=== PATIENT | male | born 1960 | race Caucasian/White ===

== ENCOUNTER 2017-09-14 15:56 | Inpatient (IN) | payer OTHER ==
[2017-09-14 17:23] VITALS: BMI 44.6
--- NOTE | 2017-09-14 18:56 | HP ---
Admission [facility] Chief Complaint: i am here for rehab Allergies/Adverse Reactions: Allergies Allergy/AdvReac Type Severity Reaction Status Date / Time shellfish derived Allergy Severe throat Verified 09/14/17 18:02 swelling No Known Drug Allergies Allergy Verified 09/14/17 18:02 History of Present Illness: 57 yo male with hx heroin, alcohol, methadone, percocet, and alcohol dependence is here seeking rehab. Completed detox at [facility] today. PMHX: Right BKA, DM II on insulin, A-fib, asthma, depression. Denies hx of black outs or seizures. Denies suicidal / homicidal ideation. Reports attempted suicide three months ago by keeping the gas stove on and was taken to [facility]. Longest period of sobriety 6 years while in nursing home. Reports since he reports hx opioid dependence for 20 years since fx ankle, both legs, and femur. Exam Limitations: Physical Impairment - Ebola screening Have you traveled outside of the country in the last 21 days: No Have you had contact with anyone from an Ebola affected area: No Have you been sick,other than usual withdrawal symptoms: No Do you have a fever: No - Review of Systems Constitutional: No Symptoms Reported EENT: reports: No Symptoms Reported Respiratory: reports: SOB with Exertion, Wheezing Cardiac: reports: See HPI GI: reports: No Symptoms Reported : reports: No Symptoms Reported Musculoskeletal: reports: See HPI Integumentary: reports: No Symptoms Reported Neuro: reports: No Symptoms reported Endocrine: reports: No Symptoms Reported Hematology: reports: See HPI Psychiatric: reports: Orientated x3, Depressed Other Systems: Reviewed and Negative Patient History - Patient Medical History Hx Anemia: No Hx Asthma: Yes (Pt is on MDI for asthma) Hx Chronic Obstructive Pulmonary Disease (COPD): No Hx Cancer: No Hx Cardiac Disorders: Yes (Pt has a hx of AFIB) Hx Congestive Heart Failure: No Hx Hypertension: Yes Hx Hypercholesterolemia: No Hx Pacemaker: No HX Cerebrovascular Accident: No Hx Seizures: No Hx Dementia: No Hx Diabetes: Yes (IDDM) Hx Gastrointestinal Disorders: Yes (GERD) Hx Liver Disease: No Hx Genitourinary Disorders: No Hx Sexually Transmitted Disorders: Yes (Syphillis 1987) Hx Renal Disease (ESRD): No Hx Thyroid Disease: No Hx Human Immunodeficiency Virus (HIV): Yes (last tested 1 year ago, declines testing todya) Hx Hepatitis C: No Hx Depression: Yes Hx Suicide Attempt: Yes (last attemppt three months ago ) Hx Schizophrenia: No - Patient Surgical History Past Surgical History: Yes Hx Neurologic Surgery: No Hx Cataract Extraction: No Hx Cardiac Surgery: No Hx Lung Surgery: No Hx Breast Surgery: No Hx Breast Biopsy: No Hx Abdominal Surgery: No Hx Appendectomy: No Hx Cholecystectomy: No Hx Genitourinary Surgery: No Hx Section: No Hx Orthopedic Surgery: Yes (RIGHT KNEE SX WITH STEEL ALEXIS; Right BKA 08/2016) Hx Hysterectomy: No Other Surgical History: MIKE FOOT SX Anesthesia Reaction: No - PPD History Previous Implant?: Yes Documented Results: Negative w/proof Date: 06/09/15 PPD to be Administered?: Yes - Reproductive History Patient is a Female of Child Bearing Age (11 -55 yrs old): No - Smoking Cessation Smoking history: Never smoked Have you smoked in the past 12 months: No Aproximately how many cigarettes per day: 0 Cigars Per Day: 0 Hx Chewing Tobacco Use: No Family Disease History - Family Disease History Family Disease History: [place]: Mother ( stomach, etoh), Sister (one ca -? type; one in [place]), Other: Father (no contact), Mother, Brother ( one - disabled at ), Son (one age 28 with back pain) Admission Physical Exam S - Vital Signs Vital Signs: Vital Signs - 24 hr 09/14/17 17:21 Temperature 98.1 F Pulse Rate 73 Respiratory 18 Rate Blood Pressure 122/71 - Physical General Appearance: Yes: No Apparent Distress, Disheveled, Obese, Anxious HEENTM: Yes: EOMI, Hearing grossly Normal, Normal ENT Inspection, Normocephalic , Normal Voice, DICKSON, Pharynx Normal, Tm's normal Respiratory: Yes: Chest Non-Tender, Lungs Clear, No Respiratory Distress, No Accessory Muscle Use, Wheezing Neck: Yes: No masses,lesions,Nodules, Trachea in good position Breast: Yes: Breast Exam Deferred Cardiology: Yes: Regular Rhythm, Regular Rate Abdominal: Yes: Normal Bowel Sounds, Non Tender, Soft, Protuberent Genitourinary: Yes: Within Normal Limits Back: Yes: Normal Inspection Musculoskeletal: Yes: Back pain, Other (unable to move left arm back r/t to injury uses a wheelchair to get around. Leg prosthesis and crutchesd to transfer to bathroom.) Extremities: Yes: Normal Capillary Refill, Normal Inspection, Non-Tender, Amputation (right BKA) Neurological: Yes: fixer boarding room II-XII NML intact, Fully Oriented, Alert, Motor Strength 5/5, Depressed Affect Integumentary: Yes: Normal Color, Warm, Moist Lymphatic: Yes: Within Normal Limits - Diagnostic (1) Opioid dependence Current Visit: Yes Status: Chronic Qualifiers: Substance use status: uncomplicated Qualified Code(s): F11.20 - Opioid dependence, uncomplicated (2) Alcohol dependence Current Visit: Yes Status: Acute Qualifiers: Substance use status: uncomplicated Qualified Code(s): F10.20 - Alcohol dependence, uncomplicated (3) Dependent for wheelchair mobility Current Visit: Yes Status: Acute (4) HTN (hypertension) Current Visit: Yes Status: Chronic Qualifiers: Hypertension type: essential hypertension Qualified Code(s): I10 - Essential (primary) hypertension Comment: on meds, followed by primary (5) Amputated below knee Current Visit: Yes Status: Chronic Qualifiers: Laterality: right Qualified Code(s): Z89.511 - Acquired absence of right leg below knee Comment: has prosthetic but does not use (6) History of atrial fibrillation Current Visit: Yes Status: Acute (7) Morbid obesity with BMI of 40.0-44.9, adult Current Visit: Yes Status: Chronic (8) Wheezing Current Visit: Yes Status: Acute (9) DM (diabetes mellitus) Current Visit: Yes Status: Chronic Qualifiers: Diabetes mellitus type: type 2 Diabetes mellitus terminal block assembler insulin use: with longterm use Diabetes mellitus complication status: without complication Qualified Code(s): E11.9 - Type 2 diabetes mellitus without complications; Z79.4 - terminal block assembler (current) use of insulin; Z79.4 - senior living ( current) use of insulin; Z79.4 - terminal block assembler (current) use of insulin; Z79.4 - terminal block assembler (current) use of insulin BHS Breath Alcohol Content Breath Alcohol Content: 0 Urine Drug Screen - Results Drug Screen Negative: No Urine Drug Screen Results: BZO-Benzodiazepines, MTD-Methadone Inpatient Rehab Admission - Initial Determination Are CD services needed?: Yes Free of communicable disease: Yes Not in need of hospitalization: Yes - Rehab Admission Criteria Previous failed treatment: Yes Poor recovery environment: Yes Comorbidities: Yes Lacks judgement: Yes Patient is meeting Inpatient Rehab admission criteria:: Yes
[2017-09-14] MEDS ORDERED: P-EPHED 60MG/TRIPROLIDI 2.5MG TABLET PO PRN (19:05)
[2017-09-14] MEDS ORDERED: MAGNESIUM CITRATE 300 ML BOTTLE PO PRN (19:05)
[2017-09-14] MEDS ORDERED: MAGNESIUM HYDROX 2400MG/30ML ORAL SUSPENSION 30 ML CUP PO PRN (19:05)
[2017-09-14] MEDS ORDERED: MENTHOL/PHENOL 1 EACH UD MM PRN (19:05)
[2017-09-14] MEDS ORDERED: guaiFENesin/D-METHORPHAN HB 10 ML UNIT-DOSE CUPS PO PRN (19:05)
[2017-09-14] MEDS ORDERED: MAG HYDROX/AL HYDROX/SIMETH 30 ML UNIT-DOSE CUP PO PRN (19:05)
[2017-09-14] MEDS ORDERED: ALBUTEROL SO4 0.083% IH SOL 2.5 MG/3 ML VIAL.NEB. NEB PRN (19:13)
[2017-09-14] MEDS ORDERED: TUBERCULIN PPD 5 TU/0.1ML VIAL ID ONE (22:06)
[2017-09-14] MEDS: GABAPENTIN 300 MG CAPSULE (FP) PO SCH (22:08)
[2017-09-14] MEDS: MELATONIN 5 MG TABLETS PO PRN (22:09)
[2017-09-14] MEDS: THIAMINE HCL 100 MG TABLET (FP) PO SCH (22:09)
[2017-09-14] MEDS: INSULIN SLIDING SCALE (NOVOLOG) 1 VIAL SQ SCH (22:15)
[2017-09-14] MEDS ORDERED: PT OWN MED DRAWER 7, Y5N ONE (22:25)
[2017-09-15] MEDS: ALBUTEROL SO4 18 GM HFA INHALER IH PRN
[2017-09-15 03:34] LABS: URINE APPEARANCE SLCLOUDY; URINE BILIRUBIN NEGATIVE (<2.0 mg/dL); URINE COLOR YELLOW; URINE GLUCOSE (UA) NEGATIVE (NEGATIVE); URINE KETONE NEGATIVE (NEGATIVE); URINE NITRITE NEGATIVE (NEGATIVE); URINE PROTEIN NEGATIVE (NEGATIVE); URINE UROBILINOGEN NEGATIVE mg/dL (0.2-1.0)
[2017-09-15 03:45] LABS: URINE LEUK ESTERASE 3+ (NEGATIVE)
[2017-09-15 03:49] LABS: EPI CELLS RARE /HPF (FEW); URINE HYALINE CAST 5 /lpf; URINE MUCUS RARE
--- NOTE | 2017-09-15 06:23 | HP ---
Psychiatrist Admission - Data Date of interview: 09/15/17 Admission source: [facility] detox Identifying data: This is the first [facility] admission for this 57 years old male, father of 2 children, unemployed on SSI, homeless Medical History: Significant for history of bronchial asthma, hypertension, atrial fibrillation, type 2 diabetes mellitus, GERD, arthritis both hands & right knee, obesity and history of orthosurgery for fracture right femur, right knee(right bka). Psychiatric History: Reports that his first psychiatric contact took place while he was in [place] [facility] in [facility]. Claims that he saw a psychiatrist there for anxiety attacks and was prescribed medication. He has no recollection of name of medication. After he was released from [place] [facility] in 1995, he saw his primary care physician who prescribed Klonopin instead which he last took till the end of 2016. Reports that in May 2017, he was admitted to [facility] for suicidal attempt by keeping the gas stove on. He was there for a couple of weeks and treated with medications. On discharge, he was referred to [facility] where he still attends. According to [employer], scripts for Escitalopram 10 mg was filled on 07/21/17 and Mirtazapine 15 mg filled on 08/11/17. At present, reports feeling depressed and sleeping poorly Physical/Sexual Abuse/Trauma History: Denies history of emotional, physical or sexual abuse as well as DV relationship. No service Additional Comment: Reports history of multiple arrsts including 3 felony conviction. Denies being on parole/probatio at present Vital Signs: Vital Signs - 24 hr 09/14/17 09/15/17 09/15/17 17:21 00:30 03:30 Temperature 98.1 F Pulse Rate 73 Respiratory 18 20 20 Rate Blood Pressure 122/71 Allergies/Adverse Reactions: Allergies Allergy/AdvReac Type Severity Reaction Status Date / Time shellfish derived Allergy Severe throat Verified 09/14/17 18:02 swelling No Known Drug Allergies Allergy Verified 09/14/17 18:02 Date of last physical exam: 09/14/17 Concur with the findings of this exam: Yes - Substance Abuse/Tx History Hx Alcohol Use: Yes Hx Substance Use: Yes Substance Use Type: Alcohol (Started drinking alcohol at age 15, consumes 2x 6pk (16oz) daily. Last drank on 09/07/17), Heroin (Started using heroin at age 56, consumes 20 bags daily. Last used on 09/07/17), Opiates (Also used percocet and vocodin) Hx Substance Use Treatment: Yes (one previous inpt detox @ [facility] & a recent inpt detox @ [facility]) Mental Status Exam - Mental Status Exam Alert and Oriented to: Time, Place, Person Cognitive Function: Fair Patient Appearance: Disheveled Mood: Depressed Affect: Appropriate Patient Behavior: Cooperative Speech Pattern: Clear Voice Loudness: Normal Thought Process: Intact, Goal Oriented Thought Disorder: Not Present Hallucinations: Denies Suicidal Ideation: Denies Homicidal Ideation: Denies Insight/Judgement: Fair Sleep: Poorly Appetite: Poor Muscle strength/Tone: Normal Gait/Station: Normal Psychiatric Findings - Problem List (Davis 1, 2,3) (1) Alcohol dependence Current Visit: Yes Status: Acute Qualifiers: Substance use status: uncomplicated Qualified Code(s): F10.20 - Alcohol dependence, uncomplicated (2) Opioid dependence Current Visit: Yes Status: Acute Qualifiers: Substance use status: uncomplicated Qualified Code(s): F11.20 - Opioid dependence, uncomplicated (3) MDD (major depressive disorder) Current Visit: Yes Status: Chronic (4) Substance induced mood disorder Current Visit: Yes Status: Acute (5) Substance-induced sleep disorder Current Visit: Yes Status: Acute (6) Dependent for wheelchair mobility Current Visit: Yes Status: Chronic (7) History of atrial fibrillation Current Visit: Yes Status: Chronic (8) Amputated below knee Current Visit: Yes Status: Chronic Qualifiers: Laterality: right Qualified Code(s): Z89.511 - Acquired absence of right leg below knee Comment: has prosthetic but does not use (9) DM (diabetes mellitus) Current Visit: Yes Status: Chronic Qualifiers: Diabetes mellitus type: type 2 Diabetes mellitus care home insulin use: with care home use Diabetes mellitus complication status: without complication Qualified Code(s): E11.9 - Type 2 diabetes mellitus without complications; Z79.4 - group home (current) use of insulin; Z79.4 - group home ( current) use of insulin; Z79.4 - intermediate manager (current) use of insulin; Z79.4 - intermediate manager (current) use of insulin (10) HTN (hypertension) Current Visit: Yes Status: Chronic Qualifiers: Hypertension type: essential hypertension Qualified Code(s): I10 - Essential (primary) hypertension Comment: on meds, followed by primary (11) Morbid obesity with BMI of 40.0-44.9, adult Current Visit: Yes Status: Chronic (12) Charcot's joint of left ankle Current Visit: No Status: Chronic Comment: wearing boot - Initial Treatment Plan Initial Treatment Plan: 1) Continue Lexapro 10 mg po daily and Remeron 15 mg po HS. 2) Start Vistaril 50 mg po Q 4hrs prn for anxiety. 3) Monitor progress
[2017-09-15] MEDS: ACETAMINOPHEN 325 MG TABLET (FP) PO PRN ×2 (06:28→21:17)
[2017-09-15] MEDS: GABAPENTIN 300 MG CAPSULE (FP) PO SCH ×3 (06:28→21:17)
[2017-09-15] MEDS: INSULIN (LEVEMIR) 100 UNITS/ML UNITS SQ SCH (07:43)
[2017-09-15] MEDS: INSULIN SLIDING SCALE (NOVOLOG) 1 VIAL SQ SCH ×3 (07:44→17:15)
[2017-09-15] MEDS ORDERED: INSULIN (NOVOLOG) ASPART 100 UNITS/ML 10ML VIAL ONE ×3 (07:45→17:02)
[2017-09-15] MEDS: PANTOPRAZOLE 40 MG TABLET (FP) PO SCH (09:54)
[2017-09-15] MEDS: RAMIPRIL 5 MG CAPSULE (FP) PO SCH (09:54)
[2017-09-15] MEDS: PRENATAL VITAMINS W/ FOLIC ACID TABLET (FP) PO SCH (09:54)
[2017-09-15 10:06] LABS: HEMATOCRIT 36.2 % (35.4-49); HEMOGLOBIN 11.9 GM/dL (11.7-16.9); MCH 28.8 pg (25.7-33.7); MCHC 32.9 g/dl (32.0-35.9); MEAN CELL VOLUME 87.6 fl (80-96); PLATELET COUNT 315 K/MM3 (134-434); RBC 4.14 M/mm3 (4.00-5.60); RDW 15.8 % (11.9-15.9); WHITE BLOOD COUNT 7.6 K/mm3 (4.0-10.0)
--- NOTE | 2017-09-15 10:24 | EKG ---
Test Reason : Blood Pressure : / mmHG Vent. Rate : 073 BPM Atrial Rate : 073 BPM P-R Int : 170 ms QRS Dur : 094 ms QT Int : 394 ms P-R-T Axes : -05 032 016 degrees QTc Int : 434 ms NORMAL SINUS RHYTHM NORMAL ECG WHEN COMPARED WITH ECG OF 31-JAN-2016 09:23, NO SIGNIFICANT CHANGE WAS FOUND Confirmed by MD CHILO, SAHIL ([id number]) on 09/15/2017 10:24:24 AM Referred By: Confirmed By:SAHIL WOO MD
[2017-09-15 10:25] LABS: INR 2.32 (0.82-1.09); PROTHROMBIN TIME (PATIENT) 26.2 SEC (9.7-13.0)
[2017-09-15 11:10] LABS: ALBUMIN 3.2 g/dl (3.4-5.0); CALCIUM 8.7 mg/dL (8.5-10.1); CHLORIDE 103 mmol/L (98-107); POTASSIUM 4.5 mmol/L (3.5-5.1); SODIUM 140 mmol/L (136-145)
[2017-09-15 11:13] LABS: ALK PHOS 110 U/L (45-117); ANION GAP 5 (8-16); BILIRUBIN,TOTAL 0.2 mg/dL (0.2-1.0); BLOOD UREA NITROGEN 14 mg/dL (7-18); CO2 32 mmol/L (21-32); CREATININE 1.2 mg/dL (0.7-1.3); GLUCOSE,RANDOM 223 mg/dL (74-106); SGOT/AST 12 U/L (15-37); SGPT/ALT 13 U/L (12-78); TOT PROT 7.4 g/dl (6.4-8.2)
[2017-09-15] MEDS: ESCITALOPRAM OXALATE 10 MG TABLET (FP) PO SCH (16:09)
[2017-09-15] MEDS: amLODIPine BESYLATE 5 MG TABLET (FP) PO SCH (17:11)
[2017-09-15] MEDS: WARFARIN NA 10 MG TABLET (FP) PO SCH (17:11)
[2017-09-15] MEDS: THIAMINE HCL 100 MG TABLET (FP) PO SCH (21:17)
[2017-09-15] MEDS: MELATONIN 5 MG TABLETS PO PRN (21:17)
[2017-09-15] MEDS: MIRTAZAPINE 15 MG TABLET (FP) PO SCH (21:19)
[2017-09-16] MEDS: ALBUTEROL SO4 18 GM HFA INHALER IH PRN (00:34)
[2017-09-16] MEDS: IBUPROFEN 400 MG TABLET (FP) PO PRN ×3 (00:35→21:22)
[2017-09-16] MEDS: GABAPENTIN 300 MG CAPSULE (FP) PO SCH ×3 (06:05→21:23)
[2017-09-16] MEDS: ACETAMINOPHEN 325 MG TABLET (FP) PO PRN ×2 (06:06→17:58)
[2017-09-16] MEDS: INSULIN SLIDING SCALE (NOVOLOG) 1 VIAL SQ SCH ×3 (07:05→17:02)
[2017-09-16] MEDS: INSULIN (LEVEMIR) 100 UNITS/ML UNITS SQ SCH (07:42)
[2017-09-16] MEDS: RAMIPRIL 5 MG CAPSULE (FP) PO SCH (10:02)
[2017-09-16] MEDS: PANTOPRAZOLE 40 MG TABLET (FP) PO SCH (10:02)
[2017-09-16] MEDS: ESCITALOPRAM OXALATE 10 MG TABLET (FP) PO SCH (10:02)
[2017-09-16] MEDS: PRENATAL VITAMINS W/ FOLIC ACID TABLET (FP) PO SCH (10:02)
[2017-09-16] MEDS: amLODIPine BESYLATE 5 MG TABLET (FP) PO SCH (10:03)
[2017-09-16] MEDS ORDERED: INSULIN (NOVOLOG) ASPART 100 UNITS/ML 10ML VIAL ONE ×2 (11:42→17:15)
[2017-09-16] MEDS: WARFARIN NA 10 MG TABLET (FP) PO SCH (17:00)
[2017-09-16] MEDS: MIRTAZAPINE 15 MG TABLET (FP) PO SCH (21:23)
[2017-09-16] MEDS: MELATONIN 5 MG TABLETS PO PRN (21:23)
[2017-09-16] MEDS: THIAMINE HCL 100 MG TABLET (FP) PO SCH (21:24)
[2017-09-17] MEDS: GABAPENTIN 300 MG CAPSULE (FP) PO SCH ×3 (06:06→21:18)
[2017-09-17] MEDS: ACETAMINOPHEN 325 MG TABLET (FP) PO PRN ×2 (06:09→10:41)
[2017-09-17] MEDS ORDERED: INSULIN (LEVEMIR) 100 UNITS/ML UNITS SQ ONE (06:52)
[2017-09-17] MEDS ORDERED: INSULIN (NOVOLOG) ASPART 100 UNITS/ML 10ML VIAL ONE ×3 (06:52→16:56)
[2017-09-17] MEDS: INSULIN (LEVEMIR) 100 UNITS/ML UNITS SQ SCH (07:39)
[2017-09-17] MEDS: INSULIN SLIDING SCALE (NOVOLOG) 1 VIAL SQ SCH ×3 (07:39→16:54)
[2017-09-17 10:33] LABS: INR 2.78 (0.82-1.09); PROTHROMBIN TIME (PATIENT) 31.4 SEC (9.7-13.0)
[2017-09-17] MEDS: PANTOPRAZOLE 40 MG TABLET (FP) PO SCH (10:38)
[2017-09-17] MEDS: ESCITALOPRAM OXALATE 10 MG TABLET (FP) PO SCH (10:38)
[2017-09-17] MEDS: amLODIPine BESYLATE 5 MG TABLET (FP) PO SCH (10:38)
[2017-09-17] MEDS: PRENATAL VITAMINS W/ FOLIC ACID TABLET (FP) PO SCH (10:38)
[2017-09-17] MEDS: RAMIPRIL 5 MG CAPSULE (FP) PO SCH (10:38)
--- NOTE | 2017-09-17 14:21 | PN ---
[facility] Progress Note Note: Patient c/o of chronic pain on both hands and feet, no trauma. Vital Signs Temperature 97.5 F L 09/17/17 06:49 Pulse Rate 78 09/17/17 10:00 Respiratory Rate 19 09/17/17 10:00 Blood Pressure 133/67 09/17/17 10:00 O2 Sat by Pulse Oximetry (%) Laboratory Last Values WBC 7.6 K/mm3 (4.0-10.0) 09/15/17 07:30 RBC 4.14 M/mm3 (4.00-5.60) 09/15/17 07:30 Hgb 11.9 GM/dL (11.7-16.9) 09/15/17 07:30 Hct 36.2 % (35.4-49) 09/15/17 07:30 MCV 87.6 fl (80-96) 09/15/17 07:30 MCH 28.8 pg (25.7-33.7) 09/15/17 07:30 MCHC 32.9 g/dl (32.0-35.9) 09/15/17 07:30 RDW 15.8 % (11.9-15.9) D 09/15/17 07:30 Plt Count 315 K/MM3 (134-434) 09/15/17 07:30 MPV 8.0 fl (7.5-11.1) 09/15/17 07:30 PT with INR 31.40 SEC (9.7-13.0) H 09/17/17 07:00 INR 2.78 (0.82-1.09) H 09/17/17 07:00 Sodium 140 mmol/L (136-145) 09/15/17 07:30 Potassium 4.5 mmol/L (3.5-5.1) 09/15/17 07:30 Chloride 103 mmol/L (98-107) 09/15/17 07:30 Carbon Dioxide 32 mmol/L (21-32) 09/15/17 07:30 Anion Gap 5 (8-16) L 09/15/17 07:30 BUN 14 mg/dL (7-18) D 09/15/17 07:30 Creatinine 1.2 mg/dL (0.7-1.3) 09/15/17 07:30 Creat Clearance w eGFR > 60 (>60) 09/15/17 07:30 POC Glucometer 337 UNITS (80-120) 09/15/17 21:15 Random Glucose 223 mg/dL (74-106) H 09/15/17 07:30 Calcium 8.7 mg/dL (8.5-10.1) 09/15/17 07:30 Total Bilirubin 0.2 mg/dL (0.2-1.0) D 09/15/17 07:30 AST 12 U/L (15-37) L 09/15/17 07:30 ALT 13 U/L (12-78) 09/15/17 07:30 Alkaline Phosphatase 110 U/L (45-117) D 09/15/17 07:30 Total Protein 7.4 g/dl (6.4-8.2) 09/15/17 07:30 Albumin 3.2 g/dl (3.4-5.0) L 09/15/17 07:30 Urine Color Yellow 09/14/17 22:40 Urine Appearance Slcloudy 09/14/17 22:40 Urine pH 7.0 (5.0-8.0) D 09/14/17 22:40 Ur Specific [place] 1.008 (1.001-1.035) 09/14/17 22:40 Urine Protein Negative (NEGATIVE) 09/14/17 22:40 Urine Glucose (UA) Negative (NEGATIVE) 09/14/17 22:40 Urine Ketones Negative (NEGATIVE) 09/14/17 22:40 Urine Blood Negative (NEGATIVE) 09/14/17 22:40 Urine Nitrite Negative (NEGATIVE) 09/14/17 22:40 Urine Bilirubin Negative (<2.0 mg/dL) 09/14/17 22:40 Urine Urobilinogen Negative mg/dL (0.2-1.0) 09/14/17 22:40 Ur Leukocyte Esterase 3+ (NEGATIVE) H 09/14/17 22:40 Urine WBC (Auto) 67 /hpf (3-5) 09/14/17 22:40 Urine RBC (Auto) None /hpf (0-3) 09/14/17 22:40 Ur Epithelial Cells Rare /HPF (FEW) 09/14/17 22:40 Hyaline Casts 5 /lpf 09/14/17 22:40 Urine Mucus Rare 09/14/17 22:40 RPR Titer Nonreactive (NONREACTIVE) 09/15/17 07:30 Plan: Continue neurontin 600mg TID Continue Ibuprofen 400mg q6h Continue to monitor
[2017-09-17] MEDS ORDERED: TIZANIDINE HCL 2 MG TABLET PO PRN (14:46)
[2017-09-17] MEDS: IBUPROFEN 400 MG TABLET (FP) PO PRN (14:48)
[2017-09-17] MEDS: LIDOCAINE 5% TOPICAL PATCH TP SCH (16:52)
[2017-09-17] MEDS: WARFARIN NA 10 MG TABLET (FP) PO SCH (17:01)
[2017-09-17] MEDS: MELATONIN 5 MG TABLETS PO PRN (21:18)
[2017-09-17] MEDS: THIAMINE HCL 100 MG TABLET (FP) PO SCH (21:18)
[2017-09-17] MEDS: MIRTAZAPINE 15 MG TABLET (FP) PO SCH (21:18)
[2017-09-17] MEDS: LIDOCAINE PATCH REMOVAL MC SCH (21:20)
[2017-09-17] MEDS: URSODIOL 300 MG CAPSULE PO SCH (22:05)
[2017-09-17] MEDS: ALBUTEROL SO4 18 GM HFA INHALER IH PRN (22:59)
[2017-09-18] MEDS: GABAPENTIN 300 MG CAPSULE (FP) PO SCH ×3 (06:20→21:23)
[2017-09-18] MEDS ORDERED: INSULIN (NOVOLOG) ASPART 100 UNITS/ML 10ML VIAL ONE ×3 (06:51→17:07)
[2017-09-18] MEDS: INSULIN SLIDING SCALE (NOVOLOG) 1 VIAL SQ SCH ×3 (07:49→17:03)
[2017-09-18] MEDS: INSULIN (LEVEMIR) 100 UNITS/ML UNITS SQ SCH (07:49)
[2017-09-18] MEDS: RAMIPRIL 5 MG CAPSULE (FP) PO SCH (09:10)
[2017-09-18] MEDS: PRENATAL VITAMINS W/ FOLIC ACID TABLET (FP) PO SCH (09:10)
[2017-09-18] MEDS: PANTOPRAZOLE 40 MG TABLET (FP) PO SCH (09:10)
[2017-09-18] MEDS: ESCITALOPRAM OXALATE 10 MG TABLET (FP) PO SCH (09:10)
[2017-09-18] MEDS: amLODIPine BESYLATE 5 MG TABLET (FP) PO SCH (09:11)
[2017-09-18] MEDS: URSODIOL 300 MG CAPSULE PO SCH ×2 (09:11→21:23)
[2017-09-18] MEDS: LIDOCAINE 5% TOPICAL PATCH TP SCH (09:11)
[2017-09-18] MEDS: FOLIC ACID 1 MG TABLET (FP) PO SCH (09:12)
[2017-09-18] MEDS ORDERED: PT OWN MED DRAWER 7, Y5N ONE ×2 (09:13→16:28)
[2017-09-18] MEDS: ZINC SULFATE 220 MG CAPSULE (FP) PO SCH (09:13)
[2017-09-18] MEDS: IBUPROFEN 400 MG TABLET (FP) PO PRN ×2 (09:14→21:25)
[2017-09-18] MEDS: WARFARIN NA 10 MG TABLET (FP) PO SCH (17:02)
[2017-09-18] MEDS: THIAMINE HCL 100 MG TABLET (FP) PO SCH (21:23)
[2017-09-18] MEDS: MIRTAZAPINE 15 MG TABLET (FP) PO SCH (21:23)
[2017-09-18] MEDS: MELATONIN 5 MG TABLETS PO PRN (21:23)
[2017-09-18] MEDS: LIDOCAINE PATCH REMOVAL MC SCH (21:24)
[2017-09-19] MEDS: ALBUTEROL SO4 18 GM HFA INHALER IH PRN ×2 (00:13→22:46)
[2017-09-19] MEDS: GABAPENTIN 300 MG CAPSULE (FP) PO SCH ×3 (06:22→21:22)
[2017-09-19] MEDS: IBUPROFEN 400 MG TABLET (FP) PO PRN ×2 (06:23→21:22)
[2017-09-19] MEDS: INSULIN SLIDING SCALE (NOVOLOG) 1 VIAL SQ SCH ×3 (07:32→16:56)
[2017-09-19] MEDS: INSULIN (LEVEMIR) 100 UNITS/ML UNITS SQ SCH (07:52)
[2017-09-19] MEDS ORDERED: INSULIN (NOVOLOG) ASPART 100 UNITS/ML 10ML VIAL ONE ×3 (07:53→16:57)
[2017-09-19] MEDS: amLODIPine BESYLATE 5 MG TABLET (FP) PO SCH (09:56)
[2017-09-19] MEDS: RAMIPRIL 5 MG CAPSULE (FP) PO SCH (09:56)
[2017-09-19] MEDS: ESCITALOPRAM OXALATE 10 MG TABLET (FP) PO SCH (09:56)
[2017-09-19] MEDS: FOLIC ACID 1 MG TABLET (FP) PO SCH (09:57)
[2017-09-19] MEDS: PANTOPRAZOLE 40 MG TABLET (FP) PO SCH (09:57)
[2017-09-19] MEDS: URSODIOL 300 MG CAPSULE PO SCH ×2 (09:57→21:22)
[2017-09-19] MEDS: ZINC SULFATE 220 MG CAPSULE (FP) PO SCH (09:58)
[2017-09-19] MEDS: LIDOCAINE 5% TOPICAL PATCH TP SCH (09:58)
[2017-09-19] MEDS: PRENATAL VITAMINS W/ FOLIC ACID TABLET (FP) PO SCH (09:59)
[2017-09-19] MEDS: WARFARIN NA 10 MG TABLET (FP) PO SCH (16:59)
[2017-09-19] MEDS ORDERED: PT OWN MED DRAWER 7, Y5N ONE ×2 (20:16→22:45)
[2017-09-19] MEDS: MELATONIN 5 MG TABLETS PO PRN (21:22)
[2017-09-19] MEDS: THIAMINE HCL 100 MG TABLET (FP) PO SCH (21:22)
[2017-09-19] MEDS: MIRTAZAPINE 15 MG TABLET (FP) PO SCH (21:22)
[2017-09-19] MEDS: LIDOCAINE PATCH REMOVAL MC SCH (21:56)
[2017-09-20] MEDS: IBUPROFEN 400 MG TABLET (FP) PO PRN (06:17)
[2017-09-20] MEDS: GABAPENTIN 300 MG CAPSULE (FP) PO SCH ×3 (06:17→21:18)
[2017-09-20] MEDS ORDERED: INSULIN (NOVOLOG) ASPART 100 UNITS/ML 10ML VIAL ONE ×3 (07:16→18:01)
[2017-09-20] MEDS: INSULIN (LEVEMIR) 100 UNITS/ML UNITS SQ SCH (07:44)
[2017-09-20] MEDS: INSULIN SLIDING SCALE (NOVOLOG) 1 VIAL SQ SCH ×3 (07:45→17:31)
[2017-09-20] MEDS: ESCITALOPRAM OXALATE 10 MG TABLET (FP) PO SCH (10:25)
[2017-09-20] MEDS: URSODIOL 300 MG CAPSULE PO SCH ×2 (10:26→21:18)
[2017-09-20] MEDS: ZINC SULFATE 220 MG CAPSULE (FP) PO SCH (10:26)
[2017-09-20] MEDS: amLODIPine BESYLATE 5 MG TABLET (FP) PO SCH (10:26)
[2017-09-20] MEDS: PANTOPRAZOLE 40 MG TABLET (FP) PO SCH (10:26)
[2017-09-20] MEDS: PRENATAL VITAMINS W/ FOLIC ACID TABLET (FP) PO SCH (10:26)
[2017-09-20] MEDS: RAMIPRIL 5 MG CAPSULE (FP) PO SCH (10:26)
[2017-09-20] MEDS: FOLIC ACID 1 MG TABLET (FP) PO SCH (10:26)
[2017-09-20] MEDS: LIDOCAINE 5% TOPICAL PATCH TP SCH (10:27)
[2017-09-20] MEDS: WARFARIN NA 10 MG TABLET (FP) PO SCH (17:31)
[2017-09-20] MEDS: THIAMINE HCL 100 MG TABLET (FP) PO SCH (21:17)
[2017-09-20] MEDS: ACETAMINOPHEN 325 MG TABLET (FP) PO PRN (21:18)
[2017-09-20] MEDS: MIRTAZAPINE 15 MG TABLET (FP) PO SCH (21:18)
[2017-09-20] MEDS: MELATONIN 5 MG TABLETS PO PRN (21:18)
[2017-09-20] MEDS: LIDOCAINE PATCH REMOVAL MC SCH (21:54)
[2017-09-21] MEDS: GABAPENTIN 300 MG CAPSULE (FP) PO SCH ×3 (06:23→21:18)
[2017-09-21] MEDS ORDERED: INSULIN (NOVOLOG) ASPART 100 UNITS/ML 10ML VIAL ONE ×3 (06:34→16:56)
[2017-09-21] MEDS: INSULIN SLIDING SCALE (NOVOLOG) 1 VIAL SQ SCH ×3 (07:33→16:55)
[2017-09-21] MEDS: INSULIN (LEVEMIR) 100 UNITS/ML UNITS SQ SCH (07:33)
[2017-09-21] MEDS: FOLIC ACID 1 MG TABLET (FP) PO SCH (09:55)
[2017-09-21] MEDS: PANTOPRAZOLE 40 MG TABLET (FP) PO SCH (09:55)
[2017-09-21] MEDS: URSODIOL 300 MG CAPSULE PO SCH ×2 (09:55→21:19)
[2017-09-21] MEDS: ESCITALOPRAM OXALATE 10 MG TABLET (FP) PO SCH (09:55)
[2017-09-21] MEDS: PRENATAL VITAMINS W/ FOLIC ACID TABLET (FP) PO SCH (09:55)
[2017-09-21] MEDS: LIDOCAINE 5% TOPICAL PATCH TP SCH (09:56)
[2017-09-21] MEDS: amLODIPine BESYLATE 5 MG TABLET (FP) PO SCH (09:56)
[2017-09-21] MEDS: ZINC SULFATE 220 MG CAPSULE (FP) PO SCH (09:56)
[2017-09-21] MEDS: RAMIPRIL 5 MG CAPSULE (FP) PO SCH (09:56)
--- NOTE | 2017-09-21 10:37 | PN ---
[facility] Progress Note Note: Patient presents with headache, body aches and muscle pain. Has history of heroin and opiod dependence. Completed detox last week. Vital Signs Temperature 97.6 F 09/21/17 07:02 Pulse Rate 65 09/21/17 07:02 Respiratory Rate 18 09/21/17 07:02 Blood Pressure 150/75 09/21/17 07:02 O2 Sat by Pulse Oximetry (%) Laboratory Tests 09/14/17 09/14/17 09/15/17 22:00 22:40 06:27 WBC RBC Hgb Hct MCV MCH MCHC RDW Plt Count MPV PT with INR INR Sodium Potassium Chloride Carbon Dioxide Anion Gap BUN Creatinine Creat Clearance w eGFR POC Glucometer 156 157 Random Glucose Calcium Total Bilirubin AST ALT Alkaline Phosphatase Obj Total Protein Albumin Urine Color Yellow Urine Appearance Slcloudy Urine pH 7.0 D Ur Specific [place] 1.008 Urine Protein Negative Urine Glucose (UA) Negative Urine Ketones Negative Urine Blood Negative Urine Nitrite Negative Urine Bilirubin Negative Urine Urobilinogen Negative Ur Leukocyte Esterase 3+ H Urine WBC (Auto) 67 Urine RBC (Auto) None Ur Epithelial Cells Rare Hyaline Casts 5 Urine Mucus Rare RPR Titer 09/15/17 09/15/17 09/15/17 07:30 07:30 07:30 WBC 7.6 RBC 4.14 Hgb 11.9 Hct 36.2 MCV 87.6 MCH 28.8 MCHC 32.9 RDW 15.8 D Plt Count 315 MPV 8.0 PT with INR INR Sodium 140 Potassium 4.5 Chloride 103 Carbon Dioxide 32 Anion Gap 5 L BUN 14 D Creatinine 1.2 Creat Clearance w eGFR > 60 POC Glucometer Random Glucose 223 H Calcium 8.7 Total Bilirubin 0.2 D AST 12 L ALT 13 Alkaline Phosphatase 110 D Total Protein 7.4 Albumin 3.2 L Urine Color Urine Appearance Urine pH Ur Specific [place] Urine Protein Urine Glucose (UA) Urine Ketones Urine Blood Urine Nitrite Urine Bilirubin Urine Urobilinogen Ur Leukocyte Esterase Urine WBC (Auto) Urine RBC (Auto) Ur Epithelial Cells Hyaline Casts Urine Mucus RPR Titer Nonreactive 09/15/17 09/15/17 09/15/17 07:30 11:47 16:51 WBC RBC Hgb Hct MCV MCH MCHC RDW Plt Count MPV PT with INR 26.20 H INR 2.32 H D Sodium Potassium Chloride Carbon Dioxide Anion Gap BUN Creatinine Creat Clearance w eGFR POC Glucometer 223 206 Random Glucose Calcium Total Bilirubin AST ALT Alkaline Phosphatase Total Protein Albumin Urine Color Urine Appearance Urine pH Ur Specific [place] Urine Protein Urine Glucose (UA) Urine Ketones Urine Blood Urine Nitrite Urine Bilirubin Urine Urobilinogen Ur Leukocyte Esterase Urine WBC (Auto) Urine RBC (Auto) Ur Epithelial Cells Hyaline Casts Urine Mucus RPR Titer 09/15/17 09/16/17 09/16/17 21:15 06:05 11:40 WBC RBC Hgb Hct MCV MCH MCHC RDW Plt Count MPV PT with INR INR Sodium Potassium Chloride Carbon Dioxide Anion Gap BUN Creatinine Creat Clearance w eGFR POC Glucometer 337 136 183 Random Glucose Calcium Total Bilirubin AST ALT Alkaline Phosphatase Total Protein Albumin Urine Color Urine Appearance Urine pH Ur Specific [place] Urine Protein Urine Glucose (UA) Urine Ketones Urine Blood Urine Nitrite Urine Bilirubin Urine Urobilinogen Ur Leukocyte Esterase Urine WBC (Auto) Urine RBC (Auto) Ur Epithelial Cells Hyaline Casts Urine Mucus RPR Titer 09/16/17 09/17/17 09/17/17 16:56 06:07 07:00 WBC RBC Hgb Hct MCV MCH MCHC RDW Plt Count MPV PT with INR 31.40 H INR 2.78 H Sodium Potassium Chloride Carbon Dioxide Anion Gap BUN Creatinine Creat Clearance w eGFR POC Glucometer 285 193 Random Glucose Calcium Total Bilirubin AST ALT Alkaline Phosphatase Total Protein Albumin Urine Color Urine Appearance Urine pH Ur Specific [place] Urine Protein Urine Glucose (UA) Urine Ketones Urine Blood Urine Nitrite Urine Bilirubin Urine Urobilinogen Ur Leukocyte Esterase Urine WBC (Auto) Urine RBC (Auto) Ur Epithelial Cells Hyaline Casts Urine Mucus RPR Titer 09/17/17 09/17/17 09/18/17 11:55 16:53 06:20 WBC RBC Hgb Hct MCV MCH MCHC RDW Plt Count MPV PT with INR INR Sodium Potassium Chloride Carbon Dioxide Anion Gap BUN Creatinine Creat Clearance w eGFR POC Glucometer 272 191 213 Random Glucose Calcium Total Bilirubin AST ALT Alkaline Phosphatase Total Protein Albumin Urine Color Urine Appearance Urine pH Ur Specific [place] Urine Protein Urine Glucose (UA) Urine Ketones Urine Blood Urine Nitrite Urine Bilirubin Urine Urobilinogen Ur Leukocyte Esterase Urine WBC (Auto) Urine RBC (Auto) Ur Epithelial Cells Hyaline Casts Urine Mucus RPR Titer 09/18/17 09/18/17 09/19/17 11:57 16:51 06:20 WBC RBC Hgb Hct MCV MCH MCHC RDW Plt Count MPV PT with INR INR Sodium Potassium Chloride Carbon Dioxide Anion Gap BUN Creatinine Creat Clearance w eGFR POC Glucometer 285 208 181 Random Glucose Calcium Total Bilirubin AST ALT Alkaline Phosphatase Total Protein Albumin Urine Color Urine Appearance Urine pH Ur Specific [place] Urine Protein Urine Glucose (UA) Urine Ketones Urine Blood Urine Nitrite Urine Bilirubin Urine Urobilinogen Ur Leukocyte Esterase Urine WBC (Auto) Urine RBC (Auto) Ur Epithelial Cells Hyaline Casts Urine Mucus RPR Titer 09/19/17 09/19/17 11:41 16:49 WBC RBC Hgb Hct MCV MCH MCHC RDW Plt Count MPV PT with INR INR Sodium Potassium Chloride Carbon Dioxide Anion Gap BUN Creatinine Creat Clearance w eGFR POC Glucometer 302 216 Random Glucose Calcium Total Bilirubin AST ALT Alkaline Phosphatase Total Protein Albumin Urine Color Urine Appearance Urine pH Ur Specific [place] Urine Protein Urine Glucose (UA) Urine Ketones Urine Blood Urine Nitrite Urine Bilirubin Urine Urobilinogen Ur Leukocyte Esterase Urine WBC (Auto) Urine RBC (Auto) Ur Epithelial Cells Hyaline Casts Urine Mucus RPR Titer Obj: General: Pt alert and oriented. In no acute distress. In wheelchair. Complains of generalized body aches, level 5/10 and headaches, severity of headache 3/10. Skin: warm and dry. Intact Ext: R BKA, LLE without edema Neuro: CN 1-X11 grossly intact, no lethargy or confusion noted. A/P: Withdrawal symptoms Continue to provide supportive care with Tylenol and Lidoderm patches continue to monitor clinically
[2017-09-21 11:18] LABS: INR 2.44 (0.82-1.09); PROTHROMBIN TIME (PATIENT) 27.6 SEC (9.7-13.0)
[2017-09-21] MEDS: WARFARIN NA 10 MG TABLET (FP) PO SCH (17:39)
[2017-09-21] MEDS: ALBUTEROL SO4 18 GM HFA INHALER IH PRN (21:17)
[2017-09-21] MEDS: ACETAMINOPHEN 325 MG TABLET (FP) PO PRN (21:18)
[2017-09-21] MEDS: THIAMINE HCL 100 MG TABLET (FP) PO SCH (21:18)
[2017-09-21] MEDS: MIRTAZAPINE 15 MG TABLET (FP) PO SCH (21:19)
[2017-09-21] MEDS: MELATONIN 5 MG TABLETS PO PRN (21:19)
[2017-09-21] MEDS: LIDOCAINE PATCH REMOVAL MC SCH (21:20)
[2017-09-22] MEDS: GABAPENTIN 300 MG CAPSULE (FP) PO SCH ×3 (06:11→21:23)
[2017-09-22] MEDS ORDERED: ALBUTEROL SO4 0.083% IH SOL 2.5 MG/3 ML VIAL.NEB. NEB PRN (07:12)
[2017-09-22] MEDS ORDERED: INSULIN (NOVOLOG) ASPART 100 UNITS/ML 10ML VIAL ONE ×3 (07:20→17:12)
[2017-09-22] MEDS: INSULIN (LEVEMIR) 100 UNITS/ML UNITS SQ SCH (07:38)
[2017-09-22] MEDS: INSULIN SLIDING SCALE (NOVOLOG) 1 VIAL SQ SCH ×3 (07:38→17:08)
--- NOTE | 2017-09-22 09:39 | PN ---
Psychiatric Progress Note Vital Signs: Vital Signs Period Temp Pulse Resp BP Sys/Gonzalez Pulse Ox Last 24 Hr 98 F 60 18-18 142/71 Date of Session: 09/22/17 Chief Complaint:: " I feel depressed " HPI: Patient addressing Alcohol and Opioid Dependence comorbid with MDD and Substance-Induced Sleep Disorder ROS: AFib, HTN, DM, Morbid Obesity, BKA Current Medications: Active Medications Generic Name Dose Route Start Last Admin Trade Name Freq PRN Reason Stop Dose Admin Acetaminophen 650 mg 09/14/17 19:05 09/21/17 21:18 Tylenol - PO 650 mg Q4H PRN Administration FEVER Al Hydroxide/Mg Hydroxide 30 ml 09/14/17 19:05 Mylanta Oral Suspension - PO Q6H PRN DYSPEPSIA Albuterol Sulfate 1 puff 09/14/17 19:16 09/21/17 21:17 Ventolin Hfa Inhaler - IH 1 puff Q4H PRN Administration WHEEZING Albuterol Sulfate 1 amp 09/22/17 07:12 Ventolin 0.083% Nebulizer Soln - NEB Q4H PRN SHORT OF BREATH/WHEEZING Amlodipine Besylate 5 mg 09/15/17 17:00 09/21/17 09:56 Norvasc - PO 5 mg DAILY BERENICE Administration Escitalopram Oxalate 20 mg 09/22/17 10:00 Lexapro - PO DAILY BERENICE Eucalyptus/Menthol/Phenol/Sorbitol 1 each 09/14/17 19:05 Cepastat Lozenge - MM Q4H PRN SORE THROAT Folic Acid 1 mg 09/18/17 10:00 09/21/17 09:55 Folic Acid - PO 1 mg DAILY BERENICE Administration Gabapentin 600 mg 09/14/17 22:00 09/22/17 06:11 Neurontin - PO 600 mg TID BERENICE Administration Guaifenesin 10 ml 09/14/17 19:05 Robitussin Dm - PO Q6H PRN COUGH Insulin Aspart 1 vial 09/14/17 19:30 09/22/17 07:38 Novolog Vial Sliding Scale - SQ 4 units TIDAC BERENICE Administration Protocol Insulin Detemir 30 units 09/15/17 07:00 09/22/17 07:38 Levemir Vial SQ 30 units DAILY@0700 BERENICE Administration Lidocaine 1 patch 09/17/17 15:00 09/21/17 09:56 Lidoderm Patch - TP 1 patch DAILY BERENICE Administration Loperamide HCl 4 mg 09/14/17 19:05 Imodium - PO Q6H PRN DIARRHEA Magnesium Citrate 300 ml 09/14/17 19:05 Citroma - PO Q48H PRN CONSTIPATION Magnesium Hydroxide 30 ml 09/14/17 19:05 Milk Of Magnesia - PO DAILY PRN CONSTIPATION Melatonin 5 mg 09/14/17 22:00 09/21/17 21:19 Melatonin PO 5 mg HS PRN Administration INSOMNIA Metoprolol Succinate 50 mg 09/15/17 10:00 09/21/17 09:55 Toprol Xl - PO 50 mg DAILY BERENICE Administration Mirtazapine 15 mg 09/15/17 22:00 09/21/17 21:19 Remeron - PO 15 mg HS BERENICE Administration Miscellaneous 1 each 09/17/17 22:00 09/21/17 21:20 Lidoderm Patch Removal MC 1 each DAILY@2200 BERENICE Administration Pantoprazole Sodium 40 mg 09/15/17 10:00 09/21/17 09:55 Protonix - PO 40 mg DAILY BERENICE Administration Multivit/Folic Acid/Iron 1 tab 09/15/17 10:00 09/21/17 09:55 Vitamins (Sjr) - PO 1 tab DAILY BERENICE Administration Pseudoephedrine/Triprolidine 1 combo 09/14/17 19:05 Actifed - PO TID PRN NASAL CONGESTION Ramipril 5 mg 09/15/17 10:00 09/21/17 09:56 Altace - PO 5 mg DAILY BERENICE Administration Suvorexant 10 mg 09/22/17 22:00 Belsomra PO HS PRN INSOMNIA Thiamine HCl 100 mg 09/14/17 22:00 09/21/17 21:18 Vitamin B1 - PO 100 mg HS BERENICE Administration Tizanidine HCl 2 mg 09/17/17 14:46 Tizanidine Hcl PO Q8H PRN MUSCLE SPASMS Ursodiol 300 mg 09/17/17 22:00 09/21/17 21:19 Actigal - PO 300 mg BID BERENICE Administration Warfarin Sodium 10 mg 09/20/17 18:00 09/21/17 17:39 Coumadin - PO 10 mg DAILY@1800 BERENICE Administration Zinc Sulfate 220 mg 09/18/17 10:00 09/21/17 09:56 Orazinc - PO 220 mg DAILY BERENICE Administration Current Side Effect: No Lab tests ordered: Yes Lab tests reviewed: Yes Provider note:: Requested to see patient by nursing staff that reported during morning meeting that patient seems to be depressed. Patient interviewed today. He acknowledged feeling depressed on account of homeless and his mistreatment by staff because of his physical limitation. Told filing writer that due to physical limitation, he cannot wipe himself after defacating and he cannot get help for that task. He said that one nurse told:" Don't ask my staff to clean your ass". He said that he injured his right shoulder and due to limitation of range of motion of that shoulder. it is very difficult for him to clean himself. He said that:" I'm in the hospital and I thought that there were not supposed to help me if I need help ". He said that a roomate helped me cleaning himself once. He also added:" If someone inspected that area of my body, they will see how dirty it is " He also mentioned sleeping poorly despite taking Remeron 15 mg at bedtime. Total face to face time:: 20 Mental Status Exam - Mental Status Exam Alert and Oriented to: Time, Place, Person Cognitive Function: Fair Patient Appearance: Disheveled Mood: Depressed Affect: Appropriate Patient Behavior: Cooperative Speech Pattern: Clear Voice Loudness: Normal Thought Process: Intact, Goal Oriented Thought Disorder: Not Present Hallucinations: Denies Suicidal Ideation: Denies Homicidal Ideation: Denies Insight/Judgement: Fair Sleep: Poorly Appetite: Good Muscle strength/Tone: Normal Gait/Station: Other (uses wheelchair as ambulatory aid) Psychiatric Treatment Plan - Problem List (1) Alcohol dependence Current Visit: Yes Qualifiers: Substance use status: uncomplicated Qualified Code(s): F10.20 - Alcohol dependence, uncomplicated (2) Opioid dependence Current Visit: Yes Qualifiers: Substance use status: uncomplicated Qualified Code(s): F11.20 - Opioid dependence, uncomplicated (3) MDD (major depressive disorder) Current Visit: Yes (4) Substance induced mood disorder Current Visit: Yes (5) Substance-induced sleep disorder Current Visit: Yes (6) Dependent for wheelchair mobility Current Visit: Yes (7) History of atrial fibrillation Current Visit: Yes (8) Amputated below knee Current Visit: Yes Qualifiers: Laterality: right Qualified Code(s): Z89.511 - Acquired absence of right leg below knee Comment: has prosthetic but does not use (9) DM (diabetes mellitus) Current Visit: Yes Qualifiers: Diabetes mellitus type: type 2 Diabetes mellitus correction insulin use: with oysterman use Diabetes mellitus complication status: without complication Qualified Code(s): E11.9 - Type 2 diabetes mellitus without complications; Z79.4 - [facility] (current) use of insulin; Z79.4 - [facility] ( current) use of insulin; Z79.4 - [facility] (current) use of insulin; Z79.4 - [facility] (current) use of insulin (10) HTN (hypertension) Current Visit: Yes Qualifiers: Hypertension type: essential hypertension Qualified Code(s): I10 - Essential (primary) hypertension Comment: on meds, followed by primary (11) Morbid obesity with BMI of 40.0-44.9, adult Current Visit: Yes (12) Charcot's joint of left ankle Current Visit: No Comment: wearing boot Initial treatment plan: 1) Discontinue Lexapro as currently ordered. Start Lexapro 20 mg po daily and Belsomra 10 mg po HS prn for insomnia. 2) Monitor progress
[2017-09-22] MEDS: amLODIPine BESYLATE 5 MG TABLET (FP) PO SCH (09:42)
[2017-09-22] MEDS: PRENATAL VITAMINS W/ FOLIC ACID TABLET (FP) PO SCH (09:42)
[2017-09-22] MEDS: ZINC SULFATE 220 MG CAPSULE (FP) PO SCH (09:42)
[2017-09-22] MEDS: PANTOPRAZOLE 40 MG TABLET (FP) PO SCH (09:42)
[2017-09-22] MEDS: URSODIOL 300 MG CAPSULE PO SCH ×2 (09:43→21:26)
[2017-09-22] MEDS: RAMIPRIL 5 MG CAPSULE (FP) PO SCH (09:43)
[2017-09-22] MEDS: ESCITALOPRAM OXALATE 20 MG TABLET (FP) PO SCH (09:44)
[2017-09-22] MEDS: LIDOCAINE 5% TOPICAL PATCH TP SCH (10:43)
[2017-09-22] MEDS: FOLIC ACID 1 MG TABLET (FP) PO SCH (12:41)
[2017-09-22] MEDS: ALBUTEROL SO4 18 GM HFA INHALER IH PRN (13:38)
[2017-09-22] MEDS ORDERED: PT OWN MED DRAWER 7, Y5N ONE (13:38)
[2017-09-22] MEDS: WARFARIN NA 10 MG TABLET (FP) PO SCH (18:32)
[2017-09-22] MEDS: LIDOCAINE PATCH REMOVAL MC SCH (21:23)
[2017-09-22] MEDS: THIAMINE HCL 100 MG TABLET (FP) PO SCH (21:23)
[2017-09-22] MEDS: MIRTAZAPINE 15 MG TABLET (FP) PO SCH (21:23)
[2017-09-22] MEDS: SUVOREXANT 10 MG TABLET PO PRN (21:25)
[2017-09-23] MEDS: INSULIN SLIDING SCALE (NOVOLOG) 1 VIAL SQ SCH ×3 (06:21→16:52)
[2017-09-23] MEDS ORDERED: INSULIN (NOVOLOG) ASPART 100 UNITS/ML 10ML VIAL ONE ×3 (06:22→17:03)
[2017-09-23] MEDS: INSULIN (LEVEMIR) 100 UNITS/ML UNITS SQ SCH (06:24)
[2017-09-23] MEDS: GABAPENTIN 300 MG CAPSULE (FP) PO SCH ×3 (06:24→21:28)
[2017-09-23] MEDS ORDERED: PT OWN MED DRAWER 7, Y5N ONE ×2 (08:49→10:37)
[2017-09-23] MEDS: amLODIPine BESYLATE 5 MG TABLET (FP) PO SCH (10:29)
[2017-09-23] MEDS: ZINC SULFATE 220 MG CAPSULE (FP) PO SCH (10:29)
[2017-09-23] MEDS: PRENATAL VITAMINS W/ FOLIC ACID TABLET (FP) PO SCH (10:29)
[2017-09-23] MEDS: URSODIOL 300 MG CAPSULE PO SCH ×2 (10:30→21:28)
[2017-09-23] MEDS: LIDOCAINE 5% TOPICAL PATCH TP SCH (10:30)
[2017-09-23] MEDS: ESCITALOPRAM OXALATE 20 MG TABLET (FP) PO SCH (10:30)
[2017-09-23] MEDS: RAMIPRIL 5 MG CAPSULE (FP) PO SCH (10:30)
[2017-09-23] MEDS: PANTOPRAZOLE 40 MG TABLET (FP) PO SCH (10:30)
[2017-09-23] MEDS: ALBUTEROL SO4 18 GM HFA INHALER IH PRN (10:33)
[2017-09-23] MEDS: WARFARIN NA 10 MG TABLET (FP) PO SCH (17:06)
[2017-09-23] MEDS: ACETAMINOPHEN 325 MG TABLET (FP) PO PRN (21:27)
[2017-09-23] MEDS: MIRTAZAPINE 15 MG TABLET (FP) PO SCH (21:28)
[2017-09-23] MEDS: THIAMINE HCL 100 MG TABLET (FP) PO SCH (21:29)
[2017-09-23] MEDS: LIDOCAINE PATCH REMOVAL MC SCH (21:29)
[2017-09-24] MEDS: GABAPENTIN 300 MG CAPSULE (FP) PO SCH ×3 (06:28→21:29)
[2017-09-24] MEDS: INSULIN (LEVEMIR) 100 UNITS/ML UNITS SQ SCH (06:30)
[2017-09-24] MEDS: INSULIN SLIDING SCALE (NOVOLOG) 1 VIAL SQ SCH ×3 (06:30→17:03)
[2017-09-24] MEDS ORDERED: INSULIN (NOVOLOG) ASPART 100 UNITS/ML 10ML VIAL ONE ×3 (06:45→17:02)
[2017-09-24] MEDS: PANTOPRAZOLE 40 MG TABLET (FP) PO SCH (10:05)
[2017-09-24] MEDS: PRENATAL VITAMINS W/ FOLIC ACID TABLET (FP) PO SCH (10:05)
[2017-09-24] MEDS: amLODIPine BESYLATE 5 MG TABLET (FP) PO SCH (10:05)
[2017-09-24] MEDS: RAMIPRIL 5 MG CAPSULE (FP) PO SCH (10:05)
[2017-09-24] MEDS: ESCITALOPRAM OXALATE 20 MG TABLET (FP) PO SCH (10:05)
[2017-09-24] MEDS: ZINC SULFATE 220 MG CAPSULE (FP) PO SCH (10:05)
[2017-09-24] MEDS: LIDOCAINE 5% TOPICAL PATCH TP SCH (10:06)
[2017-09-24] MEDS: URSODIOL 300 MG CAPSULE PO SCH ×2 (10:06→21:29)
[2017-09-24] MEDS ORDERED: PT OWN MED DRAWER 7, Y5N ONE ×3 (11:07→20:30)
[2017-09-24] MEDS: ACETAMINOPHEN 325 MG TABLET (FP) PO PRN (11:53)
[2017-09-24] MEDS: WARFARIN NA 10 MG TABLET (FP) PO SCH (17:03)
[2017-09-24] MEDS: ALBUTEROL SO4 18 GM HFA INHALER IH PRN (17:56)
[2017-09-24] MEDS: LIDOCAINE PATCH REMOVAL MC SCH (21:29)
[2017-09-24] MEDS: THIAMINE HCL 100 MG TABLET (FP) PO SCH (21:29)
[2017-09-24] MEDS: MIRTAZAPINE 15 MG TABLET (FP) PO SCH (21:29)
[2017-09-24] MEDS: SUVOREXANT 10 MG TABLET PO PRN (21:29)
[2017-09-25] MEDS: GABAPENTIN 300 MG CAPSULE (FP) PO SCH ×3 (05:56→21:30)
[2017-09-25] MEDS ORDERED: INSULIN (NOVOLOG) ASPART 100 UNITS/ML 10ML VIAL ONE ×3 (07:21→18:12)
[2017-09-25] MEDS: INSULIN (LEVEMIR) 100 UNITS/ML UNITS SQ SCH (07:38)
[2017-09-25] MEDS: INSULIN SLIDING SCALE (NOVOLOG) 1 VIAL SQ SCH ×3 (07:39→17:09)
[2017-09-25] MEDS: RAMIPRIL 5 MG CAPSULE (FP) PO SCH (10:11)
[2017-09-25] MEDS: ESCITALOPRAM OXALATE 20 MG TABLET (FP) PO SCH (10:11)
[2017-09-25] MEDS: PANTOPRAZOLE 40 MG TABLET (FP) PO SCH (10:11)
[2017-09-25] MEDS: PRENATAL VITAMINS W/ FOLIC ACID TABLET (FP) PO SCH (10:11)
[2017-09-25] MEDS: ZINC SULFATE 220 MG CAPSULE (FP) PO SCH (10:11)
[2017-09-25] MEDS: amLODIPine BESYLATE 5 MG TABLET (FP) PO SCH (10:11)
[2017-09-25] MEDS: LIDOCAINE 5% TOPICAL PATCH TP SCH (10:12)
[2017-09-25] MEDS: URSODIOL 300 MG CAPSULE PO SCH ×2 (10:12→21:30)
[2017-09-25] MEDS ORDERED: AMMONIUM LACTATE 12% LOTION 225 GM BOTTLE TP PRN (15:11)
--- NOTE | 2017-09-25 15:17 | PN ---
S Progress Note Note: Patient presents with c/o dry, cracked skin to left foot. Requesting lotion. Has hx of DM. Left foot with mild swelling and dry skin. Will order Ammonia Lactate lotion to left foot BID prn. Continue to monitor clinically. Repeat PT/ INR ordered for tomorrow morning as patient on coumadin for AFIB.
[2017-09-25] MEDS: WARFARIN NA 10 MG TABLET (FP) PO SCH (17:09)
[2017-09-25] MEDS ORDERED: PT OWN MED DRAWER 7, Y5N ONE ×3 (18:58→21:31)
[2017-09-25] MEDS: ALBUTEROL SO4 18 GM HFA INHALER IH PRN (18:59)
[2017-09-25] MEDS: THIAMINE HCL 100 MG TABLET (FP) PO SCH (21:29)
[2017-09-25] MEDS: ACETAMINOPHEN 325 MG TABLET (FP) PO PRN (21:29)
[2017-09-25] MEDS: MELATONIN 5 MG TABLETS PO PRN (21:29)
[2017-09-25] MEDS: MIRTAZAPINE 15 MG TABLET (FP) PO SCH (21:30)
[2017-09-25] MEDS: LIDOCAINE PATCH REMOVAL MC SCH (21:33)
[2017-09-26] MEDS: GABAPENTIN 300 MG CAPSULE (FP) PO SCH ×3 (06:04→21:54)
[2017-09-26] MEDS ORDERED: INSULIN (NOVOLOG) ASPART 100 UNITS/ML 10ML VIAL ONE ×3 (06:48→17:12)
[2017-09-26] MEDS: INSULIN SLIDING SCALE (NOVOLOG) 1 VIAL SQ SCH ×3 (07:42→17:04)
[2017-09-26] MEDS: INSULIN (LEVEMIR) 100 UNITS/ML UNITS SQ SCH (07:42)
[2017-09-26] MEDS: amLODIPine BESYLATE 5 MG TABLET (FP) PO SCH (10:01)
[2017-09-26] MEDS: ESCITALOPRAM OXALATE 20 MG TABLET (FP) PO SCH (10:01)
[2017-09-26] MEDS: RAMIPRIL 5 MG CAPSULE (FP) PO SCH (10:01)
[2017-09-26] MEDS: PANTOPRAZOLE 40 MG TABLET (FP) PO SCH (10:01)
[2017-09-26] MEDS: LIDOCAINE 5% TOPICAL PATCH TP SCH (10:01)
[2017-09-26] MEDS: ZINC SULFATE 220 MG CAPSULE (FP) PO SCH (10:01)
[2017-09-26] MEDS: URSODIOL 300 MG CAPSULE PO SCH ×2 (10:01→21:55)
[2017-09-26] MEDS: PRENATAL VITAMINS W/ FOLIC ACID TABLET (FP) PO SCH (10:01)
[2017-09-26 10:52] LABS: INR 2.43 (0.82-1.09); PROTHROMBIN TIME (PATIENT) 27.5 SEC (9.7-13.0)
[2017-09-26] MEDS: ACETAMINOPHEN 325 MG TABLET (FP) PO PRN (15:29)
[2017-09-26] MEDS ORDERED: PT OWN MED DRAWER 7, Y5N ONE ×2 (16:36→21:57)
[2017-09-26] MEDS: WARFARIN NA 10 MG TABLET (FP) PO SCH (17:05)
[2017-09-26] MEDS: LIDOCAINE PATCH REMOVAL MC SCH (21:54)
[2017-09-26] MEDS: MIRTAZAPINE 15 MG TABLET (FP) PO SCH (21:54)
[2017-09-26] MEDS: THIAMINE HCL 100 MG TABLET (FP) PO SCH (21:54)
[2017-09-26] MEDS: SUVOREXANT 10 MG TABLET PO PRN (23:23)
[2017-09-27] MEDS: ACETAMINOPHEN 325 MG TABLET (FP) PO PRN ×2 (00:29→13:18)
[2017-09-27] MEDS: GABAPENTIN 300 MG CAPSULE (FP) PO SCH ×3 (06:05→21:24)
[2017-09-27] MEDS ORDERED: INSULIN (NOVOLOG) ASPART 100 UNITS/ML 10ML VIAL ONE ×3 (06:47→16:52)
[2017-09-27] MEDS: INSULIN SLIDING SCALE (NOVOLOG) 1 VIAL SQ SCH ×3 (06:59→16:54)
[2017-09-27] MEDS: INSULIN (LEVEMIR) 100 UNITS/ML UNITS SQ SCH (06:59)
[2017-09-27] MEDS ORDERED: ALBUTEROL SO4 0.083% IH SOL 2.5 MG/3 ML VIAL.NEB. NEB PRN (07:48)
[2017-09-27] MEDS ORDERED: PT OWN MED DRAWER 7, Y5N ONE ×4 (09:23→22:45)
[2017-09-27] MEDS: ALBUTEROL SO4 18 GM HFA INHALER IH PRN ×2 (09:32→22:44)
[2017-09-27] MEDS: RAMIPRIL 5 MG CAPSULE (FP) PO SCH (10:16)
[2017-09-27] MEDS: ZINC SULFATE 220 MG CAPSULE (FP) PO SCH (10:16)
[2017-09-27] MEDS: PRENATAL VITAMINS W/ FOLIC ACID TABLET (FP) PO SCH (10:16)
[2017-09-27] MEDS: URSODIOL 300 MG CAPSULE PO SCH ×2 (10:16→21:24)
[2017-09-27] MEDS: amLODIPine BESYLATE 5 MG TABLET (FP) PO SCH (10:16)
[2017-09-27] MEDS: PANTOPRAZOLE 40 MG TABLET (FP) PO SCH (10:16)
[2017-09-27] MEDS: ESCITALOPRAM OXALATE 20 MG TABLET (FP) PO SCH (10:16)
[2017-09-27] MEDS: LIDOCAINE 5% TOPICAL PATCH TP SCH (10:17)
[2017-09-27] MEDS: WARFARIN NA 10 MG TABLET (FP) PO SCH (18:02)
--- NOTE | 2017-09-27 18:27 | PN ---
[facility] Progress Note Note: Tylenol 650mg ordered for pain of 5-6/10 to leg
[2017-09-27] MEDS: THIAMINE HCL 100 MG TABLET (FP) PO SCH (21:24)
[2017-09-27] MEDS: MIRTAZAPINE 15 MG TABLET (FP) PO SCH (21:24)
[2017-09-27] MEDS: LIDOCAINE PATCH REMOVAL MC SCH (21:25)
[2017-09-27] MEDS: SUVOREXANT 10 MG TABLET PO PRN (21:28)
[2017-09-27] MEDS: MELATONIN 5 MG TABLETS PO PRN (21:28)
[2017-09-28] MEDS: GABAPENTIN 300 MG CAPSULE (FP) PO SCH ×3 (05:53→21:35)
[2017-09-28] MEDS: ACETAMINOPHEN 325 MG TABLET (FP) PO PRN ×2 (05:54→21:35)
[2017-09-28] MEDS ORDERED: INSULIN (NOVOLOG) ASPART 100 UNITS/ML 10ML VIAL ONE ×3 (07:12→17:04)
[2017-09-28] MEDS: INSULIN SLIDING SCALE (NOVOLOG) 1 VIAL SQ SCH ×3 (07:12→17:01)
[2017-09-28] MEDS: INSULIN (LEVEMIR) 100 UNITS/ML UNITS SQ SCH (07:13)
[2017-09-28] MEDS: amLODIPine BESYLATE 5 MG TABLET (FP) PO SCH (09:51)
[2017-09-28] MEDS: RAMIPRIL 5 MG CAPSULE (FP) PO SCH (09:51)
[2017-09-28] MEDS: PRENATAL VITAMINS W/ FOLIC ACID TABLET (FP) PO SCH (09:51)
[2017-09-28] MEDS: ESCITALOPRAM OXALATE 20 MG TABLET (FP) PO SCH (09:51)
[2017-09-28] MEDS: PANTOPRAZOLE 40 MG TABLET (FP) PO SCH (09:51)
[2017-09-28] MEDS: ZINC SULFATE 220 MG CAPSULE (FP) PO SCH (09:51)
[2017-09-28] MEDS: LIDOCAINE 5% TOPICAL PATCH TP SCH (09:51)
[2017-09-28] MEDS: URSODIOL 300 MG CAPSULE PO SCH ×2 (09:52→21:35)
[2017-09-28] MEDS ORDERED: PT OWN MED DRAWER 7, Y5N ONE (09:54)
[2017-09-28] MEDS: WARFARIN NA 10 MG TABLET (FP) PO SCH (17:00)
[2017-09-28] MEDS: THIAMINE HCL 100 MG TABLET (FP) PO SCH (21:35)
[2017-09-28] MEDS: MELATONIN 5 MG TABLETS PO PRN (21:35)
[2017-09-28] MEDS: MIRTAZAPINE 15 MG TABLET (FP) PO SCH (21:35)
[2017-09-28] MEDS: LIDOCAINE PATCH REMOVAL MC SCH (21:37)
[2017-09-28] MEDS ORDERED: SUVOREXANT 10 MG TABLET PO PRN (22:00)
[2017-09-29] MEDS: ACETAMINOPHEN 325 MG TABLET (FP) PO PRN ×2 (05:52→21:34)
[2017-09-29] MEDS: GABAPENTIN 300 MG CAPSULE (FP) PO SCH ×3 (05:52→21:33)
[2017-09-29] MEDS: INSULIN (LEVEMIR) 100 UNITS/ML UNITS SQ SCH (07:07)
[2017-09-29] MEDS ORDERED: INSULIN (NOVOLOG) ASPART 100 UNITS/ML 10ML VIAL ONE ×3 (07:07→16:58)
[2017-09-29] MEDS: INSULIN SLIDING SCALE (NOVOLOG) 1 VIAL SQ SCH ×3 (07:08→16:58)
[2017-09-29] MEDS ORDERED: PT OWN MED DRAWER 7, Y5N ONE ×2 (08:55→10:23)
[2017-09-29] MEDS: amLODIPine BESYLATE 5 MG TABLET (FP) PO SCH (09:34)
[2017-09-29] MEDS: PRENATAL VITAMINS W/ FOLIC ACID TABLET (FP) PO SCH (09:34)
[2017-09-29] MEDS: PANTOPRAZOLE 40 MG TABLET (FP) PO SCH (09:34)
[2017-09-29] MEDS: ESCITALOPRAM OXALATE 20 MG TABLET (FP) PO SCH (09:34)
[2017-09-29] MEDS: RAMIPRIL 5 MG CAPSULE (FP) PO SCH (09:34)
[2017-09-29] MEDS: ZINC SULFATE 220 MG CAPSULE (FP) PO SCH (09:34)
[2017-09-29] MEDS: URSODIOL 300 MG CAPSULE PO SCH ×2 (09:34→21:33)
[2017-09-29] MEDS: LIDOCAINE 5% TOPICAL PATCH TP SCH (10:21)
[2017-09-29] MEDS: ALBUTEROL SO4 18 GM HFA INHALER IH PRN (10:21)
[2017-09-29] MEDS: hydrOXYzine PAMOATE 50 MG CAPSULE (FP) PO PRN ×2 (10:22→18:23)
[2017-09-29] MEDS: WARFARIN NA 10 MG TABLET (FP) PO SCH (17:33)
[2017-09-29] MEDS: THIAMINE HCL 100 MG TABLET (FP) PO SCH (21:33)
[2017-09-29] MEDS: MIRTAZAPINE 15 MG TABLET (FP) PO SCH (21:33)
[2017-09-29] MEDS: LIDOCAINE PATCH REMOVAL MC SCH (21:33)
--- NOTE | 2017-09-29 23:17 | PN ---
[facility] Progress Note Note: Patient reports while in the bathroom he was trying to transfer on to his wheelchair, he lost his balance and held on to his wheelchair and sat on the floor. The even was unwitnessed. Patient denies changes in LOC, SOB, chest pain , vertigo or parenthesia. Vital Signs Temperature 100.2 F H 09/29/17 21:35 Pulse Rate 80 09/29/17 21:35 Respiratory Rate 18 09/29/17 21:35 Blood Pressure 149/77 09/29/17 21:35 O2 Sat by Pulse Oximetry (%) Laboratory Last Values WBC 7.6 K/mm3 (4.0-10.0) 09/15/17 07:30 RBC 4.14 M/mm3 (4.00-5.60) 09/15/17 07:30 Hgb 11.9 GM/dL (11.7-16.9) 09/15/17 07:30 Hct 36.2 % (35.4-49) 09/15/17 07:30 MCV 87.6 fl (80-96) 09/15/17 07:30 MCH 28.8 pg (25.7-33.7) 09/15/17 07:30 MCHC 32.9 g/dl (32.0-35.9) 09/15/17 07:30 RDW 15.8 % (11.9-15.9) D 09/15/17 07:30 Plt Count 315 K/MM3 (134-434) 09/15/17 07:30 MPV 8.0 fl (7.5-11.1) 09/15/17 07:30 PT with INR 27.50 SEC (9.7-13.0) H 09/26/17 07:40 INR 2.43 (0.82-1.09) H 09/26/17 07:40 Sodium 140 mmol/L (136-145) 09/15/17 07:30 Potassium 4.5 mmol/L (3.5-5.1) 09/15/17 07:30 Chloride 103 mmol/L (98-107) 09/15/17 07:30 Carbon Dioxide 32 mmol/L (21-32) 09/15/17 07:30 Anion Gap 5 (8-16) L 09/15/17 07:30 BUN 14 mg/dL (7-18) D 09/15/17 07:30 Creatinine 1.2 mg/dL (0.7-1.3) 09/15/17 07:30 Creat Clearance w eGFR > 60 (>60) 09/15/17 07:30 POC Glucometer 284 UNITS (80-120) 09/28/17 16:45 Random Glucose 223 mg/dL (74-106) H 09/15/17 07:30 Calcium 8.7 mg/dL (8.5-10.1) 09/15/17 07:30 Total Bilirubin 0.2 mg/dL (0.2-1.0) D 09/15/17 07:30 AST 12 U/L (15-37) L 09/15/17 07:30 ALT 13 U/L (12-78) 09/15/17 07:30 Alkaline Phosphatase 110 U/L (45-117) D 09/15/17 07:30 Total Protein 7.4 g/dl (6.4-8.2) 09/15/17 07:30 Albumin 3.2 g/dl (3.4-5.0) L 09/15/17 07:30 Urine Color Yellow 09/14/17 22:40 Urine Appearance Slcloudy 09/14/17 22:40 Urine pH 7.0 (5.0-8.0) D 09/14/17 22:40 Ur Specific [place] 1.008 (1.001-1.035) 09/14/17 22:40 Urine Protein Negative (NEGATIVE) 09/14/17 22:40 Urine Glucose (UA) Negative (NEGATIVE) 09/14/17 22:40 Urine Ketones Negative (NEGATIVE) 09/14/17 22:40 Urine Blood Negative (NEGATIVE) 09/14/17 22:40 Urine Nitrite Negative (NEGATIVE) 09/14/17 22:40 Urine Bilirubin Negative (<2.0 mg/dL) 09/14/17 22:40 Urine Urobilinogen Negative mg/dL (0.2-1.0) 09/14/17 22:40 Ur Leukocyte Esterase 3+ (NEGATIVE) H 09/14/17 22:40 Urine WBC (Auto) 67 /hpf (3-5) 09/14/17 22:40 Urine RBC (Auto) None /hpf (0-3) 04/23/18 22:40 Ur Epithelial Cells Rare /HPF (FEW) 09/14/17 22:40 Hyaline Casts 5 /lpf 09/14/17 22:40 Urine Mucus Rare 09/14/17 22:40 RPR Titer Nonreactive (NONREACTIVE) 09/15/17 07:30 Patient AOx 3, no apparent distress No adventitious breaths sounds no signs or symptoms of injury No edema or erythema Plan: Fall protocol #2 Continue to monitor
[2017-09-30] MEDS: GABAPENTIN 300 MG CAPSULE (FP) PO SCH ×3 (06:05→21:33)
[2017-09-30] MEDS: ACETAMINOPHEN 325 MG TABLET (FP) PO PRN ×3 (06:05→16:54)
[2017-09-30] MEDS ORDERED: INSULIN (NOVOLOG) ASPART 100 UNITS/ML 10ML VIAL ONE ×3 (07:05→16:53)
[2017-09-30] MEDS: INSULIN SLIDING SCALE (NOVOLOG) 1 VIAL SQ SCH ×3 (07:05→16:53)
[2017-09-30] MEDS: INSULIN (LEVEMIR) 100 UNITS/ML UNITS SQ SCH (07:05)
[2017-09-30] MEDS ORDERED: PT OWN MED DRAWER 7, Y5N ONE (08:30)
[2017-09-30 10:38] LABS: INR 2.41 (0.82-1.09); PROTHROMBIN TIME (PATIENT) 27.2 SEC (9.7-13.0)
[2017-09-30] MEDS: URSODIOL 300 MG CAPSULE PO SCH ×2 (11:05→21:33)
[2017-09-30] MEDS: RAMIPRIL 5 MG CAPSULE (FP) PO SCH (11:05)
[2017-09-30] MEDS: ZINC SULFATE 220 MG CAPSULE (FP) PO SCH (11:05)
[2017-09-30] MEDS: PRENATAL VITAMINS W/ FOLIC ACID TABLET (FP) PO SCH (11:06)
[2017-09-30] MEDS: ESCITALOPRAM OXALATE 20 MG TABLET (FP) PO SCH (11:06)
[2017-09-30] MEDS: PANTOPRAZOLE 40 MG TABLET (FP) PO SCH (11:06)
[2017-09-30] MEDS: LIDOCAINE 5% TOPICAL PATCH TP SCH (11:06)
[2017-09-30] MEDS: amLODIPine BESYLATE 5 MG TABLET (FP) PO SCH (11:06)
--- NOTE | 2017-09-30 13:30 | PN ---
S Progress Note Note: Labs reviewed. PT 27.2,INR 2.41. Will renew same dose of coumadin and repeat PT/ INR level on 10/03/17.
[2017-09-30] MEDS: hydrOXYzine PAMOATE 50 MG CAPSULE (FP) PO PRN ×2 (13:53→21:35)
--- NOTE | 2017-09-30 17:57 | PN ---
S Progress Note Note: Notified by RN patients blood sugar this evening 452. Has order for sliding scale insulin. Patient medicated with insulin as per sliding scale. Asymptomatic. Continue BGM.
--- NOTE | 2017-09-30 18:02 | PN ---
S Progress Note Note: Informed by DONITA Mi that patient refused to have CT of head done as he did not hit head on floor/furniture/object when he fell. Transportation had left when TRIMMING INSPECTOR arrived on floor. Patient signed refusal for treatment forms.
[2017-09-30] MEDS: WARFARIN NA 10 MG TABLET (FP) PO SCH (18:17)
[2017-09-30] MEDS: MIRTAZAPINE 15 MG TABLET (FP) PO SCH (21:33)
[2017-09-30] MEDS: THIAMINE HCL 100 MG TABLET (FP) PO SCH (21:33)
[2017-09-30] MEDS: LIDOCAINE PATCH REMOVAL MC SCH (21:33)
[2017-10-01] MEDS: ACETAMINOPHEN 325 MG TABLET (FP) PO PRN ×3 (00:38→21:06)
[2017-10-01] MEDS: GABAPENTIN 300 MG CAPSULE (FP) PO SCH ×3 (06:04→21:03)
[2017-10-01] MEDS ORDERED: INSULIN (NOVOLOG) ASPART 100 UNITS/ML 10ML VIAL ONE ×3 (06:08→17:00)
[2017-10-01] MEDS: INSULIN SLIDING SCALE (NOVOLOG) 1 VIAL SQ SCH ×3 (06:10→17:01)
[2017-10-01] MEDS: INSULIN (LEVEMIR) 100 UNITS/ML UNITS SQ SCH (06:10)
[2017-10-01] MEDS: PRENATAL VITAMINS W/ FOLIC ACID TABLET (FP) PO SCH (09:51)
[2017-10-01] MEDS: ZINC SULFATE 220 MG CAPSULE (FP) PO SCH (09:51)
[2017-10-01] MEDS: RAMIPRIL 5 MG CAPSULE (FP) PO SCH (09:51)
[2017-10-01] MEDS: PANTOPRAZOLE 40 MG TABLET (FP) PO SCH (09:51)
[2017-10-01] MEDS: URSODIOL 300 MG CAPSULE PO SCH ×2 (09:51→21:03)
[2017-10-01] MEDS: amLODIPine BESYLATE 5 MG TABLET (FP) PO SCH (09:51)
[2017-10-01] MEDS: ESCITALOPRAM OXALATE 20 MG TABLET (FP) PO SCH (09:51)
[2017-10-01] MEDS: LIDOCAINE 5% TOPICAL PATCH TP SCH (09:52)
[2017-10-01] MEDS: hydrOXYzine PAMOATE 50 MG CAPSULE (FP) PO PRN ×3 (09:53→21:04)
[2017-10-01] MEDS: WARFARIN NA 10 MG TABLET (FP) PO SCH (17:02)
[2017-10-01] MEDS: THIAMINE HCL 100 MG TABLET (FP) PO SCH (21:03)
[2017-10-01] MEDS: MIRTAZAPINE 15 MG TABLET (FP) PO SCH (21:03)
[2017-10-01] MEDS: LIDOCAINE PATCH REMOVAL MC SCH (21:03)
[2017-10-01] MEDS: SUVOREXANT 10 MG TABLET PO PRN (21:05)
[2017-10-01] MEDS: ALBUTEROL SO4 18 GM HFA INHALER IH PRN (21:12)
[2017-10-02] MEDS: GABAPENTIN 300 MG CAPSULE (FP) PO SCH ×3 (06:06→21:31)
[2017-10-02] MEDS: INSULIN SLIDING SCALE (NOVOLOG) 1 VIAL SQ SCH ×4 (06:10→16:56)
[2017-10-02] MEDS: INSULIN (LEVEMIR) 100 UNITS/ML UNITS SQ SCH (06:10)
[2017-10-02] MEDS ORDERED: ALBUTEROL SO4 0.083% IH SOL 2.5 MG/3 ML VIAL.NEB. NEB PRN (06:15)
[2017-10-02] MEDS ORDERED: INSULIN (NOVOLOG) ASPART 100 UNITS/ML 10ML VIAL ONE ×3 (07:08→16:55)
[2017-10-02] MEDS: LIDOCAINE 5% TOPICAL PATCH TP SCH (09:58)
[2017-10-02] MEDS: PRENATAL VITAMINS W/ FOLIC ACID TABLET (FP) PO SCH (09:58)
[2017-10-02] MEDS: RAMIPRIL 5 MG CAPSULE (FP) PO SCH (09:58)
[2017-10-02] MEDS: amLODIPine BESYLATE 5 MG TABLET (FP) PO SCH (09:58)
[2017-10-02] MEDS: ESCITALOPRAM OXALATE 20 MG TABLET (FP) PO SCH (09:58)
[2017-10-02] MEDS: URSODIOL 300 MG CAPSULE PO SCH ×2 (09:58→21:31)
[2017-10-02] MEDS: ZINC SULFATE 220 MG CAPSULE (FP) PO SCH (09:58)
[2017-10-02] MEDS: PANTOPRAZOLE 40 MG TABLET (FP) PO SCH (09:59)
--- NOTE | 2017-10-02 12:04 | PN ---
S Progress Note Note: received nurse called that finger stick [phone] insulin sliding scale protocol, patient agrees to eat lunch after the insulin coverage
[2017-10-02] MEDS: WARFARIN NA 10 MG TABLET (FP) PO SCH (16:59)
[2017-10-02] MEDS: THIAMINE HCL 100 MG TABLET (FP) PO SCH (21:30)
[2017-10-02] MEDS: hydrOXYzine PAMOATE 50 MG CAPSULE (FP) PO PRN (21:30)
[2017-10-02] MEDS: MIRTAZAPINE 15 MG TABLET (FP) PO SCH (21:30)
[2017-10-02] MEDS: SUVOREXANT 10 MG TABLET PO PRN (21:31)
[2017-10-02] MEDS: LIDOCAINE PATCH REMOVAL MC SCH (21:31)
[2017-10-03] MEDS: ALBUTEROL SO4 18 GM HFA INHALER IH PRN ×2 (00:19→22:10)
[2017-10-03] MEDS: ACETAMINOPHEN 325 MG TABLET (FP) PO PRN ×3 (00:20→21:36)
[2017-10-03] MEDS: GABAPENTIN 300 MG CAPSULE (FP) PO SCH ×3 (06:17→21:35)
[2017-10-03] MEDS: INSULIN SLIDING SCALE (NOVOLOG) 1 VIAL SQ SCH ×3 (07:04→16:56)
[2017-10-03] MEDS: INSULIN (LEVEMIR) 100 UNITS/ML UNITS SQ SCH (07:04)
[2017-10-03] MEDS ORDERED: INSULIN (NOVOLOG) ASPART 100 UNITS/ML 10ML VIAL ONE ×3 (07:05→17:20)
[2017-10-03] MEDS: ZINC SULFATE 220 MG CAPSULE (FP) PO SCH (10:13)
[2017-10-03] MEDS: amLODIPine BESYLATE 5 MG TABLET (FP) PO SCH (10:13)
[2017-10-03] MEDS: URSODIOL 300 MG CAPSULE PO SCH ×2 (10:13→21:35)
[2017-10-03] MEDS: ESCITALOPRAM OXALATE 20 MG TABLET (FP) PO SCH (10:14)
[2017-10-03] MEDS: PRENATAL VITAMINS W/ FOLIC ACID TABLET (FP) PO SCH (10:14)
[2017-10-03] MEDS: PANTOPRAZOLE 40 MG TABLET (FP) PO SCH (10:14)
[2017-10-03] MEDS: RAMIPRIL 5 MG CAPSULE (FP) PO SCH (10:14)
[2017-10-03] MEDS: LIDOCAINE 5% TOPICAL PATCH TP SCH (10:14)
[2017-10-03 11:19] LABS: INR 2.54 (0.82-1.09); PROTHROMBIN TIME (PATIENT) 28.7 SEC (9.7-13.0)
[2017-10-03] MEDS: WARFARIN NA 10 MG TABLET (FP) PO SCH (17:00)
[2017-10-03] MEDS: LIDOCAINE PATCH REMOVAL MC SCH (21:35)
[2017-10-03] MEDS: THIAMINE HCL 100 MG TABLET (FP) PO SCH (21:35)
[2017-10-03] MEDS: SUVOREXANT 10 MG TABLET PO PRN (21:35)
[2017-10-03] MEDS: MIRTAZAPINE 15 MG TABLET (FP) PO SCH (21:35)
[2017-10-04] MEDS: GABAPENTIN 300 MG CAPSULE (FP) PO SCH ×3 (05:55→21:31)
[2017-10-04] MEDS: ACETAMINOPHEN 325 MG TABLET (FP) PO PRN (05:55)
[2017-10-04] MEDS: INSULIN SLIDING SCALE (NOVOLOG) 1 VIAL SQ SCH ×3 (07:04→17:08)
[2017-10-04] MEDS: INSULIN (LEVEMIR) 100 UNITS/ML UNITS SQ SCH (07:05)
[2017-10-04] MEDS ORDERED: INSULIN (NOVOLOG) ASPART 100 UNITS/ML 10ML VIAL ONE ×3 (07:06→17:22)
[2017-10-04] MEDS: URSODIOL 300 MG CAPSULE PO SCH ×2 (11:00→21:31)
[2017-10-04] MEDS: RAMIPRIL 5 MG CAPSULE (FP) PO SCH (11:00)
[2017-10-04] MEDS: PANTOPRAZOLE 40 MG TABLET (FP) PO SCH (11:00)
[2017-10-04] MEDS: ESCITALOPRAM OXALATE 20 MG TABLET (FP) PO SCH (11:00)
[2017-10-04] MEDS: PRENATAL VITAMINS W/ FOLIC ACID TABLET (FP) PO SCH (11:00)
[2017-10-04] MEDS: ZINC SULFATE 220 MG CAPSULE (FP) PO SCH (11:00)
[2017-10-04] MEDS: LIDOCAINE 5% TOPICAL PATCH TP SCH (11:00)
[2017-10-04] MEDS: amLODIPine BESYLATE 5 MG TABLET (FP) PO SCH (11:00)
[2017-10-04] MEDS: WARFARIN NA 10 MG TABLET (FP) PO SCH (17:07)
[2017-10-04] MEDS: MIRTAZAPINE 15 MG TABLET (FP) PO SCH (21:31)
[2017-10-04] MEDS: THIAMINE HCL 100 MG TABLET (FP) PO SCH (21:31)
[2017-10-04] MEDS: hydrOXYzine PAMOATE 50 MG CAPSULE (FP) PO PRN (21:31)
[2017-10-04] MEDS: SUVOREXANT 10 MG TABLET PO PRN (21:31)
[2017-10-04] MEDS: LIDOCAINE PATCH REMOVAL MC SCH (21:31)
[2017-10-04] MEDS: ALBUTEROL SO4 18 GM HFA INHALER IH PRN (21:32)
[2017-10-05] MEDS: GABAPENTIN 300 MG CAPSULE (FP) PO SCH ×3 (06:15→21:24)
[2017-10-05] MEDS: LOPERAMIDE HCL 2 MG CAPSULE PO PRN ×2 (06:15→13:52)
[2017-10-05] MEDS: ACETAMINOPHEN 325 MG TABLET (FP) PO PRN ×3 (06:15→21:23)
[2017-10-05] MEDS: INSULIN SLIDING SCALE (NOVOLOG) 1 VIAL SQ SCH ×3 (06:21→17:12)
[2017-10-05] MEDS: INSULIN (LEVEMIR) 100 UNITS/ML UNITS SQ SCH (07:06)
[2017-10-05] MEDS ORDERED: INSULIN (NOVOLOG) ASPART 100 UNITS/ML 10ML VIAL ONE ×3 (07:07→16:51)
[2017-10-05] MEDS ORDERED: PT OWN MED DRAWER 7, Y5N ONE (09:28)
[2017-10-05] MEDS: PANTOPRAZOLE 40 MG TABLET (FP) PO SCH (09:49)
[2017-10-05] MEDS: amLODIPine BESYLATE 5 MG TABLET (FP) PO SCH (09:49)
[2017-10-05] MEDS: ESCITALOPRAM OXALATE 20 MG TABLET (FP) PO SCH (09:49)
[2017-10-05] MEDS: ZINC SULFATE 220 MG CAPSULE (FP) PO SCH (09:49)
[2017-10-05] MEDS: PRENATAL VITAMINS W/ FOLIC ACID TABLET (FP) PO SCH (09:50)
[2017-10-05] MEDS: URSODIOL 300 MG CAPSULE PO SCH ×2 (09:50→21:24)
[2017-10-05] MEDS: RAMIPRIL 5 MG CAPSULE (FP) PO SCH (09:50)
[2017-10-05] MEDS: LIDOCAINE 5% TOPICAL PATCH TP SCH (09:50)
--- NOTE | 2017-10-05 17:06 | PN ---
[facility] Progress Note Note: INR 10/03/17 2.54. Will renew coumadin 10mg HS and continue to monitor PT/INR weekly.
[2017-10-05] MEDS ORDERED: WARFARIN NA 10 MG TABLET (FP) PO ONE (18:00)
[2017-10-05] MEDS: hydrOXYzine PAMOATE 50 MG CAPSULE (FP) PO PRN (21:23)
[2017-10-05] MEDS: MIRTAZAPINE 15 MG TABLET (FP) PO SCH (21:24)
[2017-10-05] MEDS: THIAMINE HCL 100 MG TABLET (FP) PO SCH (21:25)
[2017-10-05] MEDS: LIDOCAINE PATCH REMOVAL MC SCH (21:26)
[2017-10-06] MEDS: ACETAMINOPHEN 325 MG TABLET (FP) PO PRN ×2 (05:59→21:12)
[2017-10-06] MEDS: GABAPENTIN 300 MG CAPSULE (FP) PO SCH ×3 (06:00→21:11)
[2017-10-06] MEDS: INSULIN SLIDING SCALE (NOVOLOG) 1 VIAL SQ SCH ×3 (06:54→16:54)
[2017-10-06] MEDS ORDERED: INSULIN (NOVOLOG) ASPART 100 UNITS/ML 10ML VIAL ONE ×3 (06:55→16:56)
[2017-10-06] MEDS: INSULIN (LEVEMIR) 100 UNITS/ML UNITS SQ SCH (06:55)
[2017-10-06] MEDS: URSODIOL 300 MG CAPSULE PO SCH ×2 (10:36→21:12)
[2017-10-06] MEDS: ZINC SULFATE 220 MG CAPSULE (FP) PO SCH (10:36)
[2017-10-06] MEDS: RAMIPRIL 5 MG CAPSULE (FP) PO SCH (10:36)
[2017-10-06] MEDS: PANTOPRAZOLE 40 MG TABLET (FP) PO SCH (10:36)
[2017-10-06] MEDS: PRENATAL VITAMINS W/ FOLIC ACID TABLET (FP) PO SCH (10:36)
[2017-10-06] MEDS: amLODIPine BESYLATE 5 MG TABLET (FP) PO SCH (10:36)
[2017-10-06] MEDS: ESCITALOPRAM OXALATE 20 MG TABLET (FP) PO SCH (10:36)
[2017-10-06] MEDS: LIDOCAINE 5% TOPICAL PATCH TP SCH (10:38)
--- NOTE | 2017-10-06 16:04 | PN ---
S Progress Note Note: received nurse called that bgm [id number] received insulin coverage 12 units [id number] on 05/2017 was 9 repeat hgb aic continue diabetes education
[2017-10-06] MEDS: LIDOCAINE PATCH REMOVAL MC SCH (21:12)
[2017-10-06] MEDS: THIAMINE HCL 100 MG TABLET (FP) PO SCH (21:12)
[2017-10-06] MEDS: MIRTAZAPINE 15 MG TABLET (FP) PO SCH (21:12)
[2017-10-06] MEDS: hydrOXYzine PAMOATE 50 MG CAPSULE (FP) PO PRN (21:12)
[2017-10-07] MEDS: GABAPENTIN 300 MG CAPSULE (FP) PO SCH ×3 (05:52→21:28)
[2017-10-07] MEDS ORDERED: INSULIN (NOVOLOG) ASPART 100 UNITS/ML 10ML VIAL ONE ×3 (05:55→17:36)
[2017-10-07] MEDS: INSULIN SLIDING SCALE (NOVOLOG) 1 VIAL SQ SCH ×3 (06:55→16:58)
[2017-10-07] MEDS: INSULIN (LEVEMIR) 100 UNITS/ML UNITS SQ SCH (06:55)
[2017-10-07] MEDS: RAMIPRIL 5 MG CAPSULE (FP) PO SCH (09:55)
[2017-10-07] MEDS: amLODIPine BESYLATE 5 MG TABLET (FP) PO SCH (09:55)
[2017-10-07] MEDS: URSODIOL 300 MG CAPSULE PO SCH ×2 (09:55→21:28)
[2017-10-07] MEDS: PRENATAL VITAMINS W/ FOLIC ACID TABLET (FP) PO SCH (09:55)
[2017-10-07] MEDS: ZINC SULFATE 220 MG CAPSULE (FP) PO SCH (09:55)
[2017-10-07] MEDS: ESCITALOPRAM OXALATE 20 MG TABLET (FP) PO SCH (09:55)
[2017-10-07] MEDS: PANTOPRAZOLE 40 MG TABLET (FP) PO SCH (09:55)
[2017-10-07] MEDS: LIDOCAINE 5% TOPICAL PATCH TP SCH (09:56)
[2017-10-07] MEDS: ACETAMINOPHEN 325 MG TABLET (FP) PO PRN ×2 (09:56→21:29)
[2017-10-07] MEDS ORDERED: PT OWN MED DRAWER 7, Y5N ONE ×2 (14:13→22:04)
[2017-10-07] MEDS: THIAMINE HCL 100 MG TABLET (FP) PO SCH (21:28)
[2017-10-07] MEDS: hydrOXYzine PAMOATE 50 MG CAPSULE (FP) PO PRN (21:28)
[2017-10-07] MEDS: LIDOCAINE PATCH REMOVAL MC SCH (21:28)
[2017-10-07] MEDS: MIRTAZAPINE 15 MG TABLET (FP) PO SCH (21:28)
[2017-10-07] MEDS: MELATONIN 5 MG TABLETS PO PRN (21:29)
[2017-10-07] MEDS: ALBUTEROL SO4 18 GM HFA INHALER IH PRN (22:04)
[2017-10-07] MEDS ORDERED: WARFARIN NA 10 MG TABLET (FP) PO ONE (22:23)
--- NOTE | 2017-10-07 22:25 | PN ---
S Progress Note Note: Patient has been on warfarin 10 mg therapy QD and INR monitoring. warfarin order continue
[2017-10-08] MEDS: GABAPENTIN 300 MG CAPSULE (FP) PO SCH ×3 (06:19→21:14)
[2017-10-08] MEDS: ACETAMINOPHEN 325 MG TABLET (FP) PO PRN (06:20)
[2017-10-08] MEDS: INSULIN SLIDING SCALE (NOVOLOG) 1 VIAL SQ SCH ×3 (07:32→22:37)
[2017-10-08] MEDS ORDERED: INSULIN (NOVOLOG) ASPART 100 UNITS/ML 10ML VIAL ONE ×3 (07:32→17:08)
[2017-10-08] MEDS: INSULIN (LEVEMIR) 100 UNITS/ML UNITS SQ SCH (07:32)
[2017-10-08] MEDS: PANTOPRAZOLE 40 MG TABLET (FP) PO SCH (10:21)
[2017-10-08] MEDS: RAMIPRIL 5 MG CAPSULE (FP) PO SCH (10:21)
[2017-10-08] MEDS: PRENATAL VITAMINS W/ FOLIC ACID TABLET (FP) PO SCH (10:21)
[2017-10-08] MEDS: LIDOCAINE 5% TOPICAL PATCH TP SCH (10:21)
[2017-10-08] MEDS: amLODIPine BESYLATE 5 MG TABLET (FP) PO SCH (10:21)
[2017-10-08] MEDS: URSODIOL 300 MG CAPSULE PO SCH ×2 (10:21→21:14)
[2017-10-08] MEDS: ESCITALOPRAM OXALATE 20 MG TABLET (FP) PO SCH (10:21)
[2017-10-08] MEDS: ZINC SULFATE 220 MG CAPSULE (FP) PO SCH (10:21)
[2017-10-08] MEDS ORDERED: INSULIN SLIDING SCALE (NOVOLOG) 1 VIAL SQ SCH (13:30)
[2017-10-08] MEDS: WARFARIN NA 10 MG TABLET (FP) PO SCH (17:09)
--- NOTE | 2017-10-08 19:50 | PN ---
S Progress Note Note: Patient reports BGM at home checked 4x a day with coverage. orders adjusted
[2017-10-08] MEDS: ALBUTEROL SO4 18 GM HFA INHALER IH PRN (21:13)
[2017-10-08] MEDS: MIRTAZAPINE 15 MG TABLET (FP) PO SCH (21:14)
[2017-10-08] MEDS: THIAMINE HCL 100 MG TABLET (FP) PO SCH (21:14)
[2017-10-08] MEDS: LIDOCAINE PATCH REMOVAL MC SCH (21:15)
[2017-10-09] MEDS ORDERED: INSULIN SLIDING SCALE (NOVOLOG) 1 VIAL SQ SCH
[2017-10-09] MEDS: ACETAMINOPHEN 325 MG TABLET (FP) PO PRN ×2 (00:11→21:20)
[2017-10-09] MEDS: hydrOXYzine PAMOATE 50 MG CAPSULE (FP) PO PRN ×2 (03:10→21:22)
[2017-10-09] MEDS: GABAPENTIN 300 MG CAPSULE (FP) PO SCH ×3 (06:04→21:17)
[2017-10-09] MEDS ORDERED: INSULIN (NOVOLOG) ASPART 100 UNITS/ML 10ML VIAL ONE ×4 (06:07→21:20)
[2017-10-09] MEDS: INSULIN SLIDING SCALE (NOVOLOG) 1 VIAL SQ SCH ×4 (06:07→21:17)
[2017-10-09] MEDS: INSULIN (LEVEMIR) 100 UNITS/ML UNITS SQ SCH (07:39)
[2017-10-09] MEDS ORDERED: PT OWN MED DRAWER 7, Y5N ONE (10:06)
[2017-10-09] MEDS: ZINC SULFATE 220 MG CAPSULE (FP) PO SCH (10:35)
[2017-10-09] MEDS: amLODIPine BESYLATE 5 MG TABLET (FP) PO SCH (10:35)
[2017-10-09] MEDS: URSODIOL 300 MG CAPSULE PO SCH ×2 (10:35→21:17)
[2017-10-09] MEDS: RAMIPRIL 5 MG CAPSULE (FP) PO SCH (10:35)
[2017-10-09] MEDS: PANTOPRAZOLE 40 MG TABLET (FP) PO SCH (10:35)
[2017-10-09] MEDS: PRENATAL VITAMINS W/ FOLIC ACID TABLET (FP) PO SCH (10:35)
[2017-10-09] MEDS: ESCITALOPRAM OXALATE 20 MG TABLET (FP) PO SCH (10:35)
[2017-10-09] MEDS: LIDOCAINE 5% TOPICAL PATCH TP SCH (10:37)
[2017-10-09] MEDS: WARFARIN NA 10 MG TABLET (FP) PO SCH (17:01)
[2017-10-09] MEDS: MIRTAZAPINE 15 MG TABLET (FP) PO SCH (21:17)
[2017-10-09] MEDS: LIDOCAINE PATCH REMOVAL MC SCH (21:17)
[2017-10-09] MEDS: THIAMINE HCL 100 MG TABLET (FP) PO SCH (21:18)
[2017-10-10] MEDS: GABAPENTIN 300 MG CAPSULE (FP) PO SCH ×3 (06:06→21:42)
[2017-10-10] MEDS ORDERED: INSULIN (NOVOLOG) ASPART 100 UNITS/ML 10ML VIAL ONE ×4 (06:09→22:49)
[2017-10-10] MEDS: INSULIN (LEVEMIR) 100 UNITS/ML UNITS SQ SCH (06:11)
[2017-10-10] MEDS: INSULIN SLIDING SCALE (NOVOLOG) 1 VIAL SQ SCH ×4 (06:11→22:46)
[2017-10-10] MEDS: RAMIPRIL 5 MG CAPSULE (FP) PO SCH (09:39)
[2017-10-10] MEDS: LIDOCAINE 5% TOPICAL PATCH TP SCH (09:39)
[2017-10-10] MEDS: PRENATAL VITAMINS W/ FOLIC ACID TABLET (FP) PO SCH (09:40)
[2017-10-10] MEDS: ZINC SULFATE 220 MG CAPSULE (FP) PO SCH (09:40)
[2017-10-10] MEDS: amLODIPine BESYLATE 5 MG TABLET (FP) PO SCH (09:40)
[2017-10-10] MEDS: PANTOPRAZOLE 40 MG TABLET (FP) PO SCH (09:40)
[2017-10-10] MEDS: URSODIOL 300 MG CAPSULE PO SCH ×2 (09:40→21:42)
[2017-10-10] MEDS: ESCITALOPRAM OXALATE 20 MG TABLET (FP) PO SCH (09:40)
[2017-10-10 10:53] LABS: INR 1.68 (0.82-1.09)
--- NOTE | 2017-10-10 14:50 | PN ---
Psychiatric Progress Note Vital Signs: Vital Signs Period Temp Pulse Resp BP Sys/Gonzalez Pulse Ox Last 24 Hr 97.5 F 79-93 18-20 112-155/75-85 Date of Session: 10/09/17 Chief Complaint:: Medication management HPI: Patient addressing Alcohol and Opioid Dependence comorbid with MDD and Substance-Induced Sleep Disorder ROS: AFib, HTN, DM, Morbid Obesity, right BKA Current Medications: Active Medications Generic Name Dose Route Start Last Admin Trade Name Freq PRN Reason Stop Dose Admin Acetaminophen 650 mg 09/27/17 18:14 10/09/17 21:20 Tylenol - PO 650 mg Q4H PRN Administration PAIN Al Hydroxide/Mg Hydroxide 30 ml 09/14/17 19:05 Mylanta Oral Suspension - PO Q6H PRN DYSPEPSIA Albuterol Sulfate 1 puff 09/14/17 19:16 10/08/17 21:13 Ventolin Hfa Inhaler - IH 1 puff Q4H PRN Administration WHEEZING Albuterol Sulfate 1 amp 10/02/17 06:15 10/09/17 15:07 Ventolin 0.083% Nebulizer Soln - NEB 1 amp Q4H PRN Administration SHORT OF BREATH/WHEEZING Amlodipine Besylate 5 mg 09/15/17 17:00 10/10/17 09:40 Norvasc - PO 5 mg DAILY BERENICE Administration Escitalopram Oxalate 20 mg 09/24/17 10:00 10/10/17 09:40 Lexapro - PO 20 mg DAILY BERENICE Administration Eucalyptus/Menthol/Phenol/Sorbitol 1 each 09/14/17 19:05 Cepastat Lozenge - MM Q4H PRN SORE THROAT Gabapentin 600 mg 09/14/17 22:00 10/10/17 14:15 Neurontin - PO 600 mg TID BERENICE Administration Guaifenesin 10 ml 09/14/17 19:05 Robitussin Dm - PO Q6H PRN COUGH Hydroxyzine Pamoate 50 mg 09/29/17 09:38 10/09/17 21:22 Vistaril - PO 50 mg Q4H PRN Administration ANXIETY Insulin Aspart 1 vial 10/08/17 22:00 10/10/17 11:46 Novolog Vial Sliding Scale - SQ 14 units ACHS BERENICE Administration Protocol Insulin Detemir 30 units 09/15/17 07:00 10/10/17 06:11 Levemir Vial SQ 30 units DAILY@0700 BERENICE Administration Lactic Acid 1 applic 09/25/17 15:11 Lac-Hydrin 12 TP BID PRN DRY SKIN Lidocaine 1 patch 09/17/17 15:00 10/10/17 09:39 Lidoderm Patch - TP 1 patch DAILY BERENICE Administration Loperamide HCl 4 mg 09/14/17 19:05 10/05/17 13:52 Imodium - PO 4 mg Q6H PRN Administration DIARRHEA Magnesium Citrate 300 ml 09/14/17 19:05 Citroma - PO Q48H PRN CONSTIPATION Magnesium Hydroxide 30 ml 09/14/17 19:05 Milk Of Magnesia - PO DAILY PRN CONSTIPATION Melatonin 5 mg 09/14/17 22:00 10/07/17 21:29 Melatonin PO 5 mg HS PRN Administration INSOMNIA Metoprolol Succinate 50 mg 09/15/17 10:00 10/10/17 09:40 Toprol Xl - PO 50 mg DAILY BERENICE Administration Mirtazapine 15 mg 09/15/17 22:00 10/09/17 21:17 Remeron - PO 15 mg HS BERENICE Administration Miscellaneous 1 each 09/17/17 22:00 10/09/17 21:17 Lidoderm Patch Removal MC 1 each DAILY@2200 BERENICE Administration Naltrexone HCl 50 mg 10/10/17 15:00 Revia - PO DAILY BERENICE Pantoprazole Sodium 40 mg 09/15/17 10:00 10/10/17 09:40 Protonix - PO 40 mg DAILY BERENICE Administration Multivit/Folic Acid/Iron 1 tab 09/15/17 10:00 10/10/17 09:40 Vitamins (Sjr) - PO 1 tab DAILY BERENICE Administration Pseudoephedrine/Triprolidine 1 combo 09/14/17 19:05 Actifed - PO TID PRN NASAL CONGESTION Ramipril 5 mg 09/15/17 10:00 10/10/17 09:39 Altace - PO 5 mg DAILY BERENICE Administration Thiamine HCl 100 mg 09/14/17 22:00 10/09/17 21:18 Vitamin B1 - PO 100 mg HS BERENICE Administration Tizanidine HCl 2 mg 09/17/17 14:46 09/25/17 10:11 Tizanidine Hcl PO 2 mg Q8H PRN Administration MUSCLE SPASMS Ursodiol 300 mg 09/17/17 22:00 10/10/17 09:40 Actigal - PO 300 mg BID BERENICE Administration Warfarin Sodium 10 mg 10/08/17 18:00 10/09/17 17:01 Coumadin - PO 10 mg DAILY@1800 BERENICE Administration Zinc Sulfate 220 mg 09/18/17 10:00 10/10/17 09:40 Orazinc - PO 220 mg DAILY BERENICE Administration Medication(s) Change(s): Start Naltrexone 50 mg po daily Current Side Effect: No Lab tests ordered: Yes Lab tests reviewed: Yes Provider note:: Met with patient as requested by his medical insurance provider to educate him about the beneficial effect of Naltrexone. Patient has contraindication from the drug. He is no known allergy to any medication. He has not used any opioid drug or product for more than 20 days. His liver function is normal as evidenced by result of chemistry test done on 09/15/17(AST: 12;ALT:13;Alk Phos:110). In addition to indication, adverse-effect, some aspect of psychodynamics and psychokinetics of Naltrexone were discussed with patient. He was warned again severe withdrawal symptoms if he used heroin or any opioid product while on Naltrexoe. He seems to understand what rfp writer has explained to him regarding Naltrexone. He was provided with reading materials on Naltrexone Total face to face time:: 25 Mental Status Exam - Mental Status Exam Alert and Oriented to: Time, Place, Person Cognitive Function: Fair Patient Appearance: Well Groomed Mood: Hopeful, Euthymic Affect: Appropriate Patient Behavior: Cooperative Speech Pattern: Clear Voice Loudness: Normal Thought Process: Intact Thought Disorder: Not Present Hallucinations: Denies Suicidal Ideation: Denies Homicidal Ideation: Denies Insight/Judgement: Fair Sleep: Fair Appetite: Good Muscle strength/Tone: Normal Gait/Station: Normal Psychiatric Treatment Plan - Problem List (1) Alcohol dependence Current Visit: Yes Qualifiers: Substance use status: uncomplicated Qualified Code(s): F10.20 - Alcohol dependence, uncomplicated (2) Opioid dependence Current Visit: Yes Qualifiers: Substance use status: uncomplicated Qualified Code(s): F11.20 - Opioid dependence, uncomplicated (3) MDD (major depressive disorder) Current Visit: Yes (4) Substance induced mood disorder Current Visit: Yes (5) Substance-induced sleep disorder Current Visit: Yes (6) Dependent for wheelchair mobility Current Visit: Yes (7) History of atrial fibrillation Current Visit: Yes (8) Amputated below knee Current Visit: Yes Qualifiers: Laterality: right Qualified Code(s): Z89.511 - Acquired absence of right leg below knee Comment: has prosthetic but does not use (9) DM (diabetes mellitus) Current Visit: Yes Qualifiers: Diabetes mellitus type: type 2 Diabetes mellitus fpc insulin use: with terminal supervisor use Diabetes mellitus complication status: without complication Qualified Code(s): E11.9 - Type 2 diabetes mellitus without complications; Z79.4 - [facility] (current) use of insulin; Z79.4 - intermediate card tender ( current) use of insulin; Z79.4 - intermediate card tender (current) use of insulin; Z79.4 - intermediate card tender (current) use of insulin (10) HTN (hypertension) Current Visit: Yes Qualifiers: Hypertension type: essential hypertension Qualified Code(s): I10 - Essential (primary) hypertension Comment: on meds, followed by primary (11) Morbid obesity with BMI of 40.0-44.9, adult Current Visit: Yes (12) Charcot's joint of left ankle Current Visit: No Comment: wearing boot Initial treatment plan: 1) Start Naltrexone 50 mg po daily. 2) Monitor progress
--- NOTE | 2017-10-10 14:55 | PN ---
[facility] Progress Note Note: PATIENT'S MO/INR RESULTS FROM EARLIER TODAY NOTED. PATIENT REPORTS THAT HE HAS BEEN MAINTAINED ON 10 MG OF COUMADIN DAILY FOR SEVERAL MONTHS NOW FOR HISTORY OF A-FIB. 12.5 MG COUMADIN X1 DOSE ORDERED FOR 1800 THIS EVENING. MO/INR TO BE RE-CHECKED TOMORROW AM. DETERMINATION ABOUT SUBSEQUENT DOSAGE TO BE MADE AFTER THOSE RESULTS AVAILABLE. Michael AMADOR NP
[2017-10-10] MEDS ORDERED: PT OWN MED DRAWER 7, Y5N ONE (15:10)
[2017-10-10] MEDS: NALTREXONE HCL 50 MG TABLET PO SCH (15:18)
[2017-10-10] MEDS: ACETAMINOPHEN 325 MG TABLET (FP) PO PRN (16:47)
[2017-10-10] MEDS ORDERED: WARFARIN NA 10 MG TABLET (FP) PO ONE (18:00)
[2017-10-10] MEDS: LIDOCAINE PATCH REMOVAL MC SCH (21:43)
[2017-10-10] MEDS: MIRTAZAPINE 15 MG TABLET (FP) PO SCH (21:43)
[2017-10-10] MEDS: THIAMINE HCL 100 MG TABLET (FP) PO SCH (21:43)
[2017-10-10] MEDS: hydrOXYzine PAMOATE 50 MG CAPSULE (FP) PO PRN (21:45)
[2017-10-11] MEDS: GABAPENTIN 300 MG CAPSULE (FP) PO SCH ×3 (06:06→21:09)
[2017-10-11] MEDS: INSULIN (LEVEMIR) 100 UNITS/ML UNITS SQ SCH (06:11)
[2017-10-11] MEDS: INSULIN SLIDING SCALE (NOVOLOG) 1 VIAL SQ SCH ×4 (06:12→21:05)
[2017-10-11] MEDS ORDERED: INSULIN (NOVOLOG) ASPART 100 UNITS/ML 10ML VIAL ONE ×4 (07:00→21:07)
[2017-10-11] MEDS: hydrOXYzine PAMOATE 50 MG CAPSULE (FP) PO PRN ×2 (07:35→21:08)
[2017-10-11] MEDS: PANTOPRAZOLE 40 MG TABLET (FP) PO SCH (10:09)
[2017-10-11] MEDS: ZINC SULFATE 220 MG CAPSULE (FP) PO SCH (10:09)
[2017-10-11] MEDS: LIDOCAINE 5% TOPICAL PATCH TP SCH (10:09)
[2017-10-11] MEDS: NALTREXONE HCL 50 MG TABLET PO SCH (10:09)
[2017-10-11] MEDS: ESCITALOPRAM OXALATE 20 MG TABLET (FP) PO SCH (10:09)
[2017-10-11] MEDS: RAMIPRIL 5 MG CAPSULE (FP) PO SCH (10:09)
[2017-10-11] MEDS: amLODIPine BESYLATE 5 MG TABLET (FP) PO SCH (10:10)
[2017-10-11] MEDS: PRENATAL VITAMINS W/ FOLIC ACID TABLET (FP) PO SCH (10:10)
[2017-10-11] MEDS: URSODIOL 300 MG CAPSULE PO SCH ×2 (10:10→21:09)
[2017-10-11 10:55] LABS: INR 1.79 (0.82-1.09); PROTHROMBIN TIME (PATIENT) 20.2 SEC (9.7-13.0)
--- NOTE | 2017-10-11 16:03 | PN ---
S Progress Note Note: Got a call about pt's INR - 1.79, coumadin 10mg ordered, repeat INR in 2 days. FS -595mg/dl, 14units given, to repeat BGM
[2017-10-11] MEDS: WARFARIN NA 10 MG TABLET (FP) PO SCH (17:01)
[2017-10-11] MEDS: ALBUTEROL SO4 18 GM HFA INHALER IH PRN (17:25)
[2017-10-11] MEDS: ACETAMINOPHEN 325 MG TABLET (FP) PO PRN (21:08)
[2017-10-11] MEDS: MIRTAZAPINE 15 MG TABLET (FP) PO SCH (21:09)
[2017-10-11] MEDS: THIAMINE HCL 100 MG TABLET (FP) PO SCH (21:09)
[2017-10-11] MEDS: MELATONIN 5 MG TABLETS PO PRN (21:09)
[2017-10-11] MEDS: LIDOCAINE PATCH REMOVAL MC SCH (21:09)
[2017-10-12] MEDS: INSULIN SLIDING SCALE (NOVOLOG) 1 VIAL SQ SCH ×4 (06:02→21:23)
[2017-10-12] MEDS: GABAPENTIN 300 MG CAPSULE (FP) PO SCH ×3 (06:02→21:13)
[2017-10-12] MEDS: INSULIN (LEVEMIR) 100 UNITS/ML UNITS SQ SCH (06:20)
[2017-10-12] MEDS ORDERED: INSULIN (NOVOLOG) ASPART 100 UNITS/ML 10ML VIAL ONE ×4 (06:32→21:22)
[2017-10-12] MEDS: URSODIOL 300 MG CAPSULE PO SCH ×2 (10:44→21:13)
[2017-10-12] MEDS: ZINC SULFATE 220 MG CAPSULE (FP) PO SCH (10:44)
[2017-10-12] MEDS: NALTREXONE HCL 50 MG TABLET PO SCH (10:44)
[2017-10-12] MEDS: ESCITALOPRAM OXALATE 20 MG TABLET (FP) PO SCH (10:44)
[2017-10-12] MEDS: PRENATAL VITAMINS W/ FOLIC ACID TABLET (FP) PO SCH (10:44)
[2017-10-12] MEDS: RAMIPRIL 5 MG CAPSULE (FP) PO SCH (10:44)
[2017-10-12] MEDS: amLODIPine BESYLATE 5 MG TABLET (FP) PO SCH (10:45)
[2017-10-12] MEDS: LIDOCAINE 5% TOPICAL PATCH TP SCH (10:45)
[2017-10-12] MEDS: PANTOPRAZOLE 40 MG TABLET (FP) PO SCH (10:45)
[2017-10-12] MEDS: ACETAMINOPHEN 325 MG TABLET (FP) PO PRN (10:46)
[2017-10-12 11:13] LABS: INR 2.12 (0.82-1.09); PROTHROMBIN TIME (PATIENT) 23.9 SEC (9.7-13.0)
--- NOTE | 2017-10-12 11:42 | PN ---
Psychiatric Progress Note Vital Signs: Vital Signs Period Temp Pulse Resp BP Sys/Gonzalez Pulse Ox Last 24 Hr 98.9 F 68-74 18-20 145-147/76-80 Date of Session: 10/12/17 Chief Complaint:: Follow up medication management HPI: Patient addressing Alcohol and Opioid Dependence comorbid with MDD and Substance-Induced Sleep Disorder ROS: AFib, HTN, DM, Morbid Obesity, right BKA Current Medications: Active Medications Generic Name Dose Route Start Last Admin Trade Name Freq PRN Reason Stop Dose Admin Acetaminophen 650 mg 09/27/17 18:14 10/12/17 10:46 Tylenol - PO 650 mg Q4H PRN Administration PAIN Al Hydroxide/Mg Hydroxide 30 ml 09/14/17 19:05 Mylanta Oral Suspension - PO Q6H PRN DYSPEPSIA Albuterol Sulfate 1 puff 09/14/17 19:16 10/11/17 17:25 Ventolin Hfa Inhaler - IH 1 puff Q4H PRN Administration WHEEZING Amlodipine Besylate 5 mg 09/15/17 17:00 10/12/17 10:45 Norvasc - PO 5 mg DAILY BERENICE Administration Escitalopram Oxalate 20 mg 09/24/17 10:00 10/12/17 10:44 Lexapro - PO 20 mg DAILY BERENICE Administration Eucalyptus/Menthol/Phenol/Sorbitol 1 each 09/14/17 19:05 Cepastat Lozenge - MM Q4H PRN SORE THROAT Gabapentin 600 mg 09/14/17 22:00 10/12/17 06:02 Neurontin - PO 600 mg TID BERENICE Administration Guaifenesin 10 ml 09/14/17 19:05 Robitussin Dm - PO Q6H PRN COUGH Hydroxyzine Pamoate 50 mg 09/29/17 09:38 10/11/17 21:08 Vistaril - PO 50 mg Q4H PRN Administration ANXIETY Insulin Aspart 1 vial 10/08/17 22:00 10/12/17 11:38 Novolog Vial Sliding Scale - SQ 8 units ACHS BERENICE Administration Protocol Insulin Detemir 30 units 09/15/17 07:00 10/12/17 06:20 Levemir Vial SQ 30 units DAILY@0700 BERENICE Administration Lactic Acid 1 applic 09/25/17 15:11 Lac-Hydrin 12 TP BID PRN DRY SKIN Lidocaine 1 patch 09/17/17 15:00 10/12/17 10:45 Lidoderm Patch - TP 1 patch DAILY BERENICE Administration Loperamide HCl 4 mg 09/14/17 19:05 10/05/17 13:52 Imodium - PO 4 mg Q6H PRN Administration DIARRHEA Magnesium Citrate 300 ml 09/14/17 19:05 Citroma - PO Q48H PRN CONSTIPATION Magnesium Hydroxide 30 ml 09/14/17 19:05 Milk Of Magnesia - PO DAILY PRN CONSTIPATION Melatonin 5 mg 09/14/17 22:00 10/11/17 21:09 Melatonin PO 5 mg HS PRN Administration INSOMNIA Metoprolol Succinate 50 mg 09/15/17 10:00 10/12/17 10:44 Toprol Xl - PO 50 mg DAILY BERENICE Administration Mirtazapine 15 mg 09/15/17 22:00 10/11/17 21:09 Remeron - PO 15 mg HS BERENICE Administration Miscellaneous 1 each 09/17/17 22:00 10/11/17 21:09 Lidoderm Patch Removal MC 1 each DAILY@2200 BERENICE Administration Pantoprazole Sodium 40 mg 09/15/17 10:00 10/12/17 10:45 Protonix - PO 40 mg DAILY BERENICE Administration Multivit/Folic Acid/Iron 1 tab 09/15/17 10:00 10/12/17 10:44 Vitamins (Sjr) - PO 1 tab DAILY BERENICE Administration Pseudoephedrine/Triprolidine 1 combo 09/14/17 19:05 Actifed - PO TID PRN NASAL CONGESTION Ramipril 5 mg 09/15/17 10:00 10/12/17 10:44 Altace - PO 5 mg DAILY BERENICE Administration Thiamine HCl 100 mg 09/14/17 22:00 10/11/17 21:09 Vitamin B1 - PO 100 mg HS BERENICE Administration Tizanidine HCl 2 mg 09/17/17 14:46 09/25/17 10:11 Tizanidine Hcl PO 2 mg Q8H PRN Administration MUSCLE SPASMS Ursodiol 300 mg 09/17/17 22:00 10/12/17 10:44 Actigal - PO 300 mg BID BERENICE Administration Warfarin Sodium 10 mg 10/11/17 18:00 10/11/17 17:01 Coumadin - PO 10 mg DAILY@1800 BERENICE Administration Zinc Sulfate 220 mg 09/18/17 10:00 10/12/17 10:44 Orazinc - PO 220 mg DAILY BERENICE Administration Medication(s) Change(s): 1) Discontinue Revia. 2) Start Vivitrol 380 mg IM on Current Side Effect: No Lab tests ordered: Yes Lab tests reviewed: Yes Provider note:: Patient was started on Naltrexone on 10/10/17. He reported no adverse-effects from the medication. Denies nausea. vomitung, diarrhea, dizziness, headache, tiredness etc. Expresses the desire to start taking Vivitrol tomorrow Total face to face time:: 15 Mental Status Exam - Mental Status Exam Alert and Oriented to: Time, Place, Person Cognitive Function: Fair Patient Appearance: Well Groomed Mood: Hopeful, Euthymic Affect: Appropriate Patient Behavior: Cooperative Speech Pattern: Clear Voice Loudness: Normal Thought Process: Intact, Goal Oriented Thought Disorder: Not Present Hallucinations: Denies Suicidal Ideation: Denies Homicidal Ideation: Denies Insight/Judgement: Fair Sleep: Fair Appetite: Good Muscle strength/Tone: Normal Gait/Station: Other (Uses wheelchair as ambulatory aid) Psychiatric Treatment Plan - Problem List (1) Alcohol dependence Current Visit: Yes Qualifiers: Substance use status: uncomplicated Qualified Code(s): F10.20 - Alcohol dependence, uncomplicated (2) Opioid dependence Current Visit: Yes Qualifiers: Substance use status: uncomplicated Qualified Code(s): F11.20 - Opioid dependence, uncomplicated (3) MDD (major depressive disorder) Current Visit: Yes (4) Substance induced mood disorder Current Visit: Yes (5) Substance-induced sleep disorder Current Visit: Yes (6) Dependent for wheelchair mobility Current Visit: Yes (7) History of atrial fibrillation Current Visit: Yes (8) Amputated below knee Current Visit: Yes Qualifiers: Laterality: right Qualified Code(s): Z89.511 - Acquired absence of right leg below knee Comment: has prosthetic but does not use (9) DM (diabetes mellitus) Current Visit: Yes Qualifiers: Diabetes mellitus type: type 2 Diabetes mellitus mcc insulin use: with mcc use Diabetes mellitus complication status: without complication Qualified Code(s): E11.9 - Type 2 diabetes mellitus without complications; Z79.4 - prison (current) use of insulin; Z79.4 - an employee sponsor or advocate and ( current) use of insulin; Z79.4 - an employee sponsor or advocate and (current) use of insulin; Z79.4 - an employee sponsor or advocate and (current) use of insulin (10) HTN (hypertension) Current Visit: Yes Qualifiers: Hypertension type: essential hypertension Qualified Code(s): I10 - Essential (primary) hypertension Comment: on meds, followed by primary (11) Morbid obesity with BMI of 40.0-44.9, adult Current Visit: Yes (12) Charcot's joint of left ankle Current Visit: No Comment: wearing boot Initial treatment plan: 1) Discontinue Revia(Naltrexone oral). 2) Start Vivitrol(Naltrexone monthly injectable) 380 mg IM once at 10:00 on 10/13/17. 3) Monitor progress
--- NOTE | 2017-10-12 13:25 | PN ---
S Progress Note Note: INR 2.12. Stable and therapeutic. Will continue same dose of coumadin. Repeat labs in one week.
[2017-10-12] MEDS: WARFARIN NA 10 MG TABLET (FP) PO SCH (21:12)
[2017-10-12] MEDS: MIRTAZAPINE 15 MG TABLET (FP) PO SCH (21:13)
[2017-10-12] MEDS: THIAMINE HCL 100 MG TABLET (FP) PO SCH (21:15)
[2017-10-12] MEDS: hydrOXYzine PAMOATE 50 MG CAPSULE (FP) PO PRN (21:17)
[2017-10-12] MEDS: LIDOCAINE PATCH REMOVAL MC SCH (23:31)
[2017-10-13] MEDS: GABAPENTIN 300 MG CAPSULE (FP) PO SCH ×3 (06:05→21:23)
[2017-10-13] MEDS: ACETAMINOPHEN 325 MG TABLET (FP) PO PRN ×2 (06:05→21:26)
[2017-10-13 06:54] VITALS: TEMP 98.2
[2017-10-13] MEDS: LOPERAMIDE HCL 2 MG CAPSULE PO PRN (07:10)
[2017-10-13] MEDS ORDERED: INSULIN (NOVOLOG) ASPART 100 UNITS/ML 10ML VIAL ONE ×3 (07:23→21:22)
[2017-10-13] MEDS: INSULIN (LEVEMIR) 100 UNITS/ML UNITS SQ SCH (07:24)
[2017-10-13] MEDS: INSULIN SLIDING SCALE (NOVOLOG) 1 VIAL SQ SCH ×4 (07:24→21:23)
--- NOTE | 2017-10-13 09:31 | PN ---
Psychiatric Progress Note Vital Signs: Vital Signs Period Temp Pulse Resp BP Sys/Gonzalez Pulse Ox Last 24 Hr 98.2 F 74-84 18-20 147-147/80-95 Date of Session: 10/13/17 Chief Complaint:: Discharge Note HPI: Patient addressing Alcohol and Opioid Dependence comorbid with MDD, Substance-Induced Mood Disorder and Substance-Induced Sleep Disorder ROS: AFib, HTN, DM, Morbid obesity, Charcot joint of left knee. Right BKA Current Medications: Active Medications Generic Name Dose Route Start Last Admin Trade Name Freq PRN Reason Stop Dose Admin Acetaminophen 650 mg 09/27/17 18:14 10/13/17 06:05 Tylenol - PO 650 mg Q4H PRN Administration PAIN Al Hydroxide/Mg Hydroxide 30 ml 09/14/17 19:05 10/12/17 13:24 Mylanta Oral Suspension - PO 30 ml Q6H PRN Administration DYSPEPSIA Albuterol Sulfate 1 puff 09/14/17 19:16 10/11/17 17:25 Ventolin Hfa Inhaler - IH 1 puff Q4H PRN Administration WHEEZING Amlodipine Besylate 5 mg 09/15/17 17:00 10/12/17 10:45 Norvasc - PO 5 mg DAILY BERENICE Administration Escitalopram Oxalate 20 mg 09/24/17 10:00 10/12/17 10:44 Lexapro - PO 20 mg DAILY BERENICE Administration Eucalyptus/Menthol/Phenol/Sorbitol 1 each 09/14/17 19:05 Cepastat Lozenge - MM Q4H PRN SORE THROAT Gabapentin 600 mg 09/14/17 22:00 10/13/17 06:05 Neurontin - PO 600 mg TID BERENICE Administration Guaifenesin 10 ml 09/14/17 19:05 Robitussin Dm - PO Q6H PRN COUGH Hydroxyzine Pamoate 50 mg 09/29/17 09:38 10/12/17 21:17 Vistaril - PO 50 mg Q4H PRN Administration ANXIETY Insulin Aspart 1 vial 10/08/17 22:00 10/13/17 07:24 Novolog Vial Sliding Scale - SQ 8 units ACHS BERENICE Administration Protocol Insulin Detemir 30 units 09/15/17 07:00 10/13/17 07:24 Levemir Vial SQ 30 units DAILY@0700 BERENICE Administration Lactic Acid 1 applic 09/25/17 15:11 Lac-Hydrin 12 TP BID PRN DRY SKIN Lidocaine 1 patch 09/17/17 15:00 10/12/17 10:45 Lidoderm Patch - TP 1 patch DAILY BERENICE Administration Loperamide HCl 4 mg 09/14/17 19:05 10/13/17 07:10 Imodium - PO 4 mg Q6H PRN Administration DIARRHEA Magnesium Citrate 300 ml 09/14/17 19:05 Citroma - PO Q48H PRN CONSTIPATION Magnesium Hydroxide 30 ml 09/14/17 19:05 Milk Of Magnesia - PO DAILY PRN CONSTIPATION Melatonin 5 mg 09/14/17 22:00 10/11/17 21:09 Melatonin PO 5 mg HS PRN Administration INSOMNIA Metoprolol Succinate 50 mg 09/15/17 10:00 10/12/17 10:44 Toprol Xl - PO 50 mg DAILY BERENICE Administration Mirtazapine 15 mg 09/15/17 22:00 10/12/17 21:13 Remeron - PO 15 mg HS BERENICE Administration Miscellaneous 1 each 09/17/17 22:00 10/12/17 23:31 Lidoderm Patch Removal MC 1 each DAILY@2200 BERENICE Administration Pantoprazole Sodium 40 mg 09/15/17 10:00 10/12/17 10:45 Protonix - PO 40 mg DAILY BERENICE Administration Multivit/Folic Acid/Iron 1 tab 09/15/17 10:00 10/12/17 10:44 Vitamins (Sjr) - PO 1 tab DAILY BERENICE Administration Pseudoephedrine/Triprolidine 1 combo 09/14/17 19:05 Actifed - PO TID PRN NASAL CONGESTION Ramipril 5 mg 09/15/17 10:00 10/12/17 10:44 Altace - PO 5 mg DAILY BERENICE Administration Thiamine HCl 100 mg 09/14/17 22:00 10/12/17 21:15 Vitamin B1 - PO 100 mg HS BERENICE Administration Tizanidine HCl 2 mg 09/17/17 14:46 09/25/17 10:11 Tizanidine Hcl PO 2 mg Q8H PRN Administration MUSCLE SPASMS Ursodiol 300 mg 09/17/17 22:00 10/12/17 21:13 Actigal - PO 300 mg BID BERENICE Administration Warfarin Sodium 10 mg 10/11/17 18:00 10/12/17 21:12 Coumadin - PO 10 mg DAILY@1800 BERENICE Administration Zinc Sulfate 220 mg 09/18/17 10:00 10/12/17 10:44 Orazinc - PO 220 mg DAILY BERENICE Administration Current Side Effect: No Lab tests ordered: Yes Lab tests reviewed: Yes Provider note:: Patient will complete this program on 10/14/17. He has met his treatment goals and will continue to address his issues in inpatient treatment at [facility] at [address] [place] [address].Told journalists and other writers that from his participation in this program, he has learned the importance of surrounding himself with a sober support network in order to maintain abstinence. He responded well to Lexapro 20 mg po daily and Remeron 15 mg po HS. Scripts for 30 days supply of these medications will be electronically transmitted to [facility] at [address] [place] [address]. He is stable for discharge on 10/14/17 Total face to face time:: 35 Mental Status Exam - Mental Status Exam Alert and Oriented to: Time, Place, Person Cognitive Function: Fair Patient Appearance: Well Groomed Mood: Hopeful, Euthymic Affect: Appropriate Patient Behavior: Cooperative Speech Pattern: Clear Voice Loudness: Normal Thought Process: Intact, Goal Oriented Thought Disorder: Not Present Hallucinations: Denies Suicidal Ideation: Denies Homicidal Ideation: Denies Insight/Judgement: Fair Sleep: Fair Appetite: Good Muscle strength/Tone: Normal Gait/Station: Other (Uses wheelchair as ambulatory aid(Right BKA)) Psychiatric Treatment Plan - Problem List (1) Alcohol dependence Current Visit: Yes Qualifiers: Substance use status: uncomplicated Qualified Code(s): F10.20 - Alcohol dependence, uncomplicated (2) Opioid dependence Current Visit: Yes Qualifiers: Substance use status: uncomplicated Qualified Code(s): F11.20 - Opioid dependence, uncomplicated (3) MDD (major depressive disorder) Current Visit: Yes (4) Substance induced mood disorder Current Visit: Yes (5) Substance-induced sleep disorder Current Visit: Yes (6) Dependent for wheelchair mobility Current Visit: Yes (7) History of atrial fibrillation Current Visit: Yes (8) Amputated below knee Current Visit: Yes Qualifiers: Laterality: right Qualified Code(s): Z89.511 - Acquired absence of right leg below knee Comment: has prosthetic but does not use (9) DM (diabetes mellitus) Current Visit: Yes Qualifiers: Diabetes mellitus type: type 2 Diabetes mellitus ad terminal makeup operator insulin use: with ad terminal makeup operator use Diabetes mellitus complication status: without complication Qualified Code(s): E11.9 - Type 2 diabetes mellitus without complications; Z79.4 - terminal operations manager (current) use of insulin (10) HTN (hypertension) Current Visit: Yes Qualifiers: Hypertension type: essential hypertension Qualified Code(s): I10 - Essential (primary) hypertension Comment: on meds, followed by primary (11) Morbid obesity with BMI of 40.0-44.9, adult Current Visit: Yes (12) Charcot's joint of left ankle Current Visit: No Comment: wearing boot Initial treatment plan: Patient will be discharged tomorrow and referred to [facility] for inpatient treatment
[2017-10-13] MEDS ORDERED: NALTREXONE MICROSPHERES (VIVITROL) 380 MG DISP.SYRIN IM ONE (10:00)
[2017-10-13] MEDS: ZINC SULFATE 220 MG CAPSULE (FP) PO SCH (10:06)
[2017-10-13] MEDS: ESCITALOPRAM OXALATE 20 MG TABLET (FP) PO SCH (10:06)
[2017-10-13] MEDS: PRENATAL VITAMINS W/ FOLIC ACID TABLET (FP) PO SCH (10:06)
[2017-10-13] MEDS: amLODIPine BESYLATE 5 MG TABLET (FP) PO SCH (10:06)
[2017-10-13] MEDS: URSODIOL 300 MG CAPSULE PO SCH ×2 (10:07→21:23)
[2017-10-13] MEDS: PANTOPRAZOLE 40 MG TABLET (FP) PO SCH (10:07)
[2017-10-13] MEDS: RAMIPRIL 5 MG CAPSULE (FP) PO SCH (10:07)
[2017-10-13] MEDS: LIDOCAINE 5% TOPICAL PATCH TP SCH (10:34)
[2017-10-13] MEDS: WARFARIN NA 10 MG TABLET (FP) PO SCH (17:22)
[2017-10-13] MEDS: THIAMINE HCL 100 MG TABLET (FP) PO SCH (21:23)
[2017-10-13] MEDS: MIRTAZAPINE 15 MG TABLET (FP) PO SCH (21:23)
[2017-10-13] MEDS: hydrOXYzine PAMOATE 50 MG CAPSULE (FP) PO PRN (21:25)
[2017-10-13] MEDS: MELATONIN 5 MG TABLETS PO PRN (21:25)
[2017-10-13] MEDS: LIDOCAINE PATCH REMOVAL MC SCH (21:26)
[2017-10-14] MEDS ORDERED: INSULIN (NOVOLOG) ASPART 100 UNITS/ML 10ML VIAL ONE ×2 (07:57→11:26)
[2017-10-14] MEDS: PRENATAL VITAMINS W/ FOLIC ACID TABLET (FP) PO SCH (10:02)
[2017-10-14] MEDS: RAMIPRIL 5 MG CAPSULE (FP) PO SCH (10:03)
[2017-10-14] MEDS: GABAPENTIN 300 MG CAPSULE (FP) PO SCH (10:03)
[2017-10-14] MEDS: PANTOPRAZOLE 40 MG TABLET (FP) PO SCH (10:03)
[2017-10-14] MEDS: INSULIN (LEVEMIR) 100 UNITS/ML UNITS SQ SCH (10:03)
[2017-10-14] MEDS: amLODIPine BESYLATE 5 MG TABLET (FP) PO SCH (10:03)
[2017-10-14] MEDS: ZINC SULFATE 220 MG CAPSULE (FP) PO SCH (10:03)
[2017-10-14] MEDS: LIDOCAINE 5% TOPICAL PATCH TP SCH (10:03)
[2017-10-14] MEDS: ESCITALOPRAM OXALATE 20 MG TABLET (FP) PO SCH (10:03)
[2017-10-14] MEDS: URSODIOL 300 MG CAPSULE PO SCH (10:03)
[2017-10-14] MEDS: INSULIN SLIDING SCALE (NOVOLOG) 1 VIAL SQ SCH ×2 (10:04→11:26)
[2017-10-14 10:17] VITALS: BP 133/68; PULSE 83
== END 2017-10-14 12:40 | DRG 772 ==
LOC: YASAS 15:56 → Y3W 18:29
PROVIDERS: ADMIT Psychiatry & Neurology Psychiatry; ATTEND Psychiatry & Neurology Psychiatry
PROC: HZ42ZZZ Group Counseling for Substance Abuse Treatment, Cognitive-Behavioral (ICD-10-PCS; principal; 2017-09-14)
DX: F11.20 Opioid dependence, uncomplicated (principal); F10.20 Alcohol dependence, uncomplicated; F33.9 Major depressive disorder, recurrent, unspecified; F19.24 Other psychoactive substance dependence with psychoactive substance-induced mood disorder; E11.9 Type 2 diabetes mellitus without complications; Z79.4 Long term (current) use of insulin; I48.91 Unspecified atrial fibrillation; Z79.01 Long term (current) use of anticoagulants; J45.909 Unspecified asthma, uncomplicated; I10 Essential (primary) hypertension; M14.672 Charcot's joint, left ankle and foot; Z89.511 Acquired absence of right leg below knee; Z99.3 Dependence on wheelchair; Z86.19 Personal history of other infectious and parasitic diseases; Z91.5 Personal history of self-harm
CPT/HCPCS: 36415; 80053; 81003; 81015; 82962; 83036; 85027; 85610; 86593; 93005; 93010; 94640

== ENCOUNTER 2020-06-12 07:45 | Inpatient (IN) | payer OTHER ==
[2020-06-12 08:09] VITALS: BMI 48.8
[2020-06-12] MEDS ORDERED: LACTATED RINGERS SOLUTION 1000 ML INFUS.BAG IV ONE ×3 (08:11→12:17)
[2020-06-12 08:57] LABS: VENOUS BASE EXCESS -2.1 mmol/L (-2-2); VENOUS O2 SATURATION 70.6 % (70-80); VENOUS PCO2 55.5 mmHg (38-52); VENOUS PH 7.274 (7.310-7.410)
[2020-06-12 09:04] LABS: INR 1.38 (0.83-1.09); PROTHROMBIN TIME (PATIENT) 16.5 SEC (9.7-13.0)
[2020-06-12 09:07] LABS: ACTIVATED PTT 31.1 SECONDS (25.2-36.5)
[2020-06-12 09:24] LABS: BASO % 0.2 % (0-2.0); HEMATOCRIT 27.5 % (35.4-49); HEMOGLOBIN 8.8 GM/dL (11.7-16.9); LYMPH % 0.9 % (8-40); MCH 28.9 pg (25.7-33.7); MCHC 31.9 g/dl (32.0-35.9); MEAN CELL VOLUME 90.7 fl (80-96); MEAN PLT VOLUME 8.1 fl (7.5-11.1); MONO % 2.7 % (3.8-10.2); NEUT % 96.2 % (42.8-82.8); PLATELET COUNT 237 K/MM3 (134-434); RBC 3.03 M/mm3 (4.00-5.60); RDW 14.6 % (11.9-15.9)
[2020-06-12] MEDS ORDERED: FUROSEMIDE 40 MG/4 ML INJECTABLE VIAL IVPUSH ONE (09:24)
[2020-06-12 09:29] LABS: WHITE BLOOD COUNT 38.8 K/mm3 (4.0-10.0)
[2020-06-12 09:43] LABS: POTASSIUM 5.2 mmol/L (3.5-5.1)
[2020-06-12 09:48] LABS: ALBUMIN 2.9 g/dl (3.4-5.0); BLOOD UREA NITROGEN 47.9 mg/dL (7-18); CALCIUM 7.9 mg/dL (8.5-10.1)
[2020-06-12 09:50] LABS: BILIRUBIN,DIRECT 0.2 mg/dL (0.0-0.2)
[2020-06-12 09:51] LABS: BILIRUBIN,TOTAL 0.4 mg/dL (0.2-1); CREATININE 2.9 mg/dL (0.55-1.3)
[2020-06-12 09:52] LABS: TOT PROT 6.5 g/dl (6.4-8.2)
[2020-06-12] MEDS ORDERED: VANCOMYCIN 1 GM in D5W (PRE-DOCKED) 1,000 MG/250 ML IVPB ONE (10:04)
[2020-06-12] MEDS ORDERED: PIPERACILLIN/TAZOB 4.5 GM 4.5 GM in DEXTROSE 5%-WATER 100 ML IVPB ONE (10:05)
[2020-06-12] MEDS ORDERED: PIPERACILLIN/TAZOB 4.5 GM 4.5 GM/100 ML BAG IVPB ONE ×2 (10:12→18:16)
[2020-06-12] MEDS ORDERED: VANCOMYCIN 1 GRAM (PRE-DOCKED) 1,000 MG/250 ML BAG IVPB ONE (10:12)
[2020-06-12] MEDS ORDERED: oxyCODONE HCL 5 MG TABLET ONE (10:59)
[2020-06-12] MEDS ORDERED: oxyCODONE HCL 5 MG TABLET PO ONE (11:03)
[2020-06-12 13:48] LABS: ANISOCYTOSIS 0; MACROCYTOSIS 0; PLATELET ESTIMATE NORMAL
[2020-06-12] MEDS ORDERED: ALBUTEROL SO4 HFA INHALER IH PRN (17:05)
[2020-06-12] MEDS ORDERED: ACETAMINOPHEN 650 MG PO PRN (17:05)
[2020-06-12] MEDS ORDERED: ACETAMINOPHEN 325 MG TABLET (FP) PO PRN (17:22)
[2020-06-12] MEDS: PIPERACILLIN/TAZOB 4.5 GM 4.5 GM in DEXTROSE 5%-WATER 100 ML IVPB SCH (18:21)
[2020-06-12] MEDS ORDERED: SODIUM ZIRCONIUM CYCLOSILICATE (LOKELMA) 5 GM PACKET PO ONE (18:29)
[2020-06-12] MEDS ORDERED: SODIUM ZIRCONIUM CYCLOSILICATE (LOKELMA) 5 GM PACKET ONE (18:49)
[2020-06-12] MEDS ORDERED: ELIQUIS PO SCH ×2 (22:00)
[2020-06-12] MEDS ORDERED: APIXABAN 5 MG TABLET ONE (23:36)
[2020-06-12] MEDS: APIXABAN 5 MG TABLET PO SCH (23:40)
[2020-06-13] MEDS ORDERED: PIPERACILLIN/TAZOB 4.5 GM 4.5 GM/100 ML BAG IVPB ONE ×2 (02:30→09:11)
[2020-06-13] MEDS: PIPERACILLIN/TAZOB 4.5 GM 4.5 GM in DEXTROSE 5%-WATER 100 ML IVPB SCH ×2 (02:43→09:14)
[2020-06-13] MEDS ORDERED: INSULIN (LEVEMIR) 100 UNITS/ML UNITS SQ SCH (07:00)
[2020-06-13 07:02] LABS: EPI CELLS 7 /uL (0-25.1); HYALINE CASTS 1 /uL (0-3.1); URINE APPEARANCE CLEAR; URINE BACTERIA 150 /uL (0-1359); URINE BILIRUBIN NEGATIVE (NEGATIVE); URINE COLOR YELLOW; URINE GLUCOSE (UA) NEGATIVE (NEGATIVE); URINE KETONE NEGATIVE (NEGATIVE); URINE LEUK ESTERASE NEGATIVE (NEGATIVE); URINE NITRITE NEGATIVE (NEGATIVE); URINE PROTEIN TRACE (NEGATIVE); URINE WBC 17 /uL (0-25.8)
[2020-06-13 08:24] LABS: URINE RBC 40.3 /uL (0-23.9)
[2020-06-13 08:37] LABS: POTASSIUM 4.6 mmol/L (3.5-5.1)
[2020-06-13 08:39] LABS: ALBUMIN 2.7 g/dl (3.4-5.0); BLOOD UREA NITROGEN 60.6 mg/dL (7-18); CALCIUM 8.1 mg/dL (8.5-10.1)
[2020-06-13 08:42] LABS: CREATININE 2.8 mg/dL (0.55-1.3)
[2020-06-13] MEDS ORDERED: PT OWN MED DRAWER 7, Y5N ONE (08:43)
[2020-06-13 08:44] LABS: BILIRUBIN,TOTAL 0.6 mg/dL (0.2-1); TOT PROT 6.3 g/dl (6.4-8.2)
[2020-06-13] MEDS ORDERED: APIXABAN 5 MG TABLET ONE (09:11)
[2020-06-13] MEDS ORDERED: ASCORBIC ACID 500 MG TABLET (FP) ONE (09:11)
[2020-06-13] MEDS ORDERED: VENLAFAXINE HCL 75 MG TABLET ONE (09:11)
[2020-06-13] MEDS: APIXABAN 5 MG TABLET PO SCH ×2 (09:14→23:41)
[2020-06-13] MEDS ORDERED: VANCOMYCIN 1 GRAM (PRE-DOCKED) 1,000 MG/250 ML BAG IVPB ONE ×2 (09:54→10:49)
[2020-06-13] MEDS ORDERED: amLODIPine BESYLATE 5 MG TABLET (FP) PO SCH (10:00)
[2020-06-13] MEDS ORDERED: VENLAFAXINE HCL 150 MG E.R. CAPSULE PO SCH (10:00)
[2020-06-13] MEDS ORDERED: ASCORBIC ACID 500 MG TABLET (FP) PO SCH (10:00)
[2020-06-13] MEDS ORDERED: ASCORBIC ACID 500 MG PO SCH (10:00)
[2020-06-13] MEDS ORDERED: ACETAMINOPHEN 325 MG TABLET (FP) ONE (10:48)
[2020-06-13] MEDS ORDERED: FUROSEMIDE 40 MG TABLET (FP) PO ONE (12:01)
[2020-06-13] MEDS ORDERED: FUROSEMIDE 40 MG TABLET (FP) ONE (12:05)
[2020-06-13 12:31] LABS: BASO % 0.2 % (0-2.0); EOS % 0.1 % (0-4.5); HEMATOCRIT 20.8 % (35.4-49); MCH 29.3 pg (25.7-33.7); MCHC 31.4 g/dl (32.0-35.9); MEAN CELL VOLUME 93.3 fl (80-96); MEAN PLT VOLUME 8.2 fl (7.5-11.1); MONO % 4.8 % (3.8-10.2); NEUT % 92.9 % (42.8-82.8); PLATELET COUNT 174 K/MM3 (134-434); RBC 2.23 M/mm3 (4.00-5.60); RDW 15.5 % (11.9-15.9); WHITE BLOOD COUNT 19.3 K/mm3 (4.0-10.0)
[2020-06-13 12:34] LABS: HEMOGLOBIN 6.5 GM/dL (11.7-16.9)
[2020-06-13 13:17] LABS: POTASSIUM 3.7 mmol/L (3.5-5.1)
[2020-06-13 13:20] LABS: ALBUMIN 2.2 g/dl (3.4-5.0); BLOOD UREA NITROGEN 53.8 mg/dL (7-18)
[2020-06-13 13:23] LABS: CREATININE 2.7 mg/dL (0.55-1.3)
[2020-06-13 13:24] LABS: TOT PROT 5.4 g/dl (6.4-8.2)
[2020-06-13 13:25] LABS: BILIRUBIN,TOTAL 0.7 mg/dL (0.2-1)
[2020-06-13 13:39] LABS: CALCIUM 6.9 mg/dL (8.5-10.1)
[2020-06-13 13:48] LABS: ANISOCYTOSIS 1+; MACROCYTOSIS 1+; OVALOCYTE 1+; PLATELET ESTIMATE NORMAL
[2020-06-13 15:22] LABS: HEMATOCRIT 24.2 % (35.4-49); HEMOGLOBIN 7.8 GM/dL (11.7-16.9); MCHC 32.3 g/dl (32.0-35.9); MEAN PLT VOLUME 8.1 fl (7.5-11.1); PLATELET COUNT 201 K/MM3 (134-434); RBC 2.69 M/mm3 (4.00-5.60); WHITE BLOOD COUNT 21.3 K/mm3 (4.0-10.0)
[2020-06-13] MEDS ORDERED: PIPERACILLIN/TAZOB 4.5 GM 4.5 GM in DEXTROSE 5%-WATER 100 ML IVPB SCH (18:00)
[2020-06-13 18:18] LABS: POTASSIUM 4.2 mmol/L (3.5-5.1)
[2020-06-13 18:20] LABS: BLOOD UREA NITROGEN 60.5 mg/dL (7-18); CALCIUM 7.8 mg/dL (8.5-10.1)
[2020-06-13 18:23] LABS: CREATININE 2.9 mg/dL (0.55-1.3)
[2020-06-13] MEDS: INSULIN (NOVOLOG) ASPART 100 UNITS/ML 10ML VIAL SQ SCH (23:53)
[2020-06-14] MEDS: ALBUTEROL SO4 HFA INHALER IH PRN (01:18)
[2020-06-14] MEDS ORDERED: oxyCODONE HCL 5 MG TABLET PO ONE (02:09)
[2020-06-14] MEDS: ACETAMINOPHEN 325 MG TABLET (FP) PO PRN ×3 (02:14→16:58)
[2020-06-14] MEDS: INSULIN (LEVEMIR) 100 UNITS/ML UNITS SQ SCH (06:25)
[2020-06-14] MEDS: INSULIN (NOVOLOG) ASPART 100 UNITS/ML 10ML VIAL SQ SCH ×3 (06:26→16:52)
[2020-06-14 08:25] LABS: HEMATOCRIT 25.4 % (35.4-49); HEMOGLOBIN 8.4 GM/dL (11.7-16.9); MCH 29.5 pg (25.7-33.7); MCHC 33.2 g/dl (32.0-35.9); MEAN CELL VOLUME 88.8 fl (80-96); MEAN PLT VOLUME 7.6 fl (7.5-11.1); PLATELET COUNT 220 K/MM3 (134-434); RBC 2.87 M/mm3 (4.00-5.60); RDW 14.9 % (11.9-15.9); WHITE BLOOD COUNT 11.7 K/mm3 (4.0-10.0)
[2020-06-14 08:48] LABS: ALBUMIN 2.9 g/dl (3.4-5.0)
[2020-06-14 08:53] LABS: BILIRUBIN,TOTAL 0.4 mg/dL (0.2-1); TOT PROT 6.5 g/dl (6.4-8.2)
[2020-06-14] MEDS ORDERED: CEFTRIAXONE 2 GM in DEXTROSE 5%-WATER 100 ML IVPB SCH (10:00)
[2020-06-14] MEDS ORDERED: DEXTROSE 5%-WATER 100 ML IVPB ONE (10:13)
[2020-06-14] MEDS: CEFTRIAXONE 2 GM in DEXTROSE 5%-WATER 100 ML IVPB SCH (10:24)
[2020-06-14] MEDS: VENLAFAXINE HCL 75 MG E.R. CAPSULES PO SCH (10:25)
[2020-06-14] MEDS: ASCORBIC ACID 500 MG TABLET (FP) PO SCH (10:25)
[2020-06-14] MEDS: APIXABAN 5 MG TABLET PO SCH ×2 (10:26→23:00)
[2020-06-14] MEDS: oxyCODONE HCL 5 MG TABLET PO PRN (16:55)
[2020-06-15] MEDS: ALBUTEROL SO4 HFA INHALER IH PRN (00:32)
[2020-06-15] MEDS: ACETAMINOPHEN 325 MG TABLET (FP) PO PRN ×3 (04:20→21:45)
[2020-06-15] MEDS: oxyCODONE HCL 5 MG TABLET PO PRN ×3 (04:23→22:13)
[2020-06-15] MEDS: INSULIN (LEVEMIR) 100 UNITS/ML UNITS SQ SCH (06:53)
[2020-06-15] MEDS: INSULIN (NOVOLOG) ASPART 100 UNITS/ML 10ML VIAL SQ SCH ×3 (06:54→16:51)
[2020-06-15 09:03] LABS: CALCIUM 8.7 mg/dL (8.5-10.1)
[2020-06-15 09:04] LABS: ALBUMIN 2.8 g/dl (3.4-5.0)
[2020-06-15 09:07] LABS: CREATININE 1.5 mg/dL (0.55-1.3)
[2020-06-15] MEDS ORDERED: DEXTROSE 5%-WATER 100 ML IVPB ONE (09:07)
[2020-06-15 09:08] LABS: BILIRUBIN,TOTAL 0.3 mg/dL (0.2-1)
[2020-06-15 09:09] LABS: TOT PROT 7.1 g/dl (6.4-8.2)
[2020-06-15] MEDS: CEFTRIAXONE 2 GM in DEXTROSE 5%-WATER 100 ML IVPB SCH (09:28)
[2020-06-15] MEDS: VENLAFAXINE HCL 75 MG E.R. CAPSULES PO SCH (09:28)
[2020-06-15] MEDS: ASCORBIC ACID 500 MG TABLET (FP) PO SCH (09:29)
[2020-06-15] MEDS: APIXABAN 5 MG TABLET PO SCH ×2 (10:34→21:45)
[2020-06-16 00:18] VITALS: BP 155/77; PULSE 100; TEMP 98.9
== END 2020-06-15 23:15 | DRG 720 ==
LOC: JER 07:45 → JERBED 15:29 → J7W 06-13 22:12
PROVIDERS: ADMIT Internal Medicine; ATTEND Internal Medicine
PROC: 02HV33Z Insertion of Infusion Device into Superior Vena Cava, Percutaneous Approach (ICD-10-PCS; principal; 2020-06-15)
PROC: B518ZZA Fluoroscopy of Superior Vena Cava, Guidance (ICD-10-PCS; 2020-06-15)
DX: A40.8 Other streptococcal sepsis (principal); E66.01 Morbid (severe) obesity due to excess calories; Z68.42 Body mass index [BMI] 45.0-49.9, adult; I48.91 Unspecified atrial fibrillation; J45.909 Unspecified asthma, uncomplicated; E11.9 Type 2 diabetes mellitus without complications; I11.0 Hypertensive heart disease with heart failure; I50.9 Heart failure, unspecified; E78.5 Hyperlipidemia, unspecified; D72.829 Elevated white blood cell count, unspecified; L97.928 Non-pressure chronic ulcer of unspecified part of left lower leg with other specified severity; K21.9 Gastro-esophageal reflux disease without esophagitis; F41.8 Other specified anxiety disorders; N17.9 Acute kidney failure, unspecified; L89.152 Pressure ulcer of sacral region, stage 2; E87.2 Acidosis; I95.9 Hypotension, unspecified; R09.02 Hypoxemia; R50.9 Fever, unspecified; E87.5 Hyperkalemia; L03.116 Cellulitis of left lower limb; E83.51 Hypocalcemia; M54.5 Low back pain; Z89.511 Acquired absence of right leg below knee
CPT/HCPCS: 36415; 36558; 71045-TC-FY; 73590-TC-LT-FY; 73610-TC-LT-FY; 73630-TC-LT; 76775-TC; 76856-TC; 80048; 80053; 81003; 82248; 82272; 82436; 82550; 82553; 82565; 82728; 82803; 82962; 83540; 83550; 83605; 83615; 83880; 83930; 83935; 84133; 84300; 84484; 85025; 85027; 85610; 85730; 86140; 87040; 87077; 87086; 87186; 87804; 93005; 93010; 93306-TC; 93971-TC; 99291; C9803; G0480; U0003

== ENCOUNTER 2020-08-26 11:04 | Inpatient (IN) | payer OTHER ==
[2020-08-26] MEDS ORDERED: PIPERACILLIN/TAZOB 2.25 GM 2.25 GM in DEXTROSE 5%-WATER - 50 ML IVPB ONE (11:58)
[2020-08-26] MEDS ORDERED: VANCOMYCIN 1 GM in D5W (PRE-DOCKED) 1,000 MG/250 ML IVPB ONE (11:58)
[2020-08-26] MEDS ORDERED: ACETAMINOPHEN 1000 MG/100 ML VIAL (NON FORMULARY) IVPB ONE (11:58)
[2020-08-26 12:03] VITALS: BMI 65.2
[2020-08-26 12:05] LABS: HEMATOCRIT 29.5 % (35.4-49); HEMOGLOBIN 9.4 GM/dL (11.7-16.9); MCH 28.7 pg (25.7-33.7); MCHC 31.9 g/dl (32.0-35.9); MEAN CELL VOLUME 90.1 fl (80-96); MEAN PLT VOLUME 7.9 fl (7.5-11.1); PLATELET COUNT 269 K/MM3 (134-434); RBC 3.28 M/mm3 (4.00-5.60); RDW 15.7 % (11.9-15.9)
[2020-08-26] MEDS ORDERED: ACETAMINOPHEN INJECTION 100 ML IVPB ONE (12:05)
[2020-08-26] MEDS ORDERED: PIPERACILLIN/TAZOB 2.25 GM 2.25 GM/50 ML BAG IVPB ONE (12:06)
[2020-08-26] MEDS ORDERED: VANCOMYCIN 1 GRAM (PRE-DOCKED) 1,000 MG/250 ML BAG IVPB ONE (12:07)
[2020-08-26 12:08] LABS: EPI CELLS 8 /uL (0-25.1); HYALINE CASTS 1 /uL (0-3.1); URINE APPEARANCE CLEAR; URINE BACTERIA 1194 /uL (0-1359); URINE BILIRUBIN NEGATIVE (NEGATIVE); URINE COLOR YELLOW; URINE GLUCOSE (UA) NEGATIVE (NEGATIVE); URINE KETONE NEGATIVE (NEGATIVE); URINE LEUK ESTERASE TRACE (NEGATIVE); URINE NITRITE NEGATIVE (NEGATIVE); URINE PROTEIN NEGATIVE (NEGATIVE); URINE RBC 5 /uL (0-23.9); URINE UROBILINOGEN 0.2 mg/dL (0.2-1.0); URINE WBC 20 /uL (0-25.8)
[2020-08-26 12:11] LABS: INR 1.43 (0.83-1.09); PROTHROMBIN TIME (PATIENT) 17.4 SEC (9.7-13.0)
[2020-08-26 12:14] LABS: ACTIVATED PTT 31.4 SECONDS (25.2-36.5)
[2020-08-26 12:29] LABS: CHLORIDE 101 mmol/L (98-107); POTASSIUM 5.4 mmol/L (3.5-5.1); SODIUM 134 mmol/L (136-145)
[2020-08-26 12:31] LABS: CALCIUM 8.2 mg/dL (8.5-10.1)
[2020-08-26 12:32] LABS: ALBUMIN 2.9 g/dl (3.4-5.0); ANION GAP 7 MMOL/L (8-16); BLOOD UREA NITROGEN 44.5 mg/dL (7-18); CO2 27 mmol/L (21-32); GLUCOSE,RANDOM 182 mg/dL (74-106)
[2020-08-26 12:35] LABS: SGOT/AST 181 U/L (15-37); SGPT/ALT 117 U/L (13-61)
[2020-08-26 12:36] LABS: BILIRUBIN,TOTAL 0.3 mg/dL (0.2-1)
[2020-08-26 12:37] LABS: TOT PROT 8.1 g/dl (6.4-8.2)
[2020-08-26 12:38] LABS: ALK PHOS 391 U/L (45-117)
[2020-08-26 12:40] LABS: LACTIC ACID 2.2 mmol/L (0.4-2.0)
[2020-08-26 13:04] LABS: ANISOCYTOSIS 1+; MACROCYTOSIS 1+; PLATELET ESTIMATE NORMAL
[2020-08-26] MEDS ORDERED: SODIUM CHLORIDE 1,000 ML IV STA ×3 (13:43→21:44)
[2020-08-26] MEDS ORDERED: NITROGLYCERIN SUBLINGUAL 1/150 0.4 MG TAB SL ONE (15:30)
[2020-08-26] MEDS ORDERED: METOPROLOL TARTRATE 50 MG TABLET (FP) PO ONE (15:34)
[2020-08-26] MEDS ORDERED: NITROGLYCERIN SUBLINGUAL 1/150 0.4 MG TAB ONE (15:36)
[2020-08-26] MEDS ORDERED: METOPROLOL TARTRATE 50 MG TABLET (FP) ONE (15:41)
[2020-08-26] MEDS ORDERED: LORazepam 2 MG/ML SDV VIAL ONE (16:00)
[2020-08-26] MEDS ORDERED: LORazepam 2 MG/ML SDV VIAL IVPUSH ONE (16:00)
[2020-08-26] MEDS ORDERED: SODIUM CHLORIDE 0.9% 1000 ML INFUS.BAG IV ONE (16:46)
[2020-08-26 18:24] LABS: LACTIC ACID 2.3 mmol/L (0.4-2.0)
[2020-08-26] MEDS ORDERED: PIPERACILLIN/TAZOB 3.375 GM 3.375 GM/50 ML BAG IVPB ONE (22:42)
[2020-08-26] MEDS: PIPERACILLIN/TAZOB 3.375 GM 3.375 GM in DEXTROSE 5%-WATER - 50 ML IVPB SCH (22:54)
[2020-08-26] MEDS ORDERED: VANCOMYCIN PREMIX 1.5 GM 1,500 MG/300 ML BAG IVPB ONE (23:30)
[2020-08-27] MEDS ORDERED: VANCOMYCIN PREMIX 1.5 GM 1,500 MG/300 ML BAG IVPB ONE (01:30)
[2020-08-27] MEDS: PIPERACILLIN/TAZOB 3.375 GM 3.375 GM in DEXTROSE 5%-WATER - 50 ML IVPB SCH ×3 (02:39→18:53)
[2020-08-27] MEDS: ALBUTEROL SO4 HFA INHALER IH SCH ×5 (04:26→21:19)
[2020-08-27] MEDS: ALBUTEROL SO4 2.5/IPRATROPIUM 0.5 INH SOL 3 ML VIAL.NEB. NEB SCH ×6 (04:26→21:55)
[2020-08-27] MEDS ORDERED: HEPARIN NA (PORCINE) 5,000 UNITS/ML 1ML VIAL SQ SCH (06:00)
[2020-08-27 06:08] LABS: POTASSIUM 4.2 mmol/L (3.5-5.1)
[2020-08-27] MEDS: INSULIN SLIDING SCALE (NOVOLOG) 1 VIAL SQ SCH ×4 (08:03→23:57)
[2020-08-27] MEDS ORDERED: APIXABAN 2.5 MG TABLET ONE (09:33)
[2020-08-27] MEDS ORDERED: ALBUTEROL SO4 2.5/IPRATROPIUM 0.5 INH SOL 3 ML VIAL.NEB. NEB ONE ×4 (09:33→21:53)
[2020-08-27] MEDS ORDERED: ALBUTEROL SO4 HFA INHALER IH ONE ×2 (09:33→21:16)
[2020-08-27] MEDS ORDERED: PIPERACILLIN/TAZOB 3.375 GM 3.375 GM/50 ML BAG IVPB ONE ×2 (09:33→18:41)
[2020-08-27] MEDS: TRIAMCINOLONE ACET 0.1% CREAM 15 GM TUBE TP SCH ×2 (09:54→23:58)
[2020-08-27] MEDS: VENLAFAXINE HCL 75 MG E.R. CAPSULES PO SCH (09:54)
[2020-08-27] MEDS: ARIPiprazole 10 MG TABLET PO SCH (09:54)
[2020-08-27] MEDS: CITALOPRAM HYDROBROMIDE 20 MG TABLET PO SCH (09:54)
[2020-08-27] MEDS: HYDROCORTISONE 2.5% LOTION - 1 BOTTLE TP SCH ×2 (09:55→23:57)
[2020-08-27] MEDS: APIXABAN 5 MG TABLET PO SCH ×2 (09:55→23:56)
[2020-08-27] MEDS ORDERED: PATIENT'S OWN MEDICATION (NON-FORMULARY) (Calcium Alginate [Kendall] 1 EACH Bandage) TP SCH (10:00)
[2020-08-27] MEDS ORDERED: SODIUM CHLORIDE 1,000 ML IV SCH ×2 (10:00)
[2020-08-27] MEDS ORDERED: [UNRECOGNIZED DRUG - OTHER] TP SCH (10:00)
[2020-08-27] MEDS ORDERED: HYDROCOLLOID DRESSING TP SCH (10:00)
[2020-08-27] MEDS ORDERED: SODIUM CHLORIDE 1,000 ML IV ONE (10:01)
[2020-08-27 12:05] LABS: BASO % 0.6 % (0-2.0); HEMATOCRIT 28.7 % (35.4-49); LYMPH % 1.6 % (8-40); MCH 28.4 pg (25.7-33.7); MCHC 31.5 g/dl (32.0-35.9); MEAN CELL VOLUME 90.2 fl (80-96); NEUT % 94.8 % (42.8-82.8); PLATELET COUNT 245 K/MM3 (134-434); RBC 3.18 M/mm3 (4.00-5.60); RDW 15.8 % (11.9-15.9); RETICULOCYTES 1.24 % (0.5-1.5); WHITE BLOOD COUNT 28.8 K/mm3 (4.0-10.0)
[2020-08-27 12:29] LABS: POTASSIUM 4.1 mmol/L (3.5-5.1)
[2020-08-27 12:31] LABS: BLOOD UREA NITROGEN 42.7 mg/dL (7-18)
[2020-08-27 12:32] LABS: ALBUMIN 2.5 g/dl (3.4-5.0); MAGNESIUM 2.2 mg/dL (1.8-2.4)
[2020-08-27 12:35] LABS: BILIRUBIN,DIRECT 0.2 mg/dL (0.0-0.2); CREATININE 1.7 mg/dL (0.55-1.3); PHOSPHOROUS 2.2 mg/dL (2.5-4.9)
[2020-08-27 12:36] LABS: BILIRUBIN,TOTAL 0.4 mg/dL (0.2-1)
[2020-08-27 12:37] LABS: TOT PROT 7.2 g/dl (6.4-8.2)
[2020-08-27 12:46] LABS: ANISOCYTOSIS 0; PLATELET ESTIMATE NORMAL
[2020-08-27 13:12] LABS: ERYTHROCYTE SEDIMENTATION RATE 106 mm/hr (0-20)
[2020-08-27] MEDS ORDERED: oxyCODONE HCL 5 MG TABLET ONE (13:44)
[2020-08-27] MEDS: oxyCODONE HCL 5 MG TABLET PO PRN (13:50)
[2020-08-27] MEDS: ACETAMINOPHEN 325 MG TABLET (FP) PO PRN (15:54)
[2020-08-27] MEDS ORDERED: ACETAMINOPHEN 325 MG TABLET (FP) ONE (15:57)
[2020-08-27] MEDS ORDERED: SIMETHICONE 80 MG TAB.CHEW (FP) PO PRN (17:30)
[2020-08-27] MEDS: ARTIFICIAL TEARS (POLYVINYL ALCOHOL) OPTH DROPS OU SCH ×2 (18:37→23:58)
[2020-08-27] MEDS ORDERED: GABAPENTIN 100 MG CAPSULE ONE (18:40)
[2020-08-27] MEDS: GABAPENTIN 300 MG CAPSULE PO SCH ×2 (18:53→23:57)
[2020-08-27] MEDS ORDERED: WATER IVPB SCH (23:00)
[2020-08-27] MEDS ORDERED: DEXTROSE 5% IVPB SCH (23:00)
[2020-08-27] MEDS ORDERED: VANCOMYCIN IVPB SCH (23:00)
[2020-08-27] MEDS: ATORVASTATIN CA 20 MG TABLET (FP) PO SCH (23:56)
[2020-08-27] MEDS: TAMSULOSIN HCL 0.4 MG CAP PO SCH (23:56)
[2020-08-27] MEDS: MONTELUKAST NA 10 MG TABLET PO SCH (23:57)
[2020-08-28] MEDS: ACETAMINOPHEN 325 MG TABLET (FP) PO PRN (00:04)
[2020-08-28] MEDS: oxyCODONE HCL 5 MG TABLET PO PRN ×3 (00:05→21:48)
[2020-08-28] MEDS: ALBUTEROL SO4 HFA INHALER IH SCH ×6 (00:12→21:52)
[2020-08-28] MEDS ORDERED: PIPERACILLIN/TAZOBACTAM 3.375 GM VIAL IVPB ONE ×3 (01:09→17:01)
[2020-08-28] MEDS ORDERED: DEXTROSE 5%-WATER - 50 ML IVPB ONE ×3 (01:09→17:01)
[2020-08-28] MEDS: PIPERACILLIN/TAZOB 3.375 GM 3.375 GM in DEXTROSE 5%-WATER - 50 ML IVPB SCH ×3 (02:32→17:20)
[2020-08-28] MEDS: INSULIN SLIDING SCALE (NOVOLOG) 1 VIAL SQ SCH ×4 (06:51→21:44)
[2020-08-28 07:44] LABS: HEMATOCRIT 25.3 % (35.4-49); HEMOGLOBIN 8.2 GM/dL (11.7-16.9); MCH 28.9 pg (25.7-33.7); MCHC 32.6 g/dl (32.0-35.9); MEAN CELL VOLUME 88.8 fl (80-96); MEAN PLT VOLUME 7.9 fl (7.5-11.1); PLATELET COUNT 234 K/MM3 (134-434); RBC 2.85 M/mm3 (4.00-5.60)
[2020-08-28 08:03] LABS: ALBUMIN 2.2 g/dl (3.4-5.0); BILIRUBIN,TOTAL 0.3 mg/dL (0.2-1)
[2020-08-28 08:04] LABS: TOT PROT 6.5 g/dl (6.4-8.2)
[2020-08-28 08:05] LABS: BLOOD UREA NITROGEN 31.9 mg/dL (7-18); CREATININE 1.3 mg/dL (0.55-1.3)
[2020-08-28 08:06] LABS: CALCIUM 7.5 mg/dL (8.5-10.1); PHOSPHOROUS 2.7 mg/dL (2.5-4.9)
[2020-08-28 08:07] LABS: MAGNESIUM 2.2 mg/dL (1.8-2.4)
[2020-08-28] MEDS: GABAPENTIN 300 MG CAPSULE PO SCH ×4 (09:57→21:42)
[2020-08-28] MEDS: CITALOPRAM HYDROBROMIDE 20 MG TABLET PO SCH (09:57)
[2020-08-28] MEDS: VENLAFAXINE HCL 75 MG E.R. CAPSULES PO SCH (09:58)
[2020-08-28] MEDS: ARIPiprazole 10 MG TABLET PO SCH (09:58)
[2020-08-28] MEDS: APIXABAN 5 MG TABLET PO SCH ×2 (09:58→21:43)
[2020-08-28] MEDS: TRIAMCINOLONE ACET 0.1% CREAM 15 GM TUBE TP SCH ×2 (10:00→21:43)
[2020-08-28] MEDS: HYDROCORTISONE 2.5% LOTION - 1 BOTTLE TP SCH ×2 (10:00→21:44)
[2020-08-28] MEDS: ARTIFICIAL TEARS (POLYVINYL ALCOHOL) OPTH DROPS OU SCH ×4 (10:00→21:43)
[2020-08-28 14:07] LABS: HEP B CORE AB, TOT Positive (Negative)
[2020-08-28] MEDS: ALBUTEROL SO4 2.5/IPRATROPIUM 0.5 INH SOL 3 ML VIAL.NEB. NEB SCH ×3 (14:43→21:42)
[2020-08-28] MEDS: MONTELUKAST NA 10 MG TABLET PO SCH (21:43)
[2020-08-28] MEDS: ATORVASTATIN CA 20 MG TABLET (FP) PO SCH (21:43)
[2020-08-28] MEDS: TAMSULOSIN HCL 0.4 MG CAP PO SCH (21:43)
[2020-08-29] MEDS: ALBUTEROL SO4 HFA INHALER IH SCH ×6 (00:05→19:16)
[2020-08-29] MEDS ORDERED: PIPERACILLIN/TAZOBACTAM 3.375 GM VIAL IVPB ONE ×2 (01:15→10:01)
[2020-08-29] MEDS ORDERED: DEXTROSE 5%-WATER - 50 ML IVPB ONE ×2 (01:16→10:01)
[2020-08-29] MEDS: PIPERACILLIN/TAZOB 3.375 GM 3.375 GM in DEXTROSE 5%-WATER - 50 ML IVPB SCH ×3 (01:20→19:16)
[2020-08-29] MEDS: ALBUTEROL SO4 2.5/IPRATROPIUM 0.5 INH SOL 3 ML VIAL.NEB. NEB SCH ×6 (01:46→22:07)
[2020-08-29] MEDS: INSULIN SLIDING SCALE (NOVOLOG) 1 VIAL SQ SCH ×4 (06:52→21:50)
[2020-08-29] MEDS ORDERED: INSULIN SLIDING SCALE (NOVOLOG) 1 VIAL SQ ONE (07:54)
[2020-08-29 08:12] LABS: HEMATOCRIT 26.5 % (35.4-49); HEMOGLOBIN 8.7 GM/dL (11.7-16.9); MCH 29.4 pg (25.7-33.7); MCHC 32.9 g/dl (32.0-35.9); MEAN CELL VOLUME 89.3 fl (80-96); PLATELET COUNT 241 K/MM3 (134-434); RBC 2.97 M/mm3 (4.00-5.60); RDW 16.2 % (11.9-15.9); WHITE BLOOD COUNT 10.7 K/mm3 (4.0-10.0)
[2020-08-29 08:30] LABS: POTASSIUM 4.3 mmol/L (3.5-5.1)
[2020-08-29 08:36] LABS: CALCIUM 8.2 mg/dL (8.5-10.1)
[2020-08-29 08:37] LABS: ALBUMIN 2.2 g/dl (3.4-5.0); BLOOD UREA NITROGEN 22.6 mg/dL (7-18); MAGNESIUM 2.6 mg/dL (1.8-2.4)
[2020-08-29 08:40] LABS: CREATININE 1.1 mg/dL (0.55-1.3); PHOSPHOROUS 2.4 mg/dL (2.5-4.9)
[2020-08-29 08:41] LABS: BILIRUBIN,TOTAL 0.4 mg/dL (0.2-1); TOT PROT 6.6 g/dl (6.4-8.2)
[2020-08-29] MEDS: oxyCODONE HCL 5 MG TABLET PO PRN ×2 (08:42→21:51)
[2020-08-29] MEDS: APIXABAN 5 MG TABLET PO SCH ×3 (08:44→21:50)
[2020-08-29] MEDS ORDERED: NAPH,MB-DB/K PH,MBDB POWDER PACKET PO ONE (09:46)
[2020-08-29] MEDS ORDERED: PT OWN MED DRAWER 7, Y5N ONE ×2 (10:01→13:26)
[2020-08-29] MEDS: CITALOPRAM HYDROBROMIDE 20 MG TABLET PO SCH (10:30)
[2020-08-29] MEDS: ACETAMINOPHEN 325 MG TABLET (FP) PO PRN (10:31)
[2020-08-29] MEDS: GABAPENTIN 300 MG CAPSULE PO SCH ×4 (10:32→21:50)
[2020-08-29] MEDS: HYDROCORTISONE 2.5% LOTION - 1 BOTTLE TP SCH ×2 (10:32→21:51)
[2020-08-29] MEDS: ZINC OXIDE 20% TOPICAL OINTMENT 30 GM TUBE TP SCH ×2 (10:32→21:51)
[2020-08-29] MEDS: ARTIFICIAL TEARS (POLYVINYL ALCOHOL) OPTH DROPS OU SCH ×4 (10:33→21:50)
[2020-08-29] MEDS: TRIAMCINOLONE ACET 0.1% CREAM 15 GM TUBE TP SCH ×2 (10:34→21:51)
[2020-08-29] MEDS ORDERED: DEXTROSE 5%-WATER 100 ML IVPB ONE (13:26)
[2020-08-29] MEDS: VENLAFAXINE HCL 75 MG E.R. CAPSULES PO SCH (13:33)
[2020-08-29] MEDS: ARIPiprazole 10 MG TABLET PO SCH (13:33)
[2020-08-29] MEDS: VANCOMYCIN 1 GRAM (PRE-DOCKED) 1,000 MG/250 ML BAG IVPB SCH (13:35)
[2020-08-29] MEDS: CEFTRIAXONE 2 GM in DEXTROSE 5%-WATER 2 GM/100 ML BAG IVPB SCH (15:01)
[2020-08-29] MEDS: MELATONIN 5 MG TABLETS PO PRN (21:50)
[2020-08-29] MEDS: MONTELUKAST NA 10 MG TABLET PO SCH (21:50)
[2020-08-29] MEDS: ATORVASTATIN CA 20 MG TABLET (FP) PO SCH (21:50)
[2020-08-29] MEDS: TAMSULOSIN HCL 0.4 MG CAP PO SCH (21:50)
[2020-08-30] MEDS: ALBUTEROL SO4 HFA INHALER IH SCH ×8 (00:07→23:56)
[2020-08-30] MEDS: VANCOMYCIN 1 GRAM (PRE-DOCKED) 1,000 MG/250 ML BAG IVPB SCH ×2 (01:14→13:01)
[2020-08-30] MEDS: ALBUTEROL SO4 2.5/IPRATROPIUM 0.5 INH SOL 3 ML VIAL.NEB. NEB SCH ×6 (02:07→21:05)
[2020-08-30] MEDS: oxyCODONE HCL 5 MG TABLET PO PRN ×3 (04:52→23:56)
[2020-08-30] MEDS: INSULIN SLIDING SCALE (NOVOLOG) 1 VIAL SQ SCH ×4 (06:02→22:30)
[2020-08-30] MEDS ORDERED: DEXTROSE 5%-WATER 100 ML IVPB ONE (08:57)
[2020-08-30] MEDS ORDERED: PT OWN MED DRAWER 7, Y5N ONE (08:58)
[2020-08-30 09:30] LABS: HEMATOCRIT 28.4 % (35.4-49); HEMOGLOBIN 9.2 GM/dL (11.7-16.9); MCH 29.2 pg (25.7-33.7); MCHC 32.5 g/dl (32.0-35.9); MEAN PLT VOLUME 7.9 fl (7.5-11.1); PLATELET COUNT 254 K/MM3 (134-434); RBC 3.15 M/mm3 (4.00-5.60); RDW 16.1 % (11.9-15.9); WHITE BLOOD COUNT 9.2 K/mm3 (4.0-10.0)
[2020-08-30 09:54] LABS: POTASSIUM 4.5 mmol/L (3.5-5.1)
[2020-08-30 09:56] LABS: ALBUMIN 2.3 g/dl (3.4-5.0); BLOOD UREA NITROGEN 17.8 mg/dL (7-18)
[2020-08-30 09:57] LABS: MAGNESIUM 2.4 mg/dL (1.8-2.4)
[2020-08-30 09:59] LABS: CREATININE 1.2 mg/dL (0.55-1.3); PHOSPHOROUS 2.7 mg/dL (2.5-4.9)
[2020-08-30 10:01] LABS: BILIRUBIN,TOTAL 0.7 mg/dL (0.2-1); TOT PROT 6.9 g/dl (6.4-8.2)
[2020-08-30] MEDS: CEFTRIAXONE 2 GM in DEXTROSE 5%-WATER 2 GM/100 ML BAG IVPB SCH (10:13)
[2020-08-30] MEDS: CITALOPRAM HYDROBROMIDE 20 MG TABLET PO SCH (10:14)
[2020-08-30] MEDS: ARIPiprazole 10 MG TABLET PO SCH (10:14)
[2020-08-30] MEDS: ARTIFICIAL TEARS (POLYVINYL ALCOHOL) OPTH DROPS OU SCH ×4 (10:14→22:31)
[2020-08-30] MEDS: TRIAMCINOLONE ACET 0.1% CREAM 15 GM TUBE TP SCH ×2 (10:14→22:30)
[2020-08-30] MEDS: APIXABAN 5 MG TABLET PO SCH ×2 (10:14→22:30)
[2020-08-30] MEDS: VENLAFAXINE HCL 75 MG E.R. CAPSULES PO SCH (10:15)
[2020-08-30] MEDS: HYDROCORTISONE 2.5% LOTION - 1 BOTTLE TP SCH ×2 (10:15→22:31)
[2020-08-30] MEDS: ZINC OXIDE 20% TOPICAL OINTMENT 30 GM TUBE TP SCH ×2 (10:15→22:30)
[2020-08-30] MEDS: GABAPENTIN 300 MG CAPSULE PO SCH ×4 (10:15→22:30)
[2020-08-30 13:48] LABS: INR 1.32 (0.83-1.09); PROTHROMBIN TIME (PATIENT) 16.1 SEC (9.7-13.0)
[2020-08-30] MEDS: ACETAMINOPHEN 325 MG TABLET (FP) PO PRN (15:39)
[2020-08-30] MEDS: SILVER SULFADIAZINE 1% TOP CREAM 50 GM JAR TP SCH (16:18)
[2020-08-30] MEDS: ATORVASTATIN CA 20 MG TABLET (FP) PO SCH (22:30)
[2020-08-30] MEDS: TAMSULOSIN HCL 0.4 MG CAP PO SCH (22:30)
[2020-08-30] MEDS: MELATONIN 5 MG TABLETS PO PRN (22:30)
[2020-08-30] MEDS: MONTELUKAST NA 10 MG TABLET PO SCH (22:30)
[2020-08-31] MEDS: ALBUTEROL SO4 2.5/IPRATROPIUM 0.5 INH SOL 3 ML VIAL.NEB. NEB SCH ×5 (00:55→20:40)
[2020-08-31] MEDS: VANCOMYCIN 1 GRAM (PRE-DOCKED) 1,000 MG/250 ML BAG IVPB SCH ×2 (01:31→15:02)
[2020-08-31] MEDS ORDERED: diphenhydrAMINE HCL 25 MG CAPSULE (FP) PO ONE (04:57)
[2020-08-31] MEDS: ALBUTEROL SO4 HFA INHALER IH SCH ×5 (05:42→21:15)
[2020-08-31] MEDS: INSULIN SLIDING SCALE (NOVOLOG) 1 VIAL SQ SCH ×4 (06:17→21:08)
[2020-08-31 07:24] LABS: POTASSIUM 4.3 mmol/L (3.5-5.1)
[2020-08-31 07:25] LABS: BASO % 0.9 % (0-2.0); EOS % 4.4 % (0-4.5); HEMATOCRIT 28.6 % (35.4-49); HEMOGLOBIN 9.3 GM/dL (11.7-16.9); LYMPH % 10.2 % (8-40); MCH 28.8 pg (25.7-33.7); MCHC 32.4 g/dl (32.0-35.9); MEAN CELL VOLUME 88.9 fl (80-96); MEAN PLT VOLUME 7.6 fl (7.5-11.1); MONO % 9.9 % (3.8-10.2); NEUT % 74.6 % (42.8-82.8); PLATELET COUNT 267 K/MM3 (134-434); RBC 3.22 M/mm3 (4.00-5.60); RDW 15.3 % (11.9-15.9); WHITE BLOOD COUNT 7.1 K/mm3 (4.0-10.0)
[2020-08-31 07:38] LABS: ALBUMIN 2.2 g/dl (3.4-5.0); BLOOD UREA NITROGEN 15.7 mg/dL (7-18); CALCIUM 8.1 mg/dL (8.5-10.1); MAGNESIUM 2.3 mg/dL (1.8-2.4)
[2020-08-31 07:42] LABS: PHOSPHOROUS 2.6 mg/dL (2.5-4.9)
[2020-08-31 07:43] LABS: BILIRUBIN,TOTAL 0.3 mg/dL (0.2-1); TOT PROT 6.7 g/dl (6.4-8.2)
[2020-08-31] MEDS ORDERED: DEXTROSE 5%-WATER 100 ML IVPB ONE (09:29)
[2020-08-31] MEDS ORDERED: PT OWN MED DRAWER 7, Y5N ONE (09:37)
[2020-08-31] MEDS: GABAPENTIN 300 MG CAPSULE PO SCH ×4 (09:52→21:07)
[2020-08-31] MEDS: APIXABAN 5 MG TABLET PO SCH ×2 (09:52→21:07)
[2020-08-31] MEDS: VENLAFAXINE HCL 75 MG E.R. CAPSULES PO SCH (09:52)
[2020-08-31] MEDS: CITALOPRAM HYDROBROMIDE 20 MG TABLET PO SCH (09:52)
[2020-08-31] MEDS: CEFTRIAXONE 2 GM in DEXTROSE 5%-WATER 2 GM/100 ML BAG IVPB SCH (09:52)
[2020-08-31] MEDS: ARIPiprazole 10 MG TABLET PO SCH (09:53)
[2020-08-31] MEDS: ACETAMINOPHEN 325 MG TABLET (FP) PO PRN (09:53)
[2020-08-31] MEDS: ARTIFICIAL TEARS (POLYVINYL ALCOHOL) OPTH DROPS OU SCH ×4 (10:10→21:15)
[2020-08-31] MEDS: oxyCODONE HCL 5 MG TABLET PO PRN ×2 (14:06→21:07)
[2020-08-31] MEDS: SILVER SULFADIAZINE 1% TOP CREAM 50 GM JAR TP SCH (14:09)
[2020-08-31] MEDS: ZINC OXIDE 20% TOPICAL OINTMENT 30 GM TUBE TP SCH ×2 (14:09→21:15)
[2020-08-31] MEDS: HYDROCORTISONE 2.5% LOTION - 1 BOTTLE TP SCH ×2 (14:10→21:15)
[2020-08-31] MEDS: TRIAMCINOLONE ACET 0.1% CREAM 15 GM TUBE TP SCH ×2 (14:10→21:15)
[2020-08-31] MEDS: MONTELUKAST NA 10 MG TABLET PO SCH (21:07)
[2020-08-31] MEDS: ATORVASTATIN CA 20 MG TABLET (FP) PO SCH (21:07)
[2020-08-31] MEDS: TAMSULOSIN HCL 0.4 MG CAP PO SCH (21:07)
[2020-08-31 22:38] VITALS: BP 152/91; PULSE 94; TEMP 98
== END 2020-08-31 21:30 | DRG 720 ==
LOC: JER 11:04 → JERBED 14:25 → J4S 08-27 22:42
PROVIDERS: ADMIT Hospitalist; ATTEND Internal Medicine
PROC: 02HV33Z Insertion of Infusion Device into Superior Vena Cava, Percutaneous Approach (ICD-10-PCS; principal; 2020-08-31)
PROC: B518ZZA Fluoroscopy of Superior Vena Cava, Guidance (ICD-10-PCS; 2020-08-31)
DX: A40.9 Streptococcal sepsis, unspecified (principal); R65.20 Severe sepsis without septic shock; E66.01 Morbid (severe) obesity due to excess calories; Z68.44 Body mass index [BMI] 60.0-69.9, adult; E87.2 Acidosis; J45.909 Unspecified asthma, uncomplicated; E87.5 Hyperkalemia; I95.9 Hypotension, unspecified; I48.20 Chronic atrial fibrillation, unspecified; L03.116 Cellulitis of left lower limb; N17.9 Acute kidney failure, unspecified; R00.0 Tachycardia, unspecified; I10 Essential (primary) hypertension; E78.00 Pure hypercholesterolemia, unspecified; J98.11 Atelectasis; D64.9 Anemia, unspecified; D72.829 Elevated white blood cell count, unspecified; N39.0 Urinary tract infection, site not specified; E78.5 Hyperlipidemia, unspecified; R74.01 Elevation of levels of liver transaminase levels; E11.622 Type 2 diabetes mellitus with other skin ulcer; L97.828 Non-pressure chronic ulcer of other part of left lower leg with other specified severity; E83.39 Other disorders of phosphorus metabolism; A52.16 Charcot's arthropathy (tabetic); E11.610 Type 2 diabetes mellitus with diabetic neuropathic arthropathy; F41.8 Other specified anxiety disorders; E11.621 Type 2 diabetes mellitus with foot ulcer; L97.528 Non-pressure chronic ulcer of other part of left foot with other specified severity; E11.618 Type 2 diabetes mellitus with other diabetic arthropathy; I11.0 Hypertensive heart disease with heart failure; I50.9 Heart failure, unspecified; Z86.718 Personal history of other venous thrombosis and embolism; Z89.511 Acquired absence of right leg below knee
CPT/HCPCS: 36415; 36569; 71045-TC-FY; 73630-TC-LT; 73700-TC-RT; 76705-TC; 77001-TC-FY; 80053; 80076; 81003; 82550; 82570; 82607; 82728; 82746; 82962; 83540; 83550; 83605; 83735; 83880; 84100; 84132; 84443; 84484; 84540; 85025; 85027; 85045; 85610; 85651; 85730; 86140; 86704; 86706; 86707; 86708; 86709; 86803; 87040; 87077; 87081; 87086; 87186; 87340; 87804; 93005; 93010; 93306-TC; 93970-TC; 94010; 94640; 99285-25; C1751; C9803; G0480; J0131; U0003; U0005

== ENCOUNTER 2020-11-12 15:58 | Inpatient (IN) | payer OTHER ==
[2020-11-12] MEDS ORDERED: PIPERACILLIN/TAZOB 3.375 GM 3.375 GM in DEXTROSE 5%-WATER - 50 ML IVPB ONE (18:30)
[2020-11-12] MEDS ORDERED: VANCOMYCIN 1 GM in D5W (PRE-DOCKED) 1,000 MG/250 ML IVPB ONE (18:30)
[2020-11-12] MEDS ORDERED: VANCOMYCIN 1 GRAM (PRE-DOCKED) 1,000 MG/250 ML BAG IVPB ONE (18:59)
[2020-11-12 19:22] LABS: BASO % 0.4 % (0-2.0); EOS % 1.5 % (0-4.5); HEMATOCRIT 30.4 % (35.4-49); HEMOGLOBIN 9.7 GM/dL (11.7-16.9); MCH 27.1 pg (25.7-33.7); MCHC 31.9 g/dl (32.0-35.9); MEAN CELL VOLUME 85.2 fl (80-96); MEAN PLT VOLUME 7.2 fl (7.5-11.1); MONO % 6.1 % (3.8-10.2); PLATELET COUNT 330 10^3/uL (134-434); RBC 3.57 M/mm3 (4.00-5.60); RDW 15.8 % (11.9-15.9); WHITE BLOOD COUNT 9.4 K/mm3 (4.0-10.0)
[2020-11-12 19:24] LABS: EPI CELLS 2 /uL (0-25.1); HYALINE CASTS 0 /uL (0-3.1); PH,URINE 6.5 (5.0-8.0); URINE APPEARANCE CLEAR; URINE BACTERIA 113 /uL (0-1359); URINE BILIRUBIN NEGATIVE (NEGATIVE); URINE COLOR YELLOW; URINE GLUCOSE (UA) NEGATIVE (NEGATIVE); URINE KETONE NEGATIVE (NEGATIVE); URINE LEUK ESTERASE TRACE (NEGATIVE); URINE NITRITE NEGATIVE (NEGATIVE); URINE PROTEIN NEGATIVE (NEGATIVE); URINE RBC 3 /uL (0-23.9); URINE UROBILINOGEN 0.2 mg/dL (0.2-1.0); URINE WBC 5 /uL (0-25.8)
[2020-11-12 20:16] LABS: CHLORIDE 97 mmol/L (98-107); SODIUM 136 mmol/L (136-145)
[2020-11-12 20:20] LABS: ALBUMIN 2.9 g/dl (3.4-5.0); ANION GAP 8 MMOL/L (8-16); CALCIUM 7.9 mg/dL (8.5-10.1); CO2 31 mmol/L (21-32); COCAINE, UR NEGATIVE (NEGATIVE); URINE BARBITURATES NEGATIVE (NEGATIVE); URINE BENZODIAZEPINES NEGATIVE (NEGATIVE)
[2020-11-12 20:21] LABS: GLUCOSE,RANDOM 107 mg/dL (74-106); METHADONE, UR NEGATIVE (NEGATIVE); OPIATES, URI NEGATIVE (NEGATIVE); PHENCYCLIDINE,URINE NEGATIVE (NEGATIVE)
[2020-11-12 20:24] LABS: CREATININE 1.9 mg/dL (0.55-1.3)
[2020-11-12 20:25] LABS: BILIRUBIN,TOTAL 0.4 mg/dL (0.2-1); TOT PROT 8.1 g/dl (6.4-8.2)
[2020-11-12 20:26] LABS: ALK PHOS 143 U/L (45-117); URINE AMPHETAMINES NEGATIVE (NEGATIVE)
[2020-11-12 20:36] LABS: SGPT/ALT 13 U/L (13-61)
[2020-11-12 20:43] LABS: SGOT/AST 20 U/L (15-37)
[2020-11-12 20:47] LABS: BLOOD UREA NITROGEN 47.2 mg/dL (7-18)
[2020-11-12] MEDS ORDERED: PIPERACILLIN/TAZOB 3.375 GM 3.375 GM/50 ML BAG IVPB ONE (21:44)
[2020-11-12 22:10] LABS: MAGNESIUM 2.6 mg/dL (1.8-2.4)
[2020-11-12 22:14] LABS: PHOSPHOROUS 3.6 mg/dL (2.5-4.9)
[2020-11-12] MEDS ORDERED: oxyCODONE HCL 5 MG TABLET PO ONE (22:25)
[2020-11-12] MEDS ORDERED: SODIUM CHLORIDE 1,000 ML IV SCH (22:30)
[2020-11-12] MEDS ORDERED: APIXABAN 5 MG TABLET PO SCH (23:00)
[2020-11-12] MEDS ORDERED: ZINC OXIDE/PANTHENOL/VITAMIN E 56 GM TUBE TP SCH (23:04)
[2020-11-12] MEDS ORDERED: ATORVASTATIN CA 20 MG TABLET (FP) ONE (23:06)
[2020-11-12] MEDS ORDERED: oxyCODONE HCL 5 MG TABLET ONE (23:07)
[2020-11-12] MEDS ORDERED: APIXABAN 5 MG TABLET ONE (23:07)
[2020-11-12] MEDS: ATORVASTATIN CA 20 MG TABLET (FP) PO SCH (23:15)
[2020-11-12] MEDS ORDERED: PIPERACILLIN/TAZOB 2.25 GM 2.25 GM in DEXTROSE 5%-WATER - 50 ML IVPB SCH (23:45)
[2020-11-13 02:49] LABS: BLOOD UREA NITROGEN 39.9 mg/dL (7-18)
[2020-11-13 02:52] LABS: CREATININE 1.7 mg/dL (0.55-1.3)
[2020-11-13] MEDS ORDERED: PIPERACILLIN/TAZOBACTAM 3.375 GM VIAL IVPB ONE ×2 (04:20→09:15)
[2020-11-13] MEDS: PIPERACILLIN/TAZOB 3.375 GM 3.375 GM in DEXTROSE 5%-WATER - 50 ML IVPB SCH ×2 (04:20→10:43)
[2020-11-13] MEDS ORDERED: DEXTROSE 5%-WATER - 50 ML IVPB ONE ×2 (04:20→09:15)
[2020-11-13] MEDS: VANCOMYCIN 2,000 MG in DEXTROSE 5%-WATER - 500 ML IVPB SCH ×2 (05:30→15:19)
[2020-11-13] MEDS ORDERED: PIPERACILLIN/TAZOB 3.375 GM 3.375 GM in DEXTROSE 5%-WATER - 50 ML IVPB SCH (06:00)
[2020-11-13] MEDS: INSULIN SLIDING SCALE (NOVOLOG) 1 VIAL SQ SCH ×3 (06:11→17:10)
[2020-11-13 08:46] LABS: BASO % 0.7 % (0-2.0); EOS % 2.4 % (0-4.5); HEMOGLOBIN 9.5 GM/dL (11.7-16.9); LYMPH % 9.6 % (8-40); MCH 27.1 pg (25.7-33.7); MCHC 31.6 g/dl (32.0-35.9); MEAN CELL VOLUME 85.9 fl (80-96); MEAN PLT VOLUME 7.4 fl (7.5-11.1); MONO % 8.6 % (3.8-10.2); NEUT % 78.7 % (42.8-82.8); PLATELET COUNT 327 10^3/uL (134-434); RBC 3.49 M/mm3 (4.00-5.60); WHITE BLOOD COUNT 7.9 K/mm3 (4.0-10.0)
[2020-11-13] MEDS ORDERED: PT OWN MED DRAWER 7, Y5N ONE (09:15)
[2020-11-13 09:19] LABS: BLOOD UREA NITROGEN 35.6 mg/dL (7-18)
[2020-11-13 09:20] LABS: ALBUMIN 2.6 g/dl (3.4-5.0); MAGNESIUM 2.8 mg/dL (1.8-2.4)
[2020-11-13 09:23] LABS: BILIRUBIN,TOTAL 0.4 mg/dL (0.2-1); CREATININE 1.6 mg/dL (0.55-1.3); PHOSPHOROUS 3.3 mg/dL (2.5-4.9); TOT PROT 7.4 g/dl (6.4-8.2)
[2020-11-13] MEDS: ZINC OXIDE/PANTHENOL/VITAMIN E 56 GM TUBE TP SCH (09:23)
[2020-11-13] MEDS: CITALOPRAM HYDROBROMIDE 20 MG TABLET PO SCH (09:24)
[2020-11-13] MEDS: ARIPiprazole 10 MG TABLET PO SCH (09:25)
[2020-11-13] MEDS ORDERED: DOCUSATE SODIUM 100 MG CAPSULE (FP) PO SCH (10:00)
[2020-11-13] MEDS ORDERED: HEPARIN NA (PORCINE) 5,000 UNITS/ML 1ML VIAL SQ SCH (10:00)
[2020-11-13] MEDS: ACETAMINOPHEN 325 MG TABLET (FP) PO PRN ×2 (10:42→18:53)
[2020-11-13] MEDS: POLYETHYLENE GLYCOL (HEALTHYLAX) 3350 17 GM PACKET PO SCH ×2 (15:19→21:35)
[2020-11-13] MEDS: COLLAGENASE CLOSTRIDIUM HIST. 30 GRAMS TUBE TP SCH (15:19)
[2020-11-13] MEDS: CLINDAMYCIN 600MG PREMIX IVPB 600 MG/50 ML BAG IVPB SCH (17:10)
[2020-11-13 17:11] LABS: IRON SERUM 26 ug/dL (50-175); TOTAL IRON BINDING CAPACITY 259 ug/dL (250-450)
[2020-11-13 17:48] LABS: N-TERMINAL BNP 4219.9 pg/ml (5-125)
[2020-11-13] MEDS: ATORVASTATIN CA 20 MG TABLET (FP) PO SCH (21:35)
[2020-11-13] MEDS: HEPARIN NA (PORCINE) 5,000 UNITS/ML 1ML VIAL SQ SCH (21:35)
[2020-11-13] MEDS: NYSTATIN 100,000 UNIT/GM TOPICAL CREAM 15 GM TUBE TP SCH (21:36)
[2020-11-14] MEDS: ACETAMINOPHEN 325 MG TABLET (FP) PO PRN ×2 (00:47→08:27)
[2020-11-14] MEDS ORDERED: MELATONIN 5 MG TABLETS PO ONE (00:54)
[2020-11-14] MEDS: CLINDAMYCIN 600MG PREMIX IVPB 600 MG/50 ML BAG IVPB SCH ×3 (00:59→17:08)
[2020-11-14] MEDS ORDERED: PIPERACILLIN/TAZOB 3.375 GM 3.375 GM in DEXTROSE 5%-WATER - 50 ML IVPB SCH (02:00)
[2020-11-14] MEDS: POLYETHYLENE GLYCOL (HEALTHYLAX) 3350 17 GM PACKET PO SCH ×2 (05:49→21:16)
[2020-11-14] MEDS: HEPARIN NA (PORCINE) 5,000 UNITS/ML 1ML VIAL SQ SCH ×2 (05:49→14:05)
[2020-11-14] MEDS: SIMETHICONE 80 MG TAB.CHEW (FP) PO PRN ×3 (05:49→20:04)
[2020-11-14] MEDS ORDERED: VANCOMYCIN 2,000 MG in DEXTROSE 5%-WATER - 500 ML IVPB SCH (06:00)
[2020-11-14] MEDS: INSULIN SLIDING SCALE (NOVOLOG) 1 VIAL SQ SCH ×3 (06:01→16:17)
[2020-11-14 09:05] LABS: HEMATOCRIT 29.6 % (35.4-49); HEMOGLOBIN 9.7 GM/dL (11.7-16.9); MCH 27.7 pg (25.7-33.7); MCHC 32.7 g/dl (32.0-35.9); MEAN CELL VOLUME 84.8 fl (80-96); MEAN PLT VOLUME 6.8 fl (7.5-11.1); PLATELET COUNT 397 10^3/uL (134-434); RBC 3.49 M/mm3 (4.00-5.60); RDW 16.2 % (11.9-15.9); WHITE BLOOD COUNT 8.1 K/mm3 (4.0-10.0)
[2020-11-14 09:25] LABS: CALCIUM 8.4 mg/dL (8.5-10.1)
[2020-11-14 09:26] LABS: ALBUMIN 2.8 g/dl (3.4-5.0); BLOOD UREA NITROGEN 23.4 mg/dL (7-18); MAGNESIUM 2.5 mg/dL (1.8-2.4)
[2020-11-14 09:28] LABS: CREATININE 1.3 mg/dL (0.55-1.3)
[2020-11-14 09:29] LABS: BILIRUBIN,TOTAL 0.4 mg/dL (0.2-1); PHOSPHOROUS 2.9 mg/dL (2.5-4.9); TOT PROT 7.6 g/dl (6.4-8.2)
[2020-11-14] MEDS ORDERED: PT OWN MED DRAWER 7, Y5N ONE (09:40)
[2020-11-14] MEDS: ARIPiprazole 10 MG TABLET PO SCH (09:45)
[2020-11-14] MEDS: CITALOPRAM HYDROBROMIDE 20 MG TABLET PO SCH (09:45)
[2020-11-14] MEDS: ZINC OXIDE/PANTHENOL/VITAMIN E 56 GM TUBE TP SCH (09:49)
[2020-11-14] MEDS: NYSTATIN 100,000 UNIT/GM TOPICAL CREAM 15 GM TUBE TP SCH ×2 (09:49→21:30)
[2020-11-14] MEDS: COLLAGENASE CLOSTRIDIUM HIST. 30 GRAMS TUBE TP SCH (09:50)
[2020-11-14] MEDS: PANTOPRAZOLE SODIUM 40 MG VIAL IVPUSH SCH (10:23)
[2020-11-14] MEDS ORDERED: ONDANSETRON 4 MG/2 ML VIAL IVPUSH ONE (10:30)
[2020-11-14] MEDS: oxyCODONE HCL 5 MG TABLET PO PRN ×3 (10:35→23:19)
[2020-11-14] MEDS: ATORVASTATIN CA 20 MG TABLET (FP) PO SCH (21:10)
[2020-11-14] MEDS: MONTELUKAST NA 10 MG TABLET PO SCH (21:10)
[2020-11-14] MEDS: traZODone HCL 100 MG TABLET (FP) PO SCH (21:10)
[2020-11-14] MEDS: DOCUSATE SODIUM 100 MG CAPSULE (FP) PO SCH (21:15)
[2020-11-14] MEDS: APIXABAN 5 MG TABLET PO SCH (21:23)
[2020-11-15] MEDS: CLINDAMYCIN 600MG PREMIX IVPB 600 MG/50 ML BAG IVPB SCH ×3 (01:30→18:26)
[2020-11-15] MEDS ORDERED: MELATONIN 5 MG TABLETS PO ONE (01:40)
[2020-11-15] MEDS ORDERED: MELATONIN 5 MG TABLETS PO PRN (02:02)
[2020-11-15] MEDS: oxyCODONE HCL 5 MG TABLET PO PRN ×3 (05:28→21:57)
[2020-11-15] MEDS: SIMETHICONE 80 MG TAB.CHEW (FP) PO PRN ×2 (05:28→21:57)
[2020-11-15] MEDS: INSULIN SLIDING SCALE (NOVOLOG) 1 VIAL SQ SCH ×3 (07:00→17:05)
[2020-11-15] MEDS ORDERED: SODIUM PHOSPHATE/NA BIPHOS 133 ML ENEMA RC ONE (08:55)
[2020-11-15 09:00] LABS: HEMATOCRIT 29.4 % (35.4-49); HEMOGLOBIN 9.5 GM/dL (11.7-16.9); MCH 27.6 pg (25.7-33.7); MCHC 32.1 g/dl (32.0-35.9); MEAN CELL VOLUME 85.8 fl (80-96); MEAN PLT VOLUME 6.9 fl (7.5-11.1); PLATELET COUNT 376 10^3/uL (134-434); RBC 3.43 M/mm3 (4.00-5.60); RDW 15.8 % (11.9-15.9); WHITE BLOOD COUNT 7.7 K/mm3 (4.0-10.0)
[2020-11-15] MEDS ORDERED: PEG 3350/NA SULF BICARB CL/KCL 4000 ML SOLN.RECON PO ONE (09:00)
[2020-11-15] MEDS: PANTOPRAZOLE SODIUM 40 MG VIAL IVPUSH SCH (09:15)
[2020-11-15] MEDS: TAMSULOSIN HCL 0.4 MG CAP PO SCH (09:16)
[2020-11-15] MEDS: VENLAFAXINE HCL 75 MG E.R. CAPSULES PO SCH (09:16)
[2020-11-15] MEDS: POLYETHYLENE GLYCOL (HEALTHYLAX) 3350 17 GM PACKET PO SCH ×2 (09:16→22:00)
[2020-11-15] MEDS: APIXABAN 5 MG TABLET PO SCH ×2 (09:16→21:57)
[2020-11-15] MEDS: ZINC OXIDE/PANTHENOL/VITAMIN E 56 GM TUBE TP SCH (09:17)
[2020-11-15] MEDS: COLLAGENASE CLOSTRIDIUM HIST. 30 GRAMS TUBE TP SCH (09:17)
[2020-11-15] MEDS: NYSTATIN 100,000 UNIT/GM TOPICAL CREAM 15 GM TUBE TP SCH ×2 (09:19→22:00)
[2020-11-15] MEDS: CITALOPRAM HYDROBROMIDE 20 MG TABLET PO SCH (09:20)
[2020-11-15 09:22] LABS: ALBUMIN 2.9 g/dl (3.4-5.0)
[2020-11-15 09:24] LABS: CALCIUM 8.8 mg/dL (8.5-10.1)
[2020-11-15 09:26] LABS: MAGNESIUM 2.6 mg/dL (1.8-2.4)
[2020-11-15] MEDS: ARIPiprazole 10 MG TABLET PO SCH (09:27)
[2020-11-15 09:28] LABS: BILIRUBIN,TOTAL 0.3 mg/dL (0.2-1); CREATININE 1.2 mg/dL (0.55-1.3); PHOSPHOROUS 3.2 mg/dL (2.5-4.9)
[2020-11-15 09:30] LABS: TOT PROT 7.4 g/dl (6.4-8.2)
[2020-11-15] MEDS ORDERED: VENLAFAXINE HCL 150 MG E.R. CAPSULE PO SCH (10:00)
[2020-11-15] MEDS: GABAPENTIN 300 MG CAPSULE PO SCH ×2 (12:42→18:26)
[2020-11-15 13:07] LABS: HEP B CORE AB, TOT Positive (Negative)
[2020-11-15] MEDS ORDERED: ALBUTEROL SO4 HFA INHALER IH PRN (14:25)
[2020-11-15] MEDS ORDERED: PT OWN MED DRAWER 7, Y5N ONE ×2 (14:39→21:54)
[2020-11-15] MEDS: ARTIFICIAL TEARS (POLYVINYL ALCOHOL) OPTH DROPS OU SCH ×3 (14:43→21:59)
[2020-11-15 19:06] LABS: GLIADIN ANTIBODY IGA 4 units (0-19); GLIADIN ANTIBODY IGG 1 units (0-19); TRANSGLUTAMINASE IGG < 2 U/mL (0-5)
[2020-11-15] MEDS ORDERED: BISACODYL 5 MG TABLET.DR (FP) PO ONE (20:00)
[2020-11-15] MEDS: ATORVASTATIN CA 20 MG TABLET (FP) PO SCH (21:56)
[2020-11-15] MEDS: traZODone HCL 100 MG TABLET (FP) PO SCH (21:57)
[2020-11-15] MEDS: MELATONIN 5 MG TABLETS PO SCH (21:57)
[2020-11-15] MEDS: MONTELUKAST NA 10 MG TABLET PO SCH (21:57)
[2020-11-15] MEDS: TRIAMCINOLONE ACET 0.1% CREAM 15 GM TUBE TP SCH (21:58)
[2020-11-15] MEDS ORDERED: PATIENT'S OWN MEDICATION (NON-FORMULARY) (Carboxymethylcellulos/Glycerin [Refresh Optive G OU SCH (22:00)
[2020-11-15] MEDS: DOCUSATE SODIUM 100 MG CAPSULE (FP) PO SCH (22:00)
[2020-11-16] MEDS: GABAPENTIN 300 MG CAPSULE PO SCH ×4 (00:05→17:34)
[2020-11-16] MEDS: CLINDAMYCIN 600MG PREMIX IVPB 600 MG/50 ML BAG IVPB SCH ×3 (01:14→17:42)
[2020-11-16] MEDS: INSULIN SLIDING SCALE (NOVOLOG) 1 VIAL SQ SCH ×3 (07:32→16:20)
[2020-11-16] MEDS: TAMSULOSIN HCL 0.4 MG CAP PO SCH (08:36)
[2020-11-16 08:58] LABS: HEMATOCRIT 30.9 % (35.4-49); HEMOGLOBIN 9.6 GM/dL (11.7-16.9); MCH 26.9 pg (25.7-33.7); MCHC 31.2 g/dl (32.0-35.9); MEAN CELL VOLUME 86.4 fl (80-96); MEAN PLT VOLUME 6.9 fl (7.5-11.1); PLATELET COUNT 412 10^3/uL (134-434); RBC 3.57 M/mm3 (4.00-5.60); RDW 15.9 % (11.9-15.9); WHITE BLOOD COUNT 7.6 K/mm3 (4.0-10.0)
[2020-11-16 09:19] LABS: ALBUMIN 2.8 g/dl (3.4-5.0); BLOOD UREA NITROGEN 17.5 mg/dL (7-18); CALCIUM 8.3 mg/dL (8.5-10.1)
[2020-11-16 09:20] LABS: MAGNESIUM 2.3 mg/dL (1.8-2.4)
[2020-11-16 09:22] LABS: CREATININE 1.2 mg/dL (0.55-1.3)
[2020-11-16 09:24] LABS: BILIRUBIN,TOTAL 0.5 mg/dL (0.2-1); PHOSPHOROUS 3.3 mg/dL (2.5-4.9); TOT PROT 7.3 g/dl (6.4-8.2)
[2020-11-16] MEDS ORDERED: PT OWN MED DRAWER 7, Y5N ONE (09:56)
[2020-11-16] MEDS: VENLAFAXINE HCL 75 MG E.R. CAPSULES PO SCH (10:04)
[2020-11-16] MEDS: APIXABAN 5 MG TABLET PO SCH ×2 (10:04→23:07)
[2020-11-16] MEDS: CITALOPRAM HYDROBROMIDE 20 MG TABLET PO SCH (10:04)
[2020-11-16] MEDS: ASCORBIC ACID 500 MG TABLET (FP) PO SCH (10:04)
[2020-11-16] MEDS: PANTOPRAZOLE SODIUM 40 MG VIAL IVPUSH SCH (10:04)
[2020-11-16] MEDS: ARTIFICIAL TEARS (POLYVINYL ALCOHOL) OPTH DROPS OU SCH ×4 (10:06→23:08)
[2020-11-16] MEDS: COLLAGENASE CLOSTRIDIUM HIST. 30 GRAMS TUBE TP SCH (10:06)
[2020-11-16] MEDS: ZINC OXIDE/PANTHENOL/VITAMIN E 56 GM TUBE TP SCH (10:06)
[2020-11-16] MEDS: NYSTATIN 100,000 UNIT/GM TOPICAL CREAM 15 GM TUBE TP SCH ×2 (10:06→23:07)
[2020-11-16] MEDS: TRIAMCINOLONE ACET 0.1% CREAM 15 GM TUBE TP SCH ×2 (10:07→23:07)
[2020-11-16] MEDS: ARIPiprazole 10 MG TABLET PO SCH (10:07)
[2020-11-16] MEDS: POLYETHYLENE GLYCOL (HEALTHYLAX) 3350 17 GM PACKET PO SCH ×2 (10:07→23:06)
[2020-11-16] MEDS: oxyCODONE HCL 5 MG TABLET PO PRN ×2 (10:16→23:13)
[2020-11-16] MEDS ORDERED: INSULIN (NOVOLOG) ASPART 100 UNITS/ML 10ML VIAL ONE (11:43)
[2020-11-16 14:33] VITALS: BMI 45.3
[2020-11-16] MEDS: MONTELUKAST NA 10 MG TABLET PO SCH (23:06)
[2020-11-16] MEDS: DOCUSATE SODIUM 100 MG CAPSULE (FP) PO SCH (23:06)
[2020-11-16] MEDS: traZODone HCL 100 MG TABLET (FP) PO SCH (23:06)
[2020-11-16] MEDS: ATORVASTATIN CA 20 MG TABLET (FP) PO SCH (23:07)
[2020-11-16] MEDS: MELATONIN 5 MG TABLETS PO SCH (23:14)
[2020-11-17] MEDS: GABAPENTIN 300 MG CAPSULE PO SCH ×2 (00:58→06:27)
[2020-11-17] MEDS: CLINDAMYCIN 600MG PREMIX IVPB 600 MG/50 ML BAG IVPB SCH ×2 (03:42→10:28)
[2020-11-17] MEDS: INSULIN SLIDING SCALE (NOVOLOG) 1 VIAL SQ SCH ×3 (06:35→11:37)
[2020-11-17] MEDS ORDERED: LACTOBACILLUS ACIDOPHILUS 1 TABLET PO SCH (10:00)
[2020-11-17] MEDS: VENLAFAXINE HCL 75 MG E.R. CAPSULES PO SCH (10:48)
[2020-11-17] MEDS: ASCORBIC ACID 500 MG TABLET (FP) PO SCH (10:48)
[2020-11-17] MEDS: CITALOPRAM HYDROBROMIDE 20 MG TABLET PO SCH (10:48)
[2020-11-17] MEDS: POLYETHYLENE GLYCOL (HEALTHYLAX) 3350 17 GM PACKET PO SCH (10:49)
[2020-11-17] MEDS: TAMSULOSIN HCL 0.4 MG CAP PO SCH (10:49)
[2020-11-17] MEDS: ARTIFICIAL TEARS (POLYVINYL ALCOHOL) OPTH DROPS OU SCH (10:49)
[2020-11-17] MEDS: PANTOPRAZOLE SODIUM 40 MG VIAL IVPUSH SCH (10:49)
[2020-11-17] MEDS: ZINC OXIDE/PANTHENOL/VITAMIN E 56 GM TUBE TP SCH (10:49)
[2020-11-17] MEDS: APIXABAN 5 MG TABLET PO SCH (10:49)
[2020-11-17] MEDS: ARIPiprazole 10 MG TABLET PO SCH (10:49)
[2020-11-17] MEDS: TRIAMCINOLONE ACET 0.1% CREAM 15 GM TUBE TP SCH (10:49)
[2020-11-17] MEDS: COLLAGENASE CLOSTRIDIUM HIST. 30 GRAMS TUBE TP SCH (10:50)
[2020-11-17] MEDS: NYSTATIN 100,000 UNIT/GM TOPICAL CREAM 15 GM TUBE TP SCH (10:50)
[2020-11-17 12:38] VITALS: BP 120/63; PULSE 98; TEMP 98
[2020-11-17] MEDS ORDERED: CLINDAMYCIN HCL 150 MG CAPSULE (FP) PO SCH (14:00)
== END 2020-11-17 13:29 | DRG 383 ==
LOC: JER 15:58 → JERBED 21:08 → J6S 11-13 03:17
PROVIDERS: ADMIT Internal Medicine; ATTEND Internal Medicine
DX: L03.116 Cellulitis of left lower limb (principal); I10 Essential (primary) hypertension; E78.5 Hyperlipidemia, unspecified; N17.9 Acute kidney failure, unspecified; F11.20 Opioid dependence, uncomplicated; I48.0 Paroxysmal atrial fibrillation; E66.01 Morbid (severe) obesity due to excess calories; Z89.511 Acquired absence of right leg below knee; E11.40 Type 2 diabetes mellitus with diabetic neuropathy, unspecified; Z68.42 Body mass index [BMI] 45.0-49.9, adult; D50.9 Iron deficiency anemia, unspecified; E87.5 Hyperkalemia; B35.3 Tinea pedis; B35.4 Tinea corporis; I12.9 Hypertensive chronic kidney disease with stage 1 through stage 4 chronic kidney disease, or unspecified chronic kidney disease; N18.9 Chronic kidney disease, unspecified; K59.00 Constipation, unspecified
CPT/HCPCS: 36415; 71045-TC-FY; 74018-TC-FY; 76700-TC; 80048; 80053; 80307; 81003; 82550; 82570; 82784; 82962; 82977; 83516; 83540; 83550; 83735; 83880; 84100; 84156; 84484; 85025; 85027; 85045; 86038; 86704; 86706; 86707; 86708; 86709; 86803; 87040; 87070; 87086; 87186; 87205; 87340; 93005; 93010; 97162-GP; 99285-25; C9803; G0463-25; J1644; U0003; U0005

== ENCOUNTER 2021-02-21 04:34 | Day surgery (SDC) | payer OTHER ==
[2021-02-20 10:11] VITALS: BMI 58.3
[~2021-02-21 04:34] MED LIST: LIDOCAINE HCL 1%, 10 MG/ML (20ML VIAL) PNB ONE
[2021-02-21] MEDS ORDERED: DEXTROSE 50%-WATER 25 GM/50 ML DISP.SYRIN ONE (11:36)
[2021-02-21] MEDS ORDERED: LIDOCAINE HCL 1%, 10 MG/ML (20ML VIAL) ONE (15:51)
[2021-02-21] MEDS ORDERED: HEPARIN NA (PORCINE) 5,000 UNITS/ML 1ML VIAL ONE (15:51)
[2021-02-21] MEDS ORDERED: MIDAZOLAM HCL 2 MG/2 ML SINGLE DOSE VIAL ONE (16:29)
[2021-02-21] MEDS ORDERED: PROPOFOL 20 ML ONE ×2 (16:37→17:14)
[2021-02-21] MEDS ORDERED: ceFAZolin SODIUM 1 GM VIAL ONE (16:49)
[2021-02-21] MEDS ORDERED: ceFAZolin SODIUM 1 GM VIAL IVPB ONE (16:51)
[2021-02-21] MEDS ORDERED: LIDOCAINE HCL 1%, 10 MG/ML (20ML VIAL) PNB ONE (16:52)
[2021-02-21] MEDS ORDERED: ACETAMINOPHEN 325 MG TABLET (FP) PO PRN ×2 (17:56→18:22)
[2021-02-21] MEDS ORDERED: ONDANSETRON 4 MG/2 ML VIAL IVPUSH PRN ×2 (17:56→18:22)
[2021-02-21] MEDS ORDERED: ALBUTEROL SO4 HFA INHALER IH PRN (18:15)
[2021-02-21] MEDS: APIXABAN 5 MG TABLET PO SCH (21:41)
[2021-02-21] MEDS ORDERED: ATORVASTATIN CA 20 MG TABLET (FP) PO SCH (22:00)
[2021-02-21] MEDS ORDERED: CYCLOBENZAPRINE HCL 10 MG TABLET (FP) PO PRN (23:55)
[2021-02-22] MEDS ORDERED: ACETAMINOPHEN 325 MG TABLET (FP) PO ONE (05:24)
[2021-02-22] MEDS ORDERED: TAMSULOSIN HCL 0.4 MG CAP PO SCH (08:30)
[2021-02-22] MEDS ORDERED: CYCLOBENZAPRINE HCL 10 MG TABLET (FP) PO PRN (08:30)
[2021-02-22] MEDS: APIXABAN 5 MG TABLET PO SCH (09:10)
[2021-02-22 11:41] VITALS: BP 126/82; PULSE 111; TEMP 98
== END 2021-02-22 12:25 ==
LOC: JASUSAT 04:34 → J6S 20:08 → JASUSAT 02-22 12:17
PROVIDERS: ATTEND Surgery Vascular Surgery
PROC: B41DY10 Fluoroscopy of Aorta and Bilateral Lower Extremity Arteries using Other Contrast, Laser Intraoperative (ICD-10-PCS; principal; 2021-02-21 13:30)
DX: L97.829 Non-pressure chronic ulcer of other part of left lower leg with unspecified severity (principal); I10 Essential (primary) hypertension; E11.9 Type 2 diabetes mellitus without complications; E66.9 Obesity, unspecified
CPT/HCPCS: 75710-TC-FY; 76000-TC-FY; 82962; 94760; J1644

== ENCOUNTER 2021-03-15 07:52 | Inpatient (IN) | payer OTHER ==
[2021-03-15] MEDS ORDERED: ACETAMINOPHEN INJECTION 100 ML IVPB ONE ×2 (08:23→22:48)
[2021-03-15] MEDS ORDERED: PIPERACILLIN/TAZOB 4.5 GM 4.5 GM in DEXTROSE 5%-WATER 100 ML IVPB ONE (08:55)
[2021-03-15] MEDS ORDERED: VANCOMYCIN/WATER 1,250 MG/250 ML BAG IVPB ONE (09:00)
[2021-03-15] MEDS ORDERED: ACETAMINOPHEN 1000 MG/100 ML VIAL IVPB ONE ×2 (09:23→22:18)
[2021-03-15] MEDS ORDERED: PIPERACILLIN/TAZOB 4.5 GM 4.5 GM/100 ML BAG IVPB ONE (09:28)
[2021-03-15] MEDS ORDERED: VANCOMYCIN/WATER BAGS 1,250 MG/250 ML BAG IVPB ONE (09:30)
[2021-03-15] MEDS ORDERED: morphine CARPU-JECT 4 MG/1 ML DISP.SYRIN IVPUSH ONE (09:34)
[2021-03-15] MEDS ORDERED: morphine SULFATE 4 MG/ML VIAL ONE (09:40)
[2021-03-15 09:42] LABS: HEMATOCRIT 30.3 % (35.4-49); HEMOGLOBIN 9.5 GM/dL (11.7-16.9); MCH 27.4 pg (25.7-33.7); MCHC 31.4 g/dl (32.0-35.9); MEAN CELL VOLUME 87.3 fl (80-96); MEAN PLT VOLUME 7.3 fl (7.5-11.1); PLATELET COUNT 236 10^3/uL (134-434); RBC 3.47 M/mm3 (4.00-5.60); WHITE BLOOD COUNT 23.3 K/mm3 (4.0-10.0)
[2021-03-15 09:49] LABS: INR 1.55 (0.83-1.09); PROTHROMBIN TIME (PATIENT) 18.2 SEC (9.7-13.0)
[2021-03-15 09:52] LABS: ACTIVATED PTT 27.1 SECONDS (25.2-36.5)
[2021-03-15 10:06] LABS: MAGNESIUM 1.7 mg/dL (1.8-2.4)
[2021-03-15 10:07] LABS: ALBUMIN 2.5 g/dl (3.4-5.0); CALCIUM 8.4 mg/dL (8.5-10.1)
[2021-03-15 10:11] LABS: CREATININE 1.9 mg/dL (0.55-1.3)
[2021-03-15 10:12] LABS: BILIRUBIN,TOTAL 0.5 mg/dL (0.2-1); TOT PROT 7.2 g/dl (6.4-8.2)
[2021-03-15 10:34] LABS: LACTIC ACID 3.7 mmol/L (0.4-2.0)
[2021-03-15] MEDS ORDERED: CLINDAMYCIN 900 MG PREMIX IVPB 900 MG/50 ML BAG IVPB ONE ×2 (11:34→11:38)
[2021-03-15] MEDS ORDERED: MAGNESIUM SULF 50% (8.12 MEQ/2 ML-1 GM VIAL) IVPB ONE (11:37)
[2021-03-15] MEDS ORDERED: LACTATED RINGERS SOLUTION 1000 ML INFUS.BAG IV ONE ×2 (11:39→16:28)
[2021-03-15] MEDS ORDERED: metoPROLOL SUCCINATE 25 MG TAB.SR.24H (FP) PO ONE (11:40)
[2021-03-15] MEDS ORDERED: MAGNESIUM 1GM/D5W - 1 GM/100 ML IVPB IVPB ONE (11:44)
[2021-03-15] MEDS ORDERED: METOPROLOL TARTRATE 25 MG TABLET (FP) ONE (11:45)
[2021-03-15 12:31] LABS: ANISOCYTOSIS 1+; MACROCYTOSIS 0; OVALOCYTE 1+; PLATELET ESTIMATE NORMAL
[2021-03-15 17:05] LABS: LACTIC ACID 2.8 mmol/L (0.4-2.0)
[2021-03-15 17:10] LABS: URINE APPEARANCE CLEAR; URINE BILIRUBIN NEGATIVE (NEGATIVE); URINE COLOR YELLOW; URINE GLUCOSE (UA) NEGATIVE (NEGATIVE); URINE KETONE TRACE (NEGATIVE); URINE LEUK ESTERASE NEGATIVE (NEGATIVE); URINE NITRITE NEGATIVE (NEGATIVE); URINE PROTEIN NEGATIVE (NEGATIVE)
[2021-03-15] MEDS ORDERED: morphine SULFATE 4 MG/ML VIAL IVPUSH ONE (21:04)
[2021-03-15] MEDS ORDERED: MEROPENEM 1 GM in DEXTROSE 5%-WATER 100 ML IVPB ONE (23:41)
[2021-03-16] MEDS ORDERED: MEROPENEM 1 GM VIAL (RESTRICTED TO ID) IVPB ONE (00:42)
[2021-03-16] MEDS ORDERED: DEXTROSE 5%-WATER 100 ML IVPB ONE ×2 (00:42→13:48)
[2021-03-16] MEDS: SODIUM CHLORIDE 1,000 ML IV SCH (01:42)
[2021-03-16] MEDS ORDERED: LINEZOLID 600 MG PREMIX BAG 600 MG in PREMIX 300 IVPB SCH (01:45)
[2021-03-16 01:57] VITALS: BMI 57.3
[2021-03-16] MEDS ORDERED: LINEZOLID 600 MG PREMIX BAG 600 MG/300 ML BAG IVPB SCH (02:00)
[2021-03-16] MEDS ORDERED: METOPROLOL TARTRATE 5 MG/5 ML VIAL IVPUSH ONE (02:31)
[2021-03-16] MEDS ORDERED: dilTIAZem HCL 30 MG TABLET PO ONE (02:33)
[2021-03-16] MEDS ORDERED: oxyCODONE HCL 5 MG TABLET PO ONE (03:06)
[2021-03-16] MEDS ORDERED: ACETAMINOPHEN 325 MG TABLET (FP) PO PRN (05:48)
[2021-03-16] MEDS ORDERED: oxyCODONE HCL 5 MG TABLET PO SCH (06:00)
[2021-03-16] MEDS: INSULIN SLIDING SCALE (NOVOLOG) 1 VIAL SQ SCH ×4 (06:01→21:52)
[2021-03-16 09:32] LABS: BASO % 0.4 % (0-2.0); EOS % 0.1 % (0-4.5); HEMATOCRIT 29.6 % (35.4-49); HEMOGLOBIN 9.3 GM/dL (11.7-16.9); LYMPH % 1.2 % (8-40); MCH 27.9 pg (25.7-33.7); MCHC 31.4 g/dl (32.0-35.9); MEAN CELL VOLUME 88.8 fl (80-96); MEAN PLT VOLUME 7.4 fl (7.5-11.1); MONO % 2.7 % (3.8-10.2); NEUT % 95.6 % (42.8-82.8); PLATELET COUNT 183 10^3/uL (134-434); RBC 3.33 M/mm3 (4.00-5.60); RDW 17.4 % (11.9-15.9); WHITE BLOOD COUNT 23.8 K/mm3 (4.0-10.0)
[2021-03-16] MEDS: APIXABAN 5 MG TABLET PO SCH ×2 (09:33→21:46)
[2021-03-16] MEDS ORDERED: SODIUM CHLORIDE 500 ML IV STA ×2 (09:45→14:07)
[2021-03-16] MEDS ORDERED: VANCOMYCIN/WATER 1,250 MG/250 ML BAG IVPB ONE (09:56)
[2021-03-16] MEDS ORDERED: SODIUM CHLORIDE 1,000 ML IV STA (10:01)
[2021-03-16] MEDS ORDERED: PIPERACILLIN/TAZOB 3.375 GM 3.375 GM in DEXTROSE 5%-WATER - 50 ML IVPB SCH (10:30)
[2021-03-16 11:18] LABS: ALBUMIN 2.4 g/dl (3.4-5.0); BLOOD UREA NITROGEN 49.7 mg/dL (7-18); MAGNESIUM 2.4 mg/dL (1.8-2.4)
[2021-03-16 11:21] LABS: CREATININE 2.2 mg/dL (0.55-1.3)
[2021-03-16 11:22] LABS: PHOSPHOROUS 4.2 mg/dL (2.5-4.9)
[2021-03-16 11:23] LABS: BILIRUBIN,TOTAL 0.6 mg/dL (0.2-1); TOT PROT 6.8 g/dl (6.4-8.2)
[2021-03-16 11:28] LABS: CALCIUM 7.1 mg/dL (8.5-10.1)
[2021-03-16] MEDS ORDERED: DEXTROSE 5%-WATER - 50 ML IVPB ONE (11:36)
[2021-03-16] MEDS ORDERED: PIPERACILLIN/TAZOBACTAM 3.375 GM VIAL IVPB ONE (11:36)
[2021-03-16 12:12] LABS: ANISOCYTOSIS 0; MACROCYTOSIS 0; PLATELET ESTIMATE NORMAL
[2021-03-16] MEDS: oxyCODONE HCL 5 MG TABLET PO PRN ×3 (12:16→21:46)
[2021-03-16] MEDS: ACETAMINOPHEN 500 MG TABLET (FP) PO PRN (12:18)
[2021-03-16] MEDS ORDERED: VANCOMYCIN/WATER FOR INJ (PEG) 750 MG/150 ML BAG IVPB ONE (13:30)
[2021-03-16] MEDS: CEFTRIAXONE 2 GM in DEXTROSE 5%-WATER 2 GM/100 ML BAG IVPB SCH (13:55)
[2021-03-16] MEDS: LEVALBUTEROL HCL 0.63 MG/3 ML VIAL.NEB. IH PRN ×2 (15:42→21:12)
[2021-03-16] MEDS ORDERED: MELATONIN 5 MG TABLETS PO ONE (23:48)
[2021-03-17] MEDS: SODIUM CHLORIDE 1,000 ML IV SCH (00:23)
[2021-03-17] MEDS ORDERED: VANCOMYCIN 2,000 MG in DEXTROSE 5%-WATER - 500 ML IVPB SCH (01:00)
[2021-03-17] MEDS: VANCOMYCIN 2,000 MG in DEXTROSE 5%-WATER - 500 ML IVPB SCH ×2 (01:51→14:21)
[2021-03-17] MEDS: oxyCODONE HCL 5 MG TABLET PO PRN ×4 (02:52→21:20)
[2021-03-17] MEDS ORDERED: METOPROLOL TARTRATE 5 MG/5 ML VIAL IVPUSH ONE (04:55)
[2021-03-17] MEDS: INSULIN SLIDING SCALE (NOVOLOG) 1 VIAL SQ SCH ×4 (07:31→21:21)
[2021-03-17 07:45] LABS: HEMATOCRIT 25.9 % (35.4-49); HEMOGLOBIN 8.4 GM/dL (11.7-16.9); MCH 28.4 pg (25.7-33.7); MCHC 32.2 g/dl (32.0-35.9); MEAN CELL VOLUME 88.1 fl (80-96); MEAN PLT VOLUME 7.8 fl (7.5-11.1); PLATELET COUNT 175 10^3/uL (134-434); RBC 2.94 M/mm3 (4.00-5.60); RDW 16.8 % (11.9-15.9); WHITE BLOOD COUNT 15.2 K/mm3 (4.0-10.0)
[2021-03-17] MEDS: LEVALBUTEROL HCL 0.63 MG/3 ML VIAL.NEB. IH PRN (08:27)
[2021-03-17] MEDS ORDERED: DEXTROSE 5%-WATER 100 ML IVPB ONE (09:29)
[2021-03-17] MEDS ORDERED: PIPERACILLIN/TAZOB 3.375 GM 3.375 GM in DEXTROSE 5%-WATER - 50 ML IVPB SCH (10:00)
[2021-03-17] MEDS: CEFTRIAXONE 2 GM in DEXTROSE 5%-WATER 2 GM/100 ML BAG IVPB SCH (10:40)
[2021-03-17] MEDS: APIXABAN 5 MG TABLET PO SCH ×2 (10:41→21:20)
[2021-03-17 12:43] LABS: ANISOCYTOSIS 1+; MACROCYTOSIS 0; OVALOCYTE 1+; PLATELET ESTIMATE NORMAL; TEAR DROP CELLS 1+
[2021-03-17 14:37] LABS: CALCIUM 7.1 mg/dL (8.5-10.1)
[2021-03-17 14:38] LABS: ALBUMIN 2.2 g/dl (3.4-5.0); BLOOD UREA NITROGEN 41.2 mg/dL (7-18)
[2021-03-17 14:41] LABS: CREATININE 1.7 mg/dL (0.55-1.3)
[2021-03-17 14:43] LABS: BILIRUBIN,TOTAL 0.4 mg/dL (0.2-1); TOT PROT 6.8 g/dl (6.4-8.2)
[2021-03-17] MEDS ORDERED: metoPROLOL SUCCINATE 25 MG TAB.SR.24H (FP) PO SCH (16:30)
[2021-03-17] MEDS: AMINO ACIDS/PROTEIN HYDROLYS 30 ML LIQUID.PKT PO SCH (16:56)
[2021-03-17] MEDS ORDERED: AMINO ACIDS/PROTEIN HYDROLYS 30 ML LIQUID.PKT PO SCH (17:30)
[2021-03-17] MEDS: ALBUTEROL SO4 HFA INHALER IH PRN ×2 (17:52→21:45)
[2021-03-17] MEDS ORDERED: PT OWN MED DRAWER 7, Y5N ONE (20:36)
[2021-03-17] MEDS ORDERED: MELATONIN 5 MG TABLETS PO ONE (20:51)
[2021-03-17] MEDS ORDERED: metoPROLOL SUCCINATE 25 MG TAB.SR.24H (FP) PO ONE (20:59)
[2021-03-17] MEDS: GABAPENTIN 300 MG CAPSULE PO SCH (21:20)
[2021-03-18] MEDS: VANCOMYCIN/WATER BAGS 1,250 MG/250 ML BAG IVPB SCH ×2 (01:11→14:50)
[2021-03-18] MEDS: oxyCODONE HCL 5 MG TABLET PO PRN ×5 (01:53→22:05)
[2021-03-18] MEDS: INSULIN SLIDING SCALE (NOVOLOG) 1 VIAL SQ SCH ×4 (06:24→22:05)
[2021-03-18] MEDS: DOCUSATE SODIUM 100 MG CAPSULE (FP) PO PRN (06:25)
[2021-03-18] MEDS: ALBUTEROL SO4 HFA INHALER IH PRN (07:39)
[2021-03-18 08:10] LABS: BASO % 0.6 % (0-2.0); EOS % 0.6 % (0-4.5); HEMOGLOBIN 8.8 GM/dL (11.7-16.9); LYMPH % 4.3 % (8-40); MCH 28.2 pg (25.7-33.7); MCHC 32.5 g/dl (32.0-35.9); MEAN CELL VOLUME 86.8 fl (80-96); MEAN PLT VOLUME 7.9 fl (7.5-11.1); MONO % 6.9 % (3.8-10.2); NEUT % 87.6 % (42.8-82.8); PLATELET COUNT 177 10^3/uL (134-434); RBC 3.11 M/mm3 (4.00-5.60); RDW 17.3 % (11.9-15.9); WHITE BLOOD COUNT 10.6 K/mm3 (4.0-10.0)
[2021-03-18] MEDS: AMINO ACIDS/PROTEIN HYDROLYS 30 ML LIQUID.PKT PO SCH ×3 (08:21→17:32)
[2021-03-18] MEDS: metoPROLOL SUCCINATE 25 MG TAB.SR.24H (FP) PO SCH (08:21)
[2021-03-18 08:34] LABS: CALCIUM 7.9 mg/dL (8.5-10.1)
[2021-03-18 08:36] LABS: BLOOD UREA NITROGEN 30.8 mg/dL (7-18)
[2021-03-18 08:38] LABS: CREATININE 1.3 mg/dL (0.55-1.3)
[2021-03-18] MEDS ORDERED: DEXTROSE 5%-WATER 100 ML IVPB ONE (09:03)
[2021-03-18] MEDS ORDERED: PT OWN MED DRAWER 7, Y5N ONE ×3 (09:03→19:39)
[2021-03-18] MEDS: VITAMIN B COMP W-C 1 EA TABLET (NEPHRO-VITE) PO SCH (09:20)
[2021-03-18] MEDS: APIXABAN 5 MG TABLET PO SCH ×2 (09:20→22:05)
[2021-03-18] MEDS: CEFTRIAXONE 2 GM in DEXTROSE 5%-WATER 2 GM/100 ML BAG IVPB SCH (09:21)
[2021-03-18] MEDS: GABAPENTIN 300 MG CAPSULE PO SCH ×2 (09:21→22:05)
[2021-03-18] MEDS ORDERED: VITAMIN B COMP W-C 1 EA TABLET (NEPHRO-VITE) PO SCH (10:00)
[2021-03-18] MEDS ORDERED: guaiFENesin/D-M SUGAR-FREE/ACLHOL-FREE 5 ML UNIT DOSE PO PRN (13:24)
[2021-03-18] MEDS: VANCOMYCIN 2,000 MG in DEXTROSE 5%-WATER - 500 ML IVPB SCH (13:34)
[2021-03-18] MEDS: COLLAGENASE CLOSTRIDIUM HIST. 30 GRAMS TUBE TP SCH (17:29)
[2021-03-18] MEDS: VANCOMYCIN 1 GRAM (PRE-DOCKED) 1,000 MG/250 ML BAG IVPB SCH (18:35)
[2021-03-19] MEDS: oxyCODONE HCL 5 MG TABLET PO PRN ×5 (01:56→23:11)
[2021-03-19] MEDS: DOCUSATE SODIUM 100 MG CAPSULE (FP) PO PRN (01:56)
[2021-03-19] MEDS: VANCOMYCIN 1 GRAM (PRE-DOCKED) 1,000 MG/250 ML BAG IVPB SCH (06:42)
[2021-03-19] MEDS: INSULIN SLIDING SCALE (NOVOLOG) 1 VIAL SQ SCH ×4 (06:42→21:34)
[2021-03-19] MEDS ORDERED: morphine SULFATE 4 MG/ML VIAL IVPUSH ONE ×2 (07:03→07:15)
[2021-03-19 07:44] LABS: BASO % 0.5 % (0-2.0); EOS % 1.9 % (0-4.5); HEMATOCRIT 26.4 % (35.4-49); HEMOGLOBIN 8.7 GM/dL (11.7-16.9); LYMPH % 7.1 % (8-40); MCH 28.6 pg (25.7-33.7); MCHC 32.9 g/dl (32.0-35.9); MEAN CELL VOLUME 86.8 fl (80-96); MEAN PLT VOLUME 7.7 fl (7.5-11.1); MONO % 11.5 % (3.8-10.2); PLATELET COUNT 188 10^3/uL (134-434); RBC 3.04 M/mm3 (4.00-5.60); RDW 17.2 % (11.9-15.9); WHITE BLOOD COUNT 8.2 K/mm3 (4.0-10.0)
[2021-03-19 08:43] LABS: ALBUMIN 1.9 g/dl (3.4-5.0); BILIRUBIN,TOTAL 0.5 mg/dL (0.2-1); BLOOD UREA NITROGEN 23.4 mg/dL (7-18); CALCIUM 7.8 mg/dL (8.5-10.1); CREATININE 1.1 mg/dL (0.55-1.3); MAGNESIUM 2.2 mg/dL (1.8-2.4); PHOSPHOROUS 2.5 mg/dL (2.5-4.9); TOT PROT 6.5 g/dl (6.4-8.2)
[2021-03-19] MEDS ORDERED: DEXTROSE 5%-WATER 100 ML IVPB ONE (09:07)
[2021-03-19] MEDS: AMINO ACIDS/PROTEIN HYDROLYS 30 ML LIQUID.PKT PO SCH ×4 (09:13→17:01)
[2021-03-19] MEDS: GABAPENTIN 300 MG CAPSULE PO SCH ×2 (09:13→21:28)
[2021-03-19] MEDS: metoPROLOL SUCCINATE 25 MG TAB.SR.24H (FP) PO SCH (09:13)
[2021-03-19] MEDS: APIXABAN 5 MG TABLET PO SCH ×2 (09:14→21:29)
[2021-03-19] MEDS: CEFTRIAXONE 2 GM in DEXTROSE 5%-WATER 2 GM/100 ML BAG IVPB SCH (09:15)
[2021-03-19] MEDS: COLLAGENASE CLOSTRIDIUM HIST. 30 GRAMS TUBE TP SCH (11:26)
[2021-03-19] MEDS: VITAMIN B COMP W-C 1 EA TABLET (NEPHRO-VITE) PO SCH (11:26)
[2021-03-19] MEDS ORDERED: ALBUTEROL SO4 0.083% IH SOL 2.5 MG/3 ML VIAL.NEB. NEB PRN (18:05)
[2021-03-19] MEDS: FLUTICASONE/SALMETEROL 100 MCG/50 MCG DISKUS IH SCH (21:27)
[2021-03-19] MEDS ORDERED: DOCUSATE SODIUM 100 MG CAPSULE (FP) PO SCH (22:00)
[2021-03-19] MEDS ORDERED: MONTELUKAST NA 10 MG TABLET PO SCH (22:00)
[2021-03-19] MEDS: ACETAMINOPHEN 500 MG TABLET (FP) PO PRN (23:10)
[2021-03-20] MEDS: oxyCODONE HCL 5 MG TABLET PO PRN ×3 (03:42→14:33)
[2021-03-20] MEDS: ACETAMINOPHEN 500 MG TABLET (FP) PO PRN (05:58)
[2021-03-20] MEDS: TORSEMIDE 20 MG TABLET (FP) PO SCH ×2 (05:59→14:33)
[2021-03-20] MEDS: INSULIN SLIDING SCALE (NOVOLOG) 1 VIAL SQ SCH ×3 (06:17→16:41)
[2021-03-20] MEDS ORDERED: INSULIN (LEVEMIR) 100 UNITS/ML UNITS SQ SCH (07:00)
[2021-03-20 07:10] LABS: BASO % 0.4 % (0-2.0); EOS % 3.4 % (0-4.5); HEMATOCRIT 29.1 % (35.4-49); HEMOGLOBIN 9.4 GM/dL (11.7-16.9); MCH 27.9 pg (25.7-33.7); MCHC 32.4 g/dl (32.0-35.9); MEAN CELL VOLUME 86.1 fl (80-96); MEAN PLT VOLUME 7.8 fl (7.5-11.1); MONO % 9.4 % (3.8-10.2); NEUT % 77.8 % (42.8-82.8); PLATELET COUNT 222 10^3/uL (134-434); RBC 3.38 M/mm3 (4.00-5.60); RDW 16.7 % (11.9-15.9); WHITE BLOOD COUNT 8.8 K/mm3 (4.0-10.0)
[2021-03-20 07:20] LABS: ALBUMIN 2.2 g/dl (3.4-5.0); BLOOD UREA NITROGEN 23.3 mg/dL (7-18); MAGNESIUM 2.5 mg/dL (1.8-2.4)
[2021-03-20 07:23] LABS: CREATININE 1.1 mg/dL (0.55-1.3); PHOSPHOROUS 2.5 mg/dL (2.5-4.9)
[2021-03-20 07:24] LABS: BILIRUBIN,TOTAL 0.5 mg/dL (0.2-1); TOT PROT 7.1 g/dl (6.4-8.2)
[2021-03-20 08:51] VITALS: TEMP 98.2
[2021-03-20] MEDS ORDERED: metoPROLOL SUCCINATE 25 MG TAB.SR.24H (FP) ONE (09:08)
[2021-03-20] MEDS ORDERED: PT OWN MED DRAWER 7, Y5N ONE (09:09)
[2021-03-20] MEDS ORDERED: DEXTROSE 5%-WATER 100 ML IVPB ONE (09:10)
[2021-03-20] MEDS: CEFTRIAXONE 2 GM in DEXTROSE 5%-WATER 2 GM/100 ML BAG IVPB SCH (09:41)
[2021-03-20] MEDS: APIXABAN 5 MG TABLET PO SCH (09:41)
[2021-03-20] MEDS: VITAMIN B COMP W-C 1 EA TABLET (NEPHRO-VITE) PO SCH (09:41)
[2021-03-20] MEDS: GABAPENTIN 300 MG CAPSULE PO SCH (09:41)
[2021-03-20] MEDS: AMINO ACIDS/PROTEIN HYDROLYS 30 ML LIQUID.PKT PO SCH ×3 (09:44→16:47)
[2021-03-20] MEDS: FLUTICASONE/SALMETEROL 100 MCG/50 MCG DISKUS IH SCH (09:44)
[2021-03-20] MEDS: COLLAGENASE CLOSTRIDIUM HIST. 30 GRAMS TUBE TP SCH (09:44)
[2021-03-20] MEDS ORDERED: LISINOPRIL 10 MG TABLET PO SCH (10:00)
[2021-03-20] MEDS ORDERED: CITALOPRAM HYDROBROMIDE 20 MG TABLET PO SCH (10:00)
[2021-03-20] MEDS ORDERED: METOPROLOL SUCCINATE 50 MG, METOPROLOL SUCCINATE 25 MG PO SCH (10:00)
[2021-03-20] MEDS ORDERED: metoPROLOL SUCCINATE 25 MG TAB.SR.24H (FP) PO SCH (10:00)
[2021-03-20] MEDS ORDERED: ARIPiprazole 10 MG TABLET PO SCH (10:00)
[2021-03-20 20:42] VITALS: BP 150/92; PULSE 84
== END 2021-03-20 21:30 | DRG 720 ==
LOC: JER 07:52 → JERBED 09:23 → J4S 23:42
PROVIDERS: ATTEND Internal Medicine
PROC: 02HV33Z Insertion of Infusion Device into Superior Vena Cava, Percutaneous Approach (ICD-10-PCS; principal; 2021-03-20)
PROC: B518ZZA Fluoroscopy of Superior Vena Cava, Guidance (ICD-10-PCS; 2021-03-20)
DX: A41.81 Sepsis due to Enterococcus (principal); A52.16 Charcot's arthropathy (tabetic); E11.40 Type 2 diabetes mellitus with diabetic neuropathy, unspecified; E87.2 Acidosis; N17.9 Acute kidney failure, unspecified; F11.20 Opioid dependence, uncomplicated; I48.91 Unspecified atrial fibrillation; E11.51 Type 2 diabetes mellitus with diabetic peripheral angiopathy without gangrene; E11.610 Type 2 diabetes mellitus with diabetic neuropathic arthropathy; E11.621 Type 2 diabetes mellitus with foot ulcer; E66.01 Morbid (severe) obesity due to excess calories; L97.529 Non-pressure chronic ulcer of other part of left foot with unspecified severity; L97.909 Non-pressure chronic ulcer of unspecified part of unspecified lower leg with unspecified severity; Z68.43 Body mass index [BMI] 50.0-59.9, adult; D72.829 Elevated white blood cell count, unspecified; E78.5 Hyperlipidemia, unspecified; I10 Essential (primary) hypertension; L03.116 Cellulitis of left lower limb; B95.2 Enterococcus as the cause of diseases classified elsewhere; R65.20 Severe sepsis without septic shock; K21.9 Gastro-esophageal reflux disease without esophagitis; N40.0 Benign prostatic hyperplasia without lower urinary tract symptoms
CPT/HCPCS: 36415; 36569; 71045-TC-FY; 73701-TC-RT; 80048; 80053; 81003; 82962; 83605; 83735; 84100; 84443; 84484; 85025; 85610; 85730; 86140; 87040; 87086; 87186; 93005; 93010; 93306-TC; 93971-TC; 97161-GP; 99285-25; C9803; G0480; J0131; Q9967; U0003; U0005

== ENCOUNTER 2021-04-30 11:10 | Inpatient (IN) | payer OTHER ==
[2021-04-30] MEDS ORDERED: SODIUM CHLORIDE IV ONE (11:58)
[2021-04-30] MEDS ORDERED: ACETAMINOPHEN 1000 MG/100 ML VIAL IVPB ONE (12:06)
[2021-04-30] MEDS ORDERED: ACETAMINOPHEN INJECTION 100 ML IVPB ONE (12:19)
[2021-04-30] MEDS ORDERED: dilTIAZem HCL 50 MG/10 ML - 10 ML VIAL IVPUSH ONE ×2 (12:49→13:07)
[2021-04-30 12:56] LABS: HEMATOCRIT 32.1 % (35.4-49); HEMOGLOBIN 10.1 GM/dL (11.7-16.9); MCH 27.5 pg (25.7-33.7); MCHC 31.6 g/dl (32.0-35.9); MEAN CELL VOLUME 86.8 fl (80-96); MEAN PLT VOLUME 6.7 fl (7.5-11.1); PLATELET COUNT 263 10^3/uL (134-434); RBC 3.69 M/mm3 (4.00-5.60); RDW 16.9 % (11.9-15.9); WHITE BLOOD COUNT 17.7 K/mm3 (4.0-10.0)
[2021-04-30 12:57] LABS: VENOUS BASE EXCESS -1.8 mmol/L (-2-2); VENOUS O2 SATURATION 42.5 % (70-80); VENOUS PCO2 57.2 mmHg (38-52); VENOUS PH 7.269 (7.310-7.410)
[2021-04-30] MEDS ORDERED: dilTIAZem HCL 125 MG/25 ML - 25 ML VIAL ONE ×2 (12:58→13:17)
[2021-04-30 13:03] LABS: INR 1.3 (0.83-1.09); PROTHROMBIN TIME (PATIENT) 14.6 SEC (9.7-13.0)
[2021-04-30 13:05] LABS: ACTIVATED PTT 29.4 SECONDS (25.2-36.5)
[2021-04-30 13:19] LABS: CHLORIDE 101 mmol/L (98-107); SODIUM 134 mmol/L (136-145)
[2021-04-30 13:21] LABS: ALBUMIN 2.9 g/dl (3.4-5.0); ANION GAP 6 MMOL/L (8-16); CALCIUM 7.9 mg/dL (8.5-10.1); CO2 27 mmol/L (21-32); GLUCOSE,RANDOM 144 mg/dL (74-106)
[2021-04-30 13:24] LABS: CREATININE 1.6 mg/dL (0.55-1.3); SGOT/AST 19 U/L (15-37); SGPT/ALT 19 U/L (13-61)
[2021-04-30 13:26] LABS: BILIRUBIN,TOTAL 0.6 mg/dL (0.2-1); TOT PROT 8.4 g/dl (6.4-8.2)
[2021-04-30 13:27] LABS: ALK PHOS 131 U/L (45-117)
[2021-04-30 13:31] LABS: ANISOCYTOSIS 1+; MACROCYTOSIS 0; PLATELET ESTIMATE NORMAL
[2021-04-30] MEDS ORDERED: VANCOMYCIN 1 GM in D5W (PRE-DOCKED) 1,000 MG/250 ML IVPB ONE (13:49)
[2021-04-30] MEDS ORDERED: PIPERACILLIN/TAZOB 3.375 GM 3.375 GM in DEXTROSE 5%-WATER - 50 ML IVPB ONE (13:53)
[2021-04-30 14:06] LABS: LACTIC ACID 3.2 mmol/L (0.4-2.0)
[2021-04-30] MEDS ORDERED: PIPERACILLIN/TAZOB 3.375 GM 3.375 GM/50 ML BAG IVPB ONE (14:18)
[2021-04-30] MEDS ORDERED: morphine SULFATE 4 MG/ML VIAL IVPUSH ONE (15:29)
[2021-04-30 15:42] LABS: PH,URINE 5.5 (5.0-8.0); URINE APPEARANCE CLEAR; URINE BILIRUBIN NEGATIVE (NEGATIVE); URINE COLOR YELLOW; URINE GLUCOSE (UA) NEGATIVE (NEGATIVE); URINE KETONE NEGATIVE (NEGATIVE); URINE LEUK ESTERASE NEGATIVE (NEGATIVE); URINE NITRITE NEGATIVE (NEGATIVE); URINE PROTEIN TRACE (NEGATIVE); URINE UROBILINOGEN 0.2 mg/dL (0.2-1.0)
[2021-04-30] MEDS ORDERED: morphine SULFATE 4 MG/ML VIAL ONE (15:46)
[2021-04-30 16:26] LABS: LACTIC ACID 2.3 mmol/L (0.4-2.0)
[2021-04-30] MEDS ORDERED: VANCOMYCIN 2,000 MG in DEXTROSE 5%-WATER - 500 ML IVPB SCH (16:30)
[2021-04-30] MEDS ORDERED: morphine CARPU-JECT 2 MG/1 ML DISP.SYRIN IM PRN (17:46)
[2021-04-30] MEDS ORDERED: morphine SULFATE 4 MG/ML VIAL IVPB PRN (17:47)
[2021-04-30] MEDS ORDERED: VANCOMYCIN 1 GRAM (PRE-DOCKED) 1,000 MG/250 ML BAG IVPB ONE (18:28)
[2021-04-30] MEDS: INSULIN SLIDING SCALE (NOVOLOG) 1 VIAL SQ SCH ×2 (18:30→23:18)
[2021-04-30] MEDS ORDERED: oxyCODONE HCL 5 MG TABLET ONE (21:11)
[2021-04-30] MEDS: oxyCODONE HCL 5 MG TABLET PO PRN (21:14)
[2021-04-30] MEDS: SODIUM CHLORIDE 1,000 ML IV SCH (22:10)
[2021-04-30] MEDS ORDERED: ATORVASTATIN CA 20 MG TABLET (FP) ONE (23:13)
[2021-04-30] MEDS ORDERED: APIXABAN 5 MG TABLET ONE (23:14)
[2021-04-30] MEDS: ATORVASTATIN CA 20 MG TABLET (FP) PO SCH (23:18)
[2021-04-30] MEDS: APIXABAN 5 MG TABLET PO SCH (23:18)
[2021-05-01] MEDS: VANCOMYCIN/WATER BAGS 1,250 MG/250 ML BAG IVPB SCH ×3 (00:35→21:27)
[2021-05-01] MEDS ORDERED: metoPROLOL SUCCINATE 25 MG TAB.SR.24H (FP) ONE (05:30)
[2021-05-01] MEDS: INSULIN SLIDING SCALE (NOVOLOG) 1 VIAL SQ SCH ×4 (07:01→22:28)
[2021-05-01] MEDS: INSULIN (LEVEMIR) 100 UNITS/ML UNITS SQ SCH (07:01)
[2021-05-01 08:13] LABS: MCH 27.5 pg (25.7-33.7); MEAN CELL VOLUME 88.8 fl (80-96); MEAN PLT VOLUME 7.2 fl (7.5-11.1); PLATELET COUNT 208 10^3/uL (134-434); RBC 3.27 M/mm3 (4.00-5.60); RDW 16.8 % (11.9-15.9); WHITE BLOOD COUNT 22.7 K/mm3 (4.0-10.0)
[2021-05-01] MEDS ORDERED: oxyCODONE HCL 5 MG TABLET ONE (08:13)
[2021-05-01] MEDS ORDERED: APIXABAN 5 MG TABLET ONE (08:13)
[2021-05-01] MEDS ORDERED: VENLAFAXINE HCL 75 MG TABLET ONE (08:14)
[2021-05-01] MEDS ORDERED: TAMSULOSIN HCL 0.4 MG CAP ONE (08:14)
[2021-05-01] MEDS: TAMSULOSIN HCL 0.4 MG CAP PO SCH (08:30)
[2021-05-01] MEDS: oxyCODONE HCL 5 MG TABLET PO PRN ×2 (08:30→22:11)
[2021-05-01 08:56] LABS: BLOOD UREA NITROGEN 36.4 mg/dL (7-18)
[2021-05-01 08:57] LABS: ALBUMIN 2.4 g/dl (3.4-5.0); CALCIUM 7.6 mg/dL (8.5-10.1)
[2021-05-01 08:58] LABS: MAGNESIUM 2.5 mg/dL (1.8-2.4)
[2021-05-01 09:00] LABS: PHOSPHOROUS 4.4 mg/dL (2.5-4.9)
[2021-05-01 09:01] LABS: BILIRUBIN,TOTAL 0.6 mg/dL (0.2-1); TOT PROT 7.3 g/dl (6.4-8.2)
[2021-05-01] MEDS: VENLAFAXINE HCL 75 MG E.R. CAPSULES PO SCH (09:55)
[2021-05-01] MEDS: APIXABAN 5 MG TABLET PO SCH ×2 (09:55→22:11)
[2021-05-01] MEDS ORDERED: VENLAFAXINE HCL 150 MG E.R. CAPSULE PO SCH ×2 (10:00)
[2021-05-01] MEDS ORDERED: VENLAFAXINE HCL ER 150 MG, VENLAFAXINE HCL ER 75 MG PO SCH (10:00)
[2021-05-01] MEDS ORDERED: VENLAFAXINE HCL ER 150 MG, VENLAFAXINE HCL ER 37.5 MG PO SCH (10:00)
[2021-05-01] MEDS ORDERED: SODIUM CHLORIDE 500 ML IV STA (10:21)
[2021-05-01 10:51] LABS: ANISOCYTOSIS 0; HELMET CELLS 0; HOWELL-JOLLY BODIES 0; MACROCYTOSIS 0; OVALOCYTE 0; PLATELET ESTIMATE NORMAL; ROULEAU 0; SICKELED CELLS 0; TARGET CELLS 0; TEAR DROP CELLS 0; TOXIC GRANULATION 0
[2021-05-01] MEDS ORDERED: CEFTRIAXONE 2 GM/100 ML BAG IVPB ONE (11:45)
[2021-05-01] MEDS: CEFTRIAXONE 2 GM in DEXTROSE 5%-WATER 2 GM/100 ML BAG IVPB SCH (11:54)
[2021-05-01] MEDS: SODIUM CHLORIDE 1,000 ML IV SCH (19:09)
[2021-05-01] MEDS: ATORVASTATIN CA 20 MG TABLET (FP) PO SCH (22:11)
[2021-05-02] MEDS ORDERED: MELATONIN 5 MG TABLETS PO PRN
[2021-05-02] MEDS: MONTELUKAST NA 10 MG TABLET PO SCH ×2 (01:00→21:14)
[2021-05-02] MEDS: ALBUTEROL SO4 2.5/IPRATROPIUM 0.5 INH SOL 3 ML VIAL.NEB. NEB PRN (01:30)
[2021-05-02 04:08] VITALS: BMI 49.7
[2021-05-02] MEDS: INSULIN (LEVEMIR) 100 UNITS/ML UNITS SQ SCH (07:16)
[2021-05-02] MEDS: INSULIN SLIDING SCALE (NOVOLOG) 1 VIAL SQ SCH ×4 (07:16→21:14)
[2021-05-02 07:49] LABS: HEMATOCRIT 27.4 % (35.4-49); HEMOGLOBIN 8.7 GM/dL (11.7-16.9); MCH 27.4 pg (25.7-33.7); MCHC 31.7 g/dl (32.0-35.9); MEAN CELL VOLUME 86.7 fl (80-96); MEAN PLT VOLUME 7.2 fl (7.5-11.1); PLATELET COUNT 188 10^3/uL (134-434); RBC 3.16 M/mm3 (4.00-5.60); RDW 16.8 % (11.9-15.9)
[2021-05-02] MEDS ORDERED: DEXTROSE 5%-WATER 100 ML IVPB ONE (08:05)
[2021-05-02 08:09] LABS: ALBUMIN 2.3 g/dl (3.4-5.0); BLOOD UREA NITROGEN 32.4 mg/dL (7-18); CALCIUM 7.8 mg/dL (8.5-10.1); MAGNESIUM 2.5 mg/dL (1.8-2.4)
[2021-05-02 08:12] LABS: CREATININE 1.5 mg/dL (0.55-1.3); PHOSPHOROUS 3.6 mg/dL (2.5-4.9)
[2021-05-02 08:14] LABS: BILIRUBIN,TOTAL 0.3 mg/dL (0.2-1); TOT PROT 7.1 g/dl (6.4-8.2)
[2021-05-02] MEDS: TAMSULOSIN HCL 0.4 MG CAP PO SCH (08:46)
[2021-05-02 08:48] LABS: ANISOCYTOSIS 1+; MACROCYTOSIS 0; PLATELET ESTIMATE NORMAL
[2021-05-02] MEDS: APIXABAN 5 MG TABLET PO SCH ×2 (09:05→21:14)
[2021-05-02] MEDS: CEFTRIAXONE 2 GM in DEXTROSE 5%-WATER 2 GM/100 ML BAG IVPB SCH (09:05)
[2021-05-02] MEDS: VENLAFAXINE HCL 75 MG E.R. CAPSULES PO SCH (09:06)
[2021-05-02] MEDS: oxyCODONE HCL 5 MG TABLET PO PRN ×2 (13:58→20:00)
[2021-05-02] MEDS ORDERED: SODIUM CHLORIDE 1,000 ML IV SCH (14:15)
[2021-05-02] MEDS ORDERED: PT OWN MED DRAWER 7, Y5N ONE (16:33)
[2021-05-02] MEDS: COLLAGENASE CLOSTRIDIUM HIST. 30 GRAMS TUBE TP SCH (16:34)
[2021-05-02] MEDS: AMINO ACIDS/PROTEIN HYDROLYS 30 ML LIQUID.PKT PO SCH (16:34)
[2021-05-02] MEDS: ACETAMINOPHEN 325 MG TABLET (FP) PO PRN (18:15)
[2021-05-02] MEDS: ATORVASTATIN CA 20 MG TABLET (FP) PO SCH (21:14)
[2021-05-02] MEDS ORDERED: ZOLPIDEM TARTRATE 5 MG TABLET PO ONE (23:52)
[2021-05-03] MEDS ORDERED: ALPRAZolam 1 MG TABLET PO ONE (04:25)
[2021-05-03] MEDS: oxyCODONE HCL 5 MG TABLET PO PRN ×3 (05:56→21:15)
[2021-05-03] MEDS: INSULIN (LEVEMIR) 100 UNITS/ML UNITS SQ SCH (05:59)
[2021-05-03] MEDS: INSULIN SLIDING SCALE (NOVOLOG) 1 VIAL SQ SCH ×4 (06:35→21:46)
[2021-05-03 07:27] LABS: HEMATOCRIT 29.4 % (35.4-49); HEMOGLOBIN 9.3 GM/dL (11.7-16.9); MCH 27.2 pg (25.7-33.7); MCHC 31.6 g/dl (32.0-35.9); MEAN CELL VOLUME 86.2 fl (80-96); MEAN PLT VOLUME 7.5 fl (7.5-11.1); PLATELET COUNT 190 10^3/uL (134-434); RBC 3.41 M/mm3 (4.00-5.60); RDW 16.8 % (11.9-15.9); WHITE BLOOD COUNT 11.2 K/mm3 (4.0-10.0)
[2021-05-03 07:45] LABS: BLOOD UREA NITROGEN 25.8 mg/dL (7-18); CALCIUM 8.1 mg/dL (8.5-10.1); MAGNESIUM 2.5 mg/dL (1.8-2.4)
[2021-05-03 07:49] LABS: CREATININE 1.1 mg/dL (0.55-1.3); PHOSPHOROUS 2.8 mg/dL (2.5-4.9)
[2021-05-03 09:19] LABS: ANISOCYTOSIS 0; HELMET CELLS 0; HOWELL-JOLLY BODIES 0; MACROCYTOSIS 0; OVALOCYTE 0; PLATELET ESTIMATE NORMAL; ROULEAU 0; SICKELED CELLS 0; TARGET CELLS 0; TEAR DROP CELLS 0; TOXIC GRANULATION 0
[2021-05-03] MEDS ORDERED: PT OWN MED DRAWER 7, Y5N ONE (09:34)
[2021-05-03] MEDS ORDERED: DEXTROSE 5%-WATER 100 ML IVPB ONE (09:34)
[2021-05-03] MEDS: ALBUTEROL SO4 2.5/IPRATROPIUM 0.5 INH SOL 3 ML VIAL.NEB. NEB PRN (09:37)
[2021-05-03] MEDS: TAMSULOSIN HCL 0.4 MG CAP PO SCH (09:39)
[2021-05-03] MEDS: CEFTRIAXONE 2 GM in DEXTROSE 5%-WATER 2 GM/100 ML BAG IVPB SCH (09:39)
[2021-05-03] MEDS: MULTIVITAMINS (DAILY MVI) TABLET (FP) PO SCH (09:40)
[2021-05-03] MEDS: APIXABAN 5 MG TABLET PO SCH ×2 (09:40→21:12)
[2021-05-03] MEDS: AMINO ACIDS/PROTEIN HYDROLYS 30 ML LIQUID.PKT PO SCH ×3 (09:40→17:20)
[2021-05-03] MEDS: ACETAMINOPHEN 325 MG TABLET (FP) PO PRN ×2 (09:42→21:15)
[2021-05-03] MEDS: VENLAFAXINE HCL 75 MG E.R. CAPSULES PO SCH (09:42)
[2021-05-03] MEDS ORDERED: clonazePAM 2 MG TABLET PO ONE (11:54)
[2021-05-03] MEDS: COLLAGENASE CLOSTRIDIUM HIST. 30 GRAMS TUBE TP SCH (12:15)
[2021-05-03] MEDS ORDERED: LISINOPRIL 20 MG TABLET PO ONE (13:23)
[2021-05-03] MEDS: MELATONIN 5 MG TABLETS PO SCH (21:12)
[2021-05-03] MEDS: ATORVASTATIN CA 20 MG TABLET (FP) PO SCH (21:13)
[2021-05-03] MEDS: MONTELUKAST NA 10 MG TABLET PO SCH (21:13)
[2021-05-04] MEDS: ALBUTEROL SO4 2.5/IPRATROPIUM 0.5 INH SOL 3 ML VIAL.NEB. NEB PRN ×2 (04:52→18:15)
[2021-05-04] MEDS: INSULIN (LEVEMIR) 100 UNITS/ML UNITS SQ SCH (06:43)
[2021-05-04] MEDS: INSULIN SLIDING SCALE (NOVOLOG) 1 VIAL SQ SCH ×4 (06:43→22:07)
[2021-05-04] MEDS: oxyCODONE HCL 5 MG TABLET PO PRN ×3 (06:44→21:39)
[2021-05-04] MEDS: ACETAMINOPHEN 325 MG TABLET (FP) PO PRN ×2 (06:44→14:14)
[2021-05-04 07:13] LABS: BASO % 0.5 % (0-2.0); EOS % 0.4 % (0-4.5); HEMATOCRIT 29.1 % (35.4-49); HEMOGLOBIN 9.4 GM/dL (11.7-16.9); LYMPH % 5.7 % (8-40); MCHC 32.4 g/dl (32.0-35.9); MEAN CELL VOLUME 86.2 fl (80-96); MEAN PLT VOLUME 7.5 fl (7.5-11.1); MONO % 7.6 % (3.8-10.2); NEUT % 85.8 % (42.8-82.8); PLATELET COUNT 221 10^3/uL (134-434); RBC 3.37 M/mm3 (4.00-5.60); RDW 16.6 % (11.9-15.9)
[2021-05-04 07:30] LABS: CALCIUM 8.3 mg/dL (8.5-10.1)
[2021-05-04 07:31] LABS: MAGNESIUM 2.6 mg/dL (1.8-2.4)
[2021-05-04 07:34] LABS: CREATININE 1.1 mg/dL (0.55-1.3); PHOSPHOROUS 3.1 mg/dL (2.5-4.9)
[2021-05-04] MEDS ORDERED: PT OWN MED DRAWER 7, Y5N ONE (09:41)
[2021-05-04] MEDS ORDERED: DEXTROSE 5%-WATER 100 ML IVPB ONE (09:41)
[2021-05-04] MEDS: AMINO ACIDS/PROTEIN HYDROLYS 30 ML LIQUID.PKT PO SCH ×4 (09:49→17:44)
[2021-05-04] MEDS: TAMSULOSIN HCL 0.4 MG CAP PO SCH (09:49)
[2021-05-04] MEDS: MULTIVITAMINS (DAILY MVI) TABLET (FP) PO SCH (09:50)
[2021-05-04] MEDS: APIXABAN 5 MG TABLET PO SCH ×2 (09:50→21:40)
[2021-05-04] MEDS: CEFTRIAXONE 2 GM in DEXTROSE 5%-WATER 2 GM/100 ML BAG IVPB SCH (09:54)
[2021-05-04] MEDS: TORSEMIDE 20 MG TABLET (FP) PO SCH (09:54)
[2021-05-04] MEDS: VENLAFAXINE HCL 75 MG E.R. CAPSULES PO SCH (09:58)
[2021-05-04] MEDS ORDERED: LISINOPRIL 20 MG TABLET PO SCH (10:00)
[2021-05-04] MEDS: COLLAGENASE CLOSTRIDIUM HIST. 30 GRAMS TUBE TP SCH (13:00)
[2021-05-04] MEDS ORDERED: amLODIPine BESYLATE 10 MG TABLET (FP) PO ONE (17:24)
[2021-05-04] MEDS ORDERED: morphine SULFATE 4 MG/ML VIAL IVPUSH ONE (17:25)
[2021-05-04] MEDS: GABAPENTIN 300 MG CAPSULE PO SCH ×2 (17:44→22:42)
[2021-05-04] MEDS: MONTELUKAST NA 10 MG TABLET PO SCH (21:39)
[2021-05-04] MEDS: ATORVASTATIN CA 20 MG TABLET (FP) PO SCH (21:39)
[2021-05-04] MEDS: MELATONIN 5 MG TABLETS PO SCH (21:40)
[2021-05-05] MEDS: GABAPENTIN 300 MG CAPSULE PO SCH ×4 (06:00→22:56)
[2021-05-05] MEDS: oxyCODONE HCL 5 MG TABLET PO PRN ×2 (06:00→13:27)
[2021-05-05] MEDS: INSULIN SLIDING SCALE (NOVOLOG) 1 VIAL SQ SCH ×4 (06:19→21:04)
[2021-05-05 06:41] LABS: BASO % 0.9 % (0-2.0); EOS % 4.7 % (0-4.5); HEMOGLOBIN 9.7 GM/dL (11.7-16.9); LYMPH % 8.2 % (8-40); MCHC 32.3 g/dl (32.0-35.9); MEAN CELL VOLUME 86.6 fl (80-96); MEAN PLT VOLUME 7.7 fl (7.5-11.1); NEUT % 77.2 % (42.8-82.8); PLATELET COUNT 229 10^3/uL (134-434); RBC 3.47 M/mm3 (4.00-5.60); RDW 16.6 % (11.9-15.9); WHITE BLOOD COUNT 7.8 K/mm3 (4.0-10.0)
[2021-05-05 07:00] LABS: CALCIUM 8.2 mg/dL (8.5-10.1)
[2021-05-05 07:01] LABS: BLOOD UREA NITROGEN 26.6 mg/dL (7-18); MAGNESIUM 2.2 mg/dL (1.8-2.4)
[2021-05-05 07:04] LABS: CREATININE 1.2 mg/dL (0.55-1.3); PHOSPHOROUS 4.2 mg/dL (2.5-4.9)
[2021-05-05] MEDS: INSULIN (LEVEMIR) 100 UNITS/ML UNITS SQ SCH (07:06)
[2021-05-05] MEDS ORDERED: DEXTROSE 5%-WATER 100 ML IVPB ONE (10:01)
[2021-05-05] MEDS: CEFTRIAXONE 2 GM in DEXTROSE 5%-WATER 2 GM/100 ML BAG IVPB SCH (10:02)
[2021-05-05] MEDS: MULTIVITAMINS (DAILY MVI) TABLET (FP) PO SCH (10:04)
[2021-05-05] MEDS: TAMSULOSIN HCL 0.4 MG CAP PO SCH (10:04)
[2021-05-05] MEDS: TORSEMIDE 20 MG TABLET (FP) PO SCH (10:05)
[2021-05-05] MEDS: LISINOPRIL 20 MG TABLET PO SCH (10:05)
[2021-05-05] MEDS: APIXABAN 5 MG TABLET PO SCH ×2 (10:05→21:02)
[2021-05-05] MEDS: VENLAFAXINE HCL 75 MG E.R. CAPSULES PO SCH (10:06)
[2021-05-05] MEDS: AMINO ACIDS/PROTEIN HYDROLYS 30 ML LIQUID.PKT PO SCH ×3 (10:07→17:39)
[2021-05-05] MEDS: COLLAGENASE CLOSTRIDIUM HIST. 30 GRAMS TUBE TP SCH (13:27)
[2021-05-05] MEDS: MELATONIN 5 MG TABLETS PO SCH (21:02)
[2021-05-05] MEDS: ATORVASTATIN CA 20 MG TABLET (FP) PO SCH (21:02)
[2021-05-05] MEDS: MONTELUKAST NA 10 MG TABLET PO SCH (21:04)
[2021-05-05] MEDS: NYSTATIN 100,000 UNIT/GM TOPICAL CREAM 15 GM TUBE TP SCH (22:56)
[2021-05-06] MEDS: GABAPENTIN 300 MG CAPSULE PO SCH ×4 (06:19→23:30)
[2021-05-06] MEDS: INSULIN SLIDING SCALE (NOVOLOG) 1 VIAL SQ SCH ×4 (06:19→21:46)
[2021-05-06] MEDS: INSULIN (LEVEMIR) 100 UNITS/ML UNITS SQ SCH (06:19)
[2021-05-06 07:29] LABS: HEMATOCRIT 31.1 % (35.4-49); HEMOGLOBIN 10.1 GM/dL (11.7-16.9); MCHC 32.6 g/dl (32.0-35.9); MEAN CELL VOLUME 85.8 fl (80-96); MEAN PLT VOLUME 7.3 fl (7.5-11.1); PLATELET COUNT 269 10^3/uL (134-434); RBC 3.62 M/mm3 (4.00-5.60); RDW 16.7 % (11.9-15.9); WHITE BLOOD COUNT 7.2 K/mm3 (4.0-10.0)
[2021-05-06 08:03] LABS: CALCIUM 8.1 mg/dL (8.5-10.1); MAGNESIUM 1.8 mg/dL (1.8-2.4); PHOSPHOROUS 4.2 mg/dL (2.5-4.9)
[2021-05-06 08:04] LABS: CREATININE 1.3 mg/dL (0.55-1.3)
[2021-05-06] MEDS ORDERED: DEXTROSE 5%-WATER 100 ML IVPB ONE (09:04)
[2021-05-06] MEDS: AMINO ACIDS/PROTEIN HYDROLYS 30 ML LIQUID.PKT PO SCH ×3 (09:14→17:26)
[2021-05-06] MEDS: VENLAFAXINE HCL 75 MG E.R. CAPSULES PO SCH (09:15)
[2021-05-06] MEDS: MULTIVITAMINS (DAILY MVI) TABLET (FP) PO SCH (09:15)
[2021-05-06] MEDS: TORSEMIDE 20 MG TABLET (FP) PO SCH (09:15)
[2021-05-06] MEDS: TAMSULOSIN HCL 0.4 MG CAP PO SCH (09:15)
[2021-05-06] MEDS: LISINOPRIL 20 MG TABLET PO SCH (09:15)
[2021-05-06] MEDS: oxyCODONE HCL 5 MG TABLET PO PRN (09:16)
[2021-05-06] MEDS: APIXABAN 5 MG TABLET PO SCH ×2 (09:16→21:46)
[2021-05-06] MEDS: CEFTRIAXONE 2 GM in DEXTROSE 5%-WATER 2 GM/100 ML BAG IVPB SCH (09:16)
[2021-05-06] MEDS: COLLAGENASE CLOSTRIDIUM HIST. 30 GRAMS TUBE TP SCH (09:22)
[2021-05-06] MEDS: NYSTATIN 100,000 UNIT/GM TOPICAL CREAM 15 GM TUBE TP SCH ×2 (09:22→21:46)
[2021-05-06] MEDS: MELATONIN 5 MG TABLETS PO SCH (21:46)
[2021-05-06] MEDS: MONTELUKAST NA 10 MG TABLET PO SCH (21:46)
[2021-05-06] MEDS: ATORVASTATIN CA 20 MG TABLET (FP) PO SCH (21:46)
[2021-05-07] MEDS: GABAPENTIN 300 MG CAPSULE PO SCH ×3 (06:30→17:06)
[2021-05-07] MEDS: INSULIN (LEVEMIR) 100 UNITS/ML UNITS SQ SCH (06:30)
[2021-05-07] MEDS: INSULIN SLIDING SCALE (NOVOLOG) 1 VIAL SQ SCH ×3 (06:31→17:19)
[2021-05-07] MEDS ORDERED: PT OWN MED DRAWER 7, Y5N ONE (09:12)
[2021-05-07] MEDS: APIXABAN 5 MG TABLET PO SCH (09:19)
[2021-05-07] MEDS: LISINOPRIL 20 MG TABLET PO SCH (09:19)
[2021-05-07] MEDS: TAMSULOSIN HCL 0.4 MG CAP PO SCH (09:19)
[2021-05-07] MEDS: AMINO ACIDS/PROTEIN HYDROLYS 30 ML LIQUID.PKT PO SCH ×4 (09:19→17:06)
[2021-05-07] MEDS: MULTIVITAMINS (DAILY MVI) TABLET (FP) PO SCH (09:19)
[2021-05-07] MEDS: NYSTATIN 100,000 UNIT/GM TOPICAL CREAM 15 GM TUBE TP SCH (09:20)
[2021-05-07] MEDS: TORSEMIDE 20 MG TABLET (FP) PO SCH (09:20)
[2021-05-07] MEDS: COLLAGENASE CLOSTRIDIUM HIST. 30 GRAMS TUBE TP SCH (09:20)
[2021-05-07] MEDS: VENLAFAXINE HCL 75 MG E.R. CAPSULES PO SCH (09:20)
[2021-05-07] MEDS ORDERED: DEXTROSE 5%-WATER 100 ML IVPB ONE (09:36)
[2021-05-07] MEDS: CEFTRIAXONE 2 GM in DEXTROSE 5%-WATER 2 GM/100 ML BAG IVPB SCH (10:02)
[2021-05-07] MEDS: ACETAMINOPHEN 325 MG TABLET (FP) PO PRN (10:02)
[2021-05-07 17:21] VITALS: BP 137/83; PULSE 99; TEMP 98.4
== END 2021-05-07 17:31 | DRG 720 ==
LOC: JER 11:10 → JERBED 13:58 → J2W 05-01 21:04
PROVIDERS: ADMIT Internal Medicine; ATTEND Internal Medicine
PROC: 02HV33Z Insertion of Infusion Device into Superior Vena Cava, Percutaneous Approach (ICD-10-PCS; principal; 2021-05-06)
PROC: B548ZZA Ultrasonography of Superior Vena Cava, Guidance (ICD-10-PCS; 2021-05-06)
DX: A41.9 Sepsis, unspecified organism (principal); I10 Essential (primary) hypertension; E11.40 Type 2 diabetes mellitus with diabetic neuropathy, unspecified; E11.51 Type 2 diabetes mellitus with diabetic peripheral angiopathy without gangrene; E66.9 Obesity, unspecified; E78.5 Hyperlipidemia, unspecified; Z79.4 Long term (current) use of insulin; L03.116 Cellulitis of left lower limb; I48.91 Unspecified atrial fibrillation; N17.9 Acute kidney failure, unspecified; E66.01 Morbid (severe) obesity due to excess calories; E11.610 Type 2 diabetes mellitus with diabetic neuropathic arthropathy; D64.9 Anemia, unspecified; R65.20 Severe sepsis without septic shock; E87.5 Hyperkalemia; E87.2 Acidosis
CPT/HCPCS: 15271; 36415; 36569; 71045-TC-FY; 73590-TC-LT-FY; 73610-TC-LT-FY; 73630-TC-LT; 73700-TC-RT; 76775-TC; 80048; 80053; 81003; 82803; 82962; 83036; 83605; 83735; 84100; 84443; 84484; 85025; 85027; 85610; 85730; 86140; 86850; 86900; 86901; 87040; 87077; 87086; 87186; 93005; 93010; 93306-TC; 94640; 99285-25; C9803; G0480; J0131; Q4121; U0003; U0005

== ENCOUNTER 2022-03-21 03:04 | Inpatient (IN) | payer OTHER ==
[2022-03-21] MEDS ORDERED: PIPERACILLIN/TAZOBACTAM 4.5 GM VIAL IVPB ONE (03:52)
[2022-03-21] MEDS ORDERED: VANCOMYCIN 1,000 MG in DEXTROSE 5%-WATER - 250 ML IVPB ONE (03:52)
[2022-03-21] MEDS ORDERED: SODIUM CHLORIDE 0.9% 1000 ML INFUS.BAG IV ONE ×2 (03:54→05:41)
[2022-03-21] MEDS ORDERED: VANCOMYCIN/WATER FOR INJ (PEG) 1,000 MG/200 ML BAG IVPB ONE (04:22)
[2022-03-21] MEDS ORDERED: PIPERACILLIN/TAZOB 4.5 GM 4.5 GM/100 ML BAG IVPB ONE (04:22)
[2022-03-21] MEDS ORDERED: ACETAMINOPHEN 1000 MG/100 ML BAG IVPB ONE (04:23)
[2022-03-21] MEDS ORDERED: ACETAMINOPHEN INJECTION 100 ML IVPB ONE (04:28)
[2022-03-21 04:52] LABS: INR 1.64 (0.83-1.09)
[2022-03-21 04:54] LABS: ACTIVATED PTT 31.2 SECONDS (25.2-36.5)
[2022-03-21 05:05] LABS: CALCIUM 8.2 mg/dL (8.5-10.1); VENOUS O2 SATURATION 21.6 % (70-80); VENOUS PCO2 60.5 mmHg (38-52); VENOUS PH 7.291 (7.310-7.410)
[2022-03-21 05:06] LABS: ALBUMIN 2.9 g/dl (3.4-5.0); BLOOD UREA NITROGEN 23.3 mg/dL (7-18)
[2022-03-21 05:11] LABS: BILIRUBIN,TOTAL 0.6 mg/dL (0.2-1); TOT PROT 7.5 g/dl (6.4-8.2)
[2022-03-21 05:25] LABS: LACTIC ACID 2.7 mmol/L (0.4-2.0)
[2022-03-21 05:41] LABS: HEMATOCRIT 34.3 % (35.4-49); HEMOGLOBIN 10.9 GM/dL (11.7-16.9); MCH 29.3 pg (25.7-33.7); MCHC 31.8 g/dl (32.0-35.9); MEAN CELL VOLUME 92.2 fl (80-96); MEAN PLT VOLUME 7.8 fl (7.5-11.1); PLATELET COUNT 241 10^3/uL (134-434); RBC 3.72 M/mm3 (4.00-5.60); RDW 18.2 % (11.9-15.9); WHITE BLOOD COUNT 20.8 K/mm3 (4.0-10.0)
[2022-03-21] MEDS ORDERED: ACETAMINOPHEN 325 MG TABLET (FP) PO PRN (08:35)
[2022-03-21 08:46] LABS: ANISOCYTOSIS 1+; MACROCYTOSIS 0
[2022-03-21] MEDS ORDERED: PIPERACILLIN/TAZOB 3.375 GM 3.375 GM in DEXTROSE 5%-WATER - 50 ML IVPB SCH (10:00)
[2022-03-21] MEDS: LACTATED RINGERS SOLUTION 1,000 ML IV SCH (10:07)
[2022-03-21] MEDS ORDERED: PIPERACILLIN/TAZOB 3.375 GM 3.375 GM/50 ML BAG IVPB ONE (10:08)
[2022-03-21 11:40] LABS: RETICULOCYTES 1.87 % (0.5-1.5)
[2022-03-21] MEDS ORDERED: METOPROLOL TARTRATE 5 MG/5 ML VIAL IVPUSH PRN (11:58)
[2022-03-21] MEDS ORDERED: METOPROLOL TARTRATE 25 MG TABLET (FP) PO SCH (12:00)
[2022-03-21] MEDS ORDERED: METOPROLOL TARTRATE 25 MG TABLET (FP) ONE (13:25)
[2022-03-21] MEDS: INSULIN SLIDING SCALE (NOVOLOG) 1 VIAL SQ SCH ×2 (13:51→16:21)
[2022-03-21] MEDS ORDERED: HEPARIN NA (PORCINE) 5,000 UNITS/ML 1ML VIAL SQ SCH (14:00)
[2022-03-21] MEDS: PIPERACILLIN/TAZOB 3.375 GM 3.375 GM in DEXTROSE 5%-WATER - 50 ML IVPB SCH (17:22)
[2022-03-21] MEDS: CLINDAMYCIN 900 MG PREMIX IVPB 900 MG/50 ML BAG IVPB SCH (19:06)
[2022-03-21] MEDS: morphine SULFATE 4 MG/ML VIAL IVPUSH PRN (20:38)
[2022-03-21] MEDS: GABAPENTIN 400 MG CAPSULE PO SCH (21:20)
[2022-03-21] MEDS: APIXABAN 5 MG TABLET PO SCH (21:20)
[2022-03-21] MEDS: MONTELUKAST NA 10 MG TABLET PO SCH (21:20)
[2022-03-21] MEDS: ATORVASTATIN CA 20 MG TABLET (FP) PO SCH (21:21)
[2022-03-21 22:19] LABS: EPI CELLS 14 /uL (0-25.1); HYALINE CASTS 0 /uL (0-3.1); URINE APPEARANCE CLEAR; URINE BACTERIA 10 /uL (0-1359); URINE BILIRUBIN NEGATIVE (NEGATIVE); URINE COLOR YELLOW; URINE GLUCOSE (UA) NEGATIVE (NEGATIVE); URINE KETONE TRACE (NEGATIVE); URINE LEUK ESTERASE TRACE (NEGATIVE); URINE NITRITE NEGATIVE (NEGATIVE); URINE PROTEIN NEGATIVE (NEGATIVE); URINE RBC 14 /uL (0-23.9); URINE WBC 23 /uL (0-25.8)
[2022-03-21] MEDS: CARVEDILOL 12.5 MG TABLET (FP) PO SCH (22:42)
[2022-03-22] MEDS: LACTATED RINGERS SOLUTION 1,000 ML IV SCH ×2 (01:41→09:45)
[2022-03-22] MEDS: PIPERACILLIN/TAZOB 3.375 GM 3.375 GM in DEXTROSE 5%-WATER - 50 ML IVPB SCH ×2 (01:42→09:44)
[2022-03-22] MEDS: CLINDAMYCIN 900 MG PREMIX IVPB 900 MG/50 ML BAG IVPB SCH (03:00)
[2022-03-22] MEDS ORDERED: VANCOMYCIN/WATER FOR INJ (PEG) 1,000 MG/200 ML BAG IVPB SCH (05:00)
[2022-03-22] MEDS: morphine SULFATE 4 MG/ML VIAL IVPUSH PRN (05:43)
[2022-03-22] MEDS: GABAPENTIN 400 MG CAPSULE PO SCH ×3 (05:43→21:53)
[2022-03-22] MEDS: INSULIN SLIDING SCALE (NOVOLOG) 1 VIAL SQ SCH ×3 (06:55→17:20)
[2022-03-22] MEDS ORDERED: INSULIN (NOVOLOG) ASPART 100 UNITS/ML 10ML VIAL ONE (07:22)
[2022-03-22] MEDS ORDERED: INSULIN (LEVEMIR) 100 UNITS/ML UNITS SQ ONE (07:23)
[2022-03-22] MEDS ORDERED: LACTATED RINGERS SOLUTION 1,000 ML/1,000 ML INFUS.BAG IV SCH ×2 (08:30→16:00)
[2022-03-22] MEDS: TAMSULOSIN HCL 0.4 MG CAP PO SCH (09:30)
[2022-03-22] MEDS: VENLAFAXINE HCL 75 MG E.R. CAPSULES PO SCH (09:44)
[2022-03-22] MEDS: CARVEDILOL 12.5 MG TABLET (FP) PO SCH (09:45)
[2022-03-22] MEDS: ARIPiprazole 10 MG TABLET PO SCH (09:45)
[2022-03-22] MEDS: APIXABAN 5 MG TABLET PO SCH ×2 (09:45→21:53)
[2022-03-22 09:52] LABS: HEMATOCRIT 27.5 % (35.4-49); HEMOGLOBIN 8.9 GM/dL (11.7-16.9); MCH 29.9 pg (25.7-33.7); MCHC 32.4 g/dl (32.0-35.9); MEAN CELL VOLUME 92.1 fl (80-96); MEAN PLT VOLUME 7.3 fl (7.5-11.1); PLATELET COUNT 181 10^3/uL (134-434); RBC 2.98 M/mm3 (4.00-5.60); RDW 18.6 % (11.9-15.9)
[2022-03-22] MEDS ORDERED: VANCOMYCIN 1 GM in D5W (PRE-DOCKED) 1,000 MG/250 ML IVPB SCH (10:00)
[2022-03-22 10:15] LABS: BLOOD UREA NITROGEN 36.4 mg/dL (7-18); CALCIUM 7.3 mg/dL (8.5-10.1)
[2022-03-22 10:16] LABS: MAGNESIUM 1.9 mg/dL (1.8-2.4)
[2022-03-22 10:18] LABS: PHOSPHOROUS 3.5 mg/dL (2.5-4.9)
[2022-03-22 10:19] LABS: CREATININE 2.1 mg/dL (0.55-1.3)
[2022-03-22 11:17] LABS: ANISOCYTOSIS 0; HELMET CELLS 0; HOWELL-JOLLY BODIES 0; MACROCYTOSIS 0; OVALOCYTE 0; ROULEAU 0; SICKELED CELLS 0; TARGET CELLS 0; TEAR DROP CELLS 0; TOXIC GRANULATION 0
[2022-03-22] MEDS ORDERED: LACTATED RINGERS SOLUTION 1000 ML INFUS.BAG IV ONE (12:30)
[2022-03-22] MEDS ORDERED: VANCOMYCIN PREMIX 1.5 GM 1,500 MG/300 ML BAG IVPB ONE (13:00)
[2022-03-22] MEDS: MEROPENEM 1 GM in DEXTROSE 5%-WATER 100 ML IVPB SCH (17:22)
[2022-03-22] MEDS: METOPROLOL TARTRATE 25 MG TABLET (FP) PO SCH (21:52)
[2022-03-22] MEDS: MONTELUKAST NA 10 MG TABLET PO SCH (21:52)
[2022-03-22] MEDS: ATORVASTATIN CA 20 MG TABLET (FP) PO SCH (21:53)
[2022-03-23] MEDS: MEROPENEM 1 GM in DEXTROSE 5%-WATER 100 ML IVPB SCH ×3 (01:22→17:05)
[2022-03-23] MEDS: ALBUTEROL SO4 HFA INHALER IH PRN ×2 (02:17→05:44)
[2022-03-23] MEDS: GABAPENTIN 400 MG CAPSULE PO SCH ×3 (05:44→21:39)
[2022-03-23] MEDS: INSULIN SLIDING SCALE (NOVOLOG) 1 VIAL SQ SCH ×3 (06:43→17:04)
[2022-03-23] MEDS: guaiFENesin/D-M SUGAR-FREE/ACLHOL-FREE 5 ML UNIT DOSE PO PRN (06:48)
[2022-03-23] MEDS: TAMSULOSIN HCL 0.4 MG CAP PO SCH (08:37)
[2022-03-23] MEDS: METOPROLOL TARTRATE 25 MG TABLET (FP) PO SCH ×2 (09:15→21:39)
[2022-03-23] MEDS: VENLAFAXINE HCL 75 MG E.R. CAPSULES PO SCH (09:15)
[2022-03-23] MEDS: APIXABAN 5 MG TABLET PO SCH ×2 (09:16→21:39)
[2022-03-23] MEDS: morphine SULFATE 4 MG/ML VIAL IVPUSH PRN ×2 (09:16→20:43)
[2022-03-23] MEDS: ARIPiprazole 10 MG TABLET PO SCH (09:17)
[2022-03-23 10:11] LABS: BASO % 0.2 % (0-2.0); EOS % 1.5 % (0-4.5); HEMOGLOBIN 9.4 GM/dL (11.7-16.9); LYMPH % 3.9 % (8-40); MCH 29.8 pg (25.7-33.7); MCHC 32.4 g/dl (32.0-35.9); MEAN CELL VOLUME 92.1 fl (80-96); MEAN PLT VOLUME 7.7 fl (7.5-11.1); MONO % 4.4 % (3.8-10.2); PLATELET COUNT 178 10^3/uL (134-434); RBC 3.15 M/mm3 (4.00-5.60); RDW 18.9 % (11.9-15.9); WHITE BLOOD COUNT 12.6 K/mm3 (4.0-10.0)
[2022-03-23 10:26] LABS: BLOOD UREA NITROGEN 33.8 mg/dL (7-18); CALCIUM 7.7 mg/dL (8.5-10.1); MAGNESIUM 2.3 mg/dL (1.8-2.4)
[2022-03-23 10:28] LABS: CREATININE 1.6 mg/dL (0.55-1.3)
[2022-03-23 10:31] LABS: BILIRUBIN,TOTAL 0.4 mg/dL (0.2-1); TOT PROT 6.4 g/dl (6.4-8.2)
[2022-03-23 10:35] LABS: ALBUMIN 2.3 g/dl (3.4-5.0)
[2022-03-23] MEDS: VANCOMYCIN/WATER FOR INJ (PEG) 1,000 MG/200 ML BAG IVPB SCH (20:37)
[2022-03-23] MEDS: ATORVASTATIN CA 20 MG TABLET (FP) PO SCH (21:39)
[2022-03-23] MEDS: MONTELUKAST NA 10 MG TABLET PO SCH (21:39)
[2022-03-24] MEDS: MEROPENEM 1 GM in DEXTROSE 5%-WATER 100 ML IVPB SCH ×3 (03:00→17:43)
[2022-03-24] MEDS: morphine SULFATE 4 MG/ML VIAL IVPUSH PRN ×2 (04:43→20:46)
[2022-03-24] MEDS: ALBUTEROL SO4 HFA INHALER IH PRN (04:44)
[2022-03-24] MEDS: guaiFENesin/D-M SUGAR-FREE/ACLHOL-FREE 5 ML UNIT DOSE PO PRN ×2 (04:46→17:43)
[2022-03-24] MEDS: INSULIN SLIDING SCALE (NOVOLOG) 1 VIAL SQ SCH ×3 (06:32→16:58)
[2022-03-24] MEDS: GABAPENTIN 400 MG CAPSULE PO SCH ×3 (06:32→21:26)
[2022-03-24] MEDS: TAMSULOSIN HCL 0.4 MG CAP PO SCH (08:43)
[2022-03-24] MEDS: VANCOMYCIN/WATER FOR INJ (PEG) 1,000 MG/200 ML BAG IVPB SCH ×2 (08:43→20:35)
[2022-03-24] MEDS: VENLAFAXINE HCL 75 MG E.R. CAPSULES PO SCH (10:33)
[2022-03-24] MEDS: METOPROLOL TARTRATE 25 MG TABLET (FP) PO SCH ×2 (10:34→21:26)
[2022-03-24] MEDS: APIXABAN 5 MG TABLET PO SCH ×2 (10:34→21:26)
[2022-03-24] MEDS: FUROSEMIDE 40 MG/4 ML INJECTABLE VIAL IVPUSH SCH (10:35)
[2022-03-24] MEDS: ARIPiprazole 10 MG TABLET PO SCH (10:43)
[2022-03-24 12:17] LABS: HEMATOCRIT 29.3 % (35.4-49); HEMOGLOBIN 9.6 GM/dL (11.7-16.9); MCHC 32.7 g/dl (32.0-35.9); MEAN CELL VOLUME 91.8 fl (80-96); MEAN PLT VOLUME 7.4 fl (7.5-11.1); PLATELET COUNT 202 10^3/uL (134-434); RBC 3.19 M/mm3 (4.00-5.60); RDW 18.3 % (11.9-15.9); WHITE BLOOD COUNT 10.8 K/mm3 (4.0-10.0)
[2022-03-24 12:37] LABS: ALBUMIN 2.3 g/dl (3.4-5.0); BLOOD UREA NITROGEN 22.2 mg/dL (7-18)
[2022-03-24 12:40] LABS: CREATININE 1.2 mg/dL (0.55-1.3)
[2022-03-24 12:41] LABS: BILIRUBIN,TOTAL 0.4 mg/dL (0.2-1); TOT PROT 6.8 g/dl (6.4-8.2)
[2022-03-24] MEDS: ATORVASTATIN CA 20 MG TABLET (FP) PO SCH (21:26)
[2022-03-24] MEDS: MONTELUKAST NA 10 MG TABLET PO SCH (21:26)
[2022-03-25] MEDS: MEROPENEM 1 GM in DEXTROSE 5%-WATER 100 ML IVPB SCH ×3 (01:11→17:56)
[2022-03-25] MEDS: morphine SULFATE 4 MG/ML VIAL IVPUSH PRN ×2 (01:18→21:37)
[2022-03-25] MEDS: GABAPENTIN 400 MG CAPSULE PO SCH ×3 (06:04→21:26)
[2022-03-25] MEDS: guaiFENesin/D-M SUGAR-FREE/ACLHOL-FREE 5 ML UNIT DOSE PO PRN ×3 (06:05→22:40)
[2022-03-25] MEDS: INSULIN SLIDING SCALE (NOVOLOG) 1 VIAL SQ SCH ×3 (06:27→16:53)
[2022-03-25] MEDS: TAMSULOSIN HCL 0.4 MG CAP PO SCH (08:42)
[2022-03-25] MEDS: VANCOMYCIN/WATER FOR INJ (PEG) 1,000 MG/200 ML BAG IVPB SCH ×2 (08:42→21:00)
[2022-03-25] MEDS: METOPROLOL TARTRATE 25 MG TABLET (FP) PO SCH ×2 (10:09→21:28)
[2022-03-25] MEDS: VENLAFAXINE HCL 75 MG E.R. CAPSULES PO SCH (10:09)
[2022-03-25] MEDS: APIXABAN 5 MG TABLET PO SCH ×2 (10:10→21:26)
[2022-03-25] MEDS: FUROSEMIDE 40 MG/4 ML INJECTABLE VIAL IVPUSH SCH (10:14)
[2022-03-25] MEDS: ARIPiprazole 10 MG TABLET PO SCH (10:14)
[2022-03-25 10:35] LABS: HEMOGLOBIN 10.2 GM/dL (11.7-16.9); MCH 29.4 pg (25.7-33.7); MCHC 31.9 g/dl (32.0-35.9); MEAN CELL VOLUME 92.2 fl (80-96); MEAN PLT VOLUME 7.2 fl (7.5-11.1); PLATELET COUNT 227 10^3/uL (134-434); RBC 3.48 M/mm3 (4.00-5.60); RDW 18.5 % (11.9-15.9); WHITE BLOOD COUNT 8.7 K/mm3 (4.0-10.0)
[2022-03-25 11:02] LABS: BLOOD UREA NITROGEN 21.9 mg/dL (7-18); CALCIUM 8.3 mg/dL (8.5-10.1); MAGNESIUM 2.3 mg/dL (1.8-2.4)
[2022-03-25 11:03] LABS: ALBUMIN 2.4 g/dl (3.4-5.0)
[2022-03-25 11:05] LABS: CREATININE 1.2 mg/dL (0.55-1.3)
[2022-03-25 11:07] LABS: BILIRUBIN,TOTAL 0.7 mg/dL (0.2-1); TOT PROT 7.2 g/dl (6.4-8.2)
[2022-03-25] MEDS ORDERED: oxyCODONE HCL 5 MG TABLET PO PRN (17:12)
[2022-03-25] MEDS: MONTELUKAST NA 10 MG TABLET PO SCH (21:26)
[2022-03-25] MEDS: ATORVASTATIN CA 20 MG TABLET (FP) PO SCH (21:26)
[2022-03-26] MEDS: MEROPENEM 1 GM in DEXTROSE 5%-WATER 100 ML IVPB SCH ×3 (01:46→17:18)
[2022-03-26] MEDS: ALBUTEROL SO4 HFA INHALER IH PRN (03:20)
[2022-03-26] MEDS: morphine SULFATE 4 MG/ML VIAL IVPUSH PRN ×3 (05:52→20:48)
[2022-03-26] MEDS: GABAPENTIN 400 MG CAPSULE PO SCH ×3 (05:53→21:30)
[2022-03-26] MEDS: INSULIN SLIDING SCALE (NOVOLOG) 1 VIAL SQ SCH ×3 (06:52→16:41)
[2022-03-26] MEDS: TAMSULOSIN HCL 0.4 MG CAP PO SCH (08:18)
[2022-03-26] MEDS: FUROSEMIDE 40 MG/4 ML INJECTABLE VIAL IVPUSH SCH (09:21)
[2022-03-26 10:55] LABS: HEMATOCRIT 31.6 % (35.4-49); HEMOGLOBIN 10.4 GM/dL (11.7-16.9); MCH 30.2 pg (25.7-33.7); MCHC 32.8 g/dl (32.0-35.9); MEAN CELL VOLUME 91.9 fl (80-96); MEAN PLT VOLUME 7.7 fl (7.5-11.1); PLATELET COUNT 253 10^3/uL (134-434); RBC 3.44 M/mm3 (4.00-5.60); RDW 18.3 % (11.9-15.9); WHITE BLOOD COUNT 8.2 K/mm3 (4.0-10.0)
[2022-03-26 11:18] LABS: BLOOD UREA NITROGEN 21.7 mg/dL (7-18); CALCIUM 8.2 mg/dL (8.5-10.1); MAGNESIUM 2.3 mg/dL (1.8-2.4)
[2022-03-26 11:19] LABS: ALBUMIN 2.4 g/dl (3.4-5.0)
[2022-03-26 11:22] LABS: CREATININE 1.1 mg/dL (0.55-1.3)
[2022-03-26 11:23] LABS: BILIRUBIN,TOTAL 0.5 mg/dL (0.2-1); TOT PROT 7.1 g/dl (6.4-8.2)
[2022-03-26] MEDS: ARIPiprazole 10 MG TABLET PO SCH (11:25)
[2022-03-26] MEDS: VENLAFAXINE HCL 75 MG E.R. CAPSULES PO SCH (11:25)
[2022-03-26] MEDS: METOPROLOL TARTRATE 25 MG TABLET (FP) PO SCH ×2 (11:26→21:30)
[2022-03-26] MEDS: APIXABAN 5 MG TABLET PO SCH ×2 (11:26→21:31)
[2022-03-26] MEDS: ATORVASTATIN CA 20 MG TABLET (FP) PO SCH (21:31)
[2022-03-26] MEDS: MONTELUKAST NA 10 MG TABLET PO SCH (21:31)
[2022-03-27] MEDS: MEROPENEM 1 GM in DEXTROSE 5%-WATER 100 ML IVPB SCH ×3 (01:57→17:51)
[2022-03-27] MEDS: morphine SULFATE 4 MG/ML VIAL IVPUSH PRN ×4 (04:47→21:56)
[2022-03-27] MEDS: GABAPENTIN 400 MG CAPSULE PO SCH ×3 (06:01→21:36)
[2022-03-27] MEDS: INSULIN SLIDING SCALE (NOVOLOG) 1 VIAL SQ SCH ×3 (06:03→16:59)
[2022-03-27] MEDS: TAMSULOSIN HCL 0.4 MG CAP PO SCH (09:44)
[2022-03-27] MEDS: FUROSEMIDE 40 MG/4 ML INJECTABLE VIAL IVPUSH SCH (09:44)
[2022-03-27] MEDS: ARIPiprazole 10 MG TABLET PO SCH (09:45)
[2022-03-27] MEDS: VENLAFAXINE HCL 75 MG E.R. CAPSULES PO SCH (09:45)
[2022-03-27] MEDS: APIXABAN 5 MG TABLET PO SCH ×2 (09:46→21:36)
[2022-03-27] MEDS: METOPROLOL TARTRATE 25 MG TABLET (FP) PO SCH ×2 (09:46→21:37)
[2022-03-27 10:26] LABS: HEMATOCRIT 33.2 % (35.4-49); HEMOGLOBIN 10.5 GM/dL (11.7-16.9); MCH 28.9 pg (25.7-33.7); MCHC 31.7 g/dl (32.0-35.9); MEAN CELL VOLUME 91.3 fl (80-96); MEAN PLT VOLUME 7.5 fl (7.5-11.1); PLATELET COUNT 298 10^3/uL (134-434); RBC 3.63 M/mm3 (4.00-5.60); WHITE BLOOD COUNT 7.9 K/mm3 (4.0-10.0)
[2022-03-27 11:02] LABS: ALBUMIN 2.4 g/dl (3.4-5.0)
[2022-03-27 11:03] LABS: BLOOD UREA NITROGEN 21.4 mg/dL (7-18); CALCIUM 8.4 mg/dL (8.5-10.1)
[2022-03-27 11:07] LABS: BILIRUBIN,TOTAL 0.4 mg/dL (0.2-1)
[2022-03-27] MEDS: guaiFENesin/D-M SUGAR-FREE/ACLHOL-FREE 5 ML UNIT DOSE PO PRN (17:58)
[2022-03-27] MEDS: MONTELUKAST NA 10 MG TABLET PO SCH (21:36)
[2022-03-27] MEDS: ATORVASTATIN CA 20 MG TABLET (FP) PO SCH (21:37)
[2022-03-28] MEDS: MEROPENEM 1 GM in DEXTROSE 5%-WATER 100 ML IVPB SCH ×3 (01:22→17:13)
[2022-03-28] MEDS: morphine SULFATE 4 MG/ML VIAL IVPUSH PRN ×4 (02:51→21:46)
[2022-03-28] MEDS: GABAPENTIN 400 MG CAPSULE PO SCH ×3 (05:32→21:46)
[2022-03-28] MEDS: INSULIN SLIDING SCALE (NOVOLOG) 1 VIAL SQ SCH ×3 (06:31→17:17)
[2022-03-28] MEDS: TAMSULOSIN HCL 0.4 MG CAP PO SCH (08:44)
[2022-03-28] MEDS ORDERED: MEROPENEM 1 GM VIAL (RESTRICTED TO ID) IVPB ONE (09:51)
[2022-03-28] MEDS: APIXABAN 5 MG TABLET PO SCH ×2 (10:34→21:46)
[2022-03-28] MEDS: VENLAFAXINE HCL 75 MG E.R. CAPSULES PO SCH (10:34)
[2022-03-28] MEDS: FUROSEMIDE 40 MG/4 ML INJECTABLE VIAL IVPUSH SCH (10:34)
[2022-03-28] MEDS: METOPROLOL TARTRATE 25 MG TABLET (FP) PO SCH ×2 (10:34→21:47)
[2022-03-28] MEDS: ARIPiprazole 10 MG TABLET PO SCH (10:39)
[2022-03-28 10:56] LABS: BLOOD UREA NITROGEN 19.7 mg/dL (7-18); CALCIUM 7.9 mg/dL (8.5-10.1)
[2022-03-28] MEDS: guaiFENesin/D-M SUGAR-FREE/ACLHOL-FREE 5 ML UNIT DOSE PO PRN (17:19)
[2022-03-28] MEDS: VANCOMYCIN/WATER FOR INJ (PEG) 1,000 MG/200 ML BAG IVPB SCH (20:24)
[2022-03-28] MEDS: ATORVASTATIN CA 20 MG TABLET (FP) PO SCH (21:47)
[2022-03-28] MEDS: MONTELUKAST NA 10 MG TABLET PO SCH (21:48)
[2022-03-29] MEDS: MEROPENEM 1 GM in DEXTROSE 5%-WATER 100 ML IVPB SCH ×3 (01:58→17:07)
[2022-03-29] MEDS: ALBUTEROL SO4 HFA INHALER IH PRN (03:49)
[2022-03-29] MEDS: morphine SULFATE 4 MG/ML VIAL IVPUSH PRN ×4 (03:55→21:27)
[2022-03-29] MEDS: GABAPENTIN 400 MG CAPSULE PO SCH ×3 (06:30→21:26)
[2022-03-29] MEDS: INSULIN SLIDING SCALE (NOVOLOG) 1 VIAL SQ SCH ×3 (06:33→16:55)
[2022-03-29] MEDS: VANCOMYCIN/WATER FOR INJ (PEG) 1,000 MG/200 ML BAG IVPB SCH ×2 (09:02→21:00)
[2022-03-29] MEDS: METOPROLOL TARTRATE 25 MG TABLET (FP) PO SCH ×2 (09:21→21:26)
[2022-03-29] MEDS: FUROSEMIDE 40 MG/4 ML INJECTABLE VIAL IVPUSH SCH (09:21)
[2022-03-29] MEDS: TAMSULOSIN HCL 0.4 MG CAP PO SCH (09:21)
[2022-03-29] MEDS: VENLAFAXINE HCL 75 MG E.R. CAPSULES PO SCH (09:21)
[2022-03-29] MEDS: APIXABAN 5 MG TABLET PO SCH ×2 (09:21→21:26)
[2022-03-29] MEDS: ARIPiprazole 10 MG TABLET PO SCH (09:21)
[2022-03-29 12:22] LABS: HEMATOCRIT 34.5 % (35.4-49); HEMOGLOBIN 10.7 GM/dL (11.7-16.9); MCH 28.7 pg (25.7-33.7); MCHC 31.2 g/dl (32.0-35.9); MEAN CELL VOLUME 91.9 fl (80-96); MEAN PLT VOLUME 7.6 fl (7.5-11.1); PLATELET COUNT 342 10^3/uL (134-434); RBC 3.75 M/mm3 (4.00-5.60); RDW 18.3 % (11.9-15.9); WHITE BLOOD COUNT 7.4 K/mm3 (4.0-10.0)
[2022-03-29] MEDS ORDERED: METOPROLOL TARTRATE 5 MG/5 ML VIAL IVPUSH PRN (17:15)
[2022-03-29] MEDS ORDERED: ACETAMINOPHEN 325 MG TABLET (FP) PO PRN (17:15)
[2022-03-29] MEDS ORDERED: oxyCODONE HCL 5 MG TABLET PO PRN (18:56)
[2022-03-29] MEDS: ATORVASTATIN CA 20 MG TABLET (FP) PO SCH (21:26)
[2022-03-29] MEDS: MONTELUKAST NA 10 MG TABLET PO SCH (21:26)
[2022-03-30] MEDS: morphine SULFATE 4 MG/ML VIAL IVPUSH PRN ×5 (00:58→22:11)
[2022-03-30] MEDS: MEROPENEM 1 GM in DEXTROSE 5%-WATER 100 ML IVPB SCH ×3 (03:38→17:27)
[2022-03-30] MEDS: GABAPENTIN 400 MG CAPSULE PO SCH ×3 (05:59→21:42)
[2022-03-30] MEDS: INSULIN SLIDING SCALE (NOVOLOG) 1 VIAL SQ SCH ×3 (06:00→16:51)
[2022-03-30] MEDS: VANCOMYCIN/WATER FOR INJ (PEG) 1,000 MG/200 ML BAG IVPB SCH ×2 (09:18→21:00)
[2022-03-30] MEDS: TAMSULOSIN HCL 0.4 MG CAP PO SCH (09:20)
[2022-03-30] MEDS: FUROSEMIDE 40 MG/4 ML INJECTABLE VIAL IVPUSH SCH (09:30)
[2022-03-30] MEDS: METOPROLOL TARTRATE 25 MG TABLET (FP) PO SCH ×2 (09:31→21:42)
[2022-03-30] MEDS: ARIPiprazole 10 MG TABLET PO SCH (09:31)
[2022-03-30] MEDS: VENLAFAXINE HCL 75 MG E.R. CAPSULES PO SCH (09:31)
[2022-03-30] MEDS: APIXABAN 5 MG TABLET PO SCH ×2 (09:31→21:42)
[2022-03-30] MEDS: ATORVASTATIN CA 20 MG TABLET (FP) PO SCH (21:42)
[2022-03-30] MEDS: MONTELUKAST NA 10 MG TABLET PO SCH (21:43)
[2022-03-31] MEDS: MEROPENEM 1 GM in DEXTROSE 5%-WATER 100 ML IVPB SCH ×3 (01:03→17:54)
[2022-03-31] MEDS: morphine SULFATE 4 MG/ML VIAL IVPUSH PRN ×4 (01:04→13:48)
[2022-03-31] MEDS: GABAPENTIN 400 MG CAPSULE PO SCH ×2 (05:33→13:48)
[2022-03-31] MEDS: INSULIN SLIDING SCALE (NOVOLOG) 1 VIAL SQ SCH ×3 (06:15→17:03)
[2022-03-31] MEDS: TAMSULOSIN HCL 0.4 MG CAP PO SCH (08:00)
[2022-03-31] MEDS: VANCOMYCIN/WATER FOR INJ (PEG) 1,000 MG/200 ML BAG IVPB SCH (08:00)
[2022-03-31] MEDS: ARIPiprazole 10 MG TABLET PO SCH (09:53)
[2022-03-31] MEDS: APIXABAN 5 MG TABLET PO SCH (09:53)
[2022-03-31] MEDS: METOPROLOL TARTRATE 25 MG TABLET (FP) PO SCH (09:53)
[2022-03-31] MEDS: FUROSEMIDE 40 MG/4 ML INJECTABLE VIAL IVPUSH SCH (09:53)
[2022-03-31] MEDS: VENLAFAXINE HCL 75 MG E.R. CAPSULES PO SCH (11:30)
[2022-03-31 12:22] VITALS: RESP 18
[2022-03-31 12:33] VITALS: BMI 44.7
[2022-03-31 14:33] VITALS: BP 143/79; PULSE 96; TEMP 98.3
== END 2022-03-31 18:49 | DRG 720 ==
LOC: JER 03:04 → JERBED 04:26 → J6S 15:42
PROVIDERS: ADMIT Internal Medicine; ATTEND Internal Medicine
PROC: 02HV33Z Insertion of Infusion Device into Superior Vena Cava, Percutaneous Approach (ICD-10-PCS; principal; 2022-03-31)
PROC: B548ZZA Ultrasonography of Superior Vena Cava, Guidance (ICD-10-PCS; 2022-03-31)
DX: A40.9 Streptococcal sepsis, unspecified (principal); N17.9 Acute kidney failure, unspecified; E11.51 Type 2 diabetes mellitus with diabetic peripheral angiopathy without gangrene; E87.20 Acidosis, unspecified; E66.01 Morbid (severe) obesity due to excess calories; Z68.41 Body mass index [BMI] 40.0-44.9, adult; E11.40 Type 2 diabetes mellitus with diabetic neuropathy, unspecified; E11.22 Type 2 diabetes mellitus with diabetic chronic kidney disease; L97.529 Non-pressure chronic ulcer of other part of left foot with unspecified severity; I48.0 Paroxysmal atrial fibrillation; Z89.511 Acquired absence of right leg below knee; K21.9 Gastro-esophageal reflux disease without esophagitis; F41.9 Anxiety disorder, unspecified; F32.A Depression, unspecified; M14.672 Charcot's joint, left ankle and foot; D50.9 Iron deficiency anemia, unspecified; L03.116 Cellulitis of left lower limb; I12.9 Hypertensive chronic kidney disease with stage 1 through stage 4 chronic kidney disease, or unspecified chronic kidney disease; N18.9 Chronic kidney disease, unspecified; R65.20 Severe sepsis without septic shock; Z79.01 Long term (current) use of anticoagulants; B95.62 Methicillin resistant Staphylococcus aureus infection as the cause of diseases classified elsewhere; G47.33 Obstructive sleep apnea (adult) (pediatric)
CPT/HCPCS: 0241U-QW; 29581-LT; 36415; 36569; 71045-TC-FY; 73630-TC-LT; 73700-TC-RT; 76775-TC; 77001-TC-FY; 80048; 80053; 80061; 81003; 82570; 82607; 82728; 82746; 82803; 82962; 83540; 83550; 83605; 83615; 83735; 83880; 84100; 84156; 84300; 84443; 85025; 85027; 85045; 85610; 85651; 85730; 86140; 86850; 86900; 86901; 87040; 87070; 87077; 87086; 87186; 87205; 93005; 93010; 93306-TC; 99285-25; A6196; C1751; C9803-CS; G0463-25; G0480; U0003; U0005

== ENCOUNTER 2022-05-30 15:48 | Inpatient (IN) | payer OTHER ==
[2022-05-30] MEDS ORDERED: ACETAMINOPHEN 1000 MG/100 ML BAG IVPB ONE (16:14)
[2022-05-30] MEDS ORDERED: ACETAMINOPHEN INJECTION 100 ML IVPB ONE (16:20)
[2022-05-30] MEDS ORDERED: SODIUM CHLORIDE 0.9% 500 ML INFUS.BAG IV ONE ×2 (16:26→18:34)
[2022-05-30] MEDS ORDERED: VANCOMYCIN 1 GM in D5W (PRE-DOCKED) 1,000 MG/250 ML IVPB ONE (16:27)
[2022-05-30] MEDS ORDERED: PIPERACILLIN/TAZOB 4.5 GM 4.5 GM in DEXTROSE 5%-WATER 100 ML IVPB ONE (16:27)
[2022-05-30] MEDS ORDERED: DEXAMETHASONE SOD PHOSPHATE 10 MG/1 ML VIAL IVPUSH ONE (16:27)
[2022-05-30 16:28] VITALS: BMI 44.6
[2022-05-30] MEDS ORDERED: ALBUTEROL SO4 2.5/IPRATROPIUM 0.5 INH SOL 3 ML VIAL.NEB. NEB ONE ×2 (16:34→16:35)
[2022-05-30] MEDS ORDERED: PIPERACILLIN/TAZOB 4.5 GM 4.5 GM/100 ML BAG IVPB ONE (16:35)
[2022-05-30] MEDS ORDERED: DEXAMETHASONE SOD PHOSPHATE 10 MG/1 ML VIAL ONE (16:35)
[2022-05-30] MEDS ORDERED: RAPID SEQUENCE INTUBATION KIT NR ONE (16:39)
[2022-05-30] MEDS ORDERED: ETOMIDATE 20 MG/10 ML VIAL IVPUSH ONE (16:44)
[2022-05-30] MEDS ORDERED: MAGNESIUM SULF 50% (8.12 MEQ/2 ML-1 GM VIAL) IVPB ONE ×2 (17:00→17:01)
[2022-05-30] MEDS ORDERED: MAGNESIUM SULFATE IN WATER 2 GM/50 ML IVPB IVPB ONE (17:15)
[2022-05-30] MEDS ORDERED: VANCOMYCIN/WATER FOR INJ (PEG) 1,000 MG/200 ML BAG IVPB ONE (17:15)
[2022-05-30 17:16] LABS: VENOUS BASE EXCESS -1.6 mmol/L (-2-2); VENOUS O2 SATURATION 25.6 % (70-80); VENOUS PCO2 64.4 mmHg (38-52); VENOUS PH 7.241 (7.310-7.410)
[2022-05-30 17:18] LABS: HEMATOCRIT 39.3 % (35.4-49); HEMOGLOBIN 12.3 GM/dL (11.7-16.9); MCH 29.6 pg (25.7-33.7); MCHC 31.4 g/dl (32.0-35.9); MEAN CELL VOLUME 94.4 fl (80-96); MEAN PLT VOLUME 7.6 fl (7.5-11.1); PH,URINE 5.5 (5.0-8.0); PLATELET COUNT 310 10^3/uL (134-434); RBC 4.16 M/mm3 (4.00-5.60); RDW 17.1 % (11.9-15.9); URINE APPEARANCE CLEAR; URINE BILIRUBIN NEGATIVE (NEGATIVE); URINE COLOR YELLOW; URINE GLUCOSE (UA) 3+ (NEGATIVE); URINE KETONE NEGATIVE (NEGATIVE); URINE LEUK ESTERASE NEGATIVE (NEGATIVE); URINE NITRITE NEGATIVE (NEGATIVE); URINE PROTEIN TRACE (NEGATIVE); URINE UROBILINOGEN 0.2 mg/dL (0.2-1.0); WHITE BLOOD COUNT 11.7 K/mm3 (4.0-10.0)
[2022-05-30 17:25] LABS: INR 1.18 (0.83-1.09); PROTHROMBIN TIME (PATIENT) 13.6 SEC (9.7-13.0)
[2022-05-30 17:28] LABS: ACTIVATED PTT 26.1 SECONDS (25.2-36.5)
[2022-05-30 17:39] LABS: ALBUMIN 3.3 g/dl (3.4-5.0); CALCIUM 8.4 mg/dL (8.5-10.1)
[2022-05-30 17:40] LABS: BLOOD UREA NITROGEN 37.8 mg/dL (7-18)
[2022-05-30 17:45] LABS: BILIRUBIN,TOTAL 0.3 mg/dL (0.2-1); TOT PROT 8.6 g/dl (6.4-8.2)
[2022-05-30 17:49] LABS: LACTIC ACID 5.8 mmol/L (0.4-2.0)
[2022-05-30 18:12] LABS: ANISOCYTOSIS 1+; MACROCYTOSIS 1+
[2022-05-30] MEDS: ALBUTEROL SO4 0.083% IH SOL 2.5 MG/3 ML VIAL.NEB. NEB SCH (19:15)
[2022-05-30] MEDS ORDERED: oxyCODONE HCL 10 MG SUSTAINED ACTING TABLET PO ONE (19:30)
[2022-05-30] MEDS ORDERED: oxyCODONE HCL 10 MG SUSTAINED ACTING TABLET ONE (20:39)
[2022-05-30 22:03] LABS: VENOUS BASE EXCESS -4.3 mmol/L (-2-2); VENOUS PCO2 49.1 mmHg (38-52); VENOUS PH 7.282 (7.310-7.410)
[2022-05-30 22:56] LABS: LACTIC ACID 2.8 mmol/L (0.4-2.0)
[2022-05-31] MEDS ORDERED: SODIUM PHOSPHATE/NA BIPHOS 133 ML ENEMA RC PRN (00:46)
[2022-05-31] MEDS ORDERED: ALBUTEROL SO4 HFA INHALER IH PRN (00:46)
[2022-05-31] MEDS ORDERED: BISACODYL 10 MG SUPP.RECT PR PRN (00:46)
[2022-05-31] MEDS ORDERED: PATIENT'S OWN MEDICATION (NON-FORMULARY) (Oxycodone Hcl [Oxaydo] 5 MG Tablet.Orl) PO PRN (00:46)
[2022-05-31] MEDS ORDERED: ALBUTEROL SO4 2.5/IPRATROPIUM 0.5 INH SOL 3 ML VIAL.NEB. NEB PRN (00:46)
[2022-05-31] MEDS ORDERED: [UNRECOGNIZED DRUG - OTHER] TP SCH (01:00)
[2022-05-31] MEDS ORDERED: LANOLIN TP SCH (01:00)
[2022-05-31] MEDS ORDERED: PETROLATUM WHITE TP SCH (01:00)
[2022-05-31] MEDS: APIXABAN 5 MG TABLET PO SCH ×3 (01:42→22:59)
[2022-05-31] MEDS: METOPROLOL TARTRATE 25 MG TABLET (FP) PO SCH ×3 (01:42→22:59)
[2022-05-31] MEDS ORDERED: APIXABAN 5 MG TABLET ONE ×3 (01:45→23:03)
[2022-05-31] MEDS ORDERED: METOPROLOL TARTRATE 25 MG TABLET (FP) ONE ×2 (01:45→09:15)
[2022-05-31] MEDS: CYCLOBENZAPRINE HCL 10 MG TABLET (FP) PO PRN ×2 (01:55→10:55)
[2022-05-31] MEDS: ACETAMINOPHEN 325 MG TABLET (FP) PO PRN ×3 (01:56→14:05)
[2022-05-31] MEDS ORDERED: ACETAMINOPHEN 325 MG TABLET (FP) ONE ×3 (02:02→13:57)
[2022-05-31] MEDS ORDERED: LACTATED RINGERS SOLUTION 1,000 ML/1,000 ML INFUS.BAG IV SCH (03:45)
[2022-05-31] MEDS ORDERED: PIPERACILLIN/TAZOB 3.375 GM 3.375 GM/50 ML BAG IVPB ONE ×3 (04:36→16:01)
[2022-05-31] MEDS: PIPERACILLIN/TAZOB 3.375 GM 3.375 GM in DEXTROSE 5%-WATER - 50 ML IVPB SCH ×2 (04:38→09:47)
[2022-05-31] MEDS: GABAPENTIN 400 MG CAPSULE PO SCH ×3 (05:13→22:59)
[2022-05-31] MEDS: LACTOBACILLUS ACIDOPHILUS 1 TABLET PO SCH ×2 (05:13→14:09)
[2022-05-31] MEDS ORDERED: GABAPENTIN 400 MG CAPSULE ONE ×3 (05:15→23:03)
[2022-05-31] MEDS ORDERED: HEPARIN NA (PORCINE) 5,000 UNITS/ML 1ML VIAL SQ SCH (06:00)
[2022-05-31] MEDS: INSULIN SLIDING SCALE (NOVOLOG) 1 VIAL SQ SCH ×3 (06:48→16:53)
[2022-05-31] MEDS ORDERED: oxyCODONE HCL 5 MG TABLET ONE ×5 (07:28→23:04)
[2022-05-31] MEDS ORDERED: MAGNESIUM HYDROXIDE 400 MG/5 ML SUSPENSION PO PRN (08:08)
[2022-05-31] MEDS ORDERED: VITAMINS A AND D TOPICAL OINTMENT 60 GM TUBE TP PRN (08:15)
[2022-05-31 08:41] LABS: HEMATOCRIT 34.5 % (35.4-49); HEMOGLOBIN 10.7 GM/dL (11.7-16.9); MCH 29.5 pg (25.7-33.7); MCHC 31.1 g/dl (32.0-35.9); MEAN CELL VOLUME 94.7 fl (80-96); MEAN PLT VOLUME 7.7 fl (7.5-11.1); PLATELET COUNT 227 10^3/uL (134-434); RBC 3.64 M/mm3 (4.00-5.60)
[2022-05-31 08:47] LABS: WHITE BLOOD COUNT 30.1 K/mm3 (4.0-10.0)
[2022-05-31 09:04] LABS: LACTIC ACID 2.5 mmol/L (0.4-2.0)
[2022-05-31 09:10] LABS: CALCIUM 8.2 mg/dL (8.5-10.1)
[2022-05-31 09:11] LABS: BLOOD UREA NITROGEN 45.5 mg/dL (7-18); MAGNESIUM 3.2 mg/dL (1.8-2.4)
[2022-05-31 09:12] LABS: ALBUMIN 2.7 g/dl (3.4-5.0)
[2022-05-31 09:14] LABS: CREATININE 2.1 mg/dL (0.55-1.3)
[2022-05-31 09:15] LABS: BILIRUBIN,TOTAL 0.6 mg/dL (0.2-1); TOT PROT 7.5 g/dl (6.4-8.2)
[2022-05-31] MEDS ORDERED: VENLAFAXINE HCL 75 MG TABLET ONE (09:15)
[2022-05-31] MEDS ORDERED: DEXAMETHASONE 4 MG TABLET (FP) ONE (09:16)
[2022-05-31] MEDS ORDERED: FERROUS SO4 325 MG TABLET (FP) ONE (09:16)
[2022-05-31] MEDS ORDERED: MULTIVITAMINS (DAILY MVI) TABLET (FP) ONE (09:16)
[2022-05-31] MEDS ORDERED: ASCORBIC ACID 500 MG TABLET (FP) ONE (09:16)
[2022-05-31] MEDS ORDERED: ARIPiprazole 5 MG TABLET ONE (09:16)
[2022-05-31] MEDS ORDERED: CYCLOBENZAPRINE HCL 10 MG TABLET (FP) ONE (09:17)
[2022-05-31] MEDS: ARIPiprazole 10 MG TABLET PO SCH (09:46)
[2022-05-31] MEDS: ARTIFICIAL TEARS (POLYVINYL ALCOHOL) OPTH DROPS OU SCH ×3 (09:46→16:52)
[2022-05-31] MEDS: ASCORBIC ACID 500 MG TABLET (FP) PO SCH (09:47)
[2022-05-31] MEDS: DEXAMETHASONE 4 MG TABLET (FP) PO SCH (09:47)
[2022-05-31] MEDS: MULTIVITAMINS (DAILY MVI) TABLET (FP) PO SCH (09:47)
[2022-05-31] MEDS: HYDROCORTISONE 1% TOPICAL CREAM 30 GM TUBE TP SCH (09:47)
[2022-05-31] MEDS: VENLAFAXINE HCL 75 MG E.R. CAPSULES PO SCH (09:47)
[2022-05-31] MEDS: FERROUS SO4 325 MG TABLET (FP) PO SCH (09:47)
[2022-05-31] MEDS ORDERED: TORSEMIDE 20 MG TABLET (FP) PO SCH (10:00)
[2022-05-31] MEDS ORDERED: REMDESIVIR 200 MG in SODIUM CHLORIDE 250 ML IVPB ONE (10:00)
[2022-05-31] MEDS ORDERED: PATIENT'S OWN MEDICATION (NON-FORMULARY) (Lisinopril [Zestril] 30 MG Tablet) PO SCH (10:00)
[2022-05-31] MEDS ORDERED: LISINOPRIL 20 MG, LISINOPRIL 10 MG PO SCH (10:00)
[2022-05-31 10:27] LABS: ANISOCYTOSIS 0; HELMET CELLS 0; HOWELL-JOLLY BODIES 0; MACROCYTOSIS 0; OVALOCYTE 0; ROULEAU 0; SICKELED CELLS 0; TARGET CELLS 0; TEAR DROP CELLS 0; TOXIC GRANULATION 0
[2022-05-31] MEDS ORDERED: oxyCODONE HCL 5 MG TABLET PO PRN (11:08)
[2022-05-31] MEDS ORDERED: ACETAMINOPHEN 325 MG TABLET (FP) PO PRN (11:30)
[2022-05-31] MEDS: oxyCODONE HCL 5 MG TABLET PO PRN ×3 (11:35→22:59)
[2022-05-31] MEDS ORDERED: LIDOCAINE 5% TOPICAL PATCH ONE (13:46)
[2022-05-31] MEDS: LIDOCAINE 5% TOPICAL PATCH TP SCH (13:54)
[2022-05-31] MEDS ORDERED: SODIUM CHLORIDE 1,000 ML IV STA (15:22)
[2022-05-31] MEDS ORDERED: SODIUM ZIRCONIUM CYCLOSILICATE (LOKELMA) 5 GM PACKET PO SCH (15:30)
[2022-05-31] MEDS ORDERED: SODIUM ZIRCONIUM CYCLOSILICATE (LOKELMA) 5 GM PACKET ONE (16:01)
[2022-05-31] MEDS: SODIUM CHLORIDE 0.45% 1,000 ML IV SCH (16:50)
[2022-05-31] MEDS ORDERED: PIPERACILLIN/TAZOB 3.375 GM 3.375 GM in DEXTROSE 5%-WATER - 50 ML IVPB SCH (18:00)
[2022-05-31] MEDS: DOCUSATE SODIUM 100 MG CAPSULE (FP) PO SCH (22:58)
[2022-05-31] MEDS: VANCOMYCIN/WATER FOR INJ (PEG) 1,000 MG/200 ML BAG IVPB SCH (22:58)
[2022-05-31] MEDS: traZODone HCL 100 MG TABLET (FP) PO SCH (22:58)
[2022-05-31] MEDS: MELATONIN 5 MG TABLETS PO SCH (22:59)
[2022-05-31] MEDS: ATORVASTATIN CA 20 MG TABLET (FP) PO SCH (22:59)
[2022-05-31] MEDS ORDERED: MELATONIN 5 MG TABLETS ONE (23:03)
[2022-05-31] MEDS ORDERED: DOCUSATE SODIUM 100 MG CAPSULE (FP) PO ONE (23:03)
[2022-05-31] MEDS ORDERED: ATORVASTATIN CA 10 MG TABLET (FP) ONE (23:03)
[2022-05-31] MEDS ORDERED: VANCOMYCIN/WATER FOR INJ (PEG) 1,000 MG/200 ML BAG IVPB ONE (23:04)
[2022-06-01] MEDS: HYDROCORTISONE 1% TOPICAL CREAM 30 GM TUBE TP SCH ×3 (00:05→21:34)
[2022-06-01] MEDS: ARTIFICIAL TEARS (POLYVINYL ALCOHOL) OPTH DROPS OU SCH ×5 (00:05→21:33)
[2022-06-01] MEDS: LACTOBACILLUS ACIDOPHILUS 1 TABLET PO SCH ×4 (00:05→21:33)
[2022-06-01] MEDS: LIDOCAINE PATCH REMOVAL MC SCH (00:05)
[2022-06-01] MEDS: INSULIN SLIDING SCALE (NOVOLOG) 1 VIAL SQ SCH ×5 (00:21→21:24)
[2022-06-01] MEDS: INSULIN (LEVEMIR) 100 UNITS/ML UNITS SQ SCH ×2 (00:23→21:26)
[2022-06-01] MEDS ORDERED: MEROPENEM 1 GM VIAL (RESTRICTED TO ID) IVPB ONE ×3 (01:59→17:12)
[2022-06-01] MEDS ORDERED: PIPERACILLIN/TAZOB 4.5 GM 4.5 GM in DEXTROSE 5%-WATER 100 ML IVPB SCH (02:00)
[2022-06-01] MEDS: MEROPENEM 1 GM in DEXTROSE 5%-WATER 100 ML IVPB SCH ×3 (02:01→17:35)
[2022-06-01] MEDS: GABAPENTIN 400 MG CAPSULE PO SCH ×3 (07:15→21:33)
[2022-06-01] MEDS ORDERED: GABAPENTIN 400 MG CAPSULE ONE ×2 (07:18→14:52)
[2022-06-01] MEDS ORDERED: oxyCODONE HCL 5 MG TABLET ONE ×2 (08:28→17:36)
[2022-06-01] MEDS ORDERED: VANCOMYCIN/WATER FOR INJ (PEG) 1,000 MG/200 ML BAG IVPB ONE ×2 (08:30→21:23)
[2022-06-01] MEDS: oxyCODONE HCL 5 MG TABLET PO PRN ×2 (08:42→17:38)
[2022-06-01] MEDS: VANCOMYCIN/WATER FOR INJ (PEG) 1,000 MG/200 ML BAG IVPB SCH ×2 (09:00→21:26)
[2022-06-01] MEDS ORDERED: APIXABAN 5 MG TABLET ONE (10:36)
[2022-06-01] MEDS ORDERED: METOPROLOL TARTRATE 25 MG TABLET (FP) ONE (10:36)
[2022-06-01] MEDS ORDERED: FERROUS SO4 325 MG TABLET (FP) ONE (10:37)
[2022-06-01] MEDS ORDERED: MULTIVITAMINS (DAILY MVI) TABLET (FP) ONE (10:37)
[2022-06-01] MEDS ORDERED: DEXAMETHASONE 4 MG TABLET (FP) ONE (10:37)
[2022-06-01] MEDS ORDERED: ASCORBIC ACID 500 MG TABLET (FP) ONE (10:37)
[2022-06-01] MEDS ORDERED: LIDOCAINE 5% TOPICAL PATCH ONE (10:38)
[2022-06-01] MEDS: FERROUS SO4 325 MG TABLET (FP) PO SCH (10:57)
[2022-06-01] MEDS: ARIPiprazole 10 MG TABLET PO SCH (10:57)
[2022-06-01] MEDS: DEXAMETHASONE 4 MG TABLET (FP) PO SCH (10:57)
[2022-06-01] MEDS: VENLAFAXINE HCL 75 MG E.R. CAPSULES PO SCH (10:57)
[2022-06-01] MEDS: APIXABAN 5 MG TABLET PO SCH ×2 (10:57→21:33)
[2022-06-01] MEDS: LIDOCAINE 5% TOPICAL PATCH TP SCH (10:58)
[2022-06-01] MEDS: ASCORBIC ACID 500 MG TABLET (FP) PO SCH (10:58)
[2022-06-01] MEDS: MULTIVITAMINS (DAILY MVI) TABLET (FP) PO SCH (10:58)
[2022-06-01] MEDS: METOPROLOL TARTRATE 25 MG TABLET (FP) PO SCH ×2 (10:59→22:50)
[2022-06-01] MEDS: REMDESIVIR 100 MG in SODIUM CHLORIDE 250 ML IVPB SCH (12:10)
[2022-06-01 15:29] LABS: HEMATOCRIT 36.2 % (35.4-49); HEMOGLOBIN 11.1 GM/dL (11.7-16.9); MCH 29.4 pg (25.7-33.7); MCHC 30.5 g/dl (32.0-35.9); MEAN CELL VOLUME 96.2 fl (80-96); MEAN PLT VOLUME 8.7 fl (7.5-11.1); PLATELET COUNT 239 10^3/uL (134-434); RBC 3.76 M/mm3 (4.00-5.60); RDW 17.1 % (11.9-15.9); WHITE BLOOD COUNT 25.4 K/mm3 (4.0-10.0)
[2022-06-01] MEDS: SODIUM CHLORIDE 0.45% 1,000 ML IV SCH (15:37)
[2022-06-01 15:43] LABS: CALCIUM 7.6 mg/dL (8.5-10.1)
[2022-06-01 15:44] LABS: ALBUMIN 2.6 g/dl (3.4-5.0); BLOOD UREA NITROGEN 53.2 mg/dL (7-18); MAGNESIUM 3.2 mg/dL (1.8-2.4)
[2022-06-01 15:47] LABS: CREATININE 1.7 mg/dL (0.55-1.3); PHOSPHOROUS 4.5 mg/dL (2.5-4.9)
[2022-06-01 15:48] LABS: BILIRUBIN,TOTAL 0.3 mg/dL (0.2-1)
[2022-06-01 15:49] LABS: TOT PROT 7.8 g/dl (6.4-8.2)
[2022-06-01 15:59] LABS: LACTIC ACID 3.1 mmol/L (0.4-2.0)
[2022-06-01] MEDS: SODIUM ZIRCONIUM CYCLOSILICATE (LOKELMA) 5 GM PACKET PO SCH (17:20)
[2022-06-01 18:08] LABS: ANISOCYTOSIS 1+; MACROCYTOSIS 0; OVALOCYTE 2+
[2022-06-01] MEDS ORDERED: ACETAMINOPHEN 325 MG TABLET (FP) ONE (19:50)
[2022-06-01] MEDS: ACETAMINOPHEN 325 MG TABLET (FP) PO PRN (20:10)
[2022-06-01] MEDS: ATORVASTATIN CA 20 MG TABLET (FP) PO SCH (21:34)
[2022-06-01] MEDS: SODIUM BICARBONATE 650 MG TABLET PO SCH (21:34)
[2022-06-01] MEDS: traZODone HCL 100 MG TABLET (FP) PO SCH (21:34)
[2022-06-01] MEDS: DOCUSATE SODIUM 100 MG CAPSULE (FP) PO SCH (21:34)
[2022-06-01] MEDS: MELATONIN 5 MG TABLETS PO SCH (21:34)
[2022-06-02] MEDS ORDERED: oxyCODONE HCL 5 MG TABLET ONE ×4 (00:36→20:58)
[2022-06-02] MEDS: oxyCODONE HCL 5 MG TABLET PO PRN ×4 (00:39→21:00)
[2022-06-02] MEDS: LIDOCAINE PATCH REMOVAL MC SCH ×2 (01:52→22:43)
[2022-06-02] MEDS ORDERED: MEROPENEM 1 GM VIAL (RESTRICTED TO ID) IVPB ONE ×3 (01:55→17:10)
[2022-06-02] MEDS: MEROPENEM 1 GM in DEXTROSE 5%-WATER 100 ML IVPB SCH ×3 (02:00→17:18)
[2022-06-02] MEDS ORDERED: GABAPENTIN 400 MG CAPSULE ONE ×2 (05:47→13:22)
[2022-06-02] MEDS: GABAPENTIN 400 MG CAPSULE PO SCH ×3 (06:25→22:42)
[2022-06-02] MEDS: LACTOBACILLUS ACIDOPHILUS 1 TABLET PO SCH ×3 (06:25→22:42)
[2022-06-02] MEDS: INSULIN SLIDING SCALE (NOVOLOG) 1 VIAL SQ SCH ×4 (07:39→22:43)
[2022-06-02] MEDS ORDERED: METOPROLOL TARTRATE 25 MG TABLET (FP) ONE (09:14)
[2022-06-02] MEDS ORDERED: VENLAFAXINE HCL 75 MG TABLET ONE (09:14)
[2022-06-02] MEDS ORDERED: MULTIVITAMINS (DAILY MVI) TABLET (FP) ONE (09:15)
[2022-06-02] MEDS ORDERED: DEXAMETHASONE SOD PHOSPHATE 10 MG/1 ML VIAL ONE (09:15)
[2022-06-02] MEDS ORDERED: APIXABAN 5 MG TABLET ONE (09:15)
[2022-06-02] MEDS ORDERED: FERROUS SO4 325 MG TABLET (FP) ONE (09:15)
[2022-06-02] MEDS ORDERED: ARIPiprazole 5 MG TABLET ONE (09:15)
[2022-06-02] MEDS ORDERED: ASCORBIC ACID 500 MG TABLET (FP) ONE ×2 (09:15→09:25)
[2022-06-02] MEDS ORDERED: SODIUM ZIRCONIUM CYCLOSILICATE (LOKELMA) 5 GM PACKET ONE (09:15)
[2022-06-02] MEDS ORDERED: LIDOCAINE 5% TOPICAL PATCH ONE (09:16)
[2022-06-02] MEDS: ARIPiprazole 10 MG TABLET PO SCH (09:22)
[2022-06-02] MEDS: VENLAFAXINE HCL 75 MG E.R. CAPSULES PO SCH (09:23)
[2022-06-02] MEDS: FERROUS SO4 325 MG TABLET (FP) PO SCH (09:23)
[2022-06-02] MEDS: APIXABAN 5 MG TABLET PO SCH ×2 (09:23→22:42)
[2022-06-02] MEDS: LIDOCAINE 5% TOPICAL PATCH TP SCH (09:23)
[2022-06-02] MEDS: SODIUM ZIRCONIUM CYCLOSILICATE (LOKELMA) 5 GM PACKET PO SCH (09:23)
[2022-06-02] MEDS: MULTIVITAMINS (DAILY MVI) TABLET (FP) PO SCH (09:24)
[2022-06-02] MEDS: METOPROLOL TARTRATE 25 MG TABLET (FP) PO SCH ×2 (09:24→22:42)
[2022-06-02] MEDS: ASCORBIC ACID 500 MG TABLET (FP) PO SCH (09:25)
[2022-06-02] MEDS ORDERED: DEXAMETHASONE 4 MG TABLET (FP) ONE (09:25)
[2022-06-02] MEDS: DEXAMETHASONE 4 MG TABLET (FP) PO SCH (09:26)
[2022-06-02 09:41] LABS: HEMATOCRIT 35.3 % (35.4-49); HEMOGLOBIN 10.9 GM/dL (11.7-16.9); MCH 29.1 pg (25.7-33.7); MCHC 30.7 g/dl (32.0-35.9); MEAN CELL VOLUME 94.7 fl (80-96); PLATELET COUNT 274 10^3/uL (134-434); RBC 3.73 M/mm3 (4.00-5.60); RDW 16.6 % (11.9-15.9); WHITE BLOOD COUNT 20.2 K/mm3 (4.0-10.0)
[2022-06-02 10:03] LABS: CALCIUM 7.8 mg/dL (8.5-10.1)
[2022-06-02 10:04] LABS: BLOOD UREA NITROGEN 51.8 mg/dL (7-18); MAGNESIUM 3.3 mg/dL (1.8-2.4)
[2022-06-02 10:07] LABS: CREATININE 1.5 mg/dL (0.55-1.3); PHOSPHOROUS 3.3 mg/dL (2.5-4.9)
[2022-06-02 10:15] LABS: ANISOCYTOSIS 1+; MACROCYTOSIS 0
[2022-06-02] MEDS: ARTIFICIAL TEARS (POLYVINYL ALCOHOL) OPTH DROPS OU SCH ×4 (10:34→22:42)
[2022-06-02] MEDS: REMDESIVIR 100 MG in SODIUM CHLORIDE 250 ML IVPB SCH (10:35)
[2022-06-02] MEDS: HYDROCORTISONE 1% TOPICAL CREAM 30 GM TUBE TP SCH ×2 (10:35→22:43)
[2022-06-02] MEDS: SODIUM BICARBONATE 650 MG TABLET PO SCH ×2 (11:08→22:42)
[2022-06-02] MEDS: VANCOMYCIN/WATER FOR INJ (PEG) 1,000 MG/200 ML BAG IVPB SCH ×2 (11:12→22:41)
[2022-06-02] MEDS: PATIENT'S OWN MEDICATION (NON-FORMULARY) (Ertugliflozin Pidolate 5 MG Tablet) PO SCH ×2 (16:03→16:17)
[2022-06-02] MEDS: SODIUM CHLORIDE 0.45% 1,000 ML IV SCH (16:18)
[2022-06-02] MEDS: COLLAGENASE CLOSTRIDIUM HIST. 30 GRAMS TUBE TP SCH (18:47)
[2022-06-02] MEDS: traZODone HCL 100 MG TABLET (FP) PO SCH (22:41)
[2022-06-02] MEDS: MELATONIN 5 MG TABLETS PO SCH (22:42)
[2022-06-02] MEDS: ATORVASTATIN CA 20 MG TABLET (FP) PO SCH (22:42)
[2022-06-02] MEDS: DOCUSATE SODIUM 100 MG CAPSULE (FP) PO SCH (22:42)
[2022-06-02] MEDS: INSULIN (LEVEMIR) 100 UNITS/ML UNITS SQ SCH (22:43)
[2022-06-03] MEDS: MEROPENEM 1 GM in DEXTROSE 5%-WATER 100 ML IVPB SCH ×3 (01:36→17:16)
[2022-06-03] MEDS: GABAPENTIN 400 MG CAPSULE PO SCH ×3 (06:12→21:43)
[2022-06-03] MEDS: LACTOBACILLUS ACIDOPHILUS 1 TABLET PO SCH ×3 (06:12→21:43)
[2022-06-03] MEDS: INSULIN SLIDING SCALE (NOVOLOG) 1 VIAL SQ SCH ×4 (06:12→21:53)
[2022-06-03] MEDS: oxyCODONE HCL 5 MG TABLET PO PRN ×3 (06:19→22:05)
[2022-06-03] MEDS: REMDESIVIR 100 MG in SODIUM CHLORIDE 250 ML IVPB SCH (12:16)
[2022-06-03 12:20] LABS: BASO % 0.2 % (0-2.0); HEMATOCRIT 36.2 % (35.4-49); HEMOGLOBIN 11.1 GM/dL (11.7-16.9); MCH 28.7 pg (25.7-33.7); MCHC 30.5 g/dl (32.0-35.9); MONO % 4.4 % (3.8-10.2); NEUT % 88.4 % (42.8-82.8); PLATELET COUNT 288 10^3/uL (134-434); RBC 3.85 M/mm3 (4.00-5.60); RDW 16.8 % (11.9-15.9); WHITE BLOOD COUNT 16.2 K/mm3 (4.0-10.0)
[2022-06-03] MEDS: FERROUS SO4 325 MG TABLET (FP) PO SCH (12:21)
[2022-06-03] MEDS: MULTIVITAMINS (DAILY MVI) TABLET (FP) PO SCH (12:21)
[2022-06-03] MEDS: SODIUM ZIRCONIUM CYCLOSILICATE (LOKELMA) 5 GM PACKET PO SCH (12:22)
[2022-06-03] MEDS: ASCORBIC ACID 500 MG TABLET (FP) PO SCH (12:22)
[2022-06-03] MEDS: DEXAMETHASONE 4 MG TABLET (FP) PO SCH (12:22)
[2022-06-03] MEDS: SODIUM BICARBONATE 650 MG TABLET PO SCH ×2 (12:22→21:43)
[2022-06-03] MEDS: LIDOCAINE 5% TOPICAL PATCH TP SCH (12:23)
[2022-06-03] MEDS: METOPROLOL TARTRATE 25 MG TABLET (FP) PO SCH ×2 (12:23→21:43)
[2022-06-03] MEDS: APIXABAN 5 MG TABLET PO SCH ×2 (12:23→21:43)
[2022-06-03] MEDS: VANCOMYCIN/WATER FOR INJ (PEG) 1,000 MG/200 ML BAG IVPB SCH ×2 (12:43→21:42)
[2022-06-03] MEDS: COLLAGENASE CLOSTRIDIUM HIST. 30 GRAMS TUBE TP SCH (12:44)
[2022-06-03] MEDS: ARTIFICIAL TEARS (POLYVINYL ALCOHOL) OPTH DROPS OU SCH ×4 (12:44→21:55)
[2022-06-03] MEDS: HYDROCORTISONE 1% TOPICAL CREAM 30 GM TUBE TP SCH ×2 (12:45→21:54)
[2022-06-03] MEDS: ARIPiprazole 10 MG TABLET PO SCH (12:50)
[2022-06-03] MEDS: VENLAFAXINE HCL 75 MG E.R. CAPSULES PO SCH (12:50)
[2022-06-03 13:07] LABS: CALCIUM 7.7 mg/dL (8.5-10.1)
[2022-06-03 13:08] LABS: BLOOD UREA NITROGEN 47.5 mg/dL (7-18)
[2022-06-03 13:11] LABS: CREATININE 1.4 mg/dL (0.55-1.3)
[2022-06-03] MEDS: SODIUM CHLORIDE 0.45% 1,000 ML IV SCH (15:31)
[2022-06-03] MEDS: DOCUSATE SODIUM 100 MG CAPSULE (FP) PO SCH (21:42)
[2022-06-03] MEDS: traZODone HCL 100 MG TABLET (FP) PO SCH (21:42)
[2022-06-03] MEDS: MELATONIN 5 MG TABLETS PO SCH (21:43)
[2022-06-03] MEDS: ATORVASTATIN CA 20 MG TABLET (FP) PO SCH (21:43)
[2022-06-03] MEDS: LIDOCAINE PATCH REMOVAL MC SCH (22:02)
[2022-06-03] MEDS: INSULIN (LEVEMIR) 100 UNITS/ML UNITS SQ SCH (22:02)
[2022-06-04] MEDS: MEROPENEM 1 GM in DEXTROSE 5%-WATER 100 ML IVPB SCH ×2 (01:14→11:17)
[2022-06-04] MEDS: SODIUM CHLORIDE 0.45% 1,000 ML IV SCH ×2 (02:56→17:23)
[2022-06-04] MEDS: LACTOBACILLUS ACIDOPHILUS 1 TABLET PO SCH ×3 (05:57→21:52)
[2022-06-04] MEDS: GABAPENTIN 400 MG CAPSULE PO SCH ×3 (05:57→21:51)
[2022-06-04] MEDS: INSULIN SLIDING SCALE (NOVOLOG) 1 VIAL SQ SCH ×4 (06:04→21:58)
[2022-06-04] MEDS: oxyCODONE HCL 5 MG TABLET PO PRN ×2 (06:05→20:31)
[2022-06-04 09:12] LABS: HEMOGLOBIN 11.4 GM/dL (11.7-16.9); MCH 29.2 pg (25.7-33.7); MCHC 31.6 g/dl (32.0-35.9); MEAN CELL VOLUME 92.5 fl (80-96); MEAN PLT VOLUME 8.2 fl (7.5-11.1); PLATELET COUNT 299 10^3/uL (134-434); RBC 3.89 M/mm3 (4.00-5.60); RDW 16.3 % (11.9-15.9); WHITE BLOOD COUNT 12.3 K/mm3 (4.0-10.0)
[2022-06-04] MEDS: VANCOMYCIN/WATER FOR INJ (PEG) 1,000 MG/200 ML BAG IVPB SCH ×2 (10:49→21:52)
[2022-06-04] MEDS: REMDESIVIR 100 MG in SODIUM CHLORIDE 250 ML IVPB SCH (10:55)
[2022-06-04 11:14] LABS: CALCIUM 7.9 mg/dL (8.5-10.1)
[2022-06-04 11:15] LABS: ALBUMIN 2.4 g/dl (3.4-5.0); BLOOD UREA NITROGEN 44.8 mg/dL (7-18)
[2022-06-04 11:18] LABS: CREATININE 1.2 mg/dL (0.55-1.3)
[2022-06-04] MEDS: LIDOCAINE 5% TOPICAL PATCH TP SCH (11:18)
[2022-06-04] MEDS: SODIUM ZIRCONIUM CYCLOSILICATE (LOKELMA) 5 GM PACKET PO SCH (11:18)
[2022-06-04 11:19] LABS: TOT PROT 6.8 g/dl (6.4-8.2)
[2022-06-04] MEDS: ACETAMINOPHEN 325 MG TABLET (FP) PO PRN ×2 (11:19→17:26)
[2022-06-04 11:20] LABS: BILIRUBIN,TOTAL 0.5 mg/dL (0.2-1)
[2022-06-04] MEDS: APIXABAN 5 MG TABLET PO SCH ×2 (11:20→21:51)
[2022-06-04] MEDS: MULTIVITAMINS (DAILY MVI) TABLET (FP) PO SCH (11:21)
[2022-06-04] MEDS: DEXAMETHASONE 4 MG TABLET (FP) PO SCH (11:21)
[2022-06-04] MEDS: FERROUS SO4 325 MG TABLET (FP) PO SCH (11:21)
[2022-06-04] MEDS: VENLAFAXINE HCL 75 MG E.R. CAPSULES PO SCH (11:22)
[2022-06-04] MEDS: SODIUM BICARBONATE 650 MG TABLET PO SCH ×2 (11:22→21:51)
[2022-06-04] MEDS: ASCORBIC ACID 500 MG TABLET (FP) PO SCH (11:22)
[2022-06-04] MEDS: METOPROLOL TARTRATE 25 MG TABLET (FP) PO SCH ×2 (11:22→21:51)
[2022-06-04] MEDS: ARIPiprazole 10 MG TABLET PO SCH (11:22)
[2022-06-04] MEDS: COLLAGENASE CLOSTRIDIUM HIST. 30 GRAMS TUBE TP SCH (11:23)
[2022-06-04] MEDS: HYDROCORTISONE 1% TOPICAL CREAM 30 GM TUBE TP SCH ×2 (11:23→21:57)
[2022-06-04] MEDS: ARTIFICIAL TEARS (POLYVINYL ALCOHOL) OPTH DROPS OU SCH ×4 (11:24→21:57)
[2022-06-04] MEDS: CEFTRIAXONE 1 GM in DEXTROSE 5%-WATER - 50 ML IVPB SCH (14:14)
[2022-06-04] MEDS: ATORVASTATIN CA 20 MG TABLET (FP) PO SCH (21:51)
[2022-06-04] MEDS: MELATONIN 5 MG TABLETS PO SCH (21:51)
[2022-06-04] MEDS: traZODone HCL 100 MG TABLET (FP) PO SCH (21:52)
[2022-06-04] MEDS: DOCUSATE SODIUM 100 MG CAPSULE (FP) PO SCH (21:52)
[2022-06-04] MEDS: LIDOCAINE PATCH REMOVAL MC SCH (21:58)
[2022-06-04] MEDS: INSULIN (LEVEMIR) 100 UNITS/ML UNITS SQ SCH (21:58)
[2022-06-05] MEDS: ACETAMINOPHEN 325 MG TABLET (FP) PO PRN ×2 (01:13→11:13)
[2022-06-05] MEDS: oxyCODONE HCL 5 MG TABLET PO PRN ×2 (01:14→05:56)
[2022-06-05] MEDS: GABAPENTIN 400 MG CAPSULE PO SCH ×3 (05:56→21:39)
[2022-06-05] MEDS: LACTOBACILLUS ACIDOPHILUS 1 TABLET PO SCH ×3 (05:56→21:40)
[2022-06-05] MEDS: INSULIN SLIDING SCALE (NOVOLOG) 1 VIAL SQ SCH ×4 (06:17→21:42)
[2022-06-05] MEDS: VANCOMYCIN/WATER FOR INJ (PEG) 1,000 MG/200 ML BAG IVPB SCH ×2 (09:13→20:53)
[2022-06-05] MEDS: SODIUM BICARBONATE 650 MG TABLET PO SCH (11:13)
[2022-06-05] MEDS: APIXABAN 5 MG TABLET PO SCH ×2 (11:13→21:40)
[2022-06-05] MEDS: SODIUM ZIRCONIUM CYCLOSILICATE (LOKELMA) 5 GM PACKET PO SCH (11:13)
[2022-06-05] MEDS: DEXAMETHASONE 4 MG TABLET (FP) PO SCH (11:14)
[2022-06-05] MEDS: FERROUS SO4 325 MG TABLET (FP) PO SCH (11:14)
[2022-06-05] MEDS: ASCORBIC ACID 500 MG TABLET (FP) PO SCH (11:14)
[2022-06-05] MEDS: METOPROLOL TARTRATE 25 MG TABLET (FP) PO SCH ×2 (11:14→21:40)
[2022-06-05] MEDS: MULTIVITAMINS (DAILY MVI) TABLET (FP) PO SCH (11:15)
[2022-06-05] MEDS: COLLAGENASE CLOSTRIDIUM HIST. 30 GRAMS TUBE TP SCH (11:15)
[2022-06-05] MEDS: ARIPiprazole 10 MG TABLET PO SCH (11:16)
[2022-06-05] MEDS: LIDOCAINE 5% TOPICAL PATCH TP SCH (11:16)
[2022-06-05] MEDS: CEFTRIAXONE 1 GM in DEXTROSE 5%-WATER - 50 ML IVPB SCH ×2 (11:17→14:00)
[2022-06-05] MEDS: HYDROCORTISONE 1% TOPICAL CREAM 30 GM TUBE TP SCH ×2 (11:17→21:41)
[2022-06-05] MEDS: ARTIFICIAL TEARS (POLYVINYL ALCOHOL) OPTH DROPS OU SCH ×4 (11:17→21:43)
[2022-06-05] MEDS ORDERED: oxyCODONE HCL 5 MG TABLET PO PRN (12:31)
[2022-06-05] MEDS ORDERED: ACETAMINOPHEN 1000 MG/100 ML BAG IVPB PRN (12:32)
[2022-06-05] MEDS: VENLAFAXINE HCL 75 MG E.R. CAPSULES PO SCH (13:23)
[2022-06-05 17:44] LABS: BASO % 0.2 % (0-2.0); EOS % 2.1 % (0-4.5); HEMATOCRIT 41.2 % (35.4-49); HEMOGLOBIN 13.1 GM/dL (11.7-16.9); LYMPH % 7.8 % (8-40); MCH 29.6 pg (25.7-33.7); MCHC 31.7 g/dl (32.0-35.9); MEAN CELL VOLUME 93.5 fl (80-96); MEAN PLT VOLUME 8.1 fl (7.5-11.1); MONO % 2.5 % (3.8-10.2); NEUT % 87.4 % (42.8-82.8); PLATELET COUNT 268 10^3/uL (134-434); RBC 4.41 M/mm3 (4.00-5.60); RDW 16.8 % (11.9-15.9); WHITE BLOOD COUNT 12.6 K/mm3 (4.0-10.0)
[2022-06-05] MEDS: MELATONIN 5 MG TABLETS PO SCH (21:39)
[2022-06-05] MEDS: traZODone HCL 100 MG TABLET (FP) PO SCH (21:40)
[2022-06-05] MEDS: ATORVASTATIN CA 20 MG TABLET (FP) PO SCH (21:40)
[2022-06-05] MEDS: LIDOCAINE PATCH REMOVAL MC SCH (21:41)
[2022-06-05] MEDS: INSULIN (LEVEMIR) 100 UNITS/ML UNITS SQ SCH (21:41)
[2022-06-05] MEDS: DOCUSATE SODIUM 100 MG CAPSULE (FP) PO SCH (21:43)
[2022-06-06] MEDS: LACTOBACILLUS ACIDOPHILUS 1 TABLET PO SCH ×3 (06:34→22:48)
[2022-06-06] MEDS: GABAPENTIN 400 MG CAPSULE PO SCH ×3 (06:34→22:48)
[2022-06-06] MEDS: INSULIN SLIDING SCALE (NOVOLOG) 1 VIAL SQ SCH ×4 (06:36→22:49)
[2022-06-06] MEDS: VANCOMYCIN/WATER FOR INJ (PEG) 1,000 MG/200 ML BAG IVPB SCH ×2 (09:38→23:37)
[2022-06-06] MEDS: APIXABAN 5 MG TABLET PO SCH ×2 (09:38→22:48)
[2022-06-06] MEDS: DEXAMETHASONE 4 MG TABLET (FP) PO SCH (09:38)
[2022-06-06] MEDS: FERROUS SO4 325 MG TABLET (FP) PO SCH (09:38)
[2022-06-06] MEDS: ASCORBIC ACID 500 MG TABLET (FP) PO SCH (09:38)
[2022-06-06] MEDS: MULTIVITAMINS (DAILY MVI) TABLET (FP) PO SCH (09:38)
[2022-06-06] MEDS: CEFTRIAXONE 1 GM in DEXTROSE 5%-WATER - 50 ML IVPB SCH (09:40)
[2022-06-06] MEDS: HYDROCORTISONE 1% TOPICAL CREAM 30 GM TUBE TP SCH ×2 (09:41→22:49)
[2022-06-06] MEDS: LIDOCAINE 5% TOPICAL PATCH TP SCH (09:41)
[2022-06-06] MEDS: ARTIFICIAL TEARS (POLYVINYL ALCOHOL) OPTH DROPS OU SCH ×4 (09:41→22:49)
[2022-06-06 09:49] LABS: HEMATOCRIT 38.4 % (35.4-49); HEMOGLOBIN 12.2 GM/dL (11.7-16.9); MCH 29.6 pg (25.7-33.7); MCHC 31.8 g/dl (32.0-35.9); MEAN CELL VOLUME 93.1 fl (80-96); MEAN PLT VOLUME 8.1 fl (7.5-11.1); PLATELET COUNT 270 10^3/uL (134-434); RBC 4.12 M/mm3 (4.00-5.60); RDW 16.6 % (11.9-15.9); WHITE BLOOD COUNT 11.5 K/mm3 (4.0-10.0)
[2022-06-06 10:04] LABS: ALBUMIN 2.5 g/dl (3.4-5.0); CALCIUM 8.5 mg/dL (8.5-10.1); MAGNESIUM 2.4 mg/dL (1.8-2.4)
[2022-06-06 10:09] LABS: BILIRUBIN,TOTAL 0.4 mg/dL (0.2-1); TOT PROT 6.8 g/dl (6.4-8.2)
[2022-06-06 10:52] LABS: ANISOCYTOSIS 1+; MACROCYTOSIS 0
[2022-06-06] MEDS: VENLAFAXINE HCL 75 MG E.R. CAPSULES PO SCH (11:27)
[2022-06-06] MEDS: METOPROLOL TARTRATE 25 MG TABLET (FP) PO SCH ×2 (11:27→22:48)
[2022-06-06] MEDS: ARIPiprazole 10 MG TABLET PO SCH (11:27)
[2022-06-06] MEDS: COLLAGENASE CLOSTRIDIUM HIST. 30 GRAMS TUBE TP SCH (11:48)
[2022-06-06] MEDS ORDERED: MAGNESIUM HYDROX 2400MG/30ML ORAL SUSPENSION 30 ML CUP PO PRN (11:49)
[2022-06-06] MEDS: ATORVASTATIN CA 20 MG TABLET (FP) PO SCH (22:48)
[2022-06-06] MEDS: traZODone HCL 100 MG TABLET (FP) PO SCH (22:48)
[2022-06-06] MEDS: MELATONIN 5 MG TABLETS PO SCH (22:48)
[2022-06-06] MEDS: DOCUSATE SODIUM 100 MG CAPSULE (FP) PO SCH (22:48)
[2022-06-06] MEDS: CYCLOBENZAPRINE HCL 10 MG TABLET (FP) PO PRN (22:48)
[2022-06-06] MEDS: LIDOCAINE PATCH REMOVAL MC SCH (22:52)
[2022-06-06] MEDS: INSULIN (LEVEMIR) 100 UNITS/ML UNITS SQ SCH (22:52)
[2022-06-07] MEDS: LACTOBACILLUS ACIDOPHILUS 1 TABLET PO SCH ×3 (05:58→21:35)
[2022-06-07] MEDS: GABAPENTIN 400 MG CAPSULE PO SCH ×3 (05:58→21:35)
[2022-06-07] MEDS: INSULIN SLIDING SCALE (NOVOLOG) 1 VIAL SQ SCH ×4 (06:03→21:36)
[2022-06-07] MEDS: MULTIVITAMINS (DAILY MVI) TABLET (FP) PO SCH (10:16)
[2022-06-07] MEDS: APIXABAN 5 MG TABLET PO SCH ×2 (10:16→21:35)
[2022-06-07] MEDS: CEFTRIAXONE 1 GM in DEXTROSE 5%-WATER - 50 ML IVPB SCH (10:16)
[2022-06-07] MEDS: ASCORBIC ACID 500 MG TABLET (FP) PO SCH (10:16)
[2022-06-07] MEDS: METOPROLOL TARTRATE 25 MG TABLET (FP) PO SCH ×2 (10:16→21:35)
[2022-06-07] MEDS: FERROUS SO4 325 MG TABLET (FP) PO SCH (10:16)
[2022-06-07] MEDS: LIDOCAINE 5% TOPICAL PATCH TP SCH (10:29)
[2022-06-07] MEDS: COLLAGENASE CLOSTRIDIUM HIST. 30 GRAMS TUBE TP SCH (10:29)
[2022-06-07] MEDS: HYDROCORTISONE 1% TOPICAL CREAM 30 GM TUBE TP SCH ×2 (10:29→21:36)
[2022-06-07] MEDS: ARTIFICIAL TEARS (POLYVINYL ALCOHOL) OPTH DROPS OU SCH ×4 (10:29→22:59)
[2022-06-07] MEDS: VENLAFAXINE HCL 75 MG E.R. CAPSULES PO SCH (10:30)
[2022-06-07] MEDS: ARIPiprazole 10 MG TABLET PO SCH (10:30)
[2022-06-07 12:54] LABS: BASO % 0.2 % (0-2.0); EOS % 2.3 % (0-4.5); HEMATOCRIT 38.7 % (35.4-49); HEMOGLOBIN 12.5 GM/dL (11.7-16.9); LYMPH % 20.5 % (8-40); MCH 29.9 pg (25.7-33.7); MCHC 32.3 g/dl (32.0-35.9); MEAN CELL VOLUME 92.6 fl (80-96); MONO % 5.6 % (3.8-10.2); NEUT % 71.4 % (42.8-82.8); PLATELET COUNT 264 10^3/uL (134-434); RBC 4.18 M/mm3 (4.00-5.60); RDW 16.4 % (11.9-15.9); WHITE BLOOD COUNT 9.2 K/mm3 (4.0-10.0)
[2022-06-07 13:23] LABS: ALBUMIN 2.6 g/dl (3.4-5.0); BLOOD UREA NITROGEN 31.4 mg/dL (7-18); CALCIUM 8.7 mg/dL (8.5-10.1)
[2022-06-07 13:26] LABS: CREATININE 1.1 mg/dL (0.55-1.3); PHOSPHOROUS 4.1 mg/dL (2.5-4.9)
[2022-06-07 13:28] LABS: BILIRUBIN,TOTAL 0.4 mg/dL (0.2-1); TOT PROT 6.8 g/dl (6.4-8.2)
[2022-06-07] MEDS: oxyCODONE HCL 5 MG TABLET PO PRN (18:32)
[2022-06-07] MEDS: ATORVASTATIN CA 20 MG TABLET (FP) PO SCH (21:35)
[2022-06-07] MEDS: MELATONIN 5 MG TABLETS PO SCH (21:35)
[2022-06-07] MEDS: DOCUSATE SODIUM 100 MG CAPSULE (FP) PO SCH (21:35)
[2022-06-07] MEDS: traZODone HCL 100 MG TABLET (FP) PO SCH (21:35)
[2022-06-07] MEDS: INSULIN (LEVEMIR) 100 UNITS/ML UNITS SQ SCH (21:36)
[2022-06-07] MEDS: LIDOCAINE PATCH REMOVAL MC SCH (21:36)
[2022-06-08] MEDS: GABAPENTIN 400 MG CAPSULE PO SCH ×3 (06:01→21:07)
[2022-06-08] MEDS: LACTOBACILLUS ACIDOPHILUS 1 TABLET PO SCH ×3 (06:01→21:02)
[2022-06-08] MEDS: INSULIN SLIDING SCALE (NOVOLOG) 1 VIAL SQ SCH ×4 (06:09→21:17)
[2022-06-08] MEDS: VANCOMYCIN/WATER FOR INJ (PEG) 1,000 MG/200 ML BAG IVPB SCH (08:45)
[2022-06-08] MEDS: ARIPiprazole 10 MG TABLET PO SCH (11:08)
[2022-06-08] MEDS: ASCORBIC ACID 500 MG TABLET (FP) PO SCH (11:09)
[2022-06-08] MEDS: MULTIVITAMINS (DAILY MVI) TABLET (FP) PO SCH (11:09)
[2022-06-08] MEDS: METOPROLOL TARTRATE 25 MG TABLET (FP) PO SCH ×2 (11:10→21:01)
[2022-06-08] MEDS: APIXABAN 5 MG TABLET PO SCH ×2 (11:10→21:01)
[2022-06-08] MEDS: VENLAFAXINE HCL 75 MG E.R. CAPSULES PO SCH (11:10)
[2022-06-08] MEDS: FERROUS SO4 325 MG TABLET (FP) PO SCH (11:10)
[2022-06-08] MEDS: LIDOCAINE 5% TOPICAL PATCH TP SCH (11:11)
[2022-06-08] MEDS: CEFTRIAXONE 1 GM in DEXTROSE 5%-WATER - 50 ML IVPB SCH ×2 (11:11→11:13)
[2022-06-08] MEDS: ARTIFICIAL TEARS (POLYVINYL ALCOHOL) OPTH DROPS OU SCH ×4 (11:12→21:15)
[2022-06-08] MEDS: COLLAGENASE CLOSTRIDIUM HIST. 30 GRAMS TUBE TP SCH (11:12)
[2022-06-08] MEDS: HYDROCORTISONE 1% TOPICAL CREAM 30 GM TUBE TP SCH ×2 (11:13→23:42)
[2022-06-08 13:43] LABS: BASO % 0.5 % (0-2.0); EOS % 2.7 % (0-4.5); HEMATOCRIT 37.5 % (35.4-49); HEMOGLOBIN 11.9 GM/dL (11.7-16.9); LYMPH % 14.9 % (8-40); MCH 29.6 pg (25.7-33.7); MCHC 31.7 g/dl (32.0-35.9); MEAN CELL VOLUME 93.2 fl (80-96); MEAN PLT VOLUME 7.8 fl (7.5-11.1); MONO % 5.7 % (3.8-10.2); NEUT % 76.2 % (42.8-82.8); PLATELET COUNT 222 10^3/uL (134-434); RBC 4.03 M/mm3 (4.00-5.60); RDW 16.4 % (11.9-15.9); WHITE BLOOD COUNT 7.7 K/mm3 (4.0-10.0)
[2022-06-08 14:03] LABS: CALCIUM 8.4 mg/dL (8.5-10.1)
[2022-06-08 14:04] LABS: ALBUMIN 2.4 g/dl (3.4-5.0); BLOOD UREA NITROGEN 30.7 mg/dL (7-18); MAGNESIUM 1.7 mg/dL (1.8-2.4)
[2022-06-08 14:07] LABS: CREATININE 1.2 mg/dL (0.55-1.3)
[2022-06-08 14:08] LABS: BILIRUBIN,TOTAL 0.5 mg/dL (0.2-1); TOT PROT 6.6 g/dl (6.4-8.2)
[2022-06-08] MEDS: oxyCODONE HCL 5 MG TABLET PO PRN (15:19)
[2022-06-08] MEDS: MELATONIN 5 MG TABLETS PO SCH (21:01)
[2022-06-08] MEDS: DOCUSATE SODIUM 100 MG CAPSULE (FP) PO SCH (21:01)
[2022-06-08] MEDS: traZODone HCL 100 MG TABLET (FP) PO SCH (21:01)
[2022-06-08] MEDS: ATORVASTATIN CA 20 MG TABLET (FP) PO SCH (21:01)
[2022-06-08] MEDS: LIDOCAINE PATCH REMOVAL MC SCH (21:16)
[2022-06-08] MEDS: INSULIN (LEVEMIR) 100 UNITS/ML UNITS SQ SCH (21:16)
[2022-06-08] MEDS: VANCOMYCIN/WATER FOR INJ (PEG) 750 MG/150 ML BAG IVPB SCH (21:17)
[2022-06-09] MEDS: HYDROCORTISONE 1% TOPICAL CREAM 30 GM TUBE TP SCH ×3 (00:05→21:22)
[2022-06-09] MEDS: oxyCODONE HCL 5 MG TABLET PO PRN ×2 (01:18→06:51)
[2022-06-09] MEDS: LACTOBACILLUS ACIDOPHILUS 1 TABLET PO SCH ×3 (06:44→21:21)
[2022-06-09] MEDS: GABAPENTIN 400 MG CAPSULE PO SCH ×3 (06:44→21:20)
[2022-06-09] MEDS: INSULIN SLIDING SCALE (NOVOLOG) 1 VIAL SQ SCH ×4 (06:48→21:22)
[2022-06-09] MEDS: CEFTRIAXONE 1 GM in DEXTROSE 5%-WATER - 50 ML IVPB SCH (09:13)
[2022-06-09] MEDS: APIXABAN 5 MG TABLET PO SCH ×2 (09:13→21:21)
[2022-06-09] MEDS: LIDOCAINE 5% TOPICAL PATCH TP SCH (09:13)
[2022-06-09] MEDS: FERROUS SO4 325 MG TABLET (FP) PO SCH (09:13)
[2022-06-09] MEDS: ASCORBIC ACID 500 MG TABLET (FP) PO SCH (09:13)
[2022-06-09] MEDS: METOPROLOL TARTRATE 25 MG TABLET (FP) PO SCH ×2 (09:13→21:21)
[2022-06-09] MEDS: COLLAGENASE CLOSTRIDIUM HIST. 30 GRAMS TUBE TP SCH (09:14)
[2022-06-09] MEDS: MULTIVITAMINS (DAILY MVI) TABLET (FP) PO SCH (09:14)
[2022-06-09] MEDS: VENLAFAXINE HCL 75 MG E.R. CAPSULES PO SCH (09:15)
[2022-06-09] MEDS: ARTIFICIAL TEARS (POLYVINYL ALCOHOL) OPTH DROPS OU SCH ×5 (09:15→21:22)
[2022-06-09] MEDS: ARIPiprazole 10 MG TABLET PO SCH (09:16)
[2022-06-09] MEDS: VANCOMYCIN/WATER FOR INJ (PEG) 750 MG/150 ML BAG IVPB SCH (10:14)
[2022-06-09] MEDS: DOCUSATE SODIUM 100 MG CAPSULE (FP) PO SCH (21:21)
[2022-06-09] MEDS: traZODone HCL 100 MG TABLET (FP) PO SCH (21:21)
[2022-06-09] MEDS: ATORVASTATIN CA 20 MG TABLET (FP) PO SCH (21:21)
[2022-06-09] MEDS: MELATONIN 5 MG TABLETS PO SCH (21:21)
[2022-06-09] MEDS: INSULIN (LEVEMIR) 100 UNITS/ML UNITS SQ SCH (21:21)
[2022-06-09] MEDS: LIDOCAINE PATCH REMOVAL MC SCH (21:22)
[2022-06-10] MEDS: oxyCODONE HCL 5 MG TABLET PO PRN (05:40)
[2022-06-10] MEDS: LACTOBACILLUS ACIDOPHILUS 1 TABLET PO SCH ×3 (05:40→22:42)
[2022-06-10] MEDS: GABAPENTIN 400 MG CAPSULE PO SCH ×3 (05:40→22:42)
[2022-06-10] MEDS: INSULIN SLIDING SCALE (NOVOLOG) 1 VIAL SQ SCH ×4 (06:10→23:03)
[2022-06-10 08:09] LABS: BASO % 0.9 % (0-2.0); EOS % 2.3 % (0-4.5); HEMATOCRIT 37.1 % (35.4-49); HEMOGLOBIN 11.8 GM/dL (11.7-16.9); LYMPH % 11.3 % (8-40); MCH 29.9 pg (25.7-33.7); MCHC 31.9 g/dl (32.0-35.9); MEAN CELL VOLUME 93.9 fl (80-96); MEAN PLT VOLUME 8.6 fl (7.5-11.1); MONO % 5.3 % (3.8-10.2); NEUT % 80.2 % (42.8-82.8); PLATELET COUNT 187 10^3/uL (134-434); RBC 3.95 M/mm3 (4.00-5.60); RDW 16.5 % (11.9-15.9); WHITE BLOOD COUNT 9.8 K/mm3 (4.0-10.0)
[2022-06-10 08:13] LABS: CALCIUM 8.4 mg/dL (8.5-10.1)
[2022-06-10 08:14] LABS: ALBUMIN 2.5 g/dl (3.4-5.0); BLOOD UREA NITROGEN 28.6 mg/dL (7-18); MAGNESIUM 1.9 mg/dL (1.8-2.4)
[2022-06-10 08:17] LABS: CREATININE 1.2 mg/dL (0.55-1.3); PHOSPHOROUS 3.6 mg/dL (2.5-4.9)
[2022-06-10 08:18] LABS: BILIRUBIN,TOTAL 0.7 mg/dL (0.2-1); TOT PROT 6.5 g/dl (6.4-8.2)
[2022-06-10] MEDS: LIDOCAINE 5% TOPICAL PATCH TP SCH (10:44)
[2022-06-10] MEDS: CEFTRIAXONE 1 GM in DEXTROSE 5%-WATER - 50 ML IVPB SCH (10:44)
[2022-06-10] MEDS: MULTIVITAMINS (DAILY MVI) TABLET (FP) PO SCH (10:45)
[2022-06-10] MEDS: VENLAFAXINE HCL 75 MG E.R. CAPSULES PO SCH (10:45)
[2022-06-10] MEDS: FERROUS SO4 325 MG TABLET (FP) PO SCH (10:45)
[2022-06-10] MEDS: ASCORBIC ACID 500 MG TABLET (FP) PO SCH (10:45)
[2022-06-10] MEDS: COLLAGENASE CLOSTRIDIUM HIST. 30 GRAMS TUBE TP SCH (10:45)
[2022-06-10] MEDS: ARIPiprazole 10 MG TABLET PO SCH (10:45)
[2022-06-10] MEDS: APIXABAN 5 MG TABLET PO SCH ×2 (10:45→22:42)
[2022-06-10] MEDS: METOPROLOL TARTRATE 25 MG TABLET (FP) PO SCH ×2 (10:45→22:42)
[2022-06-10] MEDS: HYDROCORTISONE 1% TOPICAL CREAM 30 GM TUBE TP SCH ×2 (10:46→23:05)
[2022-06-10] MEDS: ARTIFICIAL TEARS (POLYVINYL ALCOHOL) OPTH DROPS OU SCH ×4 (10:46→23:04)
[2022-06-10 18:57] VITALS: RESP 18
[2022-06-10] MEDS: CYCLOBENZAPRINE HCL 10 MG TABLET (FP) PO PRN (22:42)
[2022-06-10] MEDS: MELATONIN 5 MG TABLETS PO SCH (22:42)
[2022-06-10] MEDS: traZODone HCL 100 MG TABLET (FP) PO SCH (22:42)
[2022-06-10] MEDS: DOCUSATE SODIUM 100 MG CAPSULE (FP) PO SCH (22:42)
[2022-06-10] MEDS: ATORVASTATIN CA 20 MG TABLET (FP) PO SCH (22:43)
[2022-06-10] MEDS: LIDOCAINE PATCH REMOVAL MC SCH (22:43)
[2022-06-10] MEDS: INSULIN (LEVEMIR) 100 UNITS/ML UNITS SQ SCH (22:45)
[2022-06-11] MEDS: oxyCODONE HCL 5 MG TABLET PO PRN (01:25)
[2022-06-11] MEDS: LACTOBACILLUS ACIDOPHILUS 1 TABLET PO SCH ×3 (06:31→21:28)
[2022-06-11] MEDS: GABAPENTIN 400 MG CAPSULE PO SCH ×3 (06:32→21:28)
[2022-06-11] MEDS: INSULIN SLIDING SCALE (NOVOLOG) 1 VIAL SQ SCH ×4 (06:37→21:29)
[2022-06-11 08:25] LABS: HEMATOCRIT 37.1 % (35.4-49); MCH 30.2 pg (25.7-33.7); MCHC 32.4 g/dl (32.0-35.9); MEAN CELL VOLUME 93.4 fl (80-96); MEAN PLT VOLUME 8.7 fl (7.5-11.1); PLATELET COUNT 170 10^3/uL (134-434); RBC 3.98 M/mm3 (4.00-5.60); RDW 16.8 % (11.9-15.9); WHITE BLOOD COUNT 8.9 K/mm3 (4.0-10.0)
[2022-06-11 08:46] LABS: ALBUMIN 2.6 g/dl (3.4-5.0); CALCIUM 8.4 mg/dL (8.5-10.1)
[2022-06-11 08:47] LABS: MAGNESIUM 2.1 mg/dL (1.8-2.4)
[2022-06-11 08:49] LABS: BLOOD UREA NITROGEN 27.7 mg/dL (7-18); CREATININE 1.1 mg/dL (0.55-1.3); PHOSPHOROUS 3.4 mg/dL (2.5-4.9)
[2022-06-11 08:51] LABS: BILIRUBIN,TOTAL 0.7 mg/dL (0.2-1); TOT PROT 6.7 g/dl (6.4-8.2)
[2022-06-11] MEDS: ASCORBIC ACID 500 MG TABLET (FP) PO SCH (10:01)
[2022-06-11] MEDS: DOXYCYCLINE HYCLATE 100 MG CAPSULE PO SCH ×2 (10:01→17:05)
[2022-06-11] MEDS: METOPROLOL TARTRATE 25 MG TABLET (FP) PO SCH ×2 (10:01→21:28)
[2022-06-11] MEDS: MULTIVITAMINS (DAILY MVI) TABLET (FP) PO SCH (10:01)
[2022-06-11] MEDS: FERROUS SO4 325 MG TABLET (FP) PO SCH (10:01)
[2022-06-11] MEDS: LIDOCAINE 5% TOPICAL PATCH TP SCH (10:01)
[2022-06-11] MEDS: APIXABAN 5 MG TABLET PO SCH ×2 (10:01→21:28)
[2022-06-11] MEDS: ARIPiprazole 10 MG TABLET PO SCH (10:02)
[2022-06-11] MEDS: VENLAFAXINE HCL 75 MG E.R. CAPSULES PO SCH (10:02)
[2022-06-11] MEDS: ARTIFICIAL TEARS (POLYVINYL ALCOHOL) OPTH DROPS OU SCH ×4 (10:02→21:28)
[2022-06-11] MEDS: HYDROCORTISONE 1% TOPICAL CREAM 30 GM TUBE TP SCH ×2 (10:03→21:28)
[2022-06-11] MEDS: COLLAGENASE CLOSTRIDIUM HIST. 30 GRAMS TUBE TP SCH (10:03)
[2022-06-11] MEDS: DOCUSATE SODIUM 100 MG CAPSULE (FP) PO SCH (21:27)
[2022-06-11] MEDS: MELATONIN 5 MG TABLETS PO SCH (21:28)
[2022-06-11] MEDS: traZODone HCL 100 MG TABLET (FP) PO SCH (21:28)
[2022-06-11] MEDS: ATORVASTATIN CA 20 MG TABLET (FP) PO SCH (21:28)
[2022-06-11] MEDS: INSULIN (LEVEMIR) 100 UNITS/ML UNITS SQ SCH (21:29)
[2022-06-11] MEDS: LIDOCAINE PATCH REMOVAL MC SCH (21:59)
[2022-06-12] MEDS: LACTOBACILLUS ACIDOPHILUS 1 TABLET PO SCH ×2 (06:15→13:45)
[2022-06-12] MEDS: INSULIN SLIDING SCALE (NOVOLOG) 1 VIAL SQ SCH ×3 (06:15→16:47)
[2022-06-12] MEDS: GABAPENTIN 400 MG CAPSULE PO SCH ×2 (06:15→13:45)
[2022-06-12] MEDS: APIXABAN 5 MG TABLET PO SCH (09:17)
[2022-06-12] MEDS: ASCORBIC ACID 500 MG TABLET (FP) PO SCH (09:17)
[2022-06-12] MEDS: FERROUS SO4 325 MG TABLET (FP) PO SCH (09:17)
[2022-06-12] MEDS: LIDOCAINE 5% TOPICAL PATCH TP SCH (09:17)
[2022-06-12] MEDS: METOPROLOL TARTRATE 25 MG TABLET (FP) PO SCH (09:17)
[2022-06-12] MEDS: DOXYCYCLINE HYCLATE 100 MG CAPSULE PO SCH ×2 (09:17→17:03)
[2022-06-12] MEDS: MULTIVITAMINS (DAILY MVI) TABLET (FP) PO SCH (09:17)
[2022-06-12] MEDS: ARTIFICIAL TEARS (POLYVINYL ALCOHOL) OPTH DROPS OU SCH ×4 (09:18→17:02)
[2022-06-12] MEDS: VENLAFAXINE HCL 75 MG E.R. CAPSULES PO SCH (09:18)
[2022-06-12] MEDS: HYDROCORTISONE 1% TOPICAL CREAM 30 GM TUBE TP SCH (09:19)
[2022-06-12] MEDS: COLLAGENASE CLOSTRIDIUM HIST. 30 GRAMS TUBE TP SCH (09:19)
[2022-06-12 09:55] LABS: HEMATOCRIT 37.3 % (35.4-49); HEMOGLOBIN 11.9 GM/dL (11.7-16.9); MEAN CELL VOLUME 93.8 fl (80-96); MEAN PLT VOLUME 8.7 fl (7.5-11.1); PLATELET COUNT 161 10^3/uL (134-434); RBC 3.98 M/mm3 (4.00-5.60); RDW 16.7 % (11.9-15.9); WHITE BLOOD COUNT 7.4 K/mm3 (4.0-10.0)
[2022-06-12 10:01] LABS: ALBUMIN 2.6 g/dl (3.4-5.0); CALCIUM 8.5 mg/dL (8.5-10.1)
[2022-06-12 10:02] LABS: BLOOD UREA NITROGEN 22.5 mg/dL (7-18); MAGNESIUM 2.1 mg/dL (1.8-2.4)
[2022-06-12 10:03] LABS: TOT PROT 6.8 g/dl (6.4-8.2)
[2022-06-12 10:05] LABS: CREATININE 1.1 mg/dL (0.55-1.3); PHOSPHOROUS 3.5 mg/dL (2.5-4.9)
[2022-06-12 10:06] LABS: BILIRUBIN,TOTAL 0.7 mg/dL (0.2-1)
[2022-06-12] MEDS: ARIPiprazole 10 MG TABLET PO SCH (11:01)
[2022-06-12 15:09] VITALS: BP 131/67; PULSE 95; TEMP 98.3
== END 2022-06-12 20:46 | DRG 720 ==
LOC: JER 15:48 → JERBED 19:02 → J4S 06-02 21:59
PROVIDERS: ADMIT Internal Medicine; ATTEND Internal Medicine
PROC: 3E0333Z Introduction of Anti-inflammatory into Peripheral Vein, Percutaneous Approach (ICD-10-PCS; 2022-05-30)
PROC: XW033E5 Introduction of Remdesivir Anti-infective into Peripheral Vein, Percutaneous Approach, New Technology Group 5 (ICD-10-PCS; principal; 2022-05-31)
DX: A40.1 Sepsis due to streptococcus, group B (principal); R65.20 Severe sepsis without septic shock; J96.01 Acute respiratory failure with hypoxia; J96.02 Acute respiratory failure with hypercapnia; U07.1 COVID-19; N17.9 Acute kidney failure, unspecified; E87.20 Acidosis, unspecified; L03.116 Cellulitis of left lower limb; J44.9 Chronic obstructive pulmonary disease, unspecified; K21.9 Gastro-esophageal reflux disease without esophagitis; F41.8 Other specified anxiety disorders; E78.00 Pure hypercholesterolemia, unspecified; R50.9 Fever, unspecified; I24.8 Other forms of acute ischemic heart disease; E66.01 Morbid (severe) obesity due to excess calories; Z68.41 Body mass index [BMI] 40.0-44.9, adult; I48.20 Chronic atrial fibrillation, unspecified; E11.65 Type 2 diabetes mellitus with hyperglycemia; I12.9 Hypertensive chronic kidney disease with stage 1 through stage 4 chronic kidney disease, or unspecified chronic kidney disease; E11.22 Type 2 diabetes mellitus with diabetic chronic kidney disease; N18.9 Chronic kidney disease, unspecified; G47.33 Obstructive sleep apnea (adult) (pediatric); E87.5 Hyperkalemia; E11.610 Type 2 diabetes mellitus with diabetic neuropathic arthropathy; E11.622 Type 2 diabetes mellitus with other skin ulcer; L97.328 Non-pressure chronic ulcer of left ankle with other specified severity; M51.36 Other intervertebral disc degeneration, lumbar region; K80.20 Calculus of gallbladder without cholecystitis without obstruction; N39.0 Urinary tract infection, site not specified; B96.4 Proteus (mirabilis) (morganii) as the cause of diseases classified elsewhere; M54.59 Other low back pain; Z79.4 Long term (current) use of insulin; Z89.511 Acquired absence of right leg below knee
CPT/HCPCS: 0241U-QW; 29581-LT; 36415; 71045-TC-FY; 71250-TC; 72131-TC; 73610-TC-LT-FY; 76775-TC; 80048; 80053; 81003; 82308; 82550; 82553; 82570; 82803; 82962; 83036; 83605; 83735; 83930; 83935; 84100; 84300; 84484; 85025; 85027; 85610; 85730; 86140; 86850; 86900; 86901; 87040; 87070; 87077; 87086; 87186; 87205; 87899; 93005; 93010; 94660; 97116-GP; 97162-GP; 99285-25; A6022; C9399; C9803-CS; G0463-25; G0480; J1100; U0003; U0005

== ENCOUNTER 2022-08-21 12:15 | Inpatient (IN) | payer OTHER ==
[2022-08-21] MEDS ORDERED: ACETAMINOPHEN 1000 MG/100 ML BAG IVPB ONE (12:39)
[2022-08-21] MEDS ORDERED: ALBUTEROL SO4 2.5/IPRATROPIUM 0.5 INH SOL 3 ML VIAL.NEB. NEB ONE (12:45)
[2022-08-21] MEDS ORDERED: ACETAMINOPHEN INJECTION 100 ML IVPB ONE (12:55)
[2022-08-21 13:01] VITALS: BMI 47.0
[2022-08-21] MEDS ORDERED: VANCOMYCIN 1 GM in D5W (PRE-DOCKED) 1,000 MG/250 ML IVPB ONE (13:32)
[2022-08-21] MEDS ORDERED: PIPERACILLIN/TAZOB 3.375 GM 3.375 GM in DEXTROSE 5%-WATER - 50 ML IVPB ONE (13:32)
[2022-08-21 13:35] LABS: VENOUS BASE EXCESS -0.7 mmol/L (-2-2); VENOUS O2 SATURATION 81.1 % (70-80); VENOUS PCO2 56.2 mmHg (38-52); VENOUS PH 7.297 (7.310-7.410)
[2022-08-21 13:37] LABS: HEMATOCRIT 40.5 % (35.4-49); HEMOGLOBIN 13.2 GM/dL (11.7-16.9); MCH 29.9 pg (25.7-33.7); MCHC 32.6 g/dl (32.0-35.9); MEAN CELL VOLUME 91.6 fl (80-96); MEAN PLT VOLUME 7.1 fl (7.5-11.1); PLATELET COUNT 250 10^3/uL (134-434); RBC 4.42 M/mm3 (4.00-5.60); RDW 16.3 % (11.9-15.9); WHITE BLOOD COUNT 12.3 K/mm3 (4.0-10.0)
[2022-08-21 13:42] LABS: INR 1.38 (0.83-1.09)
[2022-08-21] MEDS ORDERED: VANCOMYCIN/WATER FOR INJ (PEG) 1,000 MG/200 ML BAG IVPB ONE (13:43)
[2022-08-21] MEDS ORDERED: SODIUM CHLORIDE 1,000 ML IV STA ×2 (13:43→14:06)
[2022-08-21] MEDS ORDERED: PIPERACILLIN/TAZOB 3.375 GM 3.375 GM/50 ML BAG IVPB ONE (13:44)
[2022-08-21 13:45] LABS: ACTIVATED PTT 27.9 SECONDS (25.2-36.5)
[2022-08-21 14:05] LABS: ANISOCYTOSIS 0; CALCIUM 8.2 mg/dL (8.5-10.1); HELMET CELLS 0; HOWELL-JOLLY BODIES 0; MACROCYTOSIS 0; OVALOCYTE 0; ROULEAU 0; SICKELED CELLS 0; TARGET CELLS 0; TEAR DROP CELLS 0; TOXIC GRANULATION 0
[2022-08-21 14:06] LABS: ALBUMIN 3.2 g/dl (3.4-5.0); BLOOD UREA NITROGEN 31.5 mg/dL (7-18)
[2022-08-21 14:09] LABS: CREATININE 1.7 mg/dL (0.55-1.3)
[2022-08-21 14:10] LABS: BILIRUBIN,TOTAL 0.4 mg/dL (0.2-1)
[2022-08-21 14:14] LABS: N-TERMINAL BNP 1290.1 pg/ml (5-125)
[2022-08-21 14:15] LABS: LACTIC ACID 2.6 mmol/L (0.4-2.0)
[2022-08-21] MEDS ORDERED: NOREPINEPHRINE BITARTRATE/D5W 8 MG/250 ML BAG IVPB ONE (14:35)
[2022-08-21] MEDS ORDERED: SODIUM CHLORIDE 500 ML IV STA ×2 (16:14→17:52)
[2022-08-21] MEDS ORDERED: ACETAMINOPHEN 1000 MG/100 ML BAG IVPB PRN (21:32)
[2022-08-21 21:50] LABS: URINE APPEARANCE CLOUDY; URINE BILIRUBIN NEGATIVE (NEGATIVE); URINE COLOR YELLOW; URINE GLUCOSE (UA) 3+ (NEGATIVE); URINE KETONE NEGATIVE (NEGATIVE); URINE LEUK ESTERASE NEGATIVE (NEGATIVE); URINE NITRITE NEGATIVE (NEGATIVE); URINE PROTEIN NEGATIVE (NEGATIVE); URINE UROBILINOGEN 0.2 mg/dL (0.2-1.0)
[2022-08-21] MEDS ORDERED: REMDESIVIR 200 MG in SODIUM CHLORIDE 250 ML IVPB ONE (22:00)
[2022-08-21] MEDS ORDERED: VANCOMYCIN/WATER 1,250 MG/250 ML BAG (RESTRICTED TO ID ONLY) IVPB SCH (22:00)
[2022-08-21] MEDS ORDERED: HEPARIN NA (PORCINE) 5,000 UNITS/ML 1ML VIAL SQ SCH (22:00)
[2022-08-21] MEDS: SODIUM CHLORIDE 1,000 ML IV SCH (22:32)
[2022-08-21] MEDS: INSULIN SLIDING SCALE (NOVOLOG) 1 VIAL SQ SCH (22:32)
[2022-08-22] MEDS: VANCOMYCIN/WATER 1,250 MG/250 ML BAG (RESTRICTED TO ID ONLY) IVPB SCH ×2 (02:45→14:31)
[2022-08-22] MEDS: PIPERACILLIN/TAZOB 3.375 GM 3.375 GM in DEXTROSE 5%-WATER - 50 ML IVPB SCH ×4 (05:12→17:01)
[2022-08-22] MEDS: INSULIN SLIDING SCALE (NOVOLOG) 1 VIAL SQ SCH ×4 (06:26→22:22)
[2022-08-22] MEDS ORDERED: DIGOXIN 0.25 MG TABLET PO ONE (06:34)
[2022-08-22 07:29] LABS: HEMATOCRIT 32.1 % (35.4-49); HEMOGLOBIN 10.4 GM/dL (11.7-16.9); MCH 30.1 pg (25.7-33.7); MCHC 32.6 g/dl (32.0-35.9); MEAN CELL VOLUME 92.5 fl (80-96); MEAN PLT VOLUME 7.7 fl (7.5-11.1); PLATELET COUNT 189 10^3/uL (134-434); RBC 3.47 M/mm3 (4.00-5.60); RDW 16.3 % (11.9-15.9); WHITE BLOOD COUNT 29.9 K/mm3 (4.0-10.0)
[2022-08-22 07:44] LABS: BLOOD UREA NITROGEN 43.3 mg/dL (7-18); CALCIUM 7.2 mg/dL (8.5-10.1); MAGNESIUM 2.2 mg/dL (1.8-2.4)
[2022-08-22 07:47] LABS: PHOSPHOROUS 4.4 mg/dL (2.5-4.9)
[2022-08-22 07:49] LABS: BILIRUBIN,TOTAL 0.5 mg/dL (0.2-1); TOT PROT 6.2 g/dl (6.4-8.2)
[2022-08-22 07:56] LABS: ALBUMIN 2.3 g/dl (3.4-5.0)
[2022-08-22] MEDS ORDERED: ALBUTEROL SO4 2.5/IPRATROPIUM 0.5 INH SOL 3 ML VIAL.NEB. NEB SCH (08:00)
[2022-08-22] MEDS: DIGOXIN 0.5 MG/2 ML AMPUL IVPUSH ONE ×2 (08:30→10:06)
[2022-08-22 09:28] LABS: ERYTHROCYTE SEDIMENTATION RATE 44 mm/hr (0-20)
[2022-08-22] MEDS: traMADol HCL 50 MG TABLET PO PRN ×2 (10:18→15:38)
[2022-08-22] MEDS: REMDESIVIR 100 MG in SODIUM CHLORIDE 250 ML IVPB SCH (10:18)
[2022-08-22] MEDS: SODIUM CHLORIDE 1,000 ML IV SCH (10:19)
[2022-08-22] MEDS: ARIPiprazole 10 MG TABLET PO SCH (10:20)
[2022-08-22] MEDS: VENLAFAXINE HCL 75 MG E.R. CAPSULES PO SCH (10:20)
[2022-08-22] MEDS: APIXABAN 5 MG TABLET PO SCH ×2 (10:22→22:22)
[2022-08-22 10:47] LABS: ANISOCYTOSIS 0; MACROCYTOSIS 1+
[2022-08-22] MEDS ORDERED: LACTATED RINGERS SOLUTION 1,000 ML/1,000 ML INFUS.BAG IV STA (11:32)
[2022-08-22] MEDS: DEXAMETHASONE SOD PHOSPHATE 10 MG/1 ML VIAL IVPUSH SCH (12:35)
[2022-08-22] MEDS ORDERED: LACTATED RINGERS SOLUTION 1,000 ML/1,000 ML INFUS.BAG IV SCH (16:00)
[2022-08-22] MEDS ORDERED: DIGOXIN 0.5 MG/2 ML AMPUL IVPUSH ONE (16:00)
[2022-08-22] MEDS: traZODone HCL 100 MG TABLET (FP) PO SCH (22:22)
[2022-08-22] MEDS: CARVEDILOL 25 MG TABLET (FP) PO SCH (22:22)
[2022-08-22] MEDS: ATORVASTATIN CA 20 MG TABLET (FP) PO SCH (22:22)
[2022-08-22] MEDS ORDERED: SIMETHICONE 80 MG TAB.CHEW (FP) PO ONE (23:07)
[2022-08-23] MEDS: PIPERACILLIN/TAZOB 3.375 GM 3.375 GM in DEXTROSE 5%-WATER - 50 ML IVPB SCH ×3 (01:54→17:06)
[2022-08-23] MEDS: INSULIN SLIDING SCALE (NOVOLOG) 1 VIAL SQ SCH ×4 (06:26→22:19)
[2022-08-23] MEDS: DEXAMETHASONE SOD PHOSPHATE 10 MG/1 ML VIAL IVPUSH SCH (09:38)
[2022-08-23] MEDS: APIXABAN 5 MG TABLET PO SCH ×2 (09:38→22:18)
[2022-08-23] MEDS: CARVEDILOL 25 MG TABLET (FP) PO SCH ×2 (09:38→22:18)
[2022-08-23] MEDS: ARIPiprazole 10 MG TABLET PO SCH (09:38)
[2022-08-23] MEDS: VENLAFAXINE HCL 75 MG E.R. CAPSULES PO SCH (09:38)
[2022-08-23] MEDS ORDERED: DIGOXIN 0.25 MG TABLET PO SCH (10:00)
[2022-08-23 10:36] LABS: HEMATOCRIT 34.9 % (35.4-49); HEMOGLOBIN 11.1 GM/dL (11.7-16.9); MCH 29.3 pg (25.7-33.7); MCHC 31.9 g/dl (32.0-35.9); MEAN CELL VOLUME 91.9 fl (80-96); MEAN PLT VOLUME 7.8 fl (7.5-11.1); PLATELET COUNT 209 10^3/uL (134-434); RBC 3.79 M/mm3 (4.00-5.60); RDW 16.6 % (11.9-15.9)
[2022-08-23] MEDS: REMDESIVIR 100 MG in SODIUM CHLORIDE 250 ML IVPB SCH (10:50)
[2022-08-23 10:57] LABS: BLOOD UREA NITROGEN 38.5 mg/dL (7-18); CALCIUM 7.9 mg/dL (8.5-10.1); MAGNESIUM 2.6 mg/dL (1.8-2.4)
[2022-08-23 10:58] LABS: ALBUMIN 2.5 g/dl (3.4-5.0)
[2022-08-23 11:00] LABS: CREATININE 1.5 mg/dL (0.55-1.3); PHOSPHOROUS 3.1 mg/dL (2.5-4.9)
[2022-08-23 11:01] LABS: BILIRUBIN,TOTAL 0.5 mg/dL (0.2-1); TOT PROT 6.6 g/dl (6.4-8.2)
[2022-08-23 12:59] LABS: ANISOCYTOSIS 0; MACROCYTOSIS 0
[2022-08-23] MEDS: traZODone HCL 100 MG TABLET (FP) PO SCH (22:18)
[2022-08-23] MEDS: traMADol HCL 50 MG TABLET PO PRN (22:18)
[2022-08-23] MEDS: ATORVASTATIN CA 20 MG TABLET (FP) PO SCH (22:18)
[2022-08-24] MEDS: PIPERACILLIN/TAZOB 3.375 GM 3.375 GM in DEXTROSE 5%-WATER - 50 ML IVPB SCH ×3 (02:39→17:06)
[2022-08-24] MEDS: traMADol HCL 50 MG TABLET PO PRN ×2 (05:48→17:25)
[2022-08-24] MEDS: INSULIN SLIDING SCALE (NOVOLOG) 1 VIAL SQ SCH ×4 (06:05→22:19)
[2022-08-24 08:49] LABS: HEMATOCRIT 33.3 % (35.4-49); HEMOGLOBIN 10.8 GM/dL (11.7-16.9); MCH 29.6 pg (25.7-33.7); MCHC 32.4 g/dl (32.0-35.9); MEAN CELL VOLUME 91.6 fl (80-96); MEAN PLT VOLUME 7.9 fl (7.5-11.1); PLATELET COUNT 230 10^3/uL (134-434); RBC 3.64 M/mm3 (4.00-5.60); RDW 16.6 % (11.9-15.9); WHITE BLOOD COUNT 18.9 K/mm3 (4.0-10.0)
[2022-08-24 09:06] LABS: ALBUMIN 2.4 g/dl (3.4-5.0); BLOOD UREA NITROGEN 38.1 mg/dL (7-18); MAGNESIUM 2.8 mg/dL (1.8-2.4)
[2022-08-24 09:09] LABS: CREATININE 1.3 mg/dL (0.55-1.3)
[2022-08-24 09:11] LABS: BILIRUBIN,TOTAL 0.3 mg/dL (0.2-1); TOT PROT 6.7 g/dl (6.4-8.2)
[2022-08-24] MEDS: ARIPiprazole 10 MG TABLET PO SCH (09:25)
[2022-08-24] MEDS: APIXABAN 5 MG TABLET PO SCH ×2 (09:25→22:07)
[2022-08-24] MEDS: VENLAFAXINE HCL 75 MG E.R. CAPSULES PO SCH (09:25)
[2022-08-24] MEDS: DEXAMETHASONE SOD PHOSPHATE 10 MG/1 ML VIAL IVPUSH SCH (09:26)
[2022-08-24] MEDS: CARVEDILOL 25 MG TABLET (FP) PO SCH ×2 (09:26→22:07)
[2022-08-24 09:41] LABS: ANISOCYTOSIS 0; HELMET CELLS 0; HOWELL-JOLLY BODIES 0; MACROCYTOSIS 0; OVALOCYTE 0; ROULEAU 0; SICKELED CELLS 0; TARGET CELLS 0; TEAR DROP CELLS 0; TOXIC GRANULATION 0
[2022-08-24] MEDS: CLOTRIMAZOLE 1% CREAM TP SCH ×2 (13:46→22:22)
[2022-08-24] MEDS: ATORVASTATIN CA 20 MG TABLET (FP) PO SCH (22:06)
[2022-08-24] MEDS: MELATONIN 5 MG TABLETS PO PRN (22:06)
[2022-08-24] MEDS: traZODone HCL 100 MG TABLET (FP) PO SCH (22:06)
[2022-08-25] MEDS: ALBUTEROL SO4 HFA INHALER IH PRN (02:09)
[2022-08-25] MEDS: PIPERACILLIN/TAZOB 3.375 GM 3.375 GM in DEXTROSE 5%-WATER - 50 ML IVPB SCH ×3 (02:09→16:57)
[2022-08-25] MEDS: INSULIN SLIDING SCALE (NOVOLOG) 1 VIAL SQ SCH ×4 (06:09→21:30)
[2022-08-25 08:16] LABS: HEMATOCRIT 34.1 % (35.4-49); HEMOGLOBIN 11.2 GM/dL (11.7-16.9); MCHC 32.9 g/dl (32.0-35.9); MEAN CELL VOLUME 91.2 fl (80-96); MEAN PLT VOLUME 7.8 fl (7.5-11.1); PLATELET COUNT 239 10^3/uL (134-434); RBC 3.74 M/mm3 (4.00-5.60); RDW 16.5 % (11.9-15.9); WHITE BLOOD COUNT 12.8 K/mm3 (4.0-10.0)
[2022-08-25 09:03] LABS: CALCIUM 8.1 mg/dL (8.5-10.1)
[2022-08-25 09:04] LABS: ALBUMIN 2.4 g/dl (3.4-5.0); MAGNESIUM 2.9 mg/dL (1.8-2.4)
[2022-08-25 09:07] LABS: CREATININE 1.3 mg/dL (0.55-1.3); PHOSPHOROUS 3.9 mg/dL (2.5-4.9); TOT PROT 6.7 g/dl (6.4-8.2)
[2022-08-25 09:08] LABS: BILIRUBIN,TOTAL 0.3 mg/dL (0.2-1)
[2022-08-25] MEDS: CARVEDILOL 25 MG TABLET (FP) PO SCH ×2 (09:59→21:30)
[2022-08-25] MEDS: ARIPiprazole 10 MG TABLET PO SCH (09:59)
[2022-08-25] MEDS: APIXABAN 5 MG TABLET PO SCH ×2 (09:59→21:29)
[2022-08-25] MEDS: DEXAMETHASONE SOD PHOSPHATE 10 MG/1 ML VIAL IVPUSH SCH (09:59)
[2022-08-25] MEDS: VENLAFAXINE HCL 75 MG E.R. CAPSULES PO SCH (09:59)
[2022-08-25] MEDS: CLOTRIMAZOLE 1% CREAM TP SCH ×2 (10:00→21:35)
[2022-08-25] MEDS ORDERED: DAPTOMYCIN 1,000 MG in SODIUM CHLORIDE 100 ML IVPB ONE (17:00)
[2022-08-25] MEDS: traZODone HCL 100 MG TABLET (FP) PO SCH (21:30)
[2022-08-25] MEDS: MELATONIN 5 MG TABLETS PO PRN (21:30)
[2022-08-25] MEDS: ATORVASTATIN CA 20 MG TABLET (FP) PO SCH (21:30)
[2022-08-25] MEDS: SILVER SULFADIAZINE 1% TOP CREAM 50 GM JAR TP SCH (21:31)
[2022-08-26] MEDS: PIPERACILLIN/TAZOB 3.375 GM 3.375 GM in DEXTROSE 5%-WATER - 50 ML IVPB SCH ×3 (01:49→17:13)
[2022-08-26 07:46] LABS: HEMATOCRIT 35.4 % (35.4-49); HEMOGLOBIN 11.9 GM/dL (11.7-16.9); MCH 30.7 pg (25.7-33.7); MCHC 33.7 g/dl (32.0-35.9); MEAN CELL VOLUME 91.1 fl (80-96); PLATELET COUNT 246 10^3/uL (134-434); RBC 3.89 M/mm3 (4.00-5.60); WHITE BLOOD COUNT 9.7 K/mm3 (4.0-10.0)
[2022-08-26] MEDS: INSULIN SLIDING SCALE (NOVOLOG) 1 VIAL SQ SCH ×4 (07:51→23:00)
[2022-08-26 08:33] LABS: CALCIUM 8.3 mg/dL (8.5-10.1)
[2022-08-26 08:34] LABS: ALBUMIN 2.4 g/dl (3.4-5.0); BLOOD UREA NITROGEN 47.9 mg/dL (7-18); MAGNESIUM 2.8 mg/dL (1.8-2.4)
[2022-08-26 08:37] LABS: CREATININE 1.2 mg/dL (0.55-1.3); PHOSPHOROUS 3.7 mg/dL (2.5-4.9)
[2022-08-26 08:38] LABS: TOT PROT 6.5 g/dl (6.4-8.2)
[2022-08-26 08:41] LABS: BILIRUBIN,TOTAL 0.3 mg/dL (0.2-1)
[2022-08-26] MEDS: DEXAMETHASONE SOD PHOSPHATE 10 MG/1 ML VIAL IVPUSH SCH (09:04)
[2022-08-26] MEDS: CARVEDILOL 25 MG TABLET (FP) PO SCH ×2 (09:05→22:53)
[2022-08-26] MEDS: APIXABAN 5 MG TABLET PO SCH ×2 (09:05→22:54)
[2022-08-26] MEDS: SILVER SULFADIAZINE 1% TOP CREAM 50 GM JAR TP SCH ×2 (09:05→23:01)
[2022-08-26] MEDS: VENLAFAXINE HCL 75 MG E.R. CAPSULES PO SCH (09:05)
[2022-08-26] MEDS: ARIPiprazole 10 MG TABLET PO SCH (09:05)
[2022-08-26] MEDS: CLOTRIMAZOLE 1% CREAM TP SCH ×2 (09:06→23:00)
[2022-08-26] MEDS: ALBUTEROL SO4 HFA INHALER IH PRN (11:34)
[2022-08-26] MEDS: oxyCODONE HCL 5 MG TABLET PO PRN ×3 (11:55→23:01)
[2022-08-26] MEDS: TORSEMIDE 20 MG TABLET (FP) PO SCH (11:57)
[2022-08-26] MEDS ORDERED: LISINOPRIL 10 MG TABLET PO SCH (12:00)
[2022-08-26] MEDS: LIDOCAINE 5% TOPICAL PATCH TP SCH (15:11)
[2022-08-26 15:56] VITALS: RESP 18
[2022-08-26] MEDS ORDERED: INSULIN (NOVOLOG) ASPART 100 UNITS/ML 10ML VIAL ONE (21:55)
[2022-08-26] MEDS: MELATONIN 5 MG TABLETS PO PRN (22:54)
[2022-08-26] MEDS: traZODone HCL 100 MG TABLET (FP) PO SCH (22:54)
[2022-08-26] MEDS: ATORVASTATIN CA 20 MG TABLET (FP) PO SCH (22:54)
[2022-08-26] MEDS: LIDOCAINE PATCH REMOVAL MC SCH (23:00)
[2022-08-27] MEDS: PIPERACILLIN/TAZOB 3.375 GM 3.375 GM in DEXTROSE 5%-WATER - 50 ML IVPB SCH ×3 (02:39→17:27)
[2022-08-27] MEDS ORDERED: INSULIN (NOVOLOG) ASPART 100 UNITS/ML 10ML VIAL ONE ×3 (05:29→22:34)
[2022-08-27] MEDS: oxyCODONE HCL 5 MG TABLET PO PRN ×2 (05:36→23:12)
[2022-08-27] MEDS: INSULIN SLIDING SCALE (NOVOLOG) 1 VIAL SQ SCH ×4 (06:06→23:40)
[2022-08-27] MEDS ORDERED: MELATONIN 5 MG TABLETS PO PRN (07:25)
[2022-08-27] MEDS ORDERED: ALBUTEROL SO4 HFA INHALER IH PRN (07:25)
[2022-08-27] MEDS ORDERED: ARIPiprazole 5 MG TABLET ONE (09:36)
[2022-08-27] MEDS: VENLAFAXINE HCL 75 MG E.R. CAPSULES PO SCH (09:41)
[2022-08-27] MEDS: CARVEDILOL 25 MG TABLET (FP) PO SCH ×2 (09:41→23:12)
[2022-08-27] MEDS: APIXABAN 5 MG TABLET PO SCH ×2 (09:41→23:11)
[2022-08-27] MEDS: TORSEMIDE 20 MG TABLET (FP) PO SCH (09:41)
[2022-08-27] MEDS: LIDOCAINE 5% TOPICAL PATCH TP SCH ×2 (09:42→09:49)
[2022-08-27] MEDS: CLOTRIMAZOLE 1% CREAM TP SCH ×2 (09:53→23:27)
[2022-08-27 09:54] LABS: HEMATOCRIT 37.1 % (35.4-49); HEMOGLOBIN 12.4 GM/dL (11.7-16.9); MCH 30.1 pg (25.7-33.7); MCHC 33.4 g/dl (32.0-35.9); MEAN CELL VOLUME 90.3 fl (80-96); MEAN PLT VOLUME 7.4 fl (7.5-11.1); PLATELET COUNT 271 10^3/uL (134-434); RBC 4.11 M/mm3 (4.00-5.60); RDW 16.5 % (11.9-15.9); WHITE BLOOD COUNT 8.5 K/mm3 (4.0-10.0)
[2022-08-27] MEDS: SILVER SULFADIAZINE 1% TOP CREAM 50 GM JAR TP SCH ×2 (09:54→23:27)
[2022-08-27 10:22] LABS: CALCIUM 8.5 mg/dL (8.5-10.1)
[2022-08-27 10:23] LABS: ALBUMIN 2.5 g/dl (3.4-5.0); BLOOD UREA NITROGEN 49.2 mg/dL (7-18)
[2022-08-27 10:25] LABS: MAGNESIUM 2.6 mg/dL (1.8-2.4)
[2022-08-27 10:28] LABS: BILIRUBIN,TOTAL 0.4 mg/dL (0.2-1); CREATININE 1.4 mg/dL (0.55-1.3); PHOSPHOROUS 3.8 mg/dL (2.5-4.9); TOT PROT 6.9 g/dl (6.4-8.2)
[2022-08-27] MEDS: LISINOPRIL 20 MG TABLET PO SCH (10:34)
[2022-08-27] MEDS: TAMSULOSIN HCL 0.4 MG CAP PO SCH ×2 (10:34→23:12)
[2022-08-27] MEDS: ARIPiprazole 10 MG TABLET PO SCH (10:35)
[2022-08-27] MEDS: GABAPENTIN 400 MG CAPSULE PO SCH ×2 (13:20→23:12)
[2022-08-27] MEDS: traZODone HCL 100 MG TABLET (FP) PO SCH (23:12)
[2022-08-27] MEDS: ATORVASTATIN CA 20 MG TABLET (FP) PO SCH (23:12)
[2022-08-27] MEDS: LIDOCAINE PATCH REMOVAL MC SCH (23:28)
[2022-08-28] MEDS: PIPERACILLIN/TAZOB 3.375 GM 3.375 GM in DEXTROSE 5%-WATER - 50 ML IVPB SCH ×3 (02:49→17:53)
[2022-08-28] MEDS ORDERED: INSULIN (NOVOLOG) ASPART 100 UNITS/ML 10ML VIAL ONE ×2 (06:12→23:11)
[2022-08-28] MEDS: GABAPENTIN 400 MG CAPSULE PO SCH ×3 (06:59→22:59)
[2022-08-28] MEDS: oxyCODONE HCL 5 MG TABLET PO PRN ×3 (06:59→23:17)
[2022-08-28] MEDS: TAMSULOSIN HCL 0.4 MG CAP PO SCH ×2 (06:59→23:00)
[2022-08-28] MEDS: INSULIN SLIDING SCALE (NOVOLOG) 1 VIAL SQ SCH ×4 (07:07→23:08)
[2022-08-28 08:06] LABS: HEMATOCRIT 39.3 % (35.4-49); HEMOGLOBIN 13.1 GM/dL (11.7-16.9); MCH 30.1 pg (25.7-33.7); MCHC 33.3 g/dl (32.0-35.9); MEAN CELL VOLUME 90.3 fl (80-96); MEAN PLT VOLUME 7.3 fl (7.5-11.1); PLATELET COUNT 263 10^3/uL (134-434); RBC 4.35 M/mm3 (4.00-5.60); RDW 16.4 % (11.9-15.9); WHITE BLOOD COUNT 8.8 K/mm3 (4.0-10.0)
[2022-08-28 08:21] LABS: CALCIUM 8.6 mg/dL (8.5-10.1)
[2022-08-28 08:22] LABS: ALBUMIN 2.6 g/dl (3.4-5.0); BLOOD UREA NITROGEN 44.3 mg/dL (7-18); MAGNESIUM 2.3 mg/dL (1.8-2.4)
[2022-08-28 08:25] LABS: CREATININE 1.3 mg/dL (0.55-1.3)
[2022-08-28 08:26] LABS: BILIRUBIN,TOTAL 0.5 mg/dL (0.2-1); PHOSPHOROUS 4.1 mg/dL (2.5-4.9); TOT PROT 6.9 g/dl (6.4-8.2)
[2022-08-28] MEDS ORDERED: ARIPiprazole 5 MG TABLET ONE (10:36)
[2022-08-28] MEDS: VENLAFAXINE HCL 75 MG E.R. CAPSULES PO SCH (10:43)
[2022-08-28] MEDS: LIDOCAINE 5% TOPICAL PATCH TP SCH (10:43)
[2022-08-28] MEDS: TORSEMIDE 20 MG TABLET (FP) PO SCH (10:43)
[2022-08-28] MEDS: APIXABAN 5 MG TABLET PO SCH ×2 (10:43→23:00)
[2022-08-28] MEDS: CARVEDILOL 25 MG TABLET (FP) PO SCH ×2 (10:43→23:00)
[2022-08-28] MEDS: LISINOPRIL 20 MG TABLET PO SCH (10:43)
[2022-08-28] MEDS: SILVER SULFADIAZINE 1% TOP CREAM 50 GM JAR TP SCH ×2 (10:44→23:09)
[2022-08-28] MEDS: CLOTRIMAZOLE 1% CREAM TP SCH ×2 (10:44→23:00)
[2022-08-28] MEDS: ARIPiprazole 10 MG TABLET PO SCH (11:51)
[2022-08-28] MEDS ORDERED: ARIPiprazole 5 MG TABLET PO SCH (14:27)
[2022-08-28] MEDS: ATORVASTATIN CA 20 MG TABLET (FP) PO SCH (22:59)
[2022-08-28] MEDS: traZODone HCL 100 MG TABLET (FP) PO SCH (23:00)
[2022-08-28] MEDS: LIDOCAINE PATCH REMOVAL MC SCH (23:00)
[2022-08-29] MEDS: PIPERACILLIN/TAZOB 3.375 GM 3.375 GM in DEXTROSE 5%-WATER - 50 ML IVPB SCH ×2 (02:14→10:27)
[2022-08-29] MEDS: TAMSULOSIN HCL 0.4 MG CAP PO SCH (06:01)
[2022-08-29] MEDS: GABAPENTIN 400 MG CAPSULE PO SCH ×2 (06:01→13:28)
[2022-08-29] MEDS ORDERED: INSULIN (NOVOLOG) ASPART 100 UNITS/ML 10ML VIAL ONE ×3 (06:01→16:40)
[2022-08-29] MEDS: INSULIN SLIDING SCALE (NOVOLOG) 1 VIAL SQ SCH ×3 (06:02→16:41)
[2022-08-29] MEDS ORDERED: MINERAL OIL/PET HY-PHL TOPICAL OINTMENT 454 GM JAR TP SCH (10:00)
[2022-08-29] MEDS: APIXABAN 5 MG TABLET PO SCH (10:25)
[2022-08-29] MEDS: TORSEMIDE 20 MG TABLET (FP) PO SCH (10:25)
[2022-08-29] MEDS: LISINOPRIL 20 MG TABLET PO SCH (10:25)
[2022-08-29] MEDS: VENLAFAXINE HCL 75 MG E.R. CAPSULES PO SCH (10:26)
[2022-08-29] MEDS: LIDOCAINE 5% TOPICAL PATCH TP SCH ×2 (10:26→10:35)
[2022-08-29] MEDS: CARVEDILOL 25 MG TABLET (FP) PO SCH (10:26)
[2022-08-29] MEDS: SILVER SULFADIAZINE 1% TOP CREAM 50 GM JAR TP SCH (10:28)
[2022-08-29] MEDS: CLOTRIMAZOLE 1% CREAM TP SCH (10:29)
[2022-08-29 12:05] LABS: HEMATOCRIT 39.9 % (35.4-49); MCH 29.6 pg (25.7-33.7); MCHC 32.5 g/dl (32.0-35.9); MEAN PLT VOLUME 7.8 fl (7.5-11.1); PLATELET COUNT 235 10^3/uL (134-434); RBC 4.39 M/mm3 (4.00-5.60); RDW 16.2 % (11.9-15.9); WHITE BLOOD COUNT 10.1 K/mm3 (4.0-10.0)
[2022-08-29 12:29] LABS: CALCIUM 8.5 mg/dL (8.5-10.1)
[2022-08-29 12:30] LABS: ALBUMIN 2.6 g/dl (3.4-5.0); BLOOD UREA NITROGEN 38.4 mg/dL (7-18); MAGNESIUM 2.3 mg/dL (1.8-2.4)
[2022-08-29 12:33] LABS: CREATININE 1.3 mg/dL (0.55-1.3); PHOSPHOROUS 3.5 mg/dL (2.5-4.9)
[2022-08-29 12:35] LABS: BILIRUBIN,TOTAL 0.9 mg/dL (0.2-1)
[2022-08-29] MEDS ORDERED: AMOX TR/POT CLAV 875MG/125MG TABLETS (FP) PO SCH (17:30)
[2022-08-29 21:22] VITALS: BP 122/70; PULSE 72; TEMP 98.2
== END 2022-08-29 09:20 | DRG 720 ==
LOC: JER 12:15 → JERBED 17:42 → J4S 21:36 → J8W 08-26 15:48 → J4S 08-26 15:49 → J8W 08-26 18:19
PROVIDERS: ADMIT Internal Medicine; ATTEND Nurse Practitioner Acute Care
PROC: XW033E5 Introduction of Remdesivir Anti-infective into Peripheral Vein, Percutaneous Approach, New Technology Group 5 (ICD-10-PCS; principal; 2022-08-21)
DX: A41.89 Other specified sepsis (principal); U07.1 COVID-19; J96.01 Acute respiratory failure with hypoxia; R50.9 Fever, unspecified; R00.0 Tachycardia, unspecified; F41.8 Other specified anxiety disorders; K21.9 Gastro-esophageal reflux disease without esophagitis; E78.00 Pure hypercholesterolemia, unspecified; E11.51 Type 2 diabetes mellitus with diabetic peripheral angiopathy without gangrene; M54.50 Low back pain, unspecified; I48.20 Chronic atrial fibrillation, unspecified; E66.01 Morbid (severe) obesity due to excess calories; Z68.42 Body mass index [BMI] 45.0-49.9, adult; E11.610 Type 2 diabetes mellitus with diabetic neuropathic arthropathy; M25.512 Pain in left shoulder; B35.3 Tinea pedis; I13.0 Hypertensive heart and chronic kidney disease with heart failure and stage 1 through stage 4 chronic kidney disease, or unspecified chronic kidney disease; E11.22 Type 2 diabetes mellitus with diabetic chronic kidney disease; I50.9 Heart failure, unspecified; N18.9 Chronic kidney disease, unspecified; D64.9 Anemia, unspecified; L03.116 Cellulitis of left lower limb; B96.4 Proteus (mirabilis) (morganii) as the cause of diseases classified elsewhere; B95.2 Enterococcus as the cause of diseases classified elsewhere; B95.1 Streptococcus, group B, as the cause of diseases classified elsewhere; N17.9 Acute kidney failure, unspecified; Z86.718 Personal history of other venous thrombosis and embolism; Z89.511 Acquired absence of right leg below knee; Z96.651 Presence of right artificial knee joint; Z89.519 Acquired absence of unspecified leg below knee
CPT/HCPCS: 0241U-QW; 36415; 71045-TC-FY; 73700-TC-RT; 80053; 81003; 82553; 82570; 82728; 82803; 82962; 83540; 83550; 83605; 83735; 83880; 84100; 84156; 84484; 85025; 85027; 85610; 85651; 85730; 86140; 86850; 86900; 86901; 87040; 87070; 87077; 87081; 87086; 87186; 87205; 93005; 93010; 93306-TC; 99291; C9399; C9803-CS; J0878; J1100; J1644; U0003; U0005

== ENCOUNTER 2022-09-05 17:43 | Inpatient (IN) | payer OTHER ==
[2022-09-05] MEDS ORDERED: PIPERACILLIN/TAZOBACTAM 4.5 GM VIAL IVPB ONE (18:34)
[2022-09-05] MEDS ORDERED: VANCOMYCIN 1,000 MG in DEXTROSE 5%-WATER - 250 ML IVPB ONE (18:34)
[2022-09-05] MEDS ORDERED: PIPERACILLIN/TAZOB 4.5 GM 4.5 GM/100 ML BAG IVPB ONE (18:47)
[2022-09-05 19:07] LABS: EOS % 2.6 % (0-4.5); HEMOGLOBIN 11.6 GM/dL (11.7-16.9); MCH 29.2 pg (25.7-33.7); MCHC 32.2 g/dl (32.0-35.9); MEAN CELL VOLUME 90.6 fl (80-96); MEAN PLT VOLUME 8.7 fl (7.5-11.1); MONO % 9.6 % (3.8-10.2); NEUT % 72.8 % (42.8-82.8); PLATELET COUNT 207 10^3/uL (134-434); RBC 3.97 M/mm3 (4.00-5.60); RDW 16.3 % (11.9-15.9); WHITE BLOOD COUNT 8.7 K/mm3 (4.0-10.0)
[2022-09-05 19:15] LABS: INR 1.42 (0.83-1.09); PROTHROMBIN TIME (PATIENT) 16.4 SEC (9.7-13.0)
[2022-09-05 19:18] LABS: ACTIVATED PTT 31.8 SECONDS (25.2-36.5)
[2022-09-05 19:27] LABS: ALBUMIN 2.7 g/dl (3.4-5.0); BLOOD UREA NITROGEN 39.4 mg/dL (7-18); CALCIUM 8.6 mg/dL (8.5-10.1)
[2022-09-05] MEDS ORDERED: VANCOMYCIN/WATER FOR INJ (PEG) 1,000 MG/200 ML BAG IVPB ONE (19:28)
[2022-09-05 19:30] LABS: CREATININE 1.7 mg/dL (0.55-1.3)
[2022-09-05 19:33] LABS: BILIRUBIN,TOTAL 0.4 mg/dL (0.2-1); TOT PROT 7.2 g/dl (6.4-8.2)
[2022-09-05] MEDS ORDERED: SODIUM CHLORIDE 0.9% 500 ML INFUS.BAG IV ONE (20:13)
[2022-09-05] MEDS ORDERED: ACETAMINOPHEN 1000 MG/100 ML BAG IVPB ONE (23:07)
[2022-09-06] MEDS ORDERED: SODIUM CHLORIDE 0.9% 500 ML INFUS.BAG IV ONE (00:10)
[2022-09-06] MEDS: SODIUM CHLORIDE 1,000 ML IV SCH ×3 (01:06→17:11)
[2022-09-06] MEDS: PIPERACILLIN/TAZOB 3.375 GM 3.375 GM in DEXTROSE 5%-WATER - 50 ML IVPB SCH ×3 (01:07→18:06)
[2022-09-06] MEDS ORDERED: PIPERACILLIN/TAZOB 3.375 GM 3.375 GM/50 ML BAG IVPB ONE (01:15)
[2022-09-06] MEDS ORDERED: ACETAMINOPHEN 325 MG TABLET (FP) ONE (01:16)
[2022-09-06] MEDS: ACETAMINOPHEN 325 MG TABLET (FP) PO PRN ×3 (01:24→16:31)
[2022-09-06 02:33] LABS: URINE APPEARANCE CLEAR; URINE BILIRUBIN NEGATIVE (NEGATIVE); URINE COLOR YELLOW; URINE GLUCOSE (UA) 3+ (NEGATIVE); URINE KETONE NEGATIVE (NEGATIVE); URINE LEUK ESTERASE NEGATIVE (NEGATIVE); URINE NITRITE NEGATIVE (NEGATIVE); URINE PROTEIN NEGATIVE (NEGATIVE); URINE UROBILINOGEN 0.2 mg/dL (0.2-1.0)
[2022-09-06 05:46] VITALS: BMI 46.1
[2022-09-06] MEDS ORDERED: HEPARIN NA (PORCINE) 5,000 UNITS/ML 1ML VIAL SQ SCH (06:00)
[2022-09-06] MEDS: oxyCODONE HCL 5 MG TABLET PO SCH ×3 (06:56→21:49)
[2022-09-06] MEDS: GABAPENTIN 400 MG CAPSULE PO SCH ×3 (06:56→21:49)
[2022-09-06] MEDS: INSULIN SLIDING SCALE (NOVOLOG) 1 VIAL SQ SCH ×4 (06:57→21:52)
[2022-09-06] MEDS ORDERED: INSULIN SLIDING SCALE (NOVOLOG) 1 VIAL SQ SCH (07:00)
[2022-09-06 08:17] LABS: BASO % 1.4 % (0-2.0); EOS % 4.8 % (0-4.5); HEMATOCRIT 33.9 % (35.4-49); HEMOGLOBIN 11.3 GM/dL (11.7-16.9); LYMPH % 13.3 % (8-40); MCH 30.5 pg (25.7-33.7); MCHC 33.3 g/dl (32.0-35.9); MEAN CELL VOLUME 91.7 fl (80-96); MEAN PLT VOLUME 8.5 fl (7.5-11.1); MONO % 9.1 % (3.8-10.2); NEUT % 71.4 % (42.8-82.8); PLATELET COUNT 163 10^3/uL (134-434); RDW 16.3 % (11.9-15.9)
[2022-09-06 08:31] LABS: BLOOD UREA NITROGEN 38.1 mg/dL (7-18); CALCIUM 8.2 mg/dL (8.5-10.1); MAGNESIUM 2.6 mg/dL (1.8-2.4)
[2022-09-06 08:32] LABS: ALBUMIN 2.5 g/dl (3.4-5.0)
[2022-09-06 08:34] LABS: BILIRUBIN,TOTAL 0.4 mg/dL (0.2-1); CREATININE 1.7 mg/dL (0.55-1.3); PHOSPHOROUS 4.1 mg/dL (2.5-4.9); TOT PROT 6.7 g/dl (6.4-8.2)
[2022-09-06] MEDS: CARVEDILOL 25 MG TABLET (FP) PO SCH ×3 (09:53→21:49)
[2022-09-06] MEDS ORDERED: APIXABAN 5 MG TABLET PO SCH (10:00)
[2022-09-06] MEDS: PRIMIDONE 50 MG TABLET PO SCH ×2 (11:28→21:48)
[2022-09-06] MEDS ORDERED: VANCOMYCIN/WATER FOR INJ (PEG) 1,000 MG/200 ML BAG IVPB SCH (19:00)
[2022-09-06] MEDS: traZODone HCL 100 MG TABLET (FP) PO SCH (21:49)
[2022-09-06] MEDS: APIXABAN 5 MG TABLET PO SCH (21:49)
[2022-09-06] MEDS: ATORVASTATIN CA 20 MG TABLET (FP) PO SCH (21:49)
[2022-09-07] MEDS: PIPERACILLIN/TAZOB 3.375 GM 3.375 GM in DEXTROSE 5%-WATER - 50 ML IVPB SCH ×3 (01:40→17:12)
[2022-09-07] MEDS: SODIUM CHLORIDE 1,000 ML IV SCH (06:08)
[2022-09-07] MEDS: GABAPENTIN 400 MG CAPSULE PO SCH ×3 (06:09→22:38)
[2022-09-07] MEDS: oxyCODONE HCL 5 MG TABLET PO SCH (06:09)
[2022-09-07] MEDS: INSULIN SLIDING SCALE (NOVOLOG) 1 VIAL SQ SCH ×4 (06:19→22:39)
[2022-09-07 09:09] LABS: HEMATOCRIT 35.7 % (35.4-49); HEMOGLOBIN 11.6 GM/dL (11.7-16.9); MCHC 32.6 g/dl (32.0-35.9); MEAN CELL VOLUME 92.2 fl (80-96); MEAN PLT VOLUME 8.7 fl (7.5-11.1); PLATELET COUNT 194 10^3/uL (134-434); RBC 3.87 M/mm3 (4.00-5.60); RDW 16.4 % (11.9-15.9); WHITE BLOOD COUNT 6.1 K/mm3 (4.0-10.0)
[2022-09-07 09:17] LABS: INR 1.28 (0.83-1.09); PROTHROMBIN TIME (PATIENT) 14.8 SEC (9.7-13.0)
[2022-09-07 09:18] LABS: ACTIVATED PTT 30.4 SECONDS (25.2-36.5)
[2022-09-07 09:30] LABS: CALCIUM 8.2 mg/dL (8.5-10.1)
[2022-09-07 09:31] LABS: ALBUMIN 2.5 g/dl (3.4-5.0); BLOOD UREA NITROGEN 25.3 mg/dL (7-18); MAGNESIUM 2.5 mg/dL (1.8-2.4)
[2022-09-07 09:34] LABS: CREATININE 1.2 mg/dL (0.55-1.3); PHOSPHOROUS 3.2 mg/dL (2.5-4.9)
[2022-09-07 09:35] LABS: BILIRUBIN,TOTAL 0.3 mg/dL (0.2-1); TOT PROT 6.8 g/dl (6.4-8.2)
[2022-09-07] MEDS: ACETAMINOPHEN 325 MG TABLET (FP) PO PRN ×2 (10:04→17:13)
[2022-09-07] MEDS: CARVEDILOL 25 MG TABLET (FP) PO SCH ×2 (10:04→22:38)
[2022-09-07] MEDS: APIXABAN 5 MG TABLET PO SCH ×2 (10:05→22:38)
[2022-09-07] MEDS: PRIMIDONE 50 MG TABLET PO SCH ×2 (10:05→22:38)
[2022-09-07] MEDS ORDERED: oxyCODONE HCL 5 MG TABLET PO PRN (12:53)
[2022-09-07] MEDS: DOCUSATE SODIUM 100 MG CAPSULE (FP) PO SCH ×2 (13:49→22:38)
[2022-09-07] MEDS: POLYETHYLENE GLYCOL (HEALTHYLAX) 3350 17 GM PACKET PO SCH ×2 (13:49→22:38)
[2022-09-07] MEDS: oxyCODONE HCL 5 MG TABLET PO PRN ×2 (17:13→22:37)
[2022-09-07] MEDS: VANCOMYCIN/WATER FOR INJ (PEG) 1,000 MG/200 ML BAG IVPB SCH (18:00)
[2022-09-07] MEDS: traZODone HCL 100 MG TABLET (FP) PO SCH (22:38)
[2022-09-07] MEDS: ATORVASTATIN CA 20 MG TABLET (FP) PO SCH (22:38)
[2022-09-08] MEDS: PIPERACILLIN/TAZOB 3.375 GM 3.375 GM in DEXTROSE 5%-WATER - 50 ML IVPB SCH ×3 (01:20→17:38)
[2022-09-08] MEDS: SODIUM CHLORIDE 1,000 ML IV SCH ×2 (03:00→17:38)
[2022-09-08] MEDS: GABAPENTIN 400 MG CAPSULE PO SCH ×3 (05:22→22:13)
[2022-09-08] MEDS: DOCUSATE SODIUM 100 MG CAPSULE (FP) PO SCH ×3 (05:22→22:13)
[2022-09-08] MEDS: VANCOMYCIN/WATER FOR INJ (PEG) 1,000 MG/200 ML BAG IVPB SCH (06:28)
[2022-09-08] MEDS: INSULIN SLIDING SCALE (NOVOLOG) 1 VIAL SQ SCH ×4 (06:42→23:26)
[2022-09-08] MEDS: oxyCODONE HCL 5 MG TABLET PO PRN ×3 (08:15→22:12)
[2022-09-08] MEDS: CARVEDILOL 25 MG TABLET (FP) PO SCH ×2 (10:54→22:13)
[2022-09-08] MEDS: APIXABAN 5 MG TABLET PO SCH ×2 (10:54→22:13)
[2022-09-08] MEDS: POLYETHYLENE GLYCOL (HEALTHYLAX) 3350 17 GM PACKET PO SCH ×2 (10:54→22:11)
[2022-09-08] MEDS: PRIMIDONE 50 MG TABLET PO SCH ×2 (11:10→22:14)
[2022-09-08 12:50] LABS: BASO % 0.9 % (0-2.0); EOS % 3.8 % (0-4.5); HEMATOCRIT 35.1 % (35.4-49); HEMOGLOBIN 11.4 GM/dL (11.7-16.9); LYMPH % 11.4 % (8-40); MCH 29.8 pg (25.7-33.7); MCHC 32.5 g/dl (32.0-35.9); MEAN CELL VOLUME 91.7 fl (80-96); MEAN PLT VOLUME 8.2 fl (7.5-11.1); MONO % 4.9 % (3.8-10.2); PLATELET COUNT 186 10^3/uL (134-434); RBC 3.83 M/mm3 (4.00-5.60); RDW 16.2 % (11.9-15.9); WHITE BLOOD COUNT 6.7 K/mm3 (4.0-10.0)
[2022-09-08 12:52] LABS: CALCIUM 8.4 mg/dL (8.5-10.1)
[2022-09-08 12:53] LABS: ALBUMIN 2.4 g/dl (3.4-5.0); BLOOD UREA NITROGEN 19.2 mg/dL (7-18); MAGNESIUM 2.2 mg/dL (1.8-2.4)
[2022-09-08 12:57] LABS: BILIRUBIN,TOTAL 0.8 mg/dL (0.2-1)
[2022-09-08 12:58] LABS: TOT PROT 6.5 g/dl (6.4-8.2)
[2022-09-08] MEDS: COLLAGENASE CLOSTRIDIUM HIST. 30 GRAMS TUBE TP SCH (13:13)
[2022-09-08] MEDS ORDERED: BISACODYL 5 MG TABLET.DR (FP) PO ONE (13:37)
[2022-09-08] MEDS ORDERED: diphenhydrAMINE HCL 25 MG CAPSULE (FP) PO ONE (21:17)
[2022-09-08] MEDS: ACETAMINOPHEN 325 MG TABLET (FP) PO PRN (22:12)
[2022-09-08] MEDS: ATORVASTATIN CA 20 MG TABLET (FP) PO SCH (22:13)
[2022-09-08] MEDS: traZODone HCL 100 MG TABLET (FP) PO SCH (22:13)
[2022-09-09] MEDS: PIPERACILLIN/TAZOB 3.375 GM 3.375 GM in DEXTROSE 5%-WATER - 50 ML IVPB SCH ×3 (01:35→17:42)
[2022-09-09] MEDS: SODIUM CHLORIDE 1,000 ML IV SCH ×3 (01:37→16:23)
[2022-09-09] MEDS: GABAPENTIN 400 MG CAPSULE PO SCH ×3 (06:23→21:19)
[2022-09-09] MEDS: DOCUSATE SODIUM 100 MG CAPSULE (FP) PO SCH ×4 (06:24→21:19)
[2022-09-09] MEDS: INSULIN SLIDING SCALE (NOVOLOG) 1 VIAL SQ SCH ×4 (06:24→21:20)
[2022-09-09] MEDS: oxyCODONE HCL 5 MG TABLET PO PRN (06:27)
[2022-09-09 09:11] LABS: BASO % 1.5 % (0-2.0); HEMATOCRIT 35.2 % (35.4-49); HEMOGLOBIN 11.6 GM/dL (11.7-16.9); LYMPH % 15.9 % (8-40); MCHC 32.9 g/dl (32.0-35.9); MEAN CELL VOLUME 91.1 fl (80-96); MEAN PLT VOLUME 8.2 fl (7.5-11.1); MONO % 6.9 % (3.8-10.2); NEUT % 70.7 % (42.8-82.8); PLATELET COUNT 174 10^3/uL (134-434); RBC 3.86 M/mm3 (4.00-5.60); RDW 15.8 % (11.9-15.9); WHITE BLOOD COUNT 5.1 K/mm3 (4.0-10.0)
[2022-09-09 09:28] LABS: CALCIUM 8.2 mg/dL (8.5-10.1)
[2022-09-09 09:29] LABS: ALBUMIN 2.5 g/dl (3.4-5.0); BLOOD UREA NITROGEN 17.3 mg/dL (7-18); MAGNESIUM 1.9 mg/dL (1.8-2.4)
[2022-09-09 09:32] LABS: CREATININE 1.1 mg/dL (0.55-1.3)
[2022-09-09 09:33] LABS: BILIRUBIN,TOTAL 0.4 mg/dL (0.2-1); TOT PROT 6.8 g/dl (6.4-8.2)
[2022-09-09] MEDS: CARVEDILOL 25 MG TABLET (FP) PO SCH ×2 (10:06→21:20)
[2022-09-09] MEDS: APIXABAN 5 MG TABLET PO SCH ×2 (10:08→21:20)
[2022-09-09] MEDS: POLYETHYLENE GLYCOL (HEALTHYLAX) 3350 17 GM PACKET PO SCH ×3 (10:08→21:20)
[2022-09-09] MEDS: PRIMIDONE 50 MG TABLET PO SCH ×2 (10:09→22:19)
[2022-09-09] MEDS: COLLAGENASE CLOSTRIDIUM HIST. 30 GRAMS TUBE TP SCH (10:10)
[2022-09-09] MEDS: AMINO ACIDS/PROTEIN HYDROLYS 30 ML LIQUID.PKT PO SCH (17:42)
[2022-09-09] MEDS: traZODone HCL 100 MG TABLET (FP) PO SCH (21:19)
[2022-09-09] MEDS: ATORVASTATIN CA 20 MG TABLET (FP) PO SCH (21:20)
[2022-09-10] MEDS: SODIUM CHLORIDE 1,000 ML IV SCH ×2 (01:59→14:30)
[2022-09-10] MEDS: PIPERACILLIN/TAZOB 3.375 GM 3.375 GM in DEXTROSE 5%-WATER - 50 ML IVPB SCH ×2 (02:00→09:38)
[2022-09-10] MEDS: DOCUSATE SODIUM 100 MG CAPSULE (FP) PO SCH ×3 (05:04→21:40)
[2022-09-10] MEDS: oxyCODONE HCL 5 MG TABLET PO PRN ×3 (05:26→21:38)
[2022-09-10] MEDS: GABAPENTIN 400 MG CAPSULE PO SCH ×3 (05:26→21:39)
[2022-09-10] MEDS: INSULIN SLIDING SCALE (NOVOLOG) 1 VIAL SQ SCH ×4 (06:08→21:40)
[2022-09-10] MEDS: ACETAMINOPHEN 325 MG TABLET (FP) PO PRN (07:51)
[2022-09-10] MEDS: AMINO ACIDS/PROTEIN HYDROLYS 30 ML LIQUID.PKT PO SCH ×2 (08:36→17:28)
[2022-09-10 09:23] LABS: BASO % 1.2 % (0-2.0); HEMATOCRIT 34.9 % (35.4-49); HEMOGLOBIN 11.4 GM/dL (11.7-16.9); LYMPH % 17.5 % (8-40); MCHC 32.8 g/dl (32.0-35.9); MEAN CELL VOLUME 91.4 fl (80-96); MEAN PLT VOLUME 8.4 fl (7.5-11.1); MONO % 7.1 % (3.8-10.2); NEUT % 69.2 % (42.8-82.8); PLATELET COUNT 156 10^3/uL (134-434); RBC 3.82 M/mm3 (4.00-5.60); RDW 16.1 % (11.9-15.9); WHITE BLOOD COUNT 4.8 K/mm3 (4.0-10.0)
[2022-09-10] MEDS: APIXABAN 5 MG TABLET PO SCH ×2 (09:38→21:39)
[2022-09-10] MEDS: POLYETHYLENE GLYCOL (HEALTHYLAX) 3350 17 GM PACKET PO SCH ×2 (09:39→21:40)
[2022-09-10] MEDS: COLLAGENASE CLOSTRIDIUM HIST. 30 GRAMS TUBE TP SCH (09:39)
[2022-09-10] MEDS: CARVEDILOL 25 MG TABLET (FP) PO SCH ×2 (09:39→21:40)
[2022-09-10 09:40] LABS: ALBUMIN 2.4 g/dl (3.4-5.0); BLOOD UREA NITROGEN 15.4 mg/dL (7-18); CALCIUM 8.3 mg/dL (8.5-10.1); MAGNESIUM 1.9 mg/dL (1.8-2.4)
[2022-09-10] MEDS: PRIMIDONE 50 MG TABLET PO SCH ×2 (09:40→21:42)
[2022-09-10 09:45] LABS: BILIRUBIN,TOTAL 0.6 mg/dL (0.2-1); TOT PROT 6.7 g/dl (6.4-8.2)
[2022-09-10] MEDS: AMOX TR/POT CLAV 500MG/125MG TABLETS (FP) PO SCH (17:28)
[2022-09-10] MEDS: traZODone HCL 100 MG TABLET (FP) PO SCH (21:39)
[2022-09-10] MEDS: ATORVASTATIN CA 20 MG TABLET (FP) PO SCH (21:40)
[2022-09-11] MEDS: SODIUM CHLORIDE 1,000 ML IV SCH (00:01)
[2022-09-11 04:20] VITALS: RESP 18
[2022-09-11 06:34] VITALS: TEMP 97.6
[2022-09-11] MEDS: DOCUSATE SODIUM 100 MG CAPSULE (FP) PO SCH ×2 (06:54→14:56)
[2022-09-11] MEDS: INSULIN SLIDING SCALE (NOVOLOG) 1 VIAL SQ SCH ×2 (06:55→12:09)
[2022-09-11] MEDS: oxyCODONE HCL 5 MG TABLET PO PRN (06:56)
[2022-09-11] MEDS: GABAPENTIN 400 MG CAPSULE PO SCH ×2 (06:57→14:56)
[2022-09-11] MEDS: AMINO ACIDS/PROTEIN HYDROLYS 30 ML LIQUID.PKT PO SCH (08:30)
[2022-09-11] MEDS: AMOX TR/POT CLAV 500MG/125MG TABLETS (FP) PO SCH (08:30)
[2022-09-11 08:34] VITALS: BP 145/64; PULSE 89
[2022-09-11] MEDS: PRIMIDONE 50 MG TABLET PO SCH (11:08)
[2022-09-11] MEDS: APIXABAN 5 MG TABLET PO SCH (11:09)
[2022-09-11] MEDS: POLYETHYLENE GLYCOL (HEALTHYLAX) 3350 17 GM PACKET PO SCH (11:09)
[2022-09-11] MEDS: CARVEDILOL 25 MG TABLET (FP) PO SCH (11:09)
[2022-09-11] MEDS: COLLAGENASE CLOSTRIDIUM HIST. 30 GRAMS TUBE TP SCH (11:09)
== END 2022-09-11 14:09 | DRG 383 ==
LOC: JER 17:43 → JERBED 22:26 → J5S 09-06 03:05
PROVIDERS: ADMIT Internal Medicine
DX: L03.116 Cellulitis of left lower limb (principal); E66.01 Morbid (severe) obesity due to excess calories; Z68.42 Body mass index [BMI] 45.0-49.9, adult; M14.672 Charcot's joint, left ankle and foot; I48.20 Chronic atrial fibrillation, unspecified; E11.51 Type 2 diabetes mellitus with diabetic peripheral angiopathy without gangrene; E78.5 Hyperlipidemia, unspecified; M54.59 Other low back pain; F41.8 Other specified anxiety disorders; K21.9 Gastro-esophageal reflux disease without esophagitis; I48.91 Unspecified atrial fibrillation; J45.909 Unspecified asthma, uncomplicated; E11.22 Type 2 diabetes mellitus with diabetic chronic kidney disease; N18.9 Chronic kidney disease, unspecified; E11.621 Type 2 diabetes mellitus with foot ulcer; L97.528 Non-pressure chronic ulcer of other part of left foot with other specified severity; I13.0 Hypertensive heart and chronic kidney disease with heart failure and stage 1 through stage 4 chronic kidney disease, or unspecified chronic kidney disease; I50.9 Heart failure, unspecified; Z89.511 Acquired absence of right leg below knee; Z96.651 Presence of right artificial knee joint
CPT/HCPCS: 36415; 80053; 81003; 82962; 83036; 83735; 84100; 85025; 85027; 85610; 85730; 86850; 86900; 86901; 87040; 93005; 93010; 99285-25; C9803-CS; G0480; U0003; U0005